=== PATIENT | male | born 1965 | race Caucasian/White ===

== ENCOUNTER → 2018-08-22 | Outpatient (CLI) | payer MEDICARE ==
[2018-08-22 17:46] LABS: Blood Urea Nitrogen 20 mg/dL (9-20)
--- NOTE | 2018-08-23 18:58 | CT ---
EXAMINATION TYPE: CT chest w con DATE OF EXAM: 08/22/2018 COMPARISON: NONE HISTORY: SOB, enlarged lymph nodes CT DLP: 796 mGycm. Automated Exposure Control for Dose Reduction was Utilized. TECHNIQUE: CT scan of the thorax is performed following with IV Contrast, patient injected with 100 mL of Isovue 300. FINDINGS: LUNGS: The lungs are grossly clear, there is no concerning parenchymal mass. Scattered areas of subse gmental atelectasis are seen throughout the lungs. Solitary right lung bleb is noted. However there i s a 5 mm pulmonary nodule within the left upper lobe on series 4 image 24. There is no pleural effusi on or pneumothorax seen. The tracheobronchial tree is patent. MEDIASTINUM: There is a mildly enlarged right hilar lymph node measuring 1.2 cm in short axis. There are no other greater than 1 cm hilar or mediastinal lymph nodes. No pericardial effusion is seen. H eart is mildly enlarged. Moderate three-vessel coronary artery calcifications are seen. The aortic ro ot is mildly enlarged measuring 4.3 cm on series 5 image 52. OTHER: Small hiatal hernia is present. Incidental note is made of a subcentimeter splenule. Mild mult ilevel degenerative changes of the spine are noted. IMPRESSION: 1. Very mildly enlarged right hilar lymph node, possibly reactive. Overall this is of low suspicion. 2. Mildly aneurysmal aortic root measuring 4.3 cm. 3. Solitary 5 mm left upper lobe pulmonary nodule. Follow-up CT is recommended in 12 months to ensure stability.
== END | disposition home or self-care (01) ==
LOC: RADCTMAIN 16:58
PROVIDERS: ATTEND Family Medicine
DX: Q25.43 Congenital aneurysm of aorta (principal); R91.1 Solitary pulmonary nodule
CPT/HCPCS: 82565; 84520; 71260; 36415; Q9967

== ENCOUNTER 2018-10-05 12:44 | Inpatient (IN) | payer MEDICARE ==
[2018-10-05] MEDS ORDERED: ASPIRIN 81 MG PO STA (12:58)
[2018-10-05] MEDS ORDERED: SODIUM CHLORIDE 0.9% 1,000 ML IV STA (12:58)
[2018-10-05 13:50] LABS: ALT 23 U/L (21-72); AST 21 U/L (17-59); Albumin 3.8 g/dL (3.5-5.0); Alkaline Phosphatase 90 U/L (38-126); Anion Gap 12 mmol/L; Blood Urea Nitrogen 12 mg/dL (9-20); Calcium 9.4 mg/dL (8.4-10.2); Carbon Dioxide 20 mmol/L (22-30); Chloride 102 mmol/L (98-107); Glucose 271 mg/dL (74-99); Lipase 76 U/L (23-300); Magnesium 1.8 mg/dL (1.6-2.3); Potassium 4.4 mmol/L (3.5-5.1); Sodium 134 mmol/L (137-145); Total Bilirubin 1.1 mg/dL (0.2-1.3); Total Protein 7.4 g/dL (6.3-8.2)
[2018-10-05 13:53] LABS: Creatine Kinase 39 U/L (55-170)
[2018-10-05 13:57] LABS: Basophils # (A) 0.1 k/uL (0-0.2); Basophils % (A) 0 %; Eosinophils # (A) 0.1 k/uL (0-0.7); Eosinophils % (A) 1 %; HCT 49.3 % (39.0-53.0); HGB 16.2 gm/dL (13.0-17.5); Lymphocytes # (A) 1.6 k/uL (1.0-4.8); Lymphocytes % (A) 9 %; MCH 28.1 pg (25.0-35.0); MCHC 32.7 g/dL (31.0-37.0); Mean Platelet Volume 7.4; Monocytes % (A) 5 %; Neutrophils # (A) 15.8 k/uL (1.3-7.7); Neutrophils % (A) 83 %; Platelet Count 271 k/uL (150-450); RBC 5.74 m/uL (4.30-5.90); RDW 13.5 % (11.5-15.5); WBC 18.9 k/uL (3.8-10.6)
[2018-10-05 14:01] LABS: INR 1.1 (<1.2); Partial Thromboplastin Time 24.5 sec (22.0-30.0); Prothrombin Time 10.3 sec (9.0-12.0)
--- NOTE | 2018-10-05 14:02 | XR ---
EXAMINATION TYPE: XR chest 2V DATE OF EXAM: 10/05/2018 HISTORY: Chest Pain. REFERENCE: NONE. FINDINGS: The heart is mildly enlarged. The lungs are clear. Pleural spaces are clear. IMPRESSION: MILD CARDIOMEGALY.
[2018-10-05 14:06] LABS: Creatine Kinase MB 0.5 ng/mL (0.0-2.4); Troponin I <0.012 ng/mL (0.000-0.034)
[2018-10-05 14:08] LABS: D-Dimer 0.71 mg/L FEU (<0.60)
--- NOTE | 2018-10-05 14:42 | US ---
EXAMINATION TYPE: US venous doppler duplex LE LT DATE OF EXAM: 10/05/2018 2:26 PM COMPARISON: CLINICAL HISTORY: Pain. Left leg pain. Prominent veins seen on lateral leg superior to knee. No blo od thinners. Hx DVT on right leg. No redness or swelling. SIDE PERFORMED: Left TECHNIQUE: The lower extremity deep venous system is examined utilizing real time linear array sonog jordin with graded compression, doppler sonography and color-flow sonography. VESSELS IMAGED: External Iliac Vein (EIV) Common Femoral Vein Deep Femoral Vein Greater Saphenous Vein * Femoral Vein Popliteal Vein Small Saphenous Vein * Proximal Calf Veins (* superficial vessels) Left Leg: Negative for DVT. Prominent lymph nodes seen in groin, largest- 3.9 x 2.2 x 1.7 cm. Area of visual bulging scanned. Superficial veins seen, patent and compressible. IMPRESSION: 1. Left lower extremity negative for deep venous thrombosis. 2. Left inguinal adenopathy measuring approximately 2 x 2 x 4 cm. 3. Large varicose veins within the superficial leg superior to the knee.
--- NOTE | 2018-10-05 15:02 | ED ---
Chest Pain HPI - General Chief Complaint: Chest Pain Stated Complaint: Chest Pressure, Hot/Cold Flashes Time Seen by Provider: 10/05/18 12:58 Source: patient, RN notes reviewed Mode of arrival: ambulatory Limitations: no limitations - History of Present Illness Initial Comments: 53-year-old male presents to the emergency Department with multiple complaints. Patient primarily his chest pain. Patient states has been progressively getting worse. He states he noticed some shortness of breath associated with. Patient states he has history of hyperlipidemia, hypertension, diabetes and is a current smoker. Patient states the pain is in the central to left-sided. Patient also states that he's been having some abdominal issues including pain bloating gas. Patient has noted current dysuria or hematuria. He states his blood sugars have been out of control states that they have been up as high as 400s. Patient states that he just does not feel well feels that is not taking care of himself. - Related Data Home Medications Medication Instructions Recorded Confirmed Atorvastatin [Lipitor] 20 mg PO HS 10/05/18 10/05/18 Insulin Degludec [Tresiba 16 unit SQ DAILY 10/05/18 10/05/18 Flextouch U-200] Lisinopril 20 mg PO DAILY 10/05/18 10/05/18 Umeclidinium Brm/Vilanterol Tr 1 puff INHALATION DAILY 10/05/18 10/05/18 [Anoro Ellipta 62.5-25 Mcg INH] Wheat Dextrin [Benefiber] 1 packet PO DAILY 10/05/18 10/05/18 Allergies Allergy/AdvReac Type Severity Reaction Status Date / Time No Known Allergies Allergy Verified 10/05/18 14:46 Review of Systems ROS Statement: Those systems with pertinent positive or pertinent negative responses have been documented in the HPI. ROS Other: All systems not noted in ROS Statement are negative. EKG Findings - EKG Comments: EKG Findings:: EKG performed at 13:19 sinus rhythm with PVCs, rate 91 CA interval 186 QRS 96 QT/QTC 338/450 Past Medical History Past Medical History: Diabetes Mellitus, Hypertension Additional Past Medical History / Comment(s): heart murmur History of Any Multi-Drug Resistant Organisms: None Reported Past Surgical History: No Surgical Hx Reported Past Psychological History: No Psychological Hx Reported Smoking Status: Current some day smoker Past Alcohol Use History: None Reported Past Drug Use History: Marijuana General Exam Limitations: no limitations General appearance: alert, in no apparent distress Head exam: Present: atraumatic, normocephalic, normal inspection Eye exam: Present: normal appearance, PERRL, EOMI. Absent: scleral icterus, conjunctival injection, periorbital swelling ENT exam: Present: normal exam, normal oropharynx, mucous membranes moist Neck exam: Present: normal inspection, full ROM. Absent: tenderness, meningismus, lymphadenopathy Respiratory exam: Present: normal lung sounds bilaterally. Absent: respiratory distress, wheezes, rales, rhonchi, stridor Cardiovascular Exam: Present: normal rhythm, tachycardia, normal heart sounds. Absent: systolic murmur, diastolic murmur, rubs, gallop, clicks GI/Abdominal exam: Present: soft, tenderness (Mild diffuse), normal bowel sounds. Absent: distended, guarding, rebound, rigid Back exam: Absent: CVA tenderness (R), CVA tenderness (L) Skin exam: Present: warm, dry, intact, normal color. Absent: rash Course Vital Signs 10/05/18 10/05/18 10/05/18 12:51 15:30 16:00 Temperature 98.6 F Pulse Rate 104 H 96 99 Respiratory 20 16 16 Rate Blood Pressure 98/65 104/88 112/79 O2 Sat by Pulse 98 97 98 Oximetry Disposition Clinical Impression: Chest pain, Hyperglycemia, Uncontrolled diabetes mellitus Disposition: ADMITTED IP TO THIS HOSP Condition: Fair Referrals: Gema Stone DO [Primary Care Provider] - 1-2 days
--- NOTE | 2018-10-05 16:18 | CT ---
CT CHEST FOR PULMONARY EMBOLISM. EXAMINATION TYPE: CT chest angio for PE DATE OF EXAM: 10/05/2018 INDICATION: Shortness of breath and chest pressure CT DLP: 592.9 mGycm, Automated exposure control for dose reduction was used. CONTRAST: Patient injected with 100 mL of Isovue 370. COMPARISON: None TECHNIQUE: CT of the chest is performed on a spiral scan at 2 mm thick sections. Study is performed with intravenous contrast timed for evaluation for pulmonary embolism. This will limit additional po rtions of the evaluation. 3-D MIP imaging is performed. FINDINGS: No persistent filling defects are evident to suggest an acute pulmonary embolism. No mediastinal or hilar adenopathy enlarged by CT criteria is evident. The ascending aorta diameter at the level of the main pulmonary artery is 3.7 cm. The main pulmonary artery diameter at the bifur cation is 3.6 cm. No right heart strain is evident. Lung windows are clear. Limited CT section through the upper abdomen are unremarkable. IMPRESSIONS: 1. No acute pulmonary embolism.
[2018-10-05] MEDS ORDERED: NITROGLYCERIN SL TABS 0.4 MG TAB SUBLINGUAL PRN (16:24)
[2018-10-05] MEDS ORDERED: HEPARIN SODIUM,PORCINE 5,000 UNIT/ML 1 ML VIAL IV ONE (16:24)
[2018-10-05 16:37] LABS: Appearance,Urine Clear (Clear); Bilirubin,Urine Negative (Negative); Blood,Urine Negative (Negative); Color,Urine Yellow; Glucose,Urine (UA) 4+ (Negative); Leukocyte Esterase,Urine Negative (Negative); Nitrite,Urine Negative (Negative); Protein,Urine Trace (Negative); Urobilinogen,Urine <2.0 mg/dL (<2.0)
[2018-10-05 16:39] LABS: Ketones,Urine 2+ (Negative); Specific Gravity,Urine >1.050 (1.001-1.035)
[2018-10-05] MEDS: HEPARIN SOD,PORK IN 0.45% NACL 25,000 UNIT in 0.45% NACL 1 500ML.BAG IV SCH (17:48)
[2018-10-05] MEDS: INSULIN ASPART 100 UNIT/ML 1 ML 10 ML VIAL SQ SCH ×2 (18:51→21:00)
[2018-10-05 19:18] LABS: Creatine Kinase 36 U/L (55-170)
[2018-10-05 19:29] LABS: Creatine Kinase MB 0.5 ng/mL (0.0-2.4); Troponin I <0.012 ng/mL (0.000-0.034)
[2018-10-05] MEDS ORDERED: SIMETHICONE 80 MG CHEWABLE PO ONE (20:24)
[2018-10-05 20:45] LABS: Glucose,Whole Blood 284 mg/dL (75-99)
[2018-10-05] MEDS: ATORVASTATIN 20 MG TAB PO SCH (21:00)
[2018-10-06 01:35] LABS: Creatine Kinase 36 U/L (55-170)
[2018-10-06 01:46] LABS: Creatine Kinase MB 0.4 ng/mL (0.0-2.4); Troponin I <0.012 ng/mL (0.000-0.034)
[2018-10-06] MEDS: HEPARIN SODIUM,PORCINE 5,000 UNIT/ML 1 ML VIAL IV PRN ×3 (01:55→17:43)
[2018-10-06 06:40] LABS: Glucose,Whole Blood 189 mg/dL (75-99)
[2018-10-06] MEDS: INSULIN ASPART 100 UNIT/ML 1 ML 10 ML VIAL SQ SCH ×4 (09:02→21:39)
[2018-10-06 09:56] LABS: Basophils # (A) 0.1 k/uL (0-0.2); Basophils % (A) 1 %; Eosinophils # (A) 0.3 k/uL (0-0.7); Eosinophils % (A) 2 %; HCT 45.8 % (39.0-53.0); HGB 15.2 gm/dL (13.0-17.5); Lymphocytes # (A) 2.2 k/uL (1.0-4.8); Lymphocytes % (A) 13 %; MCH 28.7 pg (25.0-35.0); MCHC 33.2 g/dL (31.0-37.0); MCV 86.6 fL (80.0-100.0); Mean Platelet Volume 7.3; Monocytes % (A) 6 %; Neutrophils # (A) 13.5 k/uL (1.3-7.7); Neutrophils % (A) 78 %; Platelet Count 255 k/uL (150-450); RBC 5.29 m/uL (4.30-5.90); RDW 13.6 % (11.5-15.5); WBC 17.4 k/uL (3.8-10.6)
[2018-10-06 10:03] LABS: ALT 21 U/L (21-72); AST 15 U/L (17-59); Albumin 3.2 g/dL (3.5-5.0); Alkaline Phosphatase 88 U/L (38-126); Anion Gap 8 mmol/L; Blood Urea Nitrogen 10 mg/dL (9-20); Calcium 8.7 mg/dL (8.4-10.2); Carbon Dioxide 25 mmol/L (22-30); Chloride 104 mmol/L (98-107); Glucose 201 mg/dL (74-99); Potassium 4.4 mmol/L (3.5-5.1); Sodium 137 mmol/L (137-145); Total Bilirubin 0.9 mg/dL (0.2-1.3); Total Protein 6.4 g/dL (6.3-8.2)
[2018-10-06] MEDS: ASPIRIN 325 MG TAB PO SCH (10:52)
[2018-10-06 11:00] LABS: Cholesterol 101 mg/dL (<200); HDL Cholesterol 25 mg/dL (40-60); LDL Cholesterol,Calculated 58 mg/dL (0-99); Triglycerides 89 mg/dL (<150)
--- NOTE | 2018-10-06 11:02 | ECHOF ---
Referral Reason:cp, murmur MEASUREMENTS -------- HEIGHT: 175.3 cm WEIGHT: 115.7 kg BP: 110/69 IVSd: 1.8 cm (0.6 - 1.1) LVIDd: 5.4 cm (3.9 - 5.3) LVPWd: 1.7 cm (0.6 - 1.1) IVSs: 2.8 cm LVIDs: 2.9 cm LVPWs: 2.4 cm LAESV Index (A-L): 81.74 ml/m Ao Diam: 3.9 cm (2.0 - 3.7) AV Cusp: 2.6 cm (1.5 - 2.6) LA Diam: 4.3 cm (2.7 - 3.8) MV EXCURSION: 40.803 mm (> 18.000) MV EF SLOPE: 57 mm/s (70 - 150) EPSS: 0.5 cm MV E Vishal: 1.08 m/s MV DecT: 250 ms MV A Vishal: 0.59 m/s MV E/A Ratio: 1.85 RAP: 5.00 mmHg RVSP: 15.39 mmHg FINDINGS -------- Sinus rhythm. This was a technically good study. The left ventricular size is normal. There is severe concentric left ventricular hypertrophy. Ove rall left ventricular systolic function is normal with, an EF between 55 - 60 %. The right ventricle is normal in size and function. LA is severely dilated >40 ml/m2 The right atrium is normal in size. Aortic valve is trileaflet and is mildly thickened. There is mild aortic valve sclerosis. Severe mitral regurgitation is present , predominately an anteriorly directed jet. Severe prolapse/ partial flail of the posterior mitral valve leaflet. Mild tricuspid regurgitation present. The right ventricular systolic pressure, as measured by Doppl er, is 15.39mmHg. Pulmonic valve appears structurally normal. The aortic root is dilated measuring 3.9 cm. Normal inferior vena cava with normal inspiratory collapse consistent with estimated right atrial pre ssure of 5 mmHg. The pericardium is normal. CONCLUSIONS -------- 1. Sinus rhythm. 2. This was a technically good study. 3. The left ventricular size is normal. 4. There is severe concentric left ventricular hypertrophy. 5. Overall left ventricular systolic function is normal with, an EF between 55 - 60 %. 6. The right ventricle is normal in size and function. 7. LA is severely dilated >40 ml/m2 8. The right atrium is normal in size. 9. Aortic valve is trileaflet and is mildly thickened. 10. There is mild aortic valve sclerosis. 11. Severe mitral regurgitation is present. 12. , predominately an anteriorly directed jet. 13. Severe prolapse/partial flail of the posterior mitral valve leaflet. 14. Mild tricuspid regurgitation present. 15. The right ventricular systolic pressure, as measured by Doppler, is 15.39mmHg. 16. Pulmonic valve appears structurally normal. 17. The aortic root is dilated measuring 3.9 cm. 18. Normal inferior vena cava with normal inspiratory collapse consistent with estimated right atrial pressure of 5 mmHg. 19. The pericardium is normal. CELL BIOLOGY SCIENTIST: Dorinda Gold RDCS
--- NOTE | 2018-10-06 11:02 | P.HPIM ---
History of Present Illness H&P Date: 10/06/18 Chief Complaint: Chest pain This is a 53-year-old male patient of Dr. Stone who presented to the emergency room with complaints of chest pain. Patient stated chest pain started approximately 1 week ago and has been intermittent. Patient does state that pain has become significantly worse over the past 2 days promting him to come to the emergency room. Patient has a known past medical history of diabetes mellitus, essential hypertension and heart murmur. Patient also reports he smokes 1-2 packs of cigarettes per day. Chest x-ray completed showing mild cardiomegaly. CTA completed showing no acute pulmonary embolism. Patient also complaining of left leg pain. Venous Doppler completed and was negative for left lower extremity DVT but did show left inguinal adenopathy measuring approximately 224 cm. Large varicose veins within the superficial legs superior to the knee. Troponins negative. EKG showing sinus rhythm with occasional premature ventricular complexes. Cardiology services have been consulted. Review of Systems Please refer to HPI otherwise unremarkable Past Medical History Past Medical History: Diabetes Mellitus, Deep Vein Thrombosis (DVT), Hypertension Additional Past Medical History / Comment(s): heart murmur History of Any Multi-Drug Resistant Organisms: None Reported Past Surgical History: No Surgical Hx Reported Past Anesthesia/Blood Transfusion Reactions: No Reported Reaction Past Psychological History: No Psychological Hx Reported Smoking Status: Current some day smoker Past Alcohol Use History: None Reported Additional Past Alcohol Use History / Comment(s): smokes 2 packs per day Past Drug Use History: Marijuana - Past Family History Mother History Unknown: Yes Father History Unknown: Yes Brother(s) History Unknown: Yes Sister(s) Family Medical History: Diabetes Mellitus Daughter(s) Family Medical History: Seizure Disorder Son(s) Family Medical History: No Reported History Medications and Allergies Home Medications Medication Instructions Recorded Confirmed Type Atorvastatin [Lipitor] 20 mg PO HS 10/05/18 10/05/18 History Insulin Degludec [Tresiba 16 unit SQ DAILY 10/05/18 10/05/18 History Flextouch U-200] Lisinopril 20 mg PO DAILY 10/05/18 10/05/18 History Umeclidinium Brm/Vilanterol Tr 1 puff INHALATION DAILY 10/05/18 10/05/18 History [Anoro Ellipta 62.5-25 Mcg INH] Wheat Dextrin [Benefiber] 1 packet PO DAILY 10/05/18 10/05/18 History Allergies Allergy/AdvReac Type Severity Reaction Status Date / Time No Known Allergies Allergy Verified 10/05/18 14:46 Physical Exam Vitals: Vital Signs Temp Pulse Pulse Resp BP BP Pulse Ox 10/06/18 08:00 79 18 10/06/18 07:10 98.1 F 79 18 96/56 95 10/06/18 03:59 18 10/06/18 03:48 98.4 F 83 18 110/69 99 10/06/18 00:00 98.7 F 92 18 134/76 95 10/05/18 19:47 20 10/05/18 19:37 98.6 F 88 20 165/75 95 10/05/18 17:43 86 18 123/64 96 10/05/18 16:30 96 16 125/70 94 L 10/05/18 16:00 99 16 112/79 98 10/05/18 15:30 96 16 104/88 97 10/05/18 12:51 98.6 F 104 H 20 98/65 98 Intake and Output 10/05/18 10/06/18 10/06/18 22:59 06:59 14:59 Intake Total 160.253 Balance 160.253 Intake: Intake, IV Titration 160.253 Amount Heparin Sod,Pork in 0.45% 160.253 NaCl 25,000 unit In 0.45 % NaCl 1 500ml.bag @ 8.51 UNITS/KG/HR 19.99 mls/hr IV .Q24H [facility] Rx#: [id number] Other: Voiding Method Toilet Toilet Toilet # Voids 2 Weight 115.8 kg Head normocephalic Neck supple Lungs clear to auscultation bilaterally no wheezing or crackles Heart regular rate and rhythm S1-S2, no rub or gallop Abdomen is soft nontender nondistended positive bowel sounds no hepatosplenomegaly Extremities no edema Neuro alert and orientated to 3 Results CBC & Chem 7: 10/06/18 09:18 10/06/18 09:18 Labs: Abnormal Lab Results - Last 24 Hours (Table) 10/05/18 10/05/18 10/05/18 Range/Units 13:25 13:25 13:25 WBC 18.9 H (3.8-10.6) k/uL Neutrophils # 15.8 H (1.3-7.7) k/uL D-Dimer (<0.60) mg/L FEU Sodium 134 L (137-145) mmol/L Carbon Dioxide 20 L (22-30) mmol/L Creatinine 0.48 L (0.66-1.25) mg/dL Glucose 271 H (74-99) mg/dL POC Glucose (mg/dL) (75-99) mg/dL AST (17-59) U/L Total Creatine Kinase 39 L (55-170) U/L Albumin (3.5-5.0) g/dL Ur Specific [place] (1.001-1.035) Urine Protein (Negative) Urine Glucose (UA) (Negative) Urine Ketones (Negative) 10/05/18 10/05/18 10/05/18 Range/Units 13:25 16:20 18:30 WBC (3.8-10.6) k/uL Neutrophils # (1.3-7.7) k/uL D-Dimer 0.71 H (<0.60) mg/L FEU Sodium (137-145) mmol/L Carbon Dioxide (22-30) mmol/L Creatinine (0.66-1.25) mg/dL Glucose (74-99) mg/dL POC Glucose (mg/dL) (75-99) mg/dL AST (17-59) U/L Total Creatine Kinase 36 L (55-170) U/L Albumin (3.5-5.0) g/dL Ur Specific [place] >1.050 H (1.001-1.035) Urine Protein Trace H (Negative) Urine Glucose (UA) 4+ H (Negative) Urine Ketones 2+ H (Negative) 10/05/18 10/06/18 10/06/18 Range/Units 20:39 00:25 06:38 WBC (3.8-10.6) k/uL Neutrophils # (1.3-7.7) k/uL D-Dimer (<0.60) mg/L FEU Sodium (137-145) mmol/L Carbon Dioxide (22-30) mmol/L Creatinine (0.66-1.25) mg/dL Glucose (74-99) mg/dL POC Glucose (mg/dL) 284 H 189 H (75-99) mg/dL AST (17-59) U/L Total Creatine Kinase 36 L (55-170) U/L Albumin (3.5-5.0) g/dL Ur Specific [place] (1.001-1.035) Urine Protein (Negative) Urine Glucose (UA) (Negative) Urine Ketones (Negative) 10/06/18 10/06/18 Range/Units 09:18 09:18 WBC 17.4 H (3.8-10.6) k/uL Neutrophils # 13.5 H (1.3-7.7) k/uL D-Dimer (<0.60) mg/L FEU Sodium (137-145) mmol/L Carbon Dioxide (22-30) mmol/L Creatinine 0.47 L (0.66-1.25) mg/dL Glucose 201 H (74-99) mg/dL POC Glucose (mg/dL) (75-99) mg/dL AST 15 L (17-59) U/L Total Creatine Kinase (55-170) U/L Albumin 3.2 L (3.5-5.0) g/dL Ur Specific [place] (1.001-1.035) Urine Protein (Negative) Urine Glucose (UA) (Negative) Urine Ketones (Negative) Thrombosis Risk Factor Assmnt - Choose All That Apply Any of the Below Risk Factors Present?: Yes Each Factor Represents 1 point: Age 41-60 years, Obesity (BMI >25), Varicose veins Other Risk Factors: Yes Each Risk Factor Represents 3 Points: History of DVT/PE Other congenital or acquired thrombophilia - If yes, enter type in comment: No Thrombosis Risk Factor Assessment Total Risk Factor Score: 6 Thrombosis Risk Factor Assessment Level: High Risk Assessment and Plan Assessment: 1. Chest pain. Troponins negative. CTA negative for pulmonary embolism. EKG completed showing sinus rhythm with occasional premature ventricular complexes. Patient started on heparin drip and cardiology services consulted. 2. Diabetes mellitus type 2 with hyperglycemia. Sliding scale insulin ordered. Hemoglobin A1c has been ordered 3. Left leg pain. Doppler of left leg negative for DVT. Did show left inguinal adenopathy measuring approximate 22 temps worsen remains. Large varicose veins in the superficial leg superior to the knee. 4. Leukocytosis. White blood cell 17.6. Patient denies any upper respiratory symptoms. Patient denies any nausea vomiting or diarrhea. denies any urinary symptoms. Chest x-ray completed showing mild cardiomegaly. Urine culture ordered 5. History of deep vein thrombosis. Doppler negative for DVT. Patient not currently on any anticoagulation 6. History of nicotine dependence. Patient educated greater than 3 minutes on smoking cessation. Nicotine patch ordered. 7. Essential hypertension. Medications resumed Time with Patient: Greater than 30 (Greater than 60% of the total time spent in counseling and coordination of care. I performed an examination of the patient and discussed their management with the Nurse Practitioner. I have reviewed the Nurse Practitioner's notes and agree with the documented findings and plan of care)
[2018-10-06] MEDS ORDERED: ALPRAZolam 0.25 MG TAB PO PRN (11:59)
[2018-10-06] MEDS ORDERED: ALPRAZolam 0.5 MG TAB PO PRN (11:59)
[2018-10-06] MEDS ORDERED: SODIUM CHLORIDE 0.9% 1,000 ML in EMPTY BAG 1 BAG IV ONE (11:59)
[2018-10-06 12:06] LABS: Glucose,Whole Blood 273 mg/dL (75-99)
[2018-10-06] MEDS: SIMETHICONE 80 MG CHEWABLE PO PRN ×2 (12:26→20:29)
[2018-10-06] MEDS: METOPROLOL TARTRATE 25 MG TAB PO SCH ×2 (12:26→20:30)
--- NOTE | 2018-10-06 12:41 | P.CRDCN ---
History of Present Illness History of present illness: This is a pleasant 53-year-old male past medical history significant for hypertension, dyslipidemia, diabetes mellitus, rheumatic fever as a child with known murmur per the patient. 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 He states he just recently moved to the area from [place], [place]. We have been asked to see him in consultation for chest pain. He states for the previous week or so he's been feeling a pressure in the midsternal region. He described it as a burning gas sensation. He has been drinking vinegar all week and getting some relief. Although the pain continues to come back. He feels it is worse with exertion and described as a gas sensation. He denies shortness of breath, dizziness, nausea, vomiting or diaphoresis. At the time of my exam is seen and examined resting comfortably in no acute distress. EKG reveals sinus mechanism with no acute ST or T-wave abnormalities. Chest x-ray reveals evidence of cardiomegaly with no acute cardiopulmonary process. CTA chest negative for pulmonary embolism with ascending aorta 3.7 cm. Laboratory data reviewed, WBC 17.4 was 18.9 on admission, hemoglobin 15.2, platelets 255, d-dimer 0.71, sodium 137, potassium 4.4, creatinine 0.47, cardiac enzymes negative 3, LDL 58 and HDL 25. Current cardiac medications include atorvastatin 20 mg daily, lisinopril 20 mg daily. At the time of my exam: CONSTITUTIONAL: Denies fever. Denies chills. EYES: Denies blurred vision. Denies vision changes. Denies eye pain. EARS, NOSE, MOUTH & THROAT: Denies headache. Denies sore throat. Denies ear pain. CARDIOVASCULAR: Denies chest pain. Denies shortness of breath. Denies orthopnea. Denies PND. Denies palpitations. RESPIRATORY: Denies cough. GASTROINTESTINAL: Denies abdominal pain. Denies diarrhea. Denies constipation. Denies nausea. Denies vomiting. MUSCULOSKELETAL: Denies myalgias. INTEGUMENTARY: Denies pruitis. Denies rash. NEUROLOGIC: Denies numbness. Denies tingling. Denies weakness. PSYCHIATRIC: Denies anxiety. Denies depression. ENDOCRINE: Denies fatigue. Denies weight change. Denies polydipsia. Denies polyurina. GENITOURINARY: Denies burning, hematuria or urgency with micturation. HEMATOLOGIC: Denies history of anemia. Denies bleeding. Blood pressure 110/60 587 afebrile maintaining oxygen saturation on room air GENERAL: This is a 53-year-old male in no apparent distress at the time of my examination. HEENT: Head is atraumatic, normocephalic. Pupils are equal, round. Sclerae anicteric. Conjunctivae are clear. Mucous membranes of the mouth are moist. Neck is supple. There is no jugular venous distention. No carotid bruit is heard. LUNGS: Clear to auscultation no wheezes, rales or rhonchi. No chest wall tenderness is noted on palpation or with deep breathing. HEART: Regular rate and rhythm with significant systolic ejection murmur heard at all listening points worse at the apex. rubs or gallops. S1 and S2 heard. ABDOMEN: Soft, nontender. Bowel sounds are heard. No organomegaly noted. EXTREMITIES: No evidence of peripheral edema and no calf tenderness noted. VASCULAR: Radial and dorsalis pedis pulses palpated, no evidence of clubbing. NEUROLOGIC: Patient is awake, alert and oriented x3. ASSESSMENT Unstable angina Mitral regurgitation with history of rheumatic fever Hypertension Diabetes mellitus Chronic nicotine dependence Obesity PLAN 2D echocardiogram has been obtained and reviewed, indicate severe mitral regurgitation with prolapse/flail posterior valve on echo. Recommend proceeding with BELKIS to further assess the valve. Also recommend he undergo cardiac catheterization to further assess the coronary arteries. Add him on small dose of beta tico, lopressor 25 mg BID. Continue lisinopril , atorvastatin and aspirin. NPO after midnight tonight for procedures tomorrow with Dr. Bhatt. I have discussed the risks, benefits and alternative therapies for the above- mentioned procedure and for both sedation/analgesia as well as necessary blood product administration, if indicated, as they pertain to this patient. The patient has indicated understanding and acceptance of the risks and procedures discussed. Questions have been answered appropriately and he is agreeable to move forward with above stated procedures. Further recommendations to follow based on clinical course. Thank you kindly for this consultation. Nurse Practitioner note has been reviewed, I agree with a documented findings and plan of care. Patient was seen and examined. Past Medical History Past Medical History: Diabetes Mellitus, Deep Vein Thrombosis (DVT), Hypertension Additional Past Medical History / Comment(s): heart murmur History of Any Multi-Drug Resistant Organisms: None Reported Past Surgical History: No Surgical Hx Reported Past Anesthesia/Blood Transfusion Reactions: No Reported Reaction Past Psychological History: No Psychological Hx Reported Smoking Status: Current some day smoker Past Alcohol Use History: None Reported Additional Past Alcohol Use History / Comment(s): smokes 2 packs per day Past Drug Use History: Marijuana - Past Family History Mother History Unknown: Yes Father History Unknown: Yes Brother(s) History Unknown: Yes Sister(s) Family Medical History: Diabetes Mellitus Daughter(s) Family Medical History: Seizure Disorder Son(s) Family Medical History: No Reported History Medications and Allergies Home Medications Medication Instructions Recorded Confirmed Type Atorvastatin [Lipitor] 20 mg PO HS 10/05/18 10/05/18 History Insulin Degludec [Tresiba 16 unit SQ DAILY 10/05/18 10/05/18 History Flextouch U-200] Lisinopril 20 mg PO DAILY 10/05/18 10/05/18 History Umeclidinium Brm/Vilanterol Tr 1 puff INHALATION DAILY 10/05/18 10/05/18 History [Anoro Ellipta 62.5-25 Mcg INH] Wheat Dextrin [Benefiber] 1 packet PO DAILY 10/05/18 10/05/18 History Allergies Allergy/AdvReac Type Severity Reaction Status Date / Time No Known Allergies Allergy Verified 10/05/18 14:46 Physical Exam Vitals: Vital Signs Temp Pulse Pulse Resp BP BP Pulse Ox 10/06/18 07:10 98.1 F 79 18 96/56 95 10/06/18 03:59 18 10/06/18 03:48 98.4 F 83 18 110/69 99 10/06/18 00:00 98.7 F 92 18 134/76 95 10/05/18 19:47 20 10/05/18 19:37 98.6 F 88 20 165/75 95 10/05/18 17:43 86 18 123/64 96 10/05/18 16:30 96 16 125/70 94 L 10/05/18 16:00 99 16 112/79 98 10/05/18 15:30 96 16 104/88 97 10/05/18 12:51 98.6 F 104 H 20 98/65 98 Intake and Output 10/05/18 10/06/18 10/06/18 22:59 06:59 14:59 Intake Total 160.253 Balance 160.253 Intake: Intake, IV Titration 160.253 Amount Heparin Sod,Pork in 0.45% 160.253 NaCl 25,000 unit In 0.45 % NaCl 1 500ml.bag @ 8.51 UNITS/KG/HR 19.99 mls/hr IV .Q24H [facility] Rx#: [id number] Other: Voiding Method Toilet Toilet # Voids 2 Weight 115.8 kg Results 10/06/18 09:18 10/06/18 09:18 Cardiac Enzymes 10/05/18 10/05/18 10/05/18 Range/Units 13:25 13:25 18:30 AST 21 (17-59) U/L CK-MB (CK-2) 0.5 0.5 (0.0-2.4) ng/mL Troponin I <0.012 <0.012 (0.000-0.034) ng/mL 10/06/18 Range/Units 00:25 AST (17-59) U/L CK-MB (CK-2) 0.4 (0.0-2.4) ng/mL Troponin I <0.012 (0.000-0.034) ng/mL Coagulation 10/05/18 10/06/18 Range/Units 13:25 00:25 PT 10.3 (9.0-12.0) sec APTT 24.5 26.6 (22.0-30.0) sec CBC 10/05/18 Range/Units 13:25 WBC 18.9 H (3.8-10.6) k/uL RBC 5.74 (4.30-5.90) m/uL Hgb 16.2 (13.0-17.5) gm/dL Hct 49.3 (39.0-53.0) % Plt Count 271 (150-450) k/uL Comprehensive Metabolic Panel 10/05/18 Range/Units 13:25 Sodium 134 L (137-145) mmol/L Potassium 4.4 (3.5-5.1) mmol/L Chloride 102 (98-107) mmol/L Carbon Dioxide 20 L (22-30) mmol/L BUN 12 (9-20) mg/dL Creatinine 0.48 L (0.66-1.25) mg/dL Glucose 271 H (74-99) mg/dL Calcium 9.4 (8.4-10.2) mg/dL AST 21 (17-59) U/L ALT 23 (21-72) U/L Alkaline Phosphatase 90 (38-126) U/L Total Protein 7.4 (6.3-8.2) g/dL Albumin 3.8 (3.5-5.0) g/dL Current Medications Generic Name Dose Route Start Last Admin Trade Name Freq PRN Reason Stop Dose Admin Aspirin 325 mg 10/06/18 09:00 Aspirin PO DAILY [facility] Atorvastatin Calcium 20 mg 10/05/18 21:00 10/05/18 21:00 Lipitor PO 20 mg HS [facility] Administration Heparin Sodium (Porcine) 0 unit 10/05/18 19:23 10/06/18 01:55 Heparin IV 4,000 unit PER PROTOCOL PRN Administration Low PTT Protocol Heparin Sodium/Sodium Chloride 500 mls @ 19.99 mls/hr 10/05/18 16:30 01:49 25,000 unit/ Sodium Chloride IV 11.51 units/kg/hr .Q24H [facility] 27.04 mls/hr Titration Protocol 8.51 UNITS/KG/HR Insulin Aspart 0 unit 10/05/18 17:30 10/05/18 21:00 Novolog SQ 7 unit ACHS [facility] Administration Protocol Nitroglycerin 0.4 mg 10/05/18 16:24 Nitrostat SUBLINGUAL Q5M PRN Chest Pain Intake and Output 10/05/18 10/06/18 10/06/18 22:59 06:59 14:59 Intake Total 160.253 Balance 160.253 Intake: Intake, IV Titration 160.253 Amount Heparin Sod,Pork in 0.45% 160.253 NaCl 25,000 unit In 0.45 % NaCl 1 500ml.bag @ 8.51 UNITS/KG/HR 19.99 mls/hr IV .Q24H [facility] Rx#: [id number] Other: Voiding Method Toilet Toilet # Voids 2 Weight 115.8 kg 10/05/18 13:25 10/05/18 13:25
[2018-10-06] MEDS ORDERED: SIMETHICONE 80 MG CHEWABLE PO SCH (13:00)
[2018-10-06] MEDS ORDERED: IOPAMIDOL-300 CONTRAST 30 ML VIAL (ORAL USE) PO PRN (14:05)
[2018-10-06] MEDS ORDERED: VANCOMYCIN IV PER PHARMACY 1 EACH MISC MISCELLANE PRN (14:38)
[2018-10-06] MEDS ORDERED: VANCOMYCIN 2,000 MG in SODIUM CHLORIDE 0.9% 500 ML 500 ML IVPB ONE (15:00)
[2018-10-06] MEDS: PIPERACILLIN-TAZOBACTAM 3.375 GM in SODIUM CHLORIDE 0.9% 100 ML IVPB SCH ×2 (16:17→23:34)
[2018-10-06] MEDS: HEPARIN SOD,PORK IN 0.45% NACL 25,000 UNIT in 0.45% NACL 1 500ML.BAG IV SCH ×2 (17:42→23:52)
[2018-10-06 18:06] LABS: Glucose,Whole Blood 189 mg/dL (75-99)
[2018-10-06 19:09] LABS: Hemoglobin A1C 10.8 % (4.0-6.0)
[2018-10-06] MEDS: ATORVASTATIN 20 MG TAB PO SCH (20:29)
[2018-10-06 21:23] LABS: Glucose,Whole Blood 300 mg/dL (75-99)
[2018-10-06] MEDS: VANCOMYCIN 2,000 MG in SODIUM CHLORIDE 0.9% 500 ML 500 ML IVPB SCH (23:34)
[2018-10-07] MEDS: HEPARIN SODIUM,PORCINE 5,000 UNIT/ML 1 ML VIAL IV PRN (00:53)
[2018-10-07] MEDS: METOPROLOL TARTRATE 25 MG TAB PO SCH ×2 (05:29→20:56)
[2018-10-07] MEDS: LISINOPRIL 20 MG TAB PO SCH (05:30)
[2018-10-07] MEDS: PANTOPRAZOLE 40 MG TABLET PO SCH (05:30)
[2018-10-07] MEDS: ASPIRIN 325 MG TAB PO SCH (05:30)
[2018-10-07] MEDS: ATORVASTATIN 20 MG TAB PO SCH (05:30)
[2018-10-07 06:42] LABS: Glucose,Whole Blood 219 mg/dL (75-99)
[2018-10-07] MEDS ORDERED: fentaNYL (PF) 50 MCG/ML 2 ML AMP ONE ×2 (07:09→09:01)
[2018-10-07] MEDS ORDERED: MIDAZOLAM 2 MG/2 ML VIAL ONE ×2 (07:10)
[2018-10-07] MEDS ORDERED: IV FLUID CONTINUATION 1,000 ML IV ONE (07:27)
[2018-10-07] MEDS ORDERED: LIDOCAINE 1% INJ 10MG/ML (20 ML MDV) ONE (07:38)
[2018-10-07] MEDS ORDERED: VERAPAMIL 2.5 MG/ML 2 ML AMP ONE (07:38)
[2018-10-07] MEDS ORDERED: BENZOCAINE SPRAY 1 CAN MUCOUS MEM ONE ×2 (08:03→08:20)
[2018-10-07] MEDS ORDERED: MIDAZOLAM 2 MG/2 ML VIAL IVP ONE (08:20)
[2018-10-07] MEDS ORDERED: fentaNYL (PF) 50 MCG/ML 2 ML AMP IVP ONE (08:26)
[2018-10-07] MEDS ORDERED: IV FLUID CONTINUATION 350 ML IV ONE (08:46)
[2018-10-07] MEDS ORDERED: SODIUM CHLORIDE 0.9% 1,000 ML IV ONE (08:46)
[2018-10-07] MEDS ORDERED: HEPARIN SODIUM 1,000 UN/ML (10ML VL) ONE (08:51)
[2018-10-07] MEDS ORDERED: LIDOCAINE 1% INJ 10MG/ML (20 ML MDV) SQ ONE (09:01)
[2018-10-07] MEDS: VERAPAMIL SYRINGE (5 MG/10 ML) INTRAARTER ONE ×2 (09:02→09:14)
[2018-10-07] MEDS ORDERED: fentaNYL (PF) 50 MCG/ML 2 ML AMP IV ONE (09:05)
[2018-10-07] MEDS ORDERED: HEPARIN SODIUM 1,000 UN/ML (10ML VL) IV ONE (09:05)
[2018-10-07] MEDS ORDERED: IOPAMIDOL-370 125ML BTL INJ ONE (09:14)
[2018-10-07] MEDS ORDERED: RX INFO: IV CONTRAST WAS GIVEN 1 EACH MISC MISCELLANE PRN (09:24)
[2018-10-07] MEDS ORDERED: SODIUM CHLORIDE 0.9% 1,000 ML IV SCH (09:30)
--- NOTE | 2018-10-07 09:52 | ECHOT ---
TRANSESOPHAGEAL ECHOCARDIOGRAM DATE OF SERVICE: 10/07/2018 PERFORMING PHYSICIAN: Mina Bhatt MD, pull over. PROCEDURE PERFORMED: Transesophageal echocardiogram. INDICATION: This is a pleasant 53-year-old gentleman who presented to the hospital with chest pain and shortness of breath and was found to have pansystolic murmur on physical examination. A transthoracic echocardiogram was performed and showed severe MR. A transesophageal echocardiogram for further evaluation of the mitral valve apparatus. COMPLICATION: None. LEVEL OF SEDATION: Moderate with sedation length of 10 minutes. PROCEDURE DESCRIPTION: After obtaining an informed consent, explaining the procedure, benefits, risks, complications and alternatives, the patient was brought to the transesophageal echocardiogram suite. A pulse oximetry and heart rate monitors were attached to the patient prior to the procedure. The patient's throat was sprayed using lidocaine locally. Following that, the patient was turned into left lateral position. A bite guard was placed and the patient was then sedated with the above doses of Versed and fentanyl in divided doses. Following that, the transesophageal echocardiogram probe was advanced through the bite guard into the mid esophagus where 2-D echocardiogram images as well as color Doppler images of various cardiac structures were obtained. We evaluated the interatrial septum using 2-D echocardiogram, color Doppler, and contrast study. The procedure was completed. There were no complications. FINDINGS: The left ventricular dimension and systolic function appeared to be within normal limits with EF about 50% to 55%. The right ventricle is of normal size and function. The left atrium appeared to be mildly dilated. The aortic valve is trileaflet valve without stenosis or regurgitation. The mitral valve is very thickened with evidence of flailing of the posterior mitral leaflet and severe mitral regurgitation with eccentric anterior jet. The tricuspid valve and pulmonic valve are within normal limits. The aortic root appeared to be within normal limits for dimension as well. The left atrial appendage appeared to be normal. The interatrial septum appeared to be intact. CONCLUSION: 1. of the P2 component of the posterior mitral leaflet with evidence of severe mitral regurgitation with anteriorly directed jet. The mitral regurgitation jet is swirling in the left atrium. 2. Normal left ventricular systolic function with an ejection fraction between 50% to 55%. 3. Trileaflet aortic valve without stenosis or regurgitation. 4. Normal tricuspid valve and pulmonic valve. 5. Intact interatrial septum without any evidence of shunt. 6. Normal left atrial appendage without any evidence of thrombus. POSTPROCEDURE MANAGEMENT: Evaluating the patient for mitral valve repair/replacement. MMODL / IJN: [id number] /
--- NOTE | 2018-10-07 09:52 | CC ---
CARDIAC CATHETERIZATION REPORT DATE OF SERVICE: 10/07/2018 PERFORMING PHYSICIAN: Mina Bhatt MD, Metal Casket Assembler. PROCEDURE PERFORMED: 1. Selective right and left coronary angiogram. 2. Left heart catheterization. 3. Left ventriculography. 4. Preop indication this is a pleasant 51-year-old gentleman who was diagnosed recently with severe MR and the heart catheterization to rule out any severe underlying coronary artery disease before mitral valve repair or replacement. APPROACH: Right radial artery. COMPLICATION: None. LEVEL OF SEDATION: Moderate sedation length of 18 minutes. PROCEDURE DESCRIPTION: After obtaining an informed consent, the patient was brought to the cardiac cardiovascular lab director. The right radial artery was cannulated using micropuncture technique and a micropuncture wire passed easily. Then I placed a 6-Urdu sheath in the right radial artery. After that, I did selective right and left coronary angiogram using JR4 and JL3.5 catheters. Left heart catheterization was performed using 5-Urdu pigtail catheter. Left ventriculography was performed using also the pigtail catheter. The procedure was completed without any complications. SELECTIVE CORONARY ANGIOGRAM: 1. The right coronary artery is a large caliber vessel. It is a dominant vessel. It has mild disease only in the midportion. It distally bifurcates into PDA and PLV branches, both appear to have mild disease only. 2. The left main is angiographically normal. It bifurcates into left circumflex and left anterior descending artery. 3. The circumflex is a large caliber vessel. It is a nondominant vessel. The proximal circumflex is angiographically normal. The mid circumflex is normal and gives rise into a large OM branch which appeared to be angiographically normal. The circumflex continued after that as a moderate caliber vessel in the AV groove. 4. The LAD, the proximal LAD appeared to have mild disease only. It gives rise into a first diagonal branch which has ostial lesion appeared to be in the range of 50%. The mid LAD appeared to have mild disease only and the LAD distally appeared to be angiographically normal. .. HEMODYNAMICS: The left ventricular end-diastolic pressure was about 16 mmHg without significant gradient across the aortic valve . Left ventriculography was performed in the MESSER projection and using a power injection. The left ventricular systolic function is about 50%-55%. About 2 to 3+ MR seen. CONCLUSION: 1. 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 2. Low normal left ventricular systolic function with ejection fraction of 50%. 3. A 2 to 3+ mitral regurgitation. POSTPROCEDURE MANAGEMENT: The patient will be evaluated for mitral valve repair/replacement. DENISE / THELMA: [id number] /
[2018-10-07] MEDS: VANCOMYCIN 2,000 MG in SODIUM CHLORIDE 0.9% 500 ML 500 ML IVPB SCH ×2 (10:38→16:48)
[2018-10-07] MEDS: PIPERACILLIN-TAZOBACTAM 3.375 GM in SODIUM CHLORIDE 0.9% 100 ML IVPB SCH ×3 (10:38→23:18)
[2018-10-07 11:18] VITALS: BMI 37.7
[2018-10-07] MEDS: INSULIN ASPART 100 UNIT/ML 1 ML 10 ML VIAL SQ SCH ×4 (11:25→20:56)
[2018-10-07] MEDS: NICOTINE 14MG/24HR PATCH TRANSDERM SCH (11:26)
[2018-10-07 12:22] LABS: Glucose,Whole Blood 261 mg/dL (75-99)
[2018-10-07 13:11] LABS: ALT 25 U/L (21-72); AST 15 U/L (17-59); Alkaline Phosphatase 73 U/L (38-126); Anion Gap 7 mmol/L; Blood Urea Nitrogen 9 mg/dL (9-20); Calcium 8.6 mg/dL (8.4-10.2); Carbon Dioxide 22 mmol/L (22-30); Chloride 106 mmol/L (98-107); Glucose 265 mg/dL (74-99); Potassium 4.5 mmol/L (3.5-5.1); Sodium 135 mmol/L (137-145); Total Bilirubin 0.6 mg/dL (0.2-1.3); Total Protein 6.1 g/dL (6.3-8.2)
--- NOTE | 2018-10-07 13:52 | P.PN ---
Subjective Progress Note Date: 10/07/18 This is a 53-year-old male patient of Dr. Stone who presented to the emergency room with complaints of chest pain. Patient stated chest pain started approximately 1 week ago and has been intermittent. Patient does state that pain has become significantly worse over the past 2 days promting him to come to the emergency room. Patient has a known past medical history of diabetes mellitus, essential hypertension and heart murmur. Patient also reports he smokes 1-2 packs of cigarettes per day. Chest x-ray completed showing mild cardiomegaly. CTA completed showing no acute pulmonary embolism. Patient also complaining of left leg pain. Venous Doppler completed and was negative for left lower extremity DVT but did show left inguinal adenopathy measuring approximately 224 cm. Large varicose veins within the superficial legs superior to the knee. Troponins negative. EKG showing sinus rhythm with occasional premature ventricular complexes. Cardiology services have been consulted. Patient also noted to have perianal boils with drainage and swelling to left groin and testicle. Will start patient on Zosyn and vancomycin. Dr. rTan per infectious disease consulted. anerobic and aerboic cultures ordered. On 10/07/2018 the echo completed showing severe prolapse and partial flail of the posterior mitral valve leaflet. Per cardiology services patient underwent cardiac cath and BELKIS. At this time patient is resting comfortably in bed with no complaints. Patient denies chest pain or shortness of breath. Patient denies nausea vomiting or diarrhea. Patient denies any urinary burning or frequency. Perianal boils are still draining serosanngious fluid. Objective - Vital Signs Vital signs: Vital Signs Temp 98.0 F 10/07/18 09:35 Pulse 68 10/07/18 12:20 Resp 18 10/07/18 12:00 BP 121/59 10/07/18 12:20 Pulse Ox 93 L 10/07/18 12:20 Intake & Output 10/06/18 10/07/18 10/07/18 18:59 06:59 18:59 Intake Total 1011.747 591.930 350 Balance 1011.747 591.930 350 Weight 115.8 kg Intake: IV 200 50 Heparin Sod,Pork in 0.45% 200 NaCl 25,000 unit In 0.45 % NaCl 1 500ml.bag @ 8.51 UNITS/KG/HR 19.99 mls/hr IV .Q24H [facility] Rx#: [id number] Intake, IV Titration 339.747 391.930 Amount Heparin Sod,Pork in 0.45% 339.747 291.930 NaCl 25,000 unit In 0.45 % NaCl 1 500ml.bag @ 8.51 UNITS/KG/HR 19.99 mls/hr IV .Q24H [facility] Rx#: [id number] Piperacillin-Tazobactam 3 100 .375 gm In Sodium Chloride 0.9% 100 ml @ 25 mls/hr IVPB Q8HR [facility] Rx# :[id number] Oral [id number] 300 Other: Voiding Method Toilet Toilet Urinal # Voids 3 2 - Exam Head normocephalic Neck supple Lungs clear to auscultation bilaterally no wheezing or crackles Heart regular rate and rhythm S1-S2, no rub or gallop Abdomen is soft nontender nondistended positive bowel sounds no hepatosplenomegaly Extremities no edema. Mild Scrotal edema and left groin swelling noted. Large draining boil noted to perianal area Neuro alert and orientated to 3 - Labs CBC & Chem 7: 10/06/18 09:18 10/07/18 12:05 Labs: Abnormal Lab Results - Last 24 Hours (Table) 10/06/18 10/06/18 10/06/18 Range/Units 09:18 17:50 21:21 APTT (22.0-30.0) sec Sodium (137-145) mmol/L Creatinine (0.66-1.25) mg/dL Glucose (74-99) mg/dL POC Glucose (mg/dL) 189 H 300 H (75-99) mg/dL Hemoglobin A1c 10.8 H (4.0-6.0) % AST (17-59) U/L Total Protein (6.3-8.2) g/dL Albumin (3.5-5.0) g/dL 10/06/18 10/07/18 10/07/18 Range/Units 23:55 06:39 12:04 APTT 39.5 H (22.0-30.0) sec Sodium (137-145) mmol/L Creatinine (0.66-1.25) mg/dL Glucose (74-99) mg/dL POC Glucose (mg/dL) 219 H 261 H (75-99) mg/dL Hemoglobin A1c (4.0-6.0) % AST (17-59) U/L Total Protein (6.3-8.2) g/dL Albumin (3.5-5.0) g/dL 10/07/18 Range/Units 12:05 APTT (22.0-30.0) sec Sodium 135 L (137-145) mmol/L Creatinine 0.45 L (0.66-1.25) mg/dL Glucose 265 H (74-99) mg/dL POC Glucose (mg/dL) (75-99) mg/dL Hemoglobin A1c (4.0-6.0) % AST 15 L (17-59) U/L Total Protein 6.1 L (6.3-8.2) g/dL Albumin 3.0 L (3.5-5.0) g/dL Microbiology - Last 24 Hours (Table) 10/06/18 15:20 Gram Stain - Preliminary Other - Other Wound Culture - Preliminary Gram Neg Bacilli Strep agalactiae - (group b) 10/06/18 15:20 Anaerobic Culture - Preliminary Perineal Fluid 10/06/18 12:25 Urine Culture - Preliminary Urine,Voided Assessment and Plan Assessment: 1. Chest pain. Troponins negative. CTA negative for pulmonary embolism. EKG completed showing sinus rhythm with occasional premature ventricular complexes. Patient started on heparin drip and cardiology services consulted. 2-D echo completed showing EF of 55-60%. Also showing severe prolapsed partial flail posterior mitral valve leaflet. Per cardiology services patient underwent BELKIS and cardiac catheterization today. Cardiac cath showing intermediate nonobstructive disease involving the first branch of the left anterior descending artery. A 2-3+ mitral regurg. Per nursing staff patient will require mitral valve replacement outpatient workup per cardiology. BELKIS completed showing evidence of severe mitral regurg. 2. Diabetes mellitus type 2 with hyperglycemia. Sliding scale insulin ordered. Hemoglobin A1c10.8 3. Left leg pain. Doppler of left leg negative for DVT. Did show left inguinal adenopathy measuring approximate 22 temps worsen remains. Large varicose veins in the superficial leg superior to the knee. 4. Leukocytosis. White blood cell 17.6. Patient denies any upper respiratory symptoms. Patient denies any nausea vomiting or diarrhea. denies any urinary symptoms. Chest x-ray completed showing mild cardiomegaly. Urine culture ordered 5. History of deep vein thrombosis. Doppler negative for DVT. Patient not currently on any anticoagulation 6. History of nicotine dependence. Patient educated greater than 3 minutes on smoking cessation. Nicotine patch ordered. 7. Essential hypertension. Medications resumed 8. [address] Todd consulted first infectious disease. Anaerobic and aerobic wound cultures ordered. Patient started on Zosyn and vancomycin for IV antibiotics. Wound culture growing gram-negative bacilli strep and strep agalactiae. GI prophylaxis Protonix. DVT prophylaxis heparin I performed an examination of the patient and discussed their management with the Nurse Practitioner. I have reviewed the Nurse Practitioner's notes and agree with the documented findings and plan of care
[2018-10-07 14:18] LABS: Basophils # (A) 0.1 k/uL (0-0.2); Basophils % (A) 1 %; Eosinophils # (A) 0.3 k/uL (0-0.7); Eosinophils % (A) 2 %; HCT 43.8 % (39.0-53.0); HGB 14.2 gm/dL (13.0-17.5); Lymphocytes # (A) 2.3 k/uL (1.0-4.8); Lymphocytes % (A) 17 %; MCH 28.6 pg (25.0-35.0); MCHC 32.3 g/dL (31.0-37.0); MCV 88.5 fL (80.0-100.0); Mean Platelet Volume 7.5; Monocytes # (A) 0.8 k/uL (0-1.0); Monocytes % (A) 6 %; Neutrophils # (A) 9.8 k/uL (1.3-7.7); Neutrophils % (A) 71 %; Platelet Count 247 k/uL (150-450); RBC 4.95 m/uL (4.30-5.90); RDW 13.7 % (11.5-15.5); WBC 13.7 k/uL (3.8-10.6)
[2018-10-07 16:46] LABS: Glucose,Whole Blood 244 mg/dL (75-99)
[2018-10-07 20:26] LABS: Glucose,Whole Blood 240 mg/dL (75-99)
[2018-10-07 23:52] VITALS: RESP 18
[2018-10-08 06:40] LABS: Glucose,Whole Blood 186 mg/dL (75-99)
--- NOTE | 2018-10-08 06:41 | CONS ---
CONSULTATION DATE OF SERVICE: 10/07/2018 REASON FOR CONSULTATION: Boil to the left gluteal area. HISTORY OF PRESENT ILLNESS: The patient is a 53-year-old male presenting to the ER at [facility] with chief complaints of chest pain. The patient pain has been mostly in the center of the chest, intermittent, has been going on for about a week with some associated shortness of breath. Pain is mostly sharp with intensity of about 5 to 6 and severe. Patient also having a boil that he developed in his left gluteal area, started about 4 to 5 days ago with spontaneous opening and drainage of some purulent material. With these symptoms, the patient presented to the [facility] ER where the patient had been evaluated by the ER physician. Chest x-ray shows cardiomegaly. The patient did have a CT angiogram completed which shows no acute pulmonary embolism and lung with no infiltrate. The patient also had a BELKIS followed by cardiac cath completed. The patient did have cultures obtained from the left gluteal right perirectal area open wound and was placed on empirically started on vancomycin and Zosyn. Infectious Disease was consulted for further recommendation regarding antibiotic therapy. The patient did have a history of previous skin infection, however, is not very clear if he ever had MRSA infection. Since the patient has been admitted to the hospital, no fever has been noticed. However, the patient did give history of fever with chills before he presented to the hospital. The patient did have elevated white count of 18.9 though down to 13.7 as of today and his creatinine has been normal. REVIEW OF SYSTEMS: CONSTITUTIONAL: Positive for weakness and some chills. EYES: No complaint. ENT: No complaint. RESPIRATORY: As per HPI. CARDIOVASCULAR: As per HPI. GENITOURINARY: No complaint. GASTROINTESTINAL : As per HPI. MUSCULOSKELETAL: No complaint. INTEGUMENTARY: As per HPI. PSYCHOLOGICAL: No complaint. ENDOCRINE: No complaint. NEUROLOGICAL: No complaint. PAST MEDICAL HISTORY: Significant for diabetes mellitus, DVT, hypertension, previous history of folliculitis. PAST SURGICAL HISTORY: No major surgeries. SOCIAL HISTORY: Patient smokes about 2 packs per day. Does admit to marijuana use, but no drinking. FAMILY HISTORY: No pertinent findings noticed. ALLERGIES: No known drug allergies. MEDICATIONS: Medications include the patient is currently on Xanax, Aspirin, Lipitor, heparin, NovoLog, lisinopril, Lopressor, nicotine patch, Protonix, Zosyn and vancomycin. PHYSICAL EXAMINATION: On examination, blood pressure 105/66 with a pulse of 75, temperature 98.4. He is 98% on room air General description is a middle-aged male lying in bed in no distress. No tachypnea or accessory muscle of respiration use. HENT shows no pallor or scleral icterus. Oral mucous membrane is dry. No pharyngeal erythema or thrush. NECK: Trachea central. No thyromegaly. LUNGS: Unlabored breathing, clear to auscultation anteriorly. No wheeze or crackle. HEART: S1, S2. Regular rate and rhythm. ABDOMEN: Soft, no tenderness. No guarding or rigidity. EXTREMITIES: No edema of feet. Examination of the left gluteal area did show area and open wound which is draining some purulent material. Slightly tender to touch. NEUROLOGICALLY: Patient is awake, alert, oriented x3. Mood and affect normal. LABS: Hemoglobin is 14.2, white count 13.7, on admission white count was 18.9 with a BUN of 9, creatinine 0.45. The urine showing a Streptococcus agalactiae. The wound cultures obtained from the area showing a gram-negative pathogen and Streptococcus agalactiae and no MRSA. DIAGNOSTIC IMPRESSION AND PLAN: Patient with left gluteal area boil/abscess with spontaneous drainage. Culture showing a gram-negative Streptococcus agalactiae, no methicillin-resistant Staphylococcus aureus has been grown with question of possible superficial deep infection. PLAN: 1. We will obtain a CT of the pelvis area will do with oral contrast only to make sure there is no evidence of any fistulous communication with the bowel. Avoid IV contrast as the patient received contrast for a CT as well as cardiac cath to decrease the risk of nephrotoxicity. 2. We will keep the patient on Zosyn, which should cover both gram-negative as well as Streptococcus agalactiae and discontinue the vancomycin as no MRSA has been grown. 3. We will follow his clinical condition and culture to further adjust medication if needed. Thank you for this consultation. Will follow this patient along with you. MMODL / IJN: [id number] /
[2018-10-08] MEDS ORDERED: VANCOMYCIN TROUGH DUE 1 EACH MISC MISCELLANE ONE (07:00)
[2018-10-08] MEDS: PANTOPRAZOLE 40 MG TABLET PO SCH (07:42)
[2018-10-08] MEDS: NICOTINE 14MG/24HR PATCH TRANSDERM SCH (07:42)
[2018-10-08] MEDS: LISINOPRIL 20 MG TAB PO SCH (07:42)
[2018-10-08] MEDS: ASPIRIN 325 MG TAB PO SCH (07:42)
[2018-10-08] MEDS: IOPAMIDOL-300 CONTRAST 30 ML VIAL (ORAL USE) PO PRN ×2 (07:42→08:26)
[2018-10-08] MEDS: METOPROLOL TARTRATE 25 MG TAB PO SCH (07:42)
[2018-10-08] MEDS: PIPERACILLIN-TAZOBACTAM 3.375 GM in SODIUM CHLORIDE 0.9% 100 ML IVPB SCH (07:42)
[2018-10-08] MEDS: INSULIN ASPART 100 UNIT/ML 1 ML 10 ML VIAL SQ SCH ×2 (07:43→14:00)
[2018-10-08] MEDS ORDERED: ASPIRIN 81 MG PO SCH (09:00)
[2018-10-08 09:22] LABS: Basophils # (A) 0.2 k/uL (0-0.2); Basophils % (A) 1 %; Eosinophils # (A) 0.4 k/uL (0-0.7); Eosinophils % (A) 3 %; HGB 15.3 gm/dL (13.0-17.5); Lymphocytes # (A) 2.2 k/uL (1.0-4.8); Lymphocytes % (A) 16 %; MCH 29.3 pg (25.0-35.0); MCHC 33.3 g/dL (31.0-37.0); Mean Platelet Volume 7.2; Monocytes # (A) 0.6 k/uL (0-1.0); Monocytes % (A) 5 %; Neutrophils # (A) 10.1 k/uL (1.3-7.7); Neutrophils % (A) 73 %; Platelet Count 283 k/uL (150-450); RBC 5.23 m/uL (4.30-5.90); RDW 13.7 % (11.5-15.5); WBC 13.8 k/uL (3.8-10.6)
[2018-10-08 09:30] LABS: ALT 24 U/L (21-72); AST 15 U/L (17-59); Albumin 3.2 g/dL (3.5-5.0); Alkaline Phosphatase 70 U/L (38-126); Anion Gap 9 mmol/L; Blood Urea Nitrogen 9 mg/dL (9-20); Calcium 8.8 mg/dL (8.4-10.2); Carbon Dioxide 23 mmol/L (22-30); Chloride 102 mmol/L (98-107); Glucose 335 mg/dL (74-99); Potassium 4.6 mmol/L (3.5-5.1); Sodium 134 mmol/L (137-145); Total Bilirubin 0.7 mg/dL (0.2-1.3); Total Protein 6.7 g/dL (6.3-8.2)
--- NOTE | 2018-10-08 10:28 | P.PN ---
Subjective This is a pleasant 53-year-old male past medical history significant for hypertension, dyslipidemia, diabetes mellitus, rheumatic fever as a child with known murmur per the patient. 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 He states he just recently moved to the area from [place], [place]. He underwent cardiac catheterization that revealed intermediate nonobstructive disease involving the first diagonal branch of the LAD as well as 2-3+ mitral regurgitation. BELKIS performed as well reveals posterior mitral leaflet with evidence of severe MR with anterior directed jet, which regurgitation jet swirling into the left atrium, ejection fraction 50-55% , trileaflet aortic valve without stenosis or regurgitation, normal tricuspid valve and pulmonic valve. No evidence of shunt across the septum no evidence of thrombus. Blood pressure 123/72 heart rate 68 afebrile maintaining oxygen saturation on room air. Right wrist examined. He is also being followed by infectious disease secondary to gluteal abscess and is receiving IV antibiotics. He denies chest pain, shortness of breath, dizziness or palpitations. Currently maintained on aspirin 81 mg daily, atorvastatin 20 mg daily, lisinopril 20 mg daily and lopressor 25 mg BID. GENERAL: This is a 53-year-old male in no apparent distress at the time of my examination. HEENT: Head is atraumatic, normocephalic. Pupils are equal, round. Sclerae anicteric. Conjunctivae are clear. Mucous membranes of the mouth are moist. Neck is supple. There is no jugular venous distention. No carotid bruit is heard. LUNGS: Clear to auscultation no wheezes, rales or rhonchi. No chest wall tenderness is noted on palpation or with deep breathing. HEART: Regular rate and rhythm with significant systolic ejection murmur heard at all listening points worse at the apex. rubs or gallops. S1 and S2 heard. EXTREMITIES: No evidence of peripheral edema and no calf tenderness noted. Right wrist puncture site clean, dry and intact, no hematoma, ecchymosis or bleeding. Pulse strong. ASSESSMENT Unstable angina Mitral regurgitation with history of rheumatic fever Hypertension Diabetes mellitus Chronic nicotine dependence Obesity PLAN Stable from a cardiac perspective. Him and his have been updated regarding his mitral valve and the plan to follow up with CT surgery for further recommendations. Follow up with Dr. Cueto in [address] Skaf in 1 week. Ongoing medical management of abscess. Nurse Practitioner note has been reviewed, I agree with a documented findings and plan of care. Patient was seen and examined. Objective - Vital Signs Vital signs: Vital Signs Temp 98.7 F 10/08/18 08:00 Pulse 68 10/08/18 08:00 Resp 18 10/08/18 08:00 BP 123/72 10/08/18 08:00 Pulse Ox 95 10/08/18 08:00 Intake & Output 10/07/18 10/08/18 10/08/18 18:59 06:59 18:59 Intake Total 1006 Balance 1006 Weight 115.8 kg Intake: IV 50 Oral 956 Other: Voiding Method Toilet Toilet Toilet # Voids 1 - Labs CBC & Chem 7: 10/08/18 08:54 10/08/18 08:54 Labs: Abnormal Lab Results - Last 24 Hours (Table) 10/07/18 10/07/18 10/07/18 Range/Units 12:04 12:05 12:05 WBC 13.7 H (3.8-10.6) k/uL Neutrophils # 9.8 H (1.3-7.7) k/uL Sodium 135 L (137-145) mmol/L Creatinine 0.45 L (0.66-1.25) mg/dL Glucose 265 H (74-99) mg/dL POC Glucose (mg/dL) 261 H (75-99) mg/dL AST 15 L (17-59) U/L Total Protein 6.1 L (6.3-8.2) g/dL Albumin 3.0 L (3.5-5.0) g/dL 10/07/18 10/07/18 10/08/18 Range/Units 16:43 20:20 06:39 WBC (3.8-10.6) k/uL Neutrophils # (1.3-7.7) k/uL Sodium (137-145) mmol/L Creatinine (0.66-1.25) mg/dL Glucose (74-99) mg/dL POC Glucose (mg/dL) 244 H 240 H 186 H (75-99) mg/dL AST (17-59) U/L Total Protein (6.3-8.2) g/dL Albumin (3.5-5.0) g/dL 10/08/18 10/08/18 Range/Units 08:54 08:54 WBC 13.8 H (3.8-10.6) k/uL Neutrophils # 10.1 H (1.3-7.7) k/uL Sodium 134 L (137-145) mmol/L Creatinine 0.43 L (0.66-1.25) mg/dL Glucose 335 H (74-99) mg/dL POC Glucose (mg/dL) (75-99) mg/dL AST 15 L (17-59) U/L Total Protein (6.3-8.2) g/dL Albumin 3.2 L (3.5-5.0) g/dL Microbiology - Last 24 Hours (Table) 10/06/18 12:25 Urine Culture - Final Urine,Voided Strep agalactiae - (group b) 10/06/18 15:20 Gram Stain - Preliminary Other - Other Wound Culture - Preliminary Gram Neg Bacilli Strep agalactiae - (group b)
[2018-10-08 12:02] LABS: Glucose,Whole Blood 231 mg/dL (75-99)
[2018-10-08 12:14] VITALS: BP 133/74; PULSE 67; TEMP 98.5
--- NOTE | 2018-10-08 13:30 | CT ---
EXAMINATION TYPE: CT pelvis wo con DATE OF EXAM: 10/08/2018 COMPARISON: None HISTORY: pt states "he has a boil at the base of his penis", left gluteal abscess CT DLP: 1578.6 mGycm Automated exposure control for dose reduction was used. Helical imaging through the pelvis FINDINGS: There is a fluid collection present within the soft tissues of the proximal left lower extremity medi ally with a focus of air present measuring approximately 2 x 3.7 x 1.7 cm, strand-like densities are present within the soft tissues, additionally along the perineum, there is in the midline an addition al fluid collection extending to the level of the skin measuring approximately 2.5 x 4 x 2.5 cm with a small focus of air. Skin thickening at the level of the scrotum is noted. Varicosities are noted wi thin the proximal left and right leg. Lack of contrast may compromise sensitivity. No significant rober nopathy. Diverticular change is extensive in the sigmoid colon. Prostate calcifications are present. Small umb ilical hernia contains fat. Iliac artery aneurysms are present measuring approximately 4.1 cm on the left and 4.3 cm on the right. IMPRESSION: SMALL ABSCESSES ARE PRESENT DESCRIBED IN THE PERINEUM AND SOFT TISSUES OF THE PROXIMAL LEFT LOWER EXTREMITY. ILIAC ARTERY ANEURYSMS. NONCONTRAST EXAM. LOWER EXTREMITY VARICOSITIES. DIVERTICULOSIS.
--- NOTE | 2018-10-08 13:59 | PN ---
PROGRESS NOTE DATE OF SERVICE: 10/08/2018. REASON FOR FOLLOW UP: Small perineal abscess. INTERVAL HISTORY: The patient is afebrile. The patient overall is feeling much better. The patient's left perineal/gluteal area swelling, redness and pain have resolved, very minimal drainage. Denies having any chest pain, shortness of breath, cough. No abdominal pain or any diarrhea. PHYSICAL EXAMINATION: Blood pressure is 133/74 with a pulse of 67, temperature 98.5. He is 96% on room air. General description is a middle-aged male, lying in bed in no distress. RESPIRATORY SYSTEM: Unlabored breathing, clear to auscultation anteriorly. HEART: S1, S2. Regular rate and rhythm. ABDOMEN: Soft, no tenderness. Left gluteal area there is no swelling, induration, very minimal drainage was noticed to small wound. LABS: Hemoglobin is 15.8, white count of 13.9 with a BUN of 9, creatinine 0.43. Wound culture finalized with an E coli and Streptococcus agalactiae. CT did show 2 small abscesses at 2.1 and 1 cm. DIAGNOSTIC IMPRESSION AND PLAN: Patient with left perineal/gluteal area small abscess. Culture with Escherichia coli and Streptococcus agalactiae. Patient is insisting on going home. He will be discharged home on the oral Augmentin 875 b.i.d. for 2 weeks with close outpatient followup. Continue supportive care. MMODL / IJN: [id number] /
--- NOTE | 2018-10-08 15:15 | P.DS ---
Providers Date of admission: 10/06/18 23:18 Expected date of discharge: 10/08/18 Attending physician: Micaela Delaney Consults: 10/05/18 16:24 Consult Physician Urgent Consulting Provider: Mina Bhatt Consult Reason/Comments: chest pain Do you want consulting provider notified?: Yes 10/06/18 14:39 Consult Physician Routine Consulting Provider: Pura Todd Consult Reason/Comments: perianal boil Do you want consulting provider notified?: Yes Primary care physician: Gema [facility] Hospital Course: Discharge diagnosis 1. Chest pain. Troponins negative. CTA negative for pulmonary embolism. EKG completed showing sinus rhythm with occasional premature ventricular complexes. Patient started on heparin drip and cardiology services consulted. 2-D echo completed showing EF of 55-60%. Also showing severe prolapsed partial flail posterior mitral valve leaflet. Per cardiology services patient underwent BELKIS and cardiac catheterization today. Cardiac cath showing intermediate nonobstructive disease involving the first branch of the left anterior descending artery. A 2-3+ mitral regurg. Per nursing staff patient will require mitral valve replacement outpatient workup per cardiology. BELKIS completed showing evidence of severe mitral regurg. Per cardiology patient is stable for discharge from cardiac perspective. Patient to follow-up with cardiothoracic surgery in [address] Faith in one week 2. Diabetes mellitus type 2 with hyperglycemia. Sliding scale insulin ordered. Hemoglobin A1c10.8. Resume her medications closely with the 3. Left leg pain. Doppler of left leg negative for DVT. Did show left inguinal adenopathy measuring approximate 22 temps worsen remains. Large varicose veins in the superficial leg superior to the knee. 4. Leukocytosis. White blood cell 17.6. Patient denies any upper respiratory symptoms. Patient denies any nausea vomiting or diarrhea. denies any urinary symptoms. Chest x-ray completed showing mild cardiomegaly. Urine culture ordered 5. History of deep vein thrombosis. Doppler negative for DVT. Patient not currently on any anticoagulation 6. History of nicotine dependence. Patient educated greater than 3 minutes on smoking cessation. Nicotine patch ordered. 7. Essential hypertension. Medications resumed 8. [address] Todd consulted first infectious disease. Anaerobic and aerobic wound cultures ordered. Patient started on Zosyn and vancomycin for IV antibiotics. Wound culture growing gram-negative bacilli strep and strep agalactiae. Pelvis CT completed showing small abscesses are present as described in the perineum and soft tissue of the proximal left lower extremity. Iliac artery aneurysms. Noncontrast exam. Lower extremity varices. Diverticulosis. Case discussed with Dr. Todd patient will be discharged home on Augmentin for 2 weeks. Patient to follow-up closely with infectious disease Hospital Course This is a 53-year-old male patient of Dr. Stone who presented to the emergency room with complaints of chest pain. Patient stated chest pain started approximately 1 week ago and has been intermittent. Patient does state that pain has become significantly worse over the past 2 days promting him to come to the emergency room. Patient has a known past medical history of diabetes mellitus, essential hypertension and heart murmur. Patient also reports he smokes 1-2 packs of cigarettes per day. Chest x-ray completed showing mild cardiomegaly. CTA completed showing no acute pulmonary embolism. Patient also complaining of left leg pain. Venous Doppler completed and was negative for left lower extremity DVT but did show left inguinal adenopathy measuring approximately 224 cm. Large varicose veins within the superficial legs superior to the knee. Troponins negative. EKG showing sinus rhythm with occasional premature ventricular complexes. Cardiology services have been consulted. Patient also noted to have perianal boils with drainage and swelling to left groin and testicle. Will start patient on Zosyn and vancomycin. Dr. Tran per infectious disease consulted. anerobic and aerboic cultures ordered. On 10/07/2018 the echo completed showing severe prolapse and partial flail of the posterior mitral valve leaflet. Per cardiology services patient underwent cardiac cath and EBLKIS. At this time patient is resting comfortably in bed with no complaints. Patient denies chest pain or shortness of breath. Patient denies nausea vomiting or diarrhea. Patient denies any urinary burning or frequency. Perianal boils are still draining serosanngious fluid. On 10/08/2018 patient is very eager to go home. Discussed case with infectious disease. Patient is cleared for discharge from infectious disease standpoint but to follow-up closely outpatient. Patient will be DC'd on Augmentin for 1 week. Patient also cleared by cardiology services. Patient to follow-up with cardiothoracic surgery for mitral valve replacement. At this time patient denies chest pain or shortness breath. Patient denies nausea vomiting or diarrhea. Patient denies any urinary burning or frequency. I performed an examination of the patient and discussed their management with the Nurse Practitioner. I have reviewed the Nurse Practitioner's notes and agree with the documented findings and plan of care Patient Condition at Discharge: Stable Plan - Discharge Summary New Discharge Prescriptions: New Metoprolol Tartrate [Lopressor] 25 mg PO BID #180 tab Nicotine 14Mg/24Hr Patch [Habitrol] 1 patch TRANSDERM DAILY #30 patch Amoxic-Pot Clav 875-125Mg [Augmentin 875-125] 1 tab PO Q12HR 7 Days #14 tablet Continue Umeclidinium Brm/Vilanterol Tr [Anoro Ellipta 62.5-25 Mcg INH] 1 puff INHALATION DAILY Lisinopril 20 mg PO DAILY Insulin Degludec [Tresiba Flextouch U-200] 16 unit SQ DAILY Atorvastatin [Lipitor] 20 mg PO HS Wheat Dextrin [Benefiber] 1 packet PO DAILY Discharge Medication List Atorvastatin [Lipitor] 20 mg PO HS 10/05/18 [History] Insulin Degludec [Tresiba Flextouch U-200] 16 unit SQ DAILY 10/05/18 [History] Lisinopril 20 mg PO DAILY 10/05/18 [History] Umeclidinium Brm/Vilanterol Tr [Anoro Ellipta 62.5-25 Mcg INH] 1 puff INHALATION DAILY 10/05/18 [History] Wheat Dextrin [Benefiber] 1 packet PO DAILY 10/05/18 [History] Amoxic-Pot Clav 875-125Mg [Augmentin 875-125] 1 tab PO Q12HR 7 Days #14 tablet 10/08/18 [Rx] Metoprolol Tartrate [Lopressor] 25 mg PO BID #180 tab 10/08/18 [Rx] Nicotine 14Mg/24Hr Patch [Habitrol] 1 patch TRANSDERM DAILY #30 patch 10/08/18 [ Rx] Follow up Appointment(s)/Referral(s): Mina Bhatt MD [STAFF PHYSICIAN] - 1 Week Prema Cueto MD [STAFF PHYSICIAN] - 1 Week Gema Stone DO [Primary Care Provider] - 1-2 days Pura Todd MD [STAFF PHYSICIAN] - 1 Week Activity/Diet/Wound Care/Special Instructions: Activity as tolerated Diet heart healthy Discharge Disposition: HOME SELF-CARE
[2018-10-09] MEDS ORDERED: ASPIRIN 81 MG PO SCH (09:00)
== END 2018-10-08 15:45 | disposition home or self-care (01) | DRG 287 ==
LOC: EC 12:44 → 1SOBS 16:31 → OBSVTOIN 10-06 23:18
PROVIDERS: ADMIT Internal Medicine; ATTEND Internal Medicine
PROC: 4A023N7 Measurement of Cardiac Sampling and Pressure, Left Heart, Percutaneous Approach (ICD-10-PCS; principal; 2018-10-06)
PROC: B2151ZZ Fluoroscopy of Left Heart using Low Osmolar Contrast (ICD-10-PCS; principal; 2018-10-06)
PROC: B2111ZZ Fluoroscopy of Multiple Coronary Arteries using Low Osmolar Contrast (ICD-10-PCS; principal; 2018-10-06)
DX: I25.110 Atherosclerotic heart disease of native coronary artery with unstable angina pectoris (principal); L02.31 Cutaneous abscess of buttock; E11.65 Type 2 diabetes mellitus with hyperglycemia; E66.9 Obesity, unspecified; Z68.37 Body mass index [BMI] 37.0-37.9, adult; E78.5 Hyperlipidemia, unspecified; F17.210 Nicotine dependence, cigarettes, uncomplicated; I10 Essential (primary) hypertension; I34.0 Nonrheumatic mitral (valve) insufficiency; I49.3 Ventricular premature depolarization; I72.3 Aneurysm of iliac artery; K57.90 Diverticulosis of intestine, part unspecified, without perforation or abscess without bleeding; Z79.4 Long term (current) use of insulin; Z79.82 Long term (current) use of aspirin; Z79.899 Other long term (current) drug therapy; Z82.0 Family history of epilepsy and other diseases of the nervous system; Z83.3 Family history of diabetes mellitus; Z86.718 Personal history of other venous thrombosis and embolism; B96.20 Unspecified Escherichia coli [E. coli] as the cause of diseases classified elsewhere; B95.4 Other streptococcus as the cause of diseases classified elsewhere; I83.92 Asymptomatic varicose veins of left lower extremity; R59.0 Localized enlarged lymph nodes
CPT/HCPCS: 36415; 71046; 71275; 72192; 80053; 80061; 81003; 82009; 82550; 82553; 83036; 83690; 83735; 83880; 84484; 85025; 85379; 85610; 85730; 87070; 87075; 87077; 87086; 87186; 87205; 93005; 93306; 93312; 93320; 93325; 93458; 96361; 96365; 96376; 99285

== ENCOUNTER → 2018-11-25 | Outpatient (CLI) | payer MEDICARE ==
[2018-11-25 10:20] LABS: INR 0.9 (<1.2)
[2018-11-25 10:23] LABS: HCT 49.2 % (39.0-53.0); HGB 15.7 gm/dL (13.0-17.5); MCHC 31.9 g/dL (31.0-37.0); MCV 87.7 fL (80.0-100.0); Mean Platelet Volume 7.4; Platelet Count 296 k/uL (150-450); RBC 5.61 m/uL (4.30-5.90); RDW 13.9 % (11.5-15.5); WBC 12.4 k/uL (3.8-10.6)
[2018-11-25 10:33] LABS: ALT 28 U/L (21-72); AST 17 U/L (17-59); Albumin 3.7 g/dL (3.5-5.0); Alkaline Phosphatase 63 U/L (38-126); Anion Gap 9 mmol/L; Blood Urea Nitrogen 12 mg/dL (9-20); Calcium 9.6 mg/dL (8.4-10.2); Carbon Dioxide 24 mmol/L (22-30); Chloride 105 mmol/L (98-107); Cholesterol 130 mg/dL (<200); Glucose 219 mg/dL (74-99); HDL Cholesterol 35 mg/dL (40-60); LDL Cholesterol,Calculated 78 mg/dL (0-99); Magnesium 1.9 mg/dL (1.6-2.3); Potassium 4.7 mmol/L (3.5-5.1); Sodium 138 mmol/L (137-145); Total Bilirubin 0.8 mg/dL (0.2-1.3); Total Protein 6.8 g/dL (6.3-8.2); Triglycerides 87 mg/dL (<150)
[2018-11-25 13:25] LABS: Appearance,Urine Clear (Clear); Bilirubin,Urine Negative (Negative); Blood,Urine Negative (Negative); Color,Urine Yellow; Glucose,Urine (UA) 2+ (Negative); Ketones,Urine Negative (Negative); Leukocyte Esterase,Urine Negative (Negative); Nitrite,Urine Negative (Negative); Protein,Urine Negative (Negative); Specific Gravity,Urine 1.017 (1.001-1.035); Urobilinogen,Urine <2.0 mg/dL (<2.0)
--- NOTE | 2018-11-25 15:39 | US ---
EXAMINATION TYPE: US carotid duplex BILAT DATE OF EXAM: 11/25/2018 COMPARISON: NONE CLINICAL HISTORY: PRE OP. Pre-Op CABG EXAM MEASUREMENTS: RIGHT: Peak Systolic Velocity (PSV) cm/sec ----- Right CCA: 80.6 ----- Right ICA: 66.7 ----- Right ECA: 198.4 ICA/CCA ratio: 0.8 RIGHT: End Diastole cm/sec ----- Right CCA: 21.7 ----- Right ICA: 17.2 ----- Right ECA: 28.8 LEFT: Peak Systolic Velocity (PSV) cm/sec ----- Left CCA: 77.3 ----- Left ICA: 74.7 ----- Left ECA: 161.0 ICA/CCA ratio: 1.0 LEFT: End Diastole cm/sec ----- Left CCA: 19.7 ----- Left ICA: 26.7 ----- Left ECA: 30.1 VERTEBRALS (direction of flow): Right Vertebral: Antegrade Left Vertebral: Antegrade Rhythm: Normal Grayscale, color Doppler, spectral Doppler imaging performed of the carotid arteries. No significant stenosis seen IMPRESSION: No hemodynamic significant stenosis of the proximal internal carotid arteries bilaterall y by Doppler criteria, an indirect measurement of carotid stenosis Criteria for Assigning % of Stenosis / Diameter reduction (Estimation based on the indirect measurements of the internal carotid artery velocities (ICA PSV). 1. Normal (no stenosis)=ICA PSV < 125 cm/s: ratio < 2.0: ICA EDV<40 cm/s. 2. Less than 50% stenosis=ICA PSV < 125 cm/s: ratio < 2.0: ICA EDV<40 cm/s. 3. 50 to 69% stenosis=ICA PSV of 125 to 230 cm/s: ration 2.0 ? 4.0: ICA EDV 40-100 cm/s. 4. Greater than 70% stenosis to near occlusion= ICA PSV > 230 cm/s: ratio > 4.0: ICA EDV > 100 cm/s. 5. Near occlusion= ICA PSV velocities may be low or undetectable: variable ratio and ICA EDV. 6. Total occlusion=unable to detect flow.
[2018-11-25 16:50] LABS: Hepatitis A Antibody IgM Non-Reactive (Non-Reactive); Hepatitis B Core IgM Non-Reactive (Non-Reactive)
[2018-11-25 18:21] LABS: Hemoglobin A1C 9.8 % (4.0-6.0)
== END | disposition home or self-care (01) ==
LOC: LABPAT 09:03
PROVIDERS: ATTEND Surgery
DX: Z01.810 Encounter for preprocedural cardiovascular examination (principal); Z01.812 Encounter for preprocedural laboratory examination; E08.9 Diabetes mellitus due to underlying condition without complications; E11.9 Type 2 diabetes mellitus without complications; I34.0 Nonrheumatic mitral (valve) insufficiency; I82.409 Acute embolism and thrombosis of unspecified deep veins of unspecified lower extremity; Z79.899 Other long term (current) drug therapy
CPT/HCPCS: 36415; 80053; 80061; 80074; 81003; 83036; 83735; 83880; 84443; 84484; 85027; 85610; 85730; 86850; 86900; 86901; 86920; 87070; 87086; 93005; 93880; 93970

== ENCOUNTER → 2018-12-18 | Outpatient (CLI) | payer MEDICARE ==
[2018-12-18 12:01] LABS: Partial Thromboplastin Time 25.6 sec (22.0-30.0); Prothrombin Time 10.3 sec (9.0-12.0)
== END ==
LOC: LABPAT 08:07
PROVIDERS: ATTEND Surgery
DX: I25.10 Atherosclerotic heart disease of native coronary artery without angina pectoris (principal); R06.02 Shortness of breath
CPT/HCPCS: 36415; 85610; 85730; 86850; 86900; 86901; 86920

== ENCOUNTER 2018-12-23 05:39 | Inpatient (IN) | payer MEDICARE ==
[~2018-12-23 05:39] MED LIST: ALBUMIN HUMAN 25% 50 ML IV ONE; ALBUMIN HUMAN 5% 500 ML IVPB ONE; ASPIRIN 325 MG TAB PO ONE; ATORVASTATIN 10 MG TAB PO ONE; CALCIUM CHLORIDE 100 MG/ML 10 ML SYRINGE IV ONE; CHLORHEXIDINE GLUCONATE 15 ML CUP MUCOUS MEM ONE; CLEVIDIPINE BUTYRATE 25 MG in EMPTY BAG 1 BAG IV ONE; DEXTROSE 5% IN WATER 1,000 ML with POTASSIUM CHLORIDE 110 MEQ, MAGNESIUM SULFATE 16 MEQ... IV ONE; DEXTROSE 5% IN WATER 1,000 ML with POTASSIUM CHLORIDE 25 MEQ, SODIUM CHLORIDE 2.5MEQ/ML... IRRIGATION ONE; HEPARIN SODIUM 1,000 UN/ML (10ML VL) IV ONE; HEPARIN SODIUM,PORCINE 5,000 UNIT in SODIUM CHLORIDE 0.9% 500 ML 500 ML IV ONE; INSULIN REGULAR 100 UNIT in SODIUM CHLORIDE 0.9% 100 ML IV ONE; LACTATED RINGERS 1,000 ML IV ONE; MAGNESIUM SULFATE MG 500 MG/ML IV ONE; MANNITOL 25% 12.5 GM/50 ML VIAL IV ONE; METOPROLOL TARTRATE 12.5 MG TAB PO ONE; NITROGLYCERIN-D5W PMX 25 MG/250 ML BTL IV ONE; NITROGLYCERIN-D5W PMX 50 MG in DEXTROSE/WATER 1 250ML.BAG IV ONE; NOREPINEPHRINE 4 MG in SODIUM CHLORIDE 0.9% 250 ML IV ONE; PHENYLEPHRINE 40 MG in SODIUM CHLORIDE 0.9% 250 ML IV ONE; PHENYLEPHRINE-0.9% NACL SYG 1 MG/10 ML SYRINGE IV ONE; PROPOFOL 1,000 MG/100 ML VIAL IV ONE; PROTAMINE SULFATE 10 MG/ML 25 ML VIAL IV ONE; PROTAMINE SULFATE 250 MG in EMPTY BAG 1 BAG IV ONE; SODIUM BICARB 8.4% 50 ML SYR (1 MEQ/ML) IV ONE; SODIUM CHLORIDE 0.9% 1,000 ML IV ONE; TRANEXAMIC ACID 2,000 MG in SODIUM CHLORIDE 0.9% 180 ML IV ONE; ceFAZolin 1,000 MG in SODIUM CHLORIDE 0.9% IRRIGATIO 1,000 ML IRRIGATION ONE; ceFAZolin 2,000 MG in SODIUM CHLORIDE 0.9% 30 ML IVPB ONE
[2018-12-23 06:06] LABS: Glucose,Whole Blood 187 mg/dL (75-99)
[2018-12-23] MEDS ORDERED: WATER FOR INJECTION, STERILE 10 ML VIAL IV ONE (07:12)
[2018-12-23] MEDS ORDERED: PROPOFOL 10 MG/ML 20 ML VIAL IV ONE (07:12)
[2018-12-23] MEDS ORDERED: SODIUM CHLORIDE 0.9% IRRIG 1,000 ML BTL IRRIGATION ONE ×2 (07:12)
[2018-12-23] MEDS ORDERED: ELECTROLYTE-R (PH 7.4) 1,000 ML IV.SOLN IV ONE ×2 (07:12)
[2018-12-23] MEDS ORDERED: MIDAZOLAM 2 MG/2 ML VIAL ONE (07:12)
[2018-12-23] MEDS ORDERED: fentaNYL (PF) 50 MCG/ML 50 ML VIAL ONE (07:12)
[2018-12-23] MEDS ORDERED: MAGNESIUM SULFATE 4 MEQ/ML 10ML VIAL ONE (07:12)
[2018-12-23] MEDS ORDERED: TRANEXAMIC ACID 1,000 MG/10 ML VIAL ONE (07:12)
[2018-12-23] MEDS ORDERED: SODIUM CHLORIDE 0.9% 250 ML BAG ONE (07:12)
[2018-12-23] MEDS ORDERED: SUFentanil 50 MCG/ML 2ML AMP ONE (07:12)
[2018-12-23] MEDS ORDERED: fentaNYL (PF) 50 MCG/ML 2 ML AMP ONE (07:12)
[2018-12-23] MEDS ORDERED: VECURONIUM 10 MG VIAL IV ONE (07:12)
[2018-12-23] MEDS ORDERED: LIDOCAINE 2% SYG (PF) 100 MG/5 ML ONE (07:12)
[2018-12-23] MEDS ORDERED: AMIODARONE 50 MG/ML 3 ML VIAL IV ONE (07:12)
[2018-12-23] MEDS ORDERED: ceFAZolin 1,000 MG VIAL ONE (07:12)
[2018-12-23 09:02] LABS: ABG Base Excess 2.5 mmol/L; ABG HCO3 26 mmol/L (21-25); ABG PCO2 35 mmHg (35-45); ABG PH 7.47 (7.35-7.45); ABG PO2 367 mmHg (83-108); ABG Potassium Whole Blood 3.9 mmol/L (3.4-4.5); ABG Sodium Whole Blood 138 mmol/L (135-146); ABG TCO2 27 mmol/L (19-24)
[2018-12-23 10:31] LABS: ABG Base Excess -0.1 mmol/L; ABG HCO3 26 mmol/L (21-25); ABG Oxygen Saturation 99.9 % (94-97); ABG PCO2 46 mmHg (35-45); ABG PH 7.36 (7.35-7.45); ABG PO2 293 mmHg (83-108); ABG Potassium Whole Blood 4.5 mmol/L (3.4-4.5); ABG Sodium Whole Blood 135 mmol/L (135-146); ABG TCO2 27 mmol/L (19-24)
[2018-12-23 10:45] LABS: ABG Base Excess 0.3 mmol/L; ABG HCO3 27 mmol/L (21-25); ABG Oxygen Saturation 80.1 % (94-97); ABG PCO2 51 mmHg (35-45); ABG PH 7.33 (7.35-7.45); ABG Potassium Whole Blood 4.8 mmol/L (3.4-4.5); ABG Sodium Whole Blood 136 mmol/L (135-146); ABG TCO2 29 mmol/L (19-24)
[2018-12-23 11:15] LABS: ABG Base Excess -0.6 mmol/L; ABG HCO3 26 mmol/L (21-25); ABG Oxygen Saturation 99.9 % (94-97); ABG PCO2 49 mmHg (35-45); ABG PH 7.33 (7.35-7.45); ABG PO2 299 mmHg (83-108); ABG Potassium Whole Blood 4.9 mmol/L (3.4-4.5); ABG Sodium Whole Blood 136 mmol/L (135-146); ABG TCO2 27 mmol/L (19-24)
[2018-12-23] MEDS ORDERED: SODIUM BICARB 8.4% 50 ML VIAL (1 MEQ/ML) IV ONE (11:29)
[2018-12-23] MEDS ORDERED: MILRINONE-D5W PMX 20 MG in DEXTROSE/WATER 1 100ML.BAG IV SCH (11:30)
[2018-12-23] MEDS ORDERED: EPINEPHrine 2 MG in DEXTROSE 5% IN WATER 250 ML IV SCH ×2 (11:30)
[2018-12-23 11:54] LABS: ABG Base Excess -2.4 mmol/L; ABG HCO3 24 mmol/L (21-25); ABG Oxygen Saturation 99.6 % (94-97); ABG PCO2 48 mmHg (35-45); ABG PH 7.31 (7.35-7.45); ABG PO2 222 mmHg (83-108); ABG Potassium Whole Blood 4.8 mmol/L (3.4-4.5); ABG Sodium Whole Blood 137 mmol/L (135-146); ABG TCO2 26 mmol/L (19-24)
[2018-12-23 12:14] LABS: ABG Base Excess -4.1 mmol/L; ABG HCO3 22 mmol/L (21-25); ABG PCO2 43 mmHg (35-45); ABG PH 7.32 (7.35-7.45); ABG PO2 351 mmHg (83-108); ABG Potassium Whole Blood 4.8 mmol/L (3.4-4.5); ABG Sodium Whole Blood 137 mmol/L (135-146); ABG TCO2 23 mmol/L (19-24)
[2018-12-23] MEDS ORDERED: Phosphorus Replacement Protoco 1 EACH MISC MISCELLANE PRN (13:42)
[2018-12-23] MEDS ORDERED: METOCLOPRAMIDE 5 MG/ML 2 ML VIAL IVP PRN (13:42)
[2018-12-23] MEDS ORDERED: ONDANSETRON 4 MG/2 ML VIAL IVP PRN (13:42)
[2018-12-23] MEDS ORDERED: CALCIUM CHLORIDE 1,000 MG in SODIUM CHLORIDE 0.9% 100 ML IV PRN (13:42)
[2018-12-23] MEDS ORDERED: ALBUMIN HUMAN 5% 250 ML in EMPTY BAG 1 BAG IVPB PRN (13:42)
[2018-12-23] MEDS ORDERED: Magnesium Replacement Protocol 1 EACH MISC MISCELLANE PRN (13:42)
[2018-12-23] MEDS ORDERED: PROPOFOL 1,000 MG in EMPTY BAG 1 BAG IV SCH (13:42)
[2018-12-23] MEDS ORDERED: Potassium Replacement Protocol 1 EACH MISC MISCELLANE PRN (13:42)
[2018-12-23] MEDS ORDERED: MORPHINE SULFATE 4 MG/ML SYRINGE IVP PRN (13:42)
[2018-12-23] MEDS ORDERED: AMIODARONE 450 MG in DEXTROSE 5% IN WATER 250 ML IV PRN ×2 (13:42)
[2018-12-23] MEDS ORDERED: IPRATROPIUM-ALBUTEROL 3 ML NEB INHALATION PRN (13:42)
[2018-12-23] MEDS ORDERED: DEXTROSE 5% IN WATER 100 ML with AMIODARONE 150 MG IV PRN (13:42)
[2018-12-23 13:51] LABS: ABG PO2 46 mmHg (83-108)
[2018-12-23] MEDS: LACTATED RINGERS 1,000 ML IV SCH (14:15)
[2018-12-23] MEDS: INSULIN REGULAR 100 UNIT in SODIUM CHLORIDE 0.9% 100 ML IV SCH (14:15)
[2018-12-23 14:35] LABS: Glucose,Whole Blood 125 mg/dL (75-99)
--- NOTE | 2018-12-23 14:58 | XR ---
EXAMINATION TYPE: XR chest 1V portable DATE OF EXAM: 12/23/2018 COMPARISON: Prior chest x-ray 10/05/2018 HISTORY: Postop cardiac surgery TECHNIQUE: Single frontal view of the chest is obtained. FINDINGS: Patient is post median sternotomy. Endotracheal tube, orogastric tube, right jugular centr al venous sheath and coaxial [place] catheter, median sternal drain and atrial appendage clipping a re in place. Patient is rotated. Minimal pneumopericardium is suspected, linear lucency noted at the level of the left heart. No evident pneumothorax or pleural effusion. The heart is enlarged. Lung vol umes are somewhat low. Interstitium mildly increased, central vascularity is prominent. IMPRESSION: There may be a component of volume overload, pulmonary venous hypertension and interstit ial edema. Overall satisfactory postoperative chest x-ray.
[2018-12-23 15:08] LABS: Glucose,Whole Blood 150 mg/dL (75-99)
[2018-12-23 15:11] LABS: ABG Base Excess -2.6 mmol/L; ABG HCO3 24 mmol/L (21-25); ABG PCO2 52 mmHg (35-45); ABG PH 7.28 (7.35-7.45); ABG PO2 354 mmHg (83-108); ABG TCO2 26 mmol/L (19-24)
[2018-12-23] MEDS: CLEVIDIPINE BUTYRATE 25 MG in EMPTY BAG 1 BAG IV SCH (15:15)
[2018-12-23 15:21] LABS: Basophils # (A) 0.1 k/uL (0-0.2); Basophils % (A) 0 %; Eosinophils # (A) 0.1 k/uL (0-0.7); Eosinophils % (A) 1 %; HCT 44.6 % (39.0-53.0); Lymphocytes # (A) 1.4 k/uL (1.0-4.8); Lymphocytes % (A) 5 %; MCH 27.7 pg (25.0-35.0); MCHC 31.4 g/dL (31.0-37.0); MCV 88.3 fL (80.0-100.0); Mean Platelet Volume 7.4; Monocytes # (A) 1.1 k/uL (0-1.0); Monocytes % (A) 4 %; Neutrophils # (A) 22.8 k/uL (1.3-7.7); Neutrophils % (A) 89 %; Platelet Count 192 k/uL (150-450); RBC 5.06 m/uL (4.30-5.90); RDW 14.1 % (11.5-15.5); WBC 25.6 k/uL (3.8-10.6)
[2018-12-23 15:31] LABS: Partial Thromboplastin Time 39.9 sec (22.0-30.0); Prothrombin Time 10.7 sec (9.0-12.0)
[2018-12-23 15:42] LABS: ALT 29 U/L (21-72); AST 52 U/L (17-59); Albumin 2.7 g/dL (3.5-5.0); Alkaline Phosphatase 39 U/L (38-126); Anion Gap 0 mmol/L; Blood Urea Nitrogen 15 mg/dL (9-20); Calcium 7.7 mg/dL (8.4-10.2); Carbon Dioxide 25 mmol/L (22-30); Chloride 115 mmol/L (98-107); Glucose 146 mg/dL (74-99); Magnesium 2.6 mg/dL (1.6-2.3); Potassium 4.4 mmol/L (3.5-5.1); Sodium 140 mmol/L (137-145); Total Bilirubin 1.1 mg/dL (0.2-1.3); Total Protein 5.2 g/dL (6.3-8.2)
[2018-12-23] MEDS: ceFAZolin IN SWFI 2 GM/20 ML SYRINGE IVP SCH (15:52)
[2018-12-23] MEDS ORDERED: IPRATROPIUM-ALBUTEROL 3 ML NEB INHALATION SCH (16:00)
[2018-12-23 16:08] LABS: Glucose,Whole Blood 169 mg/dL (75-99)
--- NOTE | 2018-12-23 16:10 | OP ---
OPERATIVE REPORT DATE OF THE SURGERY: 12/23/2018. SURGEON: Dr. Cueto. CLASSROOM ASSISTANT: Kelby KRAMER PREOPERATIVE DIAGNOSES: Severe mitral valve regurgitation , myxomatous mitral valve , mild left ventricular dysfunction, obesity, tobacco abuse, diabetes mellitus, known bilateral iliac artery aneurysms. History of rib and sternal fracture. 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 PROCEDURE PERFORMED: 1. Complex mitral valve repair including triangular resection of P2 with reconstruction, creation of four artificial chordae using Ramsey-Jorge 4-0 to the A-2 segment of the valve, posterior annuloplasty using a 36 mm AnnuloFlex ring. 2. Exclusion of the left atrial appendage using a 45 mm AtriClip. 3. Intraoperative transesophageal echocardiogram and epiaortic scanning. INDICATION FOR SURGERY: The patient is a 54-year-old gentleman referred for severe mitral valve regurgitation and dyspnea on exertion along with mild left ventricular dysfunction. The patient cardiac catheterization showed mild to moderate disease in the diagonal artery. He was asked to stop smoking for 6 weeks before proceeding with surgery which he should have complied with. Plan today is for mitral valve repair and if not possible discussion took place with the patient before surgery and he would have opted for a biological valve. No history of atrial fibrillation. The SDS risk was discussed with him. He understood it and agreed to proceed. DESCRIPTION OF THE PROCEDURE: Patient had right internal jugular Houston-Alphonse and right radial arterial line placed in the preoperative holding area. The patient had a PA pressure 45/20, cardiac index of 2.9. Subsequently he was brought to the operating room and general endotracheal anesthesia was induced uneventfully. Two grams of cefazolin were given intravenously. A Hull catheter was inserted. The chest, abdomen and both lower extremities were prepped and draped using ChloraPrep. Ioban was used to cover the skin. Transesophageal echocardiogram confirmed the preoperative finding of a flail P2 segment with suggestion of prolapse of the A-2 segment. The other valves were okay. There was global mild left ventricular hypokinesia. A midline sternotomy was performed and no bone wax was used. The bone was relatively mildly osteoporotic and was profusely bleeding. A Amira mitral retractor was used. Mediastinal fat was transected, between 2 ties and epiaortic scanning revealed normal ascending aorta. Pericardium was opened in an inverted T-fashion and a pericardial cradle was created. Findings included a short soft aorta and mildly enlarged heart. After systemic heparinization, after placement of respective pledgeted pursestring aortic cannulation with a 21-[place] soft flow cannula, direct SVC cannulation with a right angle 28-[place] cannula and IVC cannulation with a straight 32-[place] cannula inserted via the right atrial appendage was performed. Antegrade as well as retrograde cardioplegia catheter were placed. Cardiopulmonary bypass was initiated and both cava were encircled but not tightened with an umbilical tape. The aorta was clamped and during aortic clamping, myocardial protection was achieved with initial dose of 1 L of antegrade cold blood cardioplegia followed by 400 mL of retrograde cold blood cardioplegia. All subsequent doses were given retrograde at 15 minutes interval. We started the surgery by excluding the left atrial appendage with a 45 mm AtriClip deployed at its base. The interatrial groove was developed and a standard transverse left atriotomy was performed. The patient's heart was deep. Using the Juan mitral retractors, I was able to achieve reasonable access to the valve initially. We started by placing a posterior annuloplasty suture using an nonpledgeted Tycron 2-0 from trigone to trigone. A total of 12 sutures were placed. That helped open the valve for better evaluation. Assessment of the valve at this point revealed an obviously thickened P2 segment with evidence of a ruptured thickened cords. The A-2 segment showed also some prolapse. The valve was overall myxomatous diffusely pointing to a Ding's disease. I started with a triangular resection of the prolapsed segment of P2 and the posterior leaflet was reconstructed using Ramsey-Jorge 4-0 starting at the free edge and reaching the annular level and in 2 layers over and over. Testing of the valve at this point revealed obvious A2 prolapse. For that reason, I constructed a first pair of cordell-chordae using Ramsey-Jorge 4-0 that was passed from the anterior papillary muscle and was passed at the free edge of A2 over an over for each limb of the Ramsey-Jorge. Another pair was reconstructed on the same papillary muscle and went to the remaining of A2. The leaflet was kept at the annular level as we tightened the Ramsey-Jorge and decided on its length. With that, a clip was applied to each cortex and testing of the valve at this point revealed excellent seal. With that, the Ramsey- Jorge were tied more than 12 knots and the clips were removed. Testing of the valve, 1 more time revealed good seal. A #36 under AnnuloFlex ring was used and the posterior aspect only was used and this was a bigger size. The sutures were passed into the anulus symmetrically. The needle cut and the suture tied using the core knot device. Testing of the valve revealed excellent seal. CO2 was flowing of the left atrium as it was opened. Rewarming was started as we closed the left atriotomy starting with a pledgeted 3-0 Prolene on each corner and meeting in the midline and in 1 layer. De- airing maneuver were done before completely closing the atrium. De-airing maneuvers were followed and patient was given lidocaine and magnesium and head was down as we unclamped the aorta. The patient initially regained a third-degree AV block with a escape idioventricular rhythm. Two monopolar atrial pacing wires were affixed to the right atrial appendage and 1 bipolar ventricular pacing wire was driven via the inferior aspect of the right ventricle. The patient went in atrial fibrillation at this point and required 300 mg of amiodarone and that helped convert him to sinus and did not require electrical cardioversion. The patient showed no further irritability. After a period of reperfusion, we were able to wean off the bypass without the need of any inotropic or vasopressor support. BELKIS showed a perfect mitral repair with no evidence of systolic anterior motion and adequate de-airing that actually took a while to be achieved. With that, test dose and then full dose protamine was given. Decannulation followed. The retrograde and the right atrial cannulation sites were reinforced with a running Prolene. The pericardium was partially approximated over the heart. The left pleura was intentionally opened in a very limited fashion to decompress a potential pneumothorax. Two 19-[place] Louis drains were placed, 1 in the posterior pericardium and 1 substernally. After ensuring adequate hemostasis and hemodynamic and after correct sponge, instrument, and needle count, the sternum was closed using 5 [id number] pineal cable after interposing fibular between the sternal edges. Thorough irrigation of cefazolin followed. The rest of the closure proceeded in layers. To mention that at the initial median sternotomy, we had to resect a sebaceous cyst that was in the subcutaneous tissue in totality and that was sent to pathology. The patient was transferred to the ICU in stable condition with good AV conduction, normal sinus rhythm at 78, PA pressure of 31/21, cardiac index of 3, mean arterial pressure of 82 on low-dose nitroglycerine. MMPASTORA / LAYN: [id number] / MTDD
[2018-12-23 16:33] LABS: Basophils % (A) 0 %; Eosinophils % (A) 0 %; HCT 41.8 % (39.0-53.0); HGB 13.4 gm/dL (13.0-17.5); Lymphocytes # (A) 1.1 k/uL (1.0-4.8); Lymphocytes % (A) 4 %; MCHC 31.9 g/dL (31.0-37.0); MCV 87.8 fL (80.0-100.0); Mean Platelet Volume 7.4; Monocytes # (A) 1.3 k/uL (0-1.0); Monocytes % (A) 5 %; Neutrophils # (A) 22.3 k/uL (1.3-7.7); Neutrophils % (A) 90 %; Platelet Count 190 k/uL (150-450); RBC 4.77 m/uL (4.30-5.90); RDW 14.2 % (11.5-15.5); WBC 24.9 k/uL (3.8-10.6)
[2018-12-23] MEDS: ACETAMINOPHEN IV (For NPO) 1,000 MG in EMPTY BAG 1 BAG IVPB SCH (17:02)
[2018-12-23] MEDS: KETOROLAC 30 MG/ML 1 ML VIAL IVP SCH (17:03)
[2018-12-23 17:07] LABS: Glucose,Whole Blood 175 mg/dL (75-99)
--- NOTE | 2018-12-23 17:22 | P.CNPUL ---
<Margaret Santos M - Last Filed: 12/23/18 17:01> History of Present Illness Consult date: 12/23/18 Requesting physician: Prema Cueto Reason for consult: other Chief complaint: Severe mitral valve stenosis, status post mitral valve repair History of present illness: This is a 53-year-old white male patient of Dr. Delaney, with past medical history of diabetes mellitus type 2, history of deep vein thrombosis, nicotine dependence, currently in remission, hypertension, obesity, rheumatic fever. Patient was hospitalized in September, he presented to the emergency department with shortness of breath and chest pain. Patient was evaluated by cardiology, and his 2-D echocardiogram revealed severe mitral regurgitation, severe prolapse /partial flail of the posterior mitral valve leaflet. There was severe concentric left ventricular hypertrophy, overall left ventricular systolic function was within normal limits with an EF between 55-60%. Transesophageal echocardiogram on 10/07/2018 showed one of the P2 component of the posterior mitral leaflet with evidence of severe mitral regurgitation with anteriorly directed jet, and EF of 50-55%. Cardiac catheterization showed intermediate nonobstructive disease involving the first diagonal branch of the left anterior descending artery. Patient was recommended for surgical intervention, and today on 12/23/2018 patient underwent complex mitral valve repair including Anatoliy resection of P2 with reconstruction and creation of for artificial chordae, posterior annuloplasty, exclusion of the left atrial appendage, and Intra-operative BELKIS. Patient seen in the intensive care unit, sedated, and intubated on mechanical ventilator. Current vent settings are assist-control mode with a rate of 20,TV 550, FiO2 of 50% and PEEP of 10. Current IV fluids include lactated Ringer's a rate of 50, and insulin drip at 2 units per hour. Cleviprex is on hold, and diprivan at 20 mics per kilo per minute. Midsternal incision is clean dry and intact, covered with a surgical dressing, 2 mediastinal chest tubes are Y-connected to Pleur-evac with small to moderate amount of sanguinous output. Hull catheter is in place, patient is nonoliguric. Cardiac output is 5.7, and index of 2.5. Postoperative chest x- ray was reviewed by Dr. Hardy, and shows ET tube, OG tube, right IJ Cordis, and PA catheter in appropriate positions, no pneumothorax, or pleural effusion, Interstitium was mildly increased. Overall satisfactory postoperative chest x- ray. Review of Systems All systems: negative Constitutional: Denies chills, Denies fever Eyes: denies blurred vision, denies pain Ears, nose, mouth and throat: Denies headache, Denies sore throat Cardiovascular: Denies chest pain, Denies shortness of breath Respiratory: Reports dyspnea, Denies cough Gastrointestinal: Denies abdominal pain, Denies diarrhea, Denies nausea, Denies vomiting Musculoskeletal: Denies myalgias Integumentary: Denies pruritus, Denies rash Neurological: Denies numbness, Denies weakness Psychiatric: Denies anxiety, Denies depression Endocrine: Denies fatigue, Denies weight change Past Medical History Past Medical History: Diabetes Mellitus, Hyperlipidemia, Hypertension, Seizure Disorder Additional Past Medical History / Comment(s): heart murmur, SOB w/exertion, one time seizure related to metformin, superficial phlebitis years ago, varicose veins, currently has cough & congestion, finishing antibiotic tomorrow, also on nystatin for oral thrush History of Any Multi-Drug Resistant Organisms: None Reported Past Surgical History: Heart Catheterization Past Anesthesia/Blood Transfusion Reactions: No Reported Reaction Smoking Status: Current every day smoker - Past Family History Mother History Unknown: Yes Father History Unknown: Yes Brother(s) History Unknown: Yes Sister(s) Family Medical History: Diabetes Mellitus Daughter(s) Family Medical History: Seizure Disorder Son(s) Family Medical History: No Reported History Medications and Allergies Home Medications Medication Instructions Recorded Confirmed Type Atorvastatin [Lipitor] 20 mg PO HS 10/05/18 12/23/18 History Insulin Degludec [Tresiba 32 unit SQ HS 10/05/18 12/23/18 History Flextouch U-200] Lisinopril 20 mg PO DAILY 10/05/18 12/23/18 History Metoprolol Tartrate [Lopressor] 25 mg PO BID #180 tab 10/08/18 12/23/18 Rx Albuterol Inhaler [Ventolin Hfa 1 - 2 puff INHALATION RT-BID 11/25/18 12/23/18 History Inhaler] Fluticasone Nasal [place] [Flonase 2 spr EA NOSTRIL DAILY 12/18/18 12/23/18 History Nasal [place]] Fluticasone/Umeclidin/Vilanter 1 inhalation INHALATION RT-DAILY 12/18/18 History [Trelegy Ellipta 100-62.5-25] Levofloxacin [Levaquin] 750 mg PO DAILY 12/18/18 12/23/18 History Nystatin 100,000 Unit/ml Susp 4 ml PO QID 12/18/18 12/23/18 History [Mycostatin Oral Susp] Semaglutide [Ozempic] 0.25 mg SQ TU 12/18/18 12/23/18 History Allergies Allergy/AdvReac Type Severity Reaction Status Date / Time metformin Allergy seizure Verified 12/23/18 15:20 Physical Exam Vitals: Vital Signs Temp Pulse Pulse Resp BP BP Pulse Ox 12/23/18 16:07 72 12/23/18 16:00 77 16 12/23/18 15:46 80 12/23/18 15:00 36.5 F L 73 16 100 12/23/18 14:50 71 15 100 12/23/18 14:40 70 11 L 100 12/23/18 14:30 67 12 100 12/23/18 14:20 97.2 F L 68 12 100 12/23/18 13:42 100 12/23/18 06:00 97.6 F 77 17 116/56 122/64 98 Intake and Output 12/23/18 12/23/18 12/23/18 06:59 14:59 22:59 Intake Total 100 32 3.115 Output Total 3600 Balance 100 -3568 3.115 Intake: IV 100 32 Intake, IV Titration 3.115 Amount Insulin Regular 100 unit 3.115 In Sodium Chloride 0.9% 100 ml @ Per Protocol IV .Q0M [facility] Rx#:[id number] Output: Urine 600 Estimated Blood Loss 3000 Other: Voiding Method Indwelling Catheter Weight 115.468 kg ABP, PAP, CO, CI - Last 8 Hours Arterial Blood Pressure 139/83 Arterial Blood Pressure 131/88 Arterial Blood Pressure 131/85 Arterial Blood Pressure 120/82 Pulmonary Artery Pressure 52/37 Pulmonary Artery Pressure 52/35 Pulmonary Artery Pressure 53/33 Pulmonary Artery Pressure 54/34 Cardiac Output 6.2 Cardiac Output 5.2 Cardiac Index 2.1 Cardiac Index 2.3 GENERAL EXAM: 53-year-old white male, sedated, intubated comfortable in no apparent distress. HEAD: Normocephalic/atraumatic. EYES: Normal reaction of pupils, equal size. Conjunctiva pink, sclera white. NOSE: Clear with pink turbinates. THROAT: No erythema or exudates. NECK: No masses, no JVD, no thyroid enlargement, no adenopathy. CHEST: No chest wall deformity. Symmetrical expansion. Mid sternal incision is clean dry and intact, covered with surgical dressing, 2 mediastinal chest tubes Y-connected with small to moderate amount of sanguinous output in the Pleur-evac, ventricular epicardial wires external pacemaker with backup rate LUNGS: Equal air entry with no crackles, wheeze, rhonchi or dullness. CVS: Regular rate and rhythm, normal S1 and S2, no gallops, no murmurs, no rubs ABDOMEN: Soft, nontender. No hepatosplenomegaly, normal bowel sounds, no guarding or rigidity. EXTREMITIES: No clubbing, no edema, no cyanosis, 2+ pulses and upper and lower extremities. MUSCULOSKELETAL: Muscle strength and tone normal. SPINE: No scoliosis or deformity SKIN: No rashes CENTRAL NERVOUS SYSTEM: Sedated No focal deficits, tone is normal in all 4 extremities. Results - Laboratory Findings CBC and BMP: 12/23/18 14:10 12/23/18 13:42 ABG ABG pH 7.32 (7.35-7.45) L 12/23/18 12:14 ABG pCO2 43 mmHg (35-45) 12/23/18 12:14 ABG pO2 351 mmHg (83-108) H 12/23/18 12:14 ABG O2 Saturation 100.0 % (94-97) H 12/23/18 12:14 PT/INR, D-dimer PT 10.7 sec (9.0-12.0) 12/23/18 13:42 INR 1.0 (<1.2) 12/23/18 13:42 Abnormal lab findings: Abnormal Labs 12/18/18 12/23/18 12/23/18 11:00 06:04 09:02 WBC Neutrophils # Monocytes # APTT ABG pH 7.47 H ABG pCO2 ABG pO2 367 H ABG HCO3 26 H ABG Total CO2 27 H ABG O2 Saturation 100.0 H ABG Potassium ABG Ionized Calcium ABG Glucose 159 H ABG Lactic Acid Hemoglobin Chloride Creatinine Glucose POC Glucose (mg/dL) 187 H Calcium Magnesium Total Protein Albumin Arterial Blood Potassium Arterial Blood Glucose 159 H Crossmatch See Detail 12/23/18 12/23/18 12/23/18 10:30 10:45 11:15 WBC Neutrophils # Monocytes # APTT ABG pH 7.33 L 7.33 L ABG pCO2 46 H 51 H 49 H ABG pO2 293 H 46 L* 299 H ABG HCO3 26 H 27 H 26 H ABG Total CO2 27 H 29 H 27 H ABG O2 Saturation 99.9 H 80.1 L 99.9 H ABG Potassium 4.8 H 4.9 H ABG Ionized Calcium 4.2 L 4.3 L 4.3 L ABG Glucose 222 H 232 H 246 H ABG Lactic Acid Hemoglobin 11.7 L 12.3 L 12.4 L Chloride Creatinine Glucose POC Glucose (mg/dL) Calcium Magnesium Total Protein Albumin Arterial Blood Potassium 4.8 H 4.9 H Arterial Blood Glucose 222 H 232 H 246 H Crossmatch 12/23/18 12/23/18 12/23/18 11:54 12:14 13:42 WBC 25.6 H Neutrophils # 22.8 H Monocytes # 1.1 H APTT ABG pH 7.31 L 7.32 L ABG pCO2 48 H ABG pO2 222 H 351 H ABG HCO3 ABG Total CO2 26 H ABG O2 Saturation 99.6 H 100.0 H ABG Potassium 4.8 H 4.8 H ABG Ionized Calcium 4.2 L 4.1 L ABG Glucose 228 H 221 H ABG Lactic Acid 2.1 H 2.6 H* Hemoglobin 11.1 L 11.2 L Chloride Creatinine Glucose POC Glucose (mg/dL) Calcium Magnesium Total Protein Albumin Arterial Blood Potassium 4.8 H 4.8 H Arterial Blood Glucose 228 H 221 H Crossmatch 12/23/18 12/23/18 12/23/18 13:42 13:42 14:10 WBC 24.9 H Neutrophils # 22.3 H Monocytes # 1.3 H APTT 39.9 H ABG pH ABG pCO2 ABG pO2 ABG HCO3 ABG Total CO2 ABG O2 Saturation ABG Potassium ABG Ionized Calcium ABG Glucose ABG Lactic Acid Hemoglobin Chloride 115 H Creatinine 0.53 L Glucose 146 H POC Glucose (mg/dL) Calcium 7.7 L Magnesium 2.6 H Total Protein 5.2 L Albumin 2.7 L Arterial Blood Potassium Arterial Blood Glucose Crossmatch 12/23/18 12/23/18 12/23/18 14:33 15:07 16:06 WBC Neutrophils # Monocytes # APTT ABG pH ABG pCO2 ABG pO2 ABG HCO3 ABG Total CO2 ABG O2 Saturation ABG Potassium ABG Ionized Calcium ABG Glucose ABG Lactic Acid Hemoglobin Chloride Creatinine Glucose POC Glucose (mg/dL) 125 H 150 H 169 H Calcium Magnesium Total Protein Albumin Arterial Blood Potassium Arterial Blood Glucose Crossmatch - Diagnostic Findings Chest x-ray: report reviewed, image reviewed Assessment and Plan Plan: Assessment: #1. Severe mitral valve regurgitation, dyspnea on exertion and chest pain, status post mitral valve repair with P2 reconstruction, creation of for artificial chordae, posterior annuloplasty, exclusion of the left atrial appendage, post-op day 0 #2. Routine postoperative ventilator management #3. Leukocytosis, possibly reactive #4. Hypertension, hyperlipidemia #5. Obesity #6. Nicotine dependence, currently in remission #7. Diabetes mellitus type 2 #8. History of rheumatic fever Plan: Postop blood gases have been reviewed Dr. Hardy, necessary vent adjustments have been made, postop chest x-ray has been reviewed, ET tube, OG tube, PA catheter and chest tubes in appropriate positions, no pneumothorax, mild interstitial edema, overall satisfactory postop chest x-ray. We'll proceed with weaning, spontaneous breathing trials and extubation as the patient wakes up and starts following command. Hemodynamically patient is stable. Pain control. Daily chest x-rays and labs. Nebulized bronchodilators. IV antibiotics CT surgery. Incentive spirometer to the bedside, and GERD deep breathing and coughing last the patient extubate. Will closely follow I performed a history & physical examination of the patient and discussed their management with my nurse practitioner, Margaret Santos. I reviewed the nurse practitioner's note and agree with the documented findings and plan of care. Lung sounds are clear breath sounds. The findings and the impression was discussed with the patient. I attest to the documentation by the nurse practitioner. Time with Patient: Greater than 30 <Anton Hardy - Last Filed: 12/23/18 19:41> Physical Exam Vitals: Vital Signs Temp Pulse Pulse Resp BP BP Pulse Ox 12/23/18 19:00 96.4 F L 71 21 96 12/23/18 18:45 75 26 H 95 12/23/18 18:30 74 94 L 12/23/18 18:15 75 27 H 94 L 12/23/18 18:00 96.4 F L 77 20 95 12/23/18 17:45 73 98 12/23/18 17:30 72 98 12/23/18 17:15 96.4 F L 72 97 12/23/18 17:00 74 97 12/23/18 16:45 73 20 95 12/23/18 16:30 76 19 97 12/23/18 16:15 74 20 95 12/23/18 16:07 72 12/23/18 16:00 96.3 F L 75 77 13 92 L 12/23/18 15:46 80 12/23/18 15:45 75 21 91 L 12/23/18 15:30 78 23 93 L 12/23/18 15:15 75 17 100 12/23/18 15:00 36.5 F L 73 16 100 12/23/18 14:50 71 15 100 12/23/18 14:40 70 11 L 100 12/23/18 14:30 67 12 100 12/23/18 14:20 97.2 F L 68 12 100 12/23/18 13:42 100 12/23/18 06:00 97.6 F 77 17 116/56 122/64 98 Intake and Output 12/23/18 12/23/18 12/23/18 06:59 14:59 22:59 Intake Total 100 32 518.468 Output Total 3600 755 Balance 100 -3568 -236.532 Intake: IV 100 32 505 ACETAMINOPHEN IV (For NPO 100 ) 1,000 mg In Empty Bag 1 bag @ 400 mls/hr IVPB Q6HR [facility] Rx#:[id number] CO/CI 80 Lactated Ringers 1,000 ml 250 @ 50 mls/hr IV .Q20H [facility] Rx#:[id number] Pressure Bag 45 ceFAZolin 2,000 mg In 30 Sodium Chloride 0.9% 30 ml @ Per Protocol IVPB ONCE ONE Rx#:[id number] Intake, IV Titration 13.468 Amount Insulin Regular 100 unit 13.468 In Sodium Chloride 0.9% 100 ml @ Per Protocol IV .Q0M [facility] Rx#:[id number] Output: Drainage [address] 200 Urine 600 555 Estimated Blood Loss 3000 Other: Voiding Method Indwelling Catheter Weight 115.468 kg ABP, PAP, CO, CI - Last 8 Hours Arterial Blood Pressure 114/69 Arterial Blood Pressure 109/69 Arterial Blood Pressure 110/68 Arterial Blood Pressure 116/71 Arterial Blood Pressure 121/73 Arterial Blood Pressure 106/66 Arterial Blood Pressure 109/68 Arterial Blood Pressure 103/67 Arterial Blood Pressure 102/65 Arterial Blood Pressure 102/67 Arterial Blood Pressure 91/56 Arterial Blood Pressure 100/55 Arterial Blood Pressure 98/56 Arterial Blood Pressure 111/62 Arterial Blood Pressure 138/89 Arterial Blood Pressure 139/83 Arterial Blood Pressure 131/88 Arterial Blood Pressure 131/85 Arterial Blood Pressure 120/82 Pulmonary Artery Pressure 47/26 Pulmonary Artery Pressure 54/31 Pulmonary Artery Pressure 47/30 Pulmonary Artery Pressure 50/30 Pulmonary Artery Pressure 51/31 Pulmonary Artery Pressure 49/30 Pulmonary Artery Pressure 46/29 Pulmonary Artery Pressure 47/29 Pulmonary Artery Pressure 46/31 Pulmonary Artery Pressure 46/33 Pulmonary Artery Pressure 44/32 Pulmonary Artery Pressure 38/29 Pulmonary Artery Pressure 38/28 Pulmonary Artery Pressure 37/26 Pulmonary Artery Pressure 42/27 Pulmonary Artery Pressure 51/35 Pulmonary Artery Pressure 52/37 Pulmonary Artery Pressure 52/35 Pulmonary Artery Pressure 53/33 Pulmonary Artery Pressure 54/34 Cardiac Output 6.6 Cardiac Output 6.6 Cardiac Output 5.7 Cardiac Output 6.2 Cardiac Output 5.2 Cardiac Index 2.9 Cardiac Index 2.9 Cardiac Index 2.5 Cardiac Index 2.1 Cardiac Index 2.3 Results - Laboratory Findings CBC and BMP: 12/23/18 19:00 12/23/18 13:42 ABG ABG pH 7.37 (7.35-7.45) 12/23/18 17:47 ABG pCO2 42 mmHg (35-45) 12/23/18 17:47 ABG pO2 143 mmHg (83-108) H 12/23/18 17:47 ABG O2 Saturation 99.6 % (94-97) H 12/23/18 17:47 PT/INR, D-dimer PT 10.7 sec (9.0-12.0) 12/23/18 13:42 INR 1.0 (<1.2) 12/23/18 13:42 Abnormal lab findings: Abnormal Labs 12/18/18 12/23/18 12/23/18 11:00 06:04 09:02 WBC Neutrophils # Lymphocytes # Monocytes # APTT ABG pH 7.47 H ABG pCO2 ABG pO2 367 H ABG HCO3 26 H ABG Total CO2 27 H ABG O2 Saturation 100.0 H ABG Potassium ABG Ionized Calcium ABG Glucose 159 H ABG Lactic Acid Hemoglobin Chloride Creatinine Glucose POC Glucose (mg/dL) 187 H Calcium Magnesium Total Protein Albumin Arterial Blood Potassium Arterial Blood Glucose 159 H Crossmatch See Detail 12/23/18 12/23/18 12/23/18 10:30 10:45 11:15 WBC Neutrophils # Lymphocytes # Monocytes # APTT ABG pH 7.33 L 7.33 L ABG pCO2 46 H 51 H 49 H ABG pO2 293 H 46 L* 299 H ABG HCO3 26 H 27 H 26 H ABG Total CO2 27 H 29 H 27 H ABG O2 Saturation 99.9 H 80.1 L 99.9 H ABG Potassium 4.8 H 4.9 H ABG Ionized Calcium 4.2 L 4.3 L 4.3 L ABG Glucose 222 H 232 H 246 H ABG Lactic Acid Hemoglobin 11.7 L 12.3 L 12.4 L Chloride Creatinine Glucose POC Glucose (mg/dL) Calcium Magnesium Total Protein Albumin Arterial Blood Potassium 4.8 H 4.9 H Arterial Blood Glucose 222 H 232 H 246 H Crossmatch 12/23/18 12/23/18 12/23/18 11:54 12:14 13:42 WBC 25.6 H Neutrophils # 22.8 H Lymphocytes # Monocytes # 1.1 H APTT ABG pH 7.31 L 7.32 L ABG pCO2 48 H ABG pO2 222 H 351 H ABG HCO3 ABG Total CO2 26 H ABG O2 Saturation 99.6 H 100.0 H ABG Potassium 4.8 H 4.8 H ABG Ionized Calcium 4.2 L 4.1 L ABG Glucose 228 H 221 H ABG Lactic Acid 2.1 H 2.6 H* Hemoglobin 11.1 L 11.2 L Chloride Creatinine Glucose POC Glucose (mg/dL) Calcium Magnesium Total Protein Albumin Arterial Blood Potassium 4.8 H 4.8 H Arterial Blood Glucose 228 H 221 H Crossmatch 12/23/18 12/23/18 12/23/18 13:42 13:42 14:10 WBC 24.9 H Neutrophils # 22.3 H Lymphocytes # Monocytes # 1.3 H APTT 39.9 H ABG pH ABG pCO2 ABG pO2 ABG HCO3 ABG Total CO2 ABG O2 Saturation ABG Potassium ABG Ionized Calcium ABG Glucose ABG Lactic Acid Hemoglobin Chloride 115 H Creatinine 0.53 L Glucose 146 H POC Glucose (mg/dL) Calcium 7.7 L Magnesium 2.6 H Total Protein 5.2 L Albumin 2.7 L Arterial Blood Potassium Arterial Blood Glucose Crossmatch 12/23/18 12/23/18 12/23/18 14:33 15:07 15:08 WBC Neutrophils # Lymphocytes # Monocytes # APTT ABG pH 7.28 L ABG pCO2 52 H ABG pO2 354 H ABG HCO3 ABG Total CO2 26 H ABG O2 Saturation 100.0 H ABG Potassium ABG Ionized Calcium ABG Glucose ABG Lactic Acid Hemoglobin Chloride Creatinine Glucose POC Glucose (mg/dL) 125 H 150 H Calcium Magnesium Total Protein Albumin Arterial Blood Potassium Arterial Blood Glucose Crossmatch 12/23/18 12/23/18 12/23/18 16:06 17:06 17:47 WBC Neutrophils # Lymphocytes # Monocytes # APTT ABG pH ABG pCO2 ABG pO2 143 H ABG HCO3 ABG Total CO2 26 H ABG O2 Saturation 99.6 H ABG Potassium ABG Ionized Calcium ABG Glucose ABG Lactic Acid Hemoglobin Chloride Creatinine Glucose POC Glucose (mg/dL) 169 H 175 H Calcium Magnesium Total Protein Albumin Arterial Blood Potassium Arterial Blood Glucose Crossmatch 12/23/18 12/23/18 12/23/18 17:47 18:53 19:00 WBC 25.9 H Neutrophils # 24.2 H Lymphocytes # 0.8 L Monocytes # APTT ABG pH ABG pCO2 ABG pO2 ABG HCO3 ABG Total CO2 ABG O2 Saturation ABG Potassium ABG Ionized Calcium ABG Glucose ABG Lactic Acid Hemoglobin Chloride Creatinine Glucose POC Glucose (mg/dL) 205 H 190 H Calcium Magnesium Total Protein Albumin Arterial Blood Potassium Arterial Blood Glucose Crossmatch Assessment and Plan Plan: This patient is status post mitral valve repair. The patient is postop day #0. The patient was weaned off the mechanical ventilator without any major difficulties. I saw this patient in conjunction with the nurse practitioner. We will able to have the patient spontaneous breathing trial after checking his weaning parameters. Extubated blood any major difficulties. He remains hemodynamically stable. CVP is slightly elevated. PA diastolic is 24. Cardiac index is at 2.6. The patient is producing adequate amount of urine output. Pain is under good control. Insulin drip is running for blood sugar control. We'll continue to follow.
[2018-12-23 17:48] LABS: Glucose,Whole Blood 205 mg/dL (75-99)
[2018-12-23 17:49] LABS: ABG Base Excess -0.9 mmol/L; ABG HCO3 24 mmol/L (21-25); ABG Oxygen Saturation 99.6 % (94-97); ABG PCO2 42 mmHg (35-45); ABG PH 7.37 (7.35-7.45); ABG PO2 143 mmHg (83-108); ABG TCO2 26 mmol/L (19-24)
--- NOTE | 2018-12-23 18:43 | CONS ---
CONSULTATION ATTENDING: Dr. Cueto Mr. Barbosa is a 53-year-old male who underwent mitral valve surgery today. The patient has underwent cardiac catheterization in September of 2018 and was found to have intermediate lesion in the first diagonal branch in the LAD with significant mitral regurgitation. Transesophageal echocardiogram performed at that time by Dr. Bhatt which revealed prolapse of the P2 component with severe mitral regurgitation with ejection fraction of 55%. The patient is intubated at this time. He has underwent surgery by Dr. Cueto. He is in sinus mechanism. Hemodynamically stable with no evidence of tachycardia. Reviewing his old records, the patient has a history of hypertension, hyperlipidemia, diabetes mellitus, as well as rheumatic fever. He has no prior history of myocardial infarction. MEDICATION: At the time of admission included metoprolol tartrate 25 mg twice a day, lisinopril 20 mg daily, insulin, Lipitor 20 mg daily. REVIEW OF SYSTEMS: Not obtained. PHYSICAL EXAMINATION: 53-year-old male intubated, starting to wake up. Blood pressure 139/80 with a heart rate in the 70s, PA pressure 52. HEAD: Normocephalic. Eyes sclerae anicteric. Neck: No bruit. [place] in place on the right IJ. LUNGS: Clear to auscultation anteriorly. Heart regular rate and rhythm. S1, S2. No S3. No rub appreciated. ABDOMEN: Soft. Positive bowel sounds. No organomegaly. EXTREMITIES: No edema. LAB DATA: Hemoglobin of 14. BUN and creatinine 15 and 0.53. IMPRESSION: 1. Status post mitral valve surgery for severe mitral regurgitation. 2. Hypertension. 3. Hyperlipidemia. 4. Diabetes mellitus. RECOMMENDATION: From the cardiac standpoint, we will continue routine postoperative care. I am hopeful he will be able to be weaned and extubated soon, then we will start resuming his beta tico as well as his statin. Depending on his progress, further recommendations will be made. Thank you for this consult. We will follow with you. MMODL / IJN: [id number] /
[2018-12-23 18:55] LABS: Glucose,Whole Blood 190 mg/dL (75-99)
[2018-12-23 19:21] LABS: Basophils % (A) 0 %; Eosinophils % (A) 0 %; HGB 13.9 gm/dL (13.0-17.5); Lymphocytes # (A) 0.8 k/uL (1.0-4.8); Lymphocytes % (A) 3 %; MCH 28.6 pg (25.0-35.0); MCHC 32.5 g/dL (31.0-37.0); MCV 88.1 fL (80.0-100.0); Mean Platelet Volume 7.5; Monocytes # (A) 0.9 k/uL (0-1.0); Monocytes % (A) 3 %; Neutrophils # (A) 24.2 k/uL (1.3-7.7); Neutrophils % (A) 93 %; Platelet Count 197 k/uL (150-450); RBC 4.88 m/uL (4.30-5.90); RDW 14.3 % (11.5-15.5); WBC 25.9 k/uL (3.8-10.6)
[2018-12-23 20:27] LABS: Glucose,Whole Blood 182 mg/dL (75-99)
[2018-12-23] MEDS ORDERED: MUPIROCIN 2% OINT 22 GM TUBE NASAL SCH (21:00)
[2018-12-23 21:39] LABS: Glucose,Whole Blood 164 mg/dL (75-99)
[2018-12-23] MEDS: CLOTRIMAZOLE TROCHE 10 MG TROCHE MUCOUS MEM SCH (21:46)
[2018-12-23 22:06] LABS: Glucose,Whole Blood 153 mg/dL (75-99)
[2018-12-23 23:12] LABS: Glucose,Whole Blood 157 mg/dL (75-99)
[2018-12-24 00:23] LABS: Glucose,Whole Blood 142 mg/dL (75-99)
[2018-12-24] MEDS: ACETAMINOPHEN IV (For NPO) 1,000 MG in EMPTY BAG 1 BAG IVPB SCH ×4 (00:27→19:05)
[2018-12-24] MEDS: ceFAZolin IN SWFI 2 GM/20 ML SYRINGE IVP SCH ×2 (00:28→08:46)
[2018-12-24] MEDS: KETOROLAC 30 MG/ML 1 ML VIAL IVP SCH ×4 (00:28→17:36)
[2018-12-24] MEDS: HEPARIN SODIUM,PORCINE 5,000 UNIT/ML 1 ML VIAL SQ SCH ×3 (00:29→17:35)
[2018-12-24] MEDS: CLOTRIMAZOLE TROCHE 10 MG TROCHE MUCOUS MEM SCH ×6 (01:00→23:59)
[2018-12-24 01:11] LABS: Glucose,Whole Blood 140 mg/dL (75-99)
[2018-12-24 02:10] LABS: Glucose,Whole Blood 124 mg/dL (75-99)
[2018-12-24 03:04] LABS: Glucose,Whole Blood 112 mg/dL (75-99)
[2018-12-24 03:15] LABS: Basophils # (A) 0.1 k/uL (0-0.2); Basophils % (A) 0 %; Eosinophils # (A) 0.1 k/uL (0-0.7); Eosinophils % (A) 0 %; HGB 13.1 gm/dL (13.0-17.5); Lymphocytes # (A) 1.1 k/uL (1.0-4.8); Lymphocytes % (A) 6 %; MCH 28.1 pg (25.0-35.0); MCV 87.9 fL (80.0-100.0); Monocytes # (A) 0.8 k/uL (0-1.0); Monocytes % (A) 4 %; Neutrophils # (A) 18.2 k/uL (1.3-7.7); Neutrophils % (A) 89 %; Platelet Count 192 k/uL (150-450); RBC 4.66 m/uL (4.30-5.90); RDW 14.1 % (11.5-15.5); WBC 20.3 k/uL (3.8-10.6)
[2018-12-24 03:18] LABS: Ionized Calcium 4.9 mg/dL (4.5-5.3)
[2018-12-24 03:22] LABS: Partial Thromboplastin Time 26.2 sec (22.0-30.0); Prothrombin Time 10.4 sec (9.0-12.0)
[2018-12-24 03:29] LABS: ALT 27 U/L (21-72); AST 57 U/L (17-59); Albumin 2.7 g/dL (3.5-5.0); Alkaline Phosphatase 45 U/L (38-126); Anion Gap 2 mmol/L; Blood Urea Nitrogen 14 mg/dL (9-20); Calcium 8.2 mg/dL (8.4-10.2); Carbon Dioxide 26 mmol/L (22-30); Chloride 111 mmol/L (98-107); Glucose 120 mg/dL (74-99); Magnesium 2.3 mg/dL (1.6-2.3); Potassium 4.3 mmol/L (3.5-5.1); Sodium 139 mmol/L (137-145); Total Bilirubin 0.9 mg/dL (0.2-1.3); Total Protein 5.2 g/dL (6.3-8.2)
[2018-12-24 04:13] LABS: Glucose,Whole Blood 126 mg/dL (75-99)
[2018-12-24 05:05] LABS: Glucose,Whole Blood 119 mg/dL (75-99)
[2018-12-24 06:03] LABS: Glucose,Whole Blood 142 mg/dL (75-99)
[2018-12-24 07:03] LABS: Glucose,Whole Blood 138 mg/dL (75-99)
[2018-12-24] MEDS: LACTATED RINGERS 1,000 ML IV SCH (07:04)
--- NOTE | 2018-12-24 08:05 | PN ---
PROGRESS NOTE Mr. Barbosa is a 53-year-old male who has underwent mitral valve repair yesterday by Dr. Cueto with clipping of the left atrial appendage. He is extubated, sitting up in the chair, feeling well. Denying any symptoms of chest discomfort. No dizziness. No palpitation. He continued to be in sinus mechanism. He has some arrhythmia earlier that resolved. He denies any nausea. He continues to be at this time on aspirin once a day, Lipitor 40 mg daily, metoprolol tartrate 12.5 mg twice a day. PHYSICAL EXAMINATION: Blood pressure 115/50 with the heart rate in the 70s. PA pressure is 34 systolic. LUNGS: With crackles at the bases. HEART: Regular rate and rhythm. S1, S2. No S3. No rub appreciated. ABDOMEN: Soft, nontender. EXTREMITIES: No edema. LAB DATA: Lab data revealed BUN and creatinine 14 and 0.39, potassium 4.3, hemoglobin 13.1. IMPRESSION: 1. Status post mitral valve repair for severe mitral regurgitation and mitral valve prolapse, stable. 2. History of coronary artery disease, nonobstructive. 3. History of hypertension. 4. History of diabetes mellitus. RECOMMENDATION: From the cardiac standpoint, we will continue present therapy. Continue incentive spirometry. I will follow his rhythm. Depending on his progress, further recommendation will be made. MMODL / IJN: [id number] /
[2018-12-24] MEDS ORDERED: FUROSEMIDE 10 MG/ML 4 ML VIAL IV ONE (08:29)
[2018-12-24 08:33] LABS: Glucose,Whole Blood 175 mg/dL (75-99)
[2018-12-24] MEDS: ATORVASTATIN 40 MG TAB PO SCH (08:50)
[2018-12-24] MEDS: ASPIRIN 325 MG TAB PO SCH (08:50)
[2018-12-24] MEDS ORDERED: METOPROLOL TARTRATE 12.5 MG TAB PO SCH ×2 (09:00→21:00)
[2018-12-24] MEDS ORDERED: PANTOPRAZOLE 40 MG/10 ML VIAL IVP SCH (09:00)
[2018-12-24] MEDS ORDERED: METOPROLOL TARTRATE 12.5 MG TAB PO STA (09:13)
--- NOTE | 2018-12-24 09:30 | XR ---
EXAMINATION TYPE: XR chest 1V portable DATE OF EXAM: 12/24/2018 COMPARISON: Prior chest x-ray 12/23/2018 HISTORY: Postop cardiac surgery, extubation TECHNIQUE: Single frontal view of the chest is obtained. FINDINGS: There is been interval removal of the orogastric tube, endotracheal tube. Central venous c atheter, atrial appendage clipping, post median sternotomy change, median sternal drain remain in april ce. Heart remains enlarged. No evident pneumothorax. Difficult to exclude retrocardiac density. Pulmo nary artery prominence could be due to underlying pulmonary artery hypertension. Suspect some improve ment in perihilar vascular indistinctness. IMPRESSION: Interval extubation. There may be some improvement in aeration, in volume status. Possib le left lower lobe atelectasis, associated effusion.
--- NOTE | 2018-12-24 09:32 | P.PN ---
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 Mild left ventricular dysfunction. Nonobstructive coronary artery disease with 50% stenosis in the first diagonal branch of the left anterior descending artery. History of rheumatic fever. Hypertension. Hyperlipidemia. Obesity. Current tobacco abuse. Mild COPD with preoperative hemoglobin A1c 72% of predicted. Diabetes mellitus with preoperative hemoglobin A1c 9.8%. Known bilateral iliac artery aneurysms. History of sternal and rib fracture. Previous alcoholism. Occasional marijuana use. Preoperative leukocytosis, investigated by Dr. Todd, negative blood and urine cultures, no treatment necessary. POD #1 complex mitral valve repair including triangular resection of P2 with reconstruction, creation of four artificial chordae using Burrton-Jorge 4-0 to the A 2 segment of the valve, posterior annuloplasty using a 36 mm AnnuloFlex ring. Exclusion of the left atrial appendage using a 45 mm AtriClip. Intraoperative transesophageal echocardiogram and epi-aortic scanning. Postoperative leukocytosis, expected outcome as patient had leukocytosis preoperatively which has been followed by Dr. Todd. The patient is currently sitting up in bed in the intensive care unit in no acute distress. Was successfully extubated last night at 18:00. Does complain of some surgical incisional type pain which is controlled on current medication regimen, denies shortness of breath. Was up to the chair already. Hemodynamically stable on no inotropes or pressors. Using incentive spirometry independently. No new complaints. Objective - Vital Signs Vital signs: Vital Signs Temp 97.2 F L 12/24/18 00:00 Pulse 77 12/24/18 07:44 Resp 17 12/24/18 07:00 BP 108/64 12/24/18 07:00 Pulse Ox 96 12/24/18 07:00 Intake & Output 12/23/18 12/24/18 12/24/18 18:59 06:59 18:59 Intake Total 477.105 7166.326 306.727 Output Total 4355 1010 100 Balance -3804.532 359.326 206.727 Weight 120.3 kg Intake: IV 537 1088 59 ACETAMINOPHEN IV (For NPO 100 200 ) 1,000 mg In Empty Bag 1 bag @ 400 mls/hr IVPB Q6HR [facility] Rx#:[id number] CO/CI 80 210 Lactated Ringers 1,000 ml 250 550 50 @ 50 mls/hr IV .Q20H [facility] Rx#:[id number] Pressure Bag 45 98 9 ceFAZolin 2,000 mg In 30 30 Sodium Chloride 0.9% 30 ml @ Per Protocol IVPB ONCE ONE Rx#:[id number] Intake, IV Titration 13.468 41.326 7.727 Amount Insulin Regular 100 unit 13.468 41.326 7.727 In Sodium Chloride 0.9% 100 ml @ Per Protocol IV .Q0M [facility] Rx#:[id number] Oral 240 240 Output: Drainage [address] 200 160 40 Urine 1155 850 60 Estimated Blood Loss 3000 Other: Voiding Method Indwelling Catheter Indwelling Catheter ABP, PAP, CO, CI - Last Documented Arterial Blood Pressure 115/55 Pulmonary Artery Pressure 34/15 Cardiac Output 7.5 Cardiac Index 3.3 - Constitutional General appearance: Present: cooperative, no acute distress, obese - Respiratory Details: Lungs sounds diminished bilaterally with coarse breath sounds in the bases. Respirations even, nonlabored. Currently on 3 L nasal cannula with oxygen saturation 96%. Able to achieve 750-1000 mL on his incentive spirometry. Effective cough. Mediastinal chest tube to continuous wall suction, 150 mL serosanguineous drainage overnight, 420 mL since surgery, no air leak present. - Cardiovascular Details: S1, S2 present. Regular rate and rhythm, sinus rhythm with first-degree AV block on telemetry. Sternum stable. A/V epicardial pacemaker wires present, grounded. Palpable peripheral pulses bilaterally. No edema present. No calf pain or tenderness noted. Right internal jugular Lansing/Cordis, right radial arterial line present. Last CO/CI 6.5/2.8 on no inotropes or pressors. Heart hugger in place with patient demonstrating appropriate use. Antiembolism stockings, SCDs present. - Gastrointestinal Gastrointestinal Comment(s): Abdomen soft, nontender, nondistended, obese. Hypoactive bowel sounds present 4 quadrants. Tolerating clear liquids. Positive belching, negative flatus. - Genitourinary Genitourinary Comment(s): Hull present draining clear, yellow urine. Output 40-100 mL/h overnight, 515 mL in the last 8 hours. - Integumentary Integumentary Comment(s): Skin is warm and dry with evidence of good perfusion. Anterior chest incision well approximated and covered with dry intact dressing. - Neurologic Neurologic: Present: CNII-XII intact - Musculoskeletal Musculoskeletal: Present: gait normal, strength equal bilaterally - Psychiatric Psychiatric: Present: A&O x's 3, appropriate affect, intact judgment & insight - Allied health notes Allied health notes reviewed: nursing - Labs CBC & Chem 7: 12/24/18 03:00 12/24/18 03:00 Labs: Abnormal Lab Results - Last 24 Hours (Table) 12/18/18 12/23/18 12/23/18 Range/Units 11:00 09:02 10:30 WBC (3.8-10.6) k/uL Neutrophils # (1.3-7.7) k/uL Lymphocytes # (1.0-4.8) k/uL Monocytes # (0-1.0) k/uL APTT (22.0-30.0) sec ABG pH 7.47 H (7.35-7.45) ABG pCO2 46 H (35-45) mmHg ABG pO2 367 H 293 H (83-108) mmHg ABG HCO3 26 H 26 H (21-25) mmol/L ABG Total CO2 27 H 27 H (19-24) mmol/L ABG O2 Saturation 100.0 H 99.9 H (94-97) % ABG Potassium (3.4-4.5) mmol/L ABG Ionized Calcium 4.2 L (4.5-5.3) mg/dL ABG Glucose 159 H 222 H (75-99) mg/dL ABG Lactic Acid (0.5-1.6) mmol/L Hemoglobin 11.7 L (13.0-17.5) gm/dL Chloride (98-107) mmol/L Creatinine (0.66-1.25) mg/dL Glucose (74-99) mg/dL POC Glucose (mg/dL) (75-99) mg/dL Calcium (8.4-10.2) mg/dL Magnesium (1.6-2.3) mg/dL Total Protein (6.3-8.2) g/dL Albumin (3.5-5.0) g/dL Arterial Blood Potassium (3.4-4.5) mmol/L Arterial Blood Glucose 159 H 222 H (75-99) mg/dL Crossmatch See Detail 12/23/18 12/23/18 12/23/18 Range/Units 10:45 11:15 11:54 WBC (3.8-10.6) k/uL Neutrophils # (1.3-7.7) k/uL Lymphocytes # (1.0-4.8) k/uL Monocytes # (0-1.0) k/uL APTT (22.0-30.0) sec ABG pH 7.33 L 7.33 L 7.31 L (7.35-7.45) ABG pCO2 51 H 49 H 48 H (35-45) mmHg ABG pO2 46 L* 299 H 222 H (83-108) mmHg ABG HCO3 27 H 26 H (21-25) mmol/L ABG Total CO2 29 H 27 H 26 H (19-24) mmol/L ABG O2 Saturation 80.1 L 99.9 H 99.6 H (94-97) % ABG Potassium 4.8 H 4.9 H 4.8 H (3.4-4.5) mmol/L ABG Ionized Calcium 4.3 L 4.3 L 4.2 L (4.5-5.3) mg/dL ABG Glucose 232 H 246 H 228 H (75-99) mg/dL ABG Lactic Acid 2.1 H (0.5-1.6) mmol/L Hemoglobin 12.3 L 12.4 L 11.1 L (13.0-17.5) gm/dL Chloride (98-107) mmol/L Creatinine (0.66-1.25) mg/dL Glucose (74-99) mg/dL POC Glucose (mg/dL) (75-99) mg/dL Calcium (8.4-10.2) mg/dL Magnesium (1.6-2.3) mg/dL Total Protein (6.3-8.2) g/dL Albumin (3.5-5.0) g/dL Arterial Blood Potassium 4.8 H 4.9 H 4.8 H (3.4-4.5) mmol/L Arterial Blood Glucose 232 H 246 H 228 H (75-99) mg/dL Crossmatch 12/23/18 12/23/18 12/23/18 Range/Units 12:14 13:42 13:42 WBC 25.6 H (3.8-10.6) k/uL Neutrophils # 22.8 H (1.3-7.7) k/uL Lymphocytes # (1.0-4.8) k/uL Monocytes # 1.1 H (0-1.0) k/uL APTT (22.0-30.0) sec ABG pH 7.32 L (7.35-7.45) ABG pCO2 (35-45) mmHg ABG pO2 351 H (83-108) mmHg ABG HCO3 (21-25) mmol/L ABG Total CO2 (19-24) mmol/L ABG O2 Saturation 100.0 H (94-97) % ABG Potassium 4.8 H (3.4-4.5) mmol/L ABG Ionized Calcium 4.1 L (4.5-5.3) mg/dL ABG Glucose 221 H (75-99) mg/dL ABG Lactic Acid 2.6 H* (0.5-1.6) mmol/L Hemoglobin 11.2 L (13.0-17.5) gm/dL Chloride 115 H (98-107) mmol/L Creatinine 0.53 L (0.66-1.25) mg/dL Glucose 146 H (74-99) mg/dL POC Glucose (mg/dL) (75-99) mg/dL Calcium 7.7 L (8.4-10.2) mg/dL Magnesium 2.6 H (1.6-2.3) mg/dL Total Protein 5.2 L (6.3-8.2) g/dL Albumin 2.7 L (3.5-5.0) g/dL Arterial Blood Potassium 4.8 H (3.4-4.5) mmol/L Arterial Blood Glucose 221 H (75-99) mg/dL Crossmatch 12/23/18 12/23/18 12/23/18 Range/Units 13:42 14:10 14:33 WBC 24.9 H (3.8-10.6) k/uL Neutrophils # 22.3 H (1.3-7.7) k/uL Lymphocytes # (1.0-4.8) k/uL Monocytes # 1.3 H (0-1.0) k/uL APTT 39.9 H (22.0-30.0) sec ABG pH (7.35-7.45) ABG pCO2 (35-45) mmHg ABG pO2 (83-108) mmHg ABG HCO3 (21-25) mmol/L ABG Total CO2 (19-24) mmol/L ABG O2 Saturation (94-97) % ABG Potassium (3.4-4.5) mmol/L ABG Ionized Calcium (4.5-5.3) mg/dL ABG Glucose (75-99) mg/dL ABG Lactic Acid (0.5-1.6) mmol/L Hemoglobin (13.0-17.5) gm/dL Chloride (98-107) mmol/L Creatinine (0.66-1.25) mg/dL Glucose (74-99) mg/dL POC Glucose (mg/dL) 125 H (75-99) mg/dL Calcium (8.4-10.2) mg/dL Magnesium (1.6-2.3) mg/dL Total Protein (6.3-8.2) g/dL Albumin (3.5-5.0) g/dL Arterial Blood Potassium (3.4-4.5) mmol/L Arterial Blood Glucose (75-99) mg/dL Crossmatch 12/23/18 12/23/18 12/23/18 Range/Units 15:07 15:08 16:06 WBC (3.8-10.6) k/uL Neutrophils # (1.3-7.7) k/uL Lymphocytes # (1.0-4.8) k/uL Monocytes # (0-1.0) k/uL APTT (22.0-30.0) sec ABG pH 7.28 L (7.35-7.45) ABG pCO2 52 H (35-45) mmHg ABG pO2 354 H (83-108) mmHg ABG HCO3 (21-25) mmol/L ABG Total CO2 26 H (19-24) mmol/L ABG O2 Saturation 100.0 H (94-97) % ABG Potassium (3.4-4.5) mmol/L ABG Ionized Calcium (4.5-5.3) mg/dL ABG Glucose (75-99) mg/dL ABG Lactic Acid (0.5-1.6) mmol/L Hemoglobin (13.0-17.5) gm/dL Chloride (98-107) mmol/L Creatinine (0.66-1.25) mg/dL Glucose (74-99) mg/dL POC Glucose (mg/dL) 150 H 169 H (75-99) mg/dL Calcium (8.4-10.2) mg/dL Magnesium (1.6-2.3) mg/dL Total Protein (6.3-8.2) g/dL Albumin (3.5-5.0) g/dL Arterial Blood Potassium (3.4-4.5) mmol/L Arterial Blood Glucose (75-99) mg/dL Crossmatch 12/23/18 12/23/18 12/23/18 Range/Units 17:06 17:47 17:47 WBC (3.8-10.6) k/uL Neutrophils # (1.3-7.7) k/uL Lymphocytes # (1.0-4.8) k/uL Monocytes # (0-1.0) k/uL APTT (22.0-30.0) sec ABG pH (7.35-7.45) ABG pCO2 (35-45) mmHg ABG pO2 143 H (83-108) mmHg ABG HCO3 (21-25) mmol/L ABG Total CO2 26 H (19-24) mmol/L ABG O2 Saturation 99.6 H (94-97) % ABG Potassium (3.4-4.5) mmol/L ABG Ionized Calcium (4.5-5.3) mg/dL ABG Glucose (75-99) mg/dL ABG Lactic Acid (0.5-1.6) mmol/L Hemoglobin (13.0-17.5) gm/dL Chloride (98-107) mmol/L Creatinine (0.66-1.25) mg/dL Glucose (74-99) mg/dL POC Glucose (mg/dL) 175 H 205 H (75-99) mg/dL Calcium (8.4-10.2) mg/dL Magnesium (1.6-2.3) mg/dL Total Protein (6.3-8.2) g/dL Albumin (3.5-5.0) g/dL Arterial Blood Potassium (3.4-4.5) mmol/L Arterial Blood Glucose (75-99) mg/dL Crossmatch 12/23/18 12/23/18 12/23/18 Range/Units 18:53 19:00 20:08 WBC 25.9 H (3.8-10.6) k/uL Neutrophils # 24.2 H (1.3-7.7) k/uL Lymphocytes # 0.8 L (1.0-4.8) k/uL Monocytes # (0-1.0) k/uL APTT (22.0-30.0) sec ABG pH (7.35-7.45) ABG pCO2 (35-45) mmHg ABG pO2 (83-108) mmHg ABG HCO3 (21-25) mmol/L ABG Total CO2 (19-24) mmol/L ABG O2 Saturation (94-97) % ABG Potassium (3.4-4.5) mmol/L ABG Ionized Calcium (4.5-5.3) mg/dL ABG Glucose (75-99) mg/dL ABG Lactic Acid (0.5-1.6) mmol/L Hemoglobin (13.0-17.5) gm/dL Chloride (98-107) mmol/L Creatinine (0.66-1.25) mg/dL Glucose (74-99) mg/dL POC Glucose (mg/dL) 190 H 182 H (75-99) mg/dL Calcium (8.4-10.2) mg/dL Magnesium (1.6-2.3) mg/dL Total Protein (6.3-8.2) g/dL Albumin (3.5-5.0) g/dL Arterial Blood Potassium (3.4-4.5) mmol/L Arterial Blood Glucose (75-99) mg/dL Crossmatch 12/23/18 12/23/18 12/23/18 Range/Units 21:19 22:05 23:04 WBC (3.8-10.6) k/uL Neutrophils # (1.3-7.7) k/uL Lymphocytes # (1.0-4.8) k/uL Monocytes # (0-1.0) k/uL APTT (22.0-30.0) sec ABG pH (7.35-7.45) ABG pCO2 (35-45) mmHg ABG pO2 (83-108) mmHg ABG HCO3 (21-25) mmol/L ABG Total CO2 (19-24) mmol/L ABG O2 Saturation (94-97) % ABG Potassium (3.4-4.5) mmol/L ABG Ionized Calcium (4.5-5.3) mg/dL ABG Glucose (75-99) mg/dL ABG Lactic Acid (0.5-1.6) mmol/L Hemoglobin (13.0-17.5) gm/dL Chloride (98-107) mmol/L Creatinine (0.66-1.25) mg/dL Glucose (74-99) mg/dL POC Glucose (mg/dL) 164 H 153 H 157 H (75-99) mg/dL Calcium (8.4-10.2) mg/dL Magnesium (1.6-2.3) mg/dL Total Protein (6.3-8.2) g/dL Albumin (3.5-5.0) g/dL Arterial Blood Potassium (3.4-4.5) mmol/L Arterial Blood Glucose (75-99) mg/dL Crossmatch 12/24/18 12/24/18 12/24/18 Range/Units 00:07 01:09 02:08 WBC (3.8-10.6) k/uL Neutrophils # (1.3-7.7) k/uL Lymphocytes # (1.0-4.8) k/uL Monocytes # (0-1.0) k/uL APTT (22.0-30.0) sec ABG pH (7.35-7.45) ABG pCO2 (35-45) mmHg ABG pO2 (83-108) mmHg ABG HCO3 (21-25) mmol/L ABG Total CO2 (19-24) mmol/L ABG O2 Saturation (94-97) % ABG Potassium (3.4-4.5) mmol/L ABG Ionized Calcium (4.5-5.3) mg/dL ABG Glucose (75-99) mg/dL ABG Lactic Acid (0.5-1.6) mmol/L Hemoglobin (13.0-17.5) gm/dL Chloride (98-107) mmol/L Creatinine (0.66-1.25) mg/dL Glucose (74-99) mg/dL POC Glucose (mg/dL) 142 H 140 H 124 H (75-99) mg/dL Calcium (8.4-10.2) mg/dL Magnesium (1.6-2.3) mg/dL Total Protein (6.3-8.2) g/dL Albumin (3.5-5.0) g/dL Arterial Blood Potassium (3.4-4.5) mmol/L Arterial Blood Glucose (75-99) mg/dL Crossmatch 12/24/18 12/24/18 12/24/18 Range/Units 03:00 03:00 03:02 WBC 20.3 H (3.8-10.6) k/uL Neutrophils # 18.2 H (1.3-7.7) k/uL Lymphocytes # (1.0-4.8) k/uL Monocytes # (0-1.0) k/uL APTT (22.0-30.0) sec ABG pH (7.35-7.45) ABG pCO2 (35-45) mmHg ABG pO2 (83-108) mmHg ABG HCO3 (21-25) mmol/L ABG Total CO2 (19-24) mmol/L ABG O2 Saturation (94-97) % ABG Potassium (3.4-4.5) mmol/L ABG Ionized Calcium (4.5-5.3) mg/dL ABG Glucose (75-99) mg/dL ABG Lactic Acid (0.5-1.6) mmol/L Hemoglobin (13.0-17.5) gm/dL Chloride 111 H (98-107) mmol/L Creatinine 0.39 L (0.66-1.25) mg/dL Glucose 120 H (74-99) mg/dL POC Glucose (mg/dL) 112 H (75-99) mg/dL Calcium 8.2 L (8.4-10.2) mg/dL Magnesium (1.6-2.3) mg/dL Total Protein 5.2 L (6.3-8.2) g/dL Albumin 2.7 L (3.5-5.0) g/dL Arterial Blood Potassium (3.4-4.5) mmol/L Arterial Blood Glucose (75-99) mg/dL Crossmatch 12/24/18 12/24/18 12/24/18 Range/Units 04:10 05:02 05:56 WBC (3.8-10.6) k/uL Neutrophils # (1.3-7.7) k/uL Lymphocytes # (1.0-4.8) k/uL Monocytes # (0-1.0) k/uL APTT (22.0-30.0) sec ABG pH (7.35-7.45) ABG pCO2 (35-45) mmHg ABG pO2 (83-108) mmHg ABG HCO3 (21-25) mmol/L ABG Total CO2 (19-24) mmol/L ABG O2 Saturation (94-97) % ABG Potassium (3.4-4.5) mmol/L ABG Ionized Calcium (4.5-5.3) mg/dL ABG Glucose (75-99) mg/dL ABG Lactic Acid (0.5-1.6) mmol/L Hemoglobin (13.0-17.5) gm/dL Chloride (98-107) mmol/L Creatinine (0.66-1.25) mg/dL Glucose (74-99) mg/dL POC Glucose (mg/dL) 126 H 119 H 142 H (75-99) mg/dL Calcium (8.4-10.2) mg/dL Magnesium (1.6-2.3) mg/dL Total Protein (6.3-8.2) g/dL Albumin (3.5-5.0) g/dL Arterial Blood Potassium (3.4-4.5) mmol/L Arterial Blood Glucose (75-99) mg/dL Crossmatch 12/24/18 12/24/18 Range/Units 06:58 08:31 WBC (3.8-10.6) k/uL Neutrophils # (1.3-7.7) k/uL Lymphocytes # (1.0-4.8) k/uL Monocytes # (0-1.0) k/uL APTT (22.0-30.0) sec ABG pH (7.35-7.45) ABG pCO2 (35-45) mmHg ABG pO2 (83-108) mmHg ABG HCO3 (21-25) mmol/L ABG Total CO2 (19-24) mmol/L ABG O2 Saturation (94-97) % ABG Potassium (3.4-4.5) mmol/L ABG Ionized Calcium (4.5-5.3) mg/dL ABG Glucose (75-99) mg/dL ABG Lactic Acid (0.5-1.6) mmol/L Hemoglobin (13.0-17.5) gm/dL Chloride (98-107) mmol/L Creatinine (0.66-1.25) mg/dL Glucose (74-99) mg/dL POC Glucose (mg/dL) 138 H 175 H (75-99) mg/dL Calcium (8.4-10.2) mg/dL Magnesium (1.6-2.3) mg/dL Total Protein (6.3-8.2) g/dL Albumin (3.5-5.0) g/dL Arterial Blood Potassium (3.4-4.5) mmol/L Arterial Blood Glucose (75-99) mg/dL Crossmatch - Imaging and Cardiology Chest x-ray: image reviewed Assessment and Plan (1) Mitral valve regurgitation Current Visit: Yes Status: Chronic Code(s): I34.0 - NONRHEUMATIC MITRAL ( VALVE) INSUFFICIENCY SNOMED Code(s): 21293853 (2) Coronary artery disease Current Visit: Yes Status: Chronic Code(s): I25.10 - ATHSCL HEART DISEASE OF [place] CORONARY ARTERY W/O ANG PCTRS SNOMED Code(s): 12116746 (3) Hypertension Current Visit: Yes Status: Chronic Code(s): I10 - ESSENTIAL (PRIMARY) HYPERTENSION SNOMED Code(s): 64545053 (4) Hyperlipidemia Current Visit: Yes Status: Chronic Code(s): E78.5 - HYPERLIPIDEMIA, UNSPECIFIED SNOMED Code(s): 32824925 (5) Leukocytosis Current Visit: Yes Status: Chronic Code(s): D72.829 - ELEVATED WHITE BLOOD CELL COUNT, UNSPECIFIED SNOMED Code(s): 982907795 (6) Tobacco dependence Current Visit: Yes Status: Chronic Code(s): F17.200 - NICOTINE DEPENDENCE, UNSPECIFIED, UNCOMPLICATED SNOMED Code(s): 69156701 (7) COPD (chronic obstructive pulmonary disease) Current Visit: Yes Status: Chronic Code(s): J44.9 - CHRONIC OBSTRUCTIVE PULMONARY DISEASE, UNSPECIFIED SNOMED Code(s): 38044649 (8) Obesity Current Visit: Yes Status: Chronic Code(s): E66.9 - OBESITY, UNSPECIFIED SNOMED Code(s): 760750622 (9) History of rib fracture Current Visit: No Status: Resolved Code(s): Z87.81 - PERSONAL HISTORY OF ( HEALED) TRAUMATIC FRACTURE SNOMED Code(s): 637949368 (10) Uncontrolled diabetes mellitus Current Visit: Yes Status: Chronic Code(s): E11.65 - TYPE 2 DIABETES MELLITUS WITH HYPERGLYCEMIA SNOMED Code(s): 21190719 (11) History of rheumatic fever Current Visit: No Status: Resolved Code(s): Z86.79 - PERSONAL HISTORY OF OTHER DISEASES OF THE CIRCULATORY SYSTEM SNOMED Code(s): 983856740 Plan: 1. Continue aspirin, statin, beta tico therapy. Will increase beta tico therapy as tolerated, increased today to 25 mg twice daily. Will add in afterload reduction as his blood pressure allows. 2. Wean O2 as tolerated. Encourage incentive spirometry use 10 times every hour while awake. 3. Encourage smoking cessation. 4. Bronchodilators per pulmonology. 5. Increase activity, ambulate as tolerated. PT/OT/cardiac rehab following. 6. Will monitor daily labs and x-rays. Electrolyte replacement per protocol. 7. Pain controlled current medication regimen. Toradol added. 8. Insulin management per primary care service. 9. Will give Lasix 40 mg IV push 1 today. 10. Discontinue Lansing-Alphonse catheter. Connect Cordis to continuous CVP monitoring. 11. Will maintain mediastinal chest tubes and Hull catheter for another 24 hours. 12. GI prophylaxis with Protonix, DVT prophylaxis with subcu heparin, SCDs. 13. More recommendations to follow based on patient's progress. Time with Patient: Greater than 30
[2018-12-24 10:30] LABS: Glucose,Whole Blood 140 mg/dL (75-99)
--- NOTE | 2018-12-24 11:02 | P.CONS ---
History of Present Illness - Reason for Consult Consult date: 12/24/18 Medical management Requesting physician: Dorinda Jensen - History of Present Illness This is a 53-year-old male patient who presented to the hospital for an complex mitral valve repair including triangular resection of P2 with reconstruction, creation of four artificial chordae using Comer-Jorge 4-0 to the A2 segment of the valve, posterior annuloplasty using a 36 mm AnnuloFlex ring. Exclusion of the left atrial appendage using a 45 mm AtriClip. Intraoperative transesophageal echocardiogram and epi-aortic scanning With Dr. Cueto on 03/2019. Patient has a known past medical history of diabetes mellitus, hyperlipidemia, hypertension, seizure disorder, heart murmur and nicotine dependence. In September 2018 patient presents to the hospital with complaints of shortness breath and chest pain is at that time cardiology found to 2-D echo severe mitral regurg, severe prolapsed partial flail posterior mitral valve leaflet. 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 Patient is currently postop day 1. At this time patient has been extubated. Patient is doing well. Patient denies any significant chest pain or shortness of breath. Patient denies nausea vomiting or diarrhea. Patient denies any urinary burning or frequency. Review of Systems please refer to HPI otherwise unremarkable Past Medical History Past Medical History: Diabetes Mellitus, Hyperlipidemia, Hypertension, Seizure Disorder Additional Past Medical History / Comment(s): heart murmur, SOB w/exertion, one time seizure related to metformin, superficial phlebitis years ago, varicose veins, currently has cough & congestion, finishing antibiotic tomorrow, also on nystatin for oral thrush History of Any Multi-Drug Resistant Organisms: None Reported Past Surgical History: Heart Catheterization Past Anesthesia/Blood Transfusion Reactions: No Reported Reaction Smoking Status: Current every day smoker - Past Family History Mother History Unknown: Yes Father History Unknown: Yes Brother(s) History Unknown: Yes Sister(s) Family Medical History: Diabetes Mellitus Daughter(s) Family Medical History: Seizure Disorder Son(s) Family Medical History: No Reported History Medications and Allergies Home Medications Medication Instructions Recorded Confirmed Type Atorvastatin [Lipitor] 20 mg PO HS 10/05/18 12/23/18 History Insulin Degludec [Tresiba 32 unit SQ HS 10/05/18 12/23/18 History Flextouch U-200] Lisinopril 20 mg PO DAILY 10/05/18 12/23/18 History Metoprolol Tartrate [Lopressor] 25 mg PO BID #180 tab 10/08/18 12/23/18 Rx Albuterol Inhaler [Ventolin Hfa 1 - 2 puff INHALATION RT-BID 11/25/18 12/23/18 History Inhaler] Fluticasone Nasal [place] [Flonase 2 spr EA NOSTRIL DAILY 12/18/18 12/23/18 History Nasal [place]] Fluticasone/Umeclidin/Vilanter 1 inhalation INHALATION RT-DAILY 12/18/18 History [Trelegy Ellipta 100-62.5-25] Levofloxacin [Levaquin] 750 mg PO DAILY 12/18/18 12/23/18 History Nystatin 100,000 Unit/ml Susp 4 ml PO QID 12/18/18 12/23/18 History [Mycostatin Oral Susp] Semaglutide [Ozempic] 0.25 mg SQ TU 12/18/18 12/23/18 History Allergies Allergy/AdvReac Type Severity Reaction Status Date / Time metformin Allergy seizure Verified 12/23/18 15:20 Physical Exam Vitals: Vital Signs Temp Pulse Pulse Resp BP Pulse Ox 12/24/18 07:44 77 12/24/18 07:33 75 12/24/18 07:00 70 17 108/64 96 12/24/18 06:30 72 10 L 108/64 97 12/24/18 06:00 75 24 96 12/24/18 05:30 58 L 11 L 96 12/24/18 05:00 78 21 97 12/24/18 04:30 71 24 108/64 96 12/24/18 04:00 71 20 108/64 96 12/24/18 03:30 71 21 108/64 96 12/24/18 03:00 70 21 98 12/24/18 02:30 68 19 97 12/24/18 02:00 67 15 97 12/24/18 01:30 65 21 97 12/24/18 01:00 66 20 97 12/24/18 00:30 56 L 23 95 12/24/18 00:00 97.2 F L 70 19 96 12/23/18 23:30 69 10 L 98 12/23/18 23:00 97.2 F L 69 19 96 12/23/18 22:30 70 18 96 12/23/18 22:00 68 14 96 12/23/18 21:41 96 12/23/18 21:30 70 18 95 12/23/18 21:00 69 18 96 12/23/18 20:30 69 96 12/23/18 20:00 96.6 F L 70 96 12/23/18 19:30 72 20 95 12/23/18 19:00 96.4 F L 71 21 96 12/23/18 18:45 75 26 H 95 12/23/18 18:30 74 94 L 12/23/18 18:15 75 27 H 94 L 12/23/18 18:00 96.4 F L 77 20 95 12/23/18 17:45 73 98 12/23/18 17:30 72 98 12/23/18 17:15 96.4 F L 72 97 12/23/18 17:00 74 97 12/23/18 16:45 73 20 95 12/23/18 16:30 76 19 97 12/23/18 16:15 74 20 95 12/23/18 16:07 72 12/23/18 16:00 96.3 F L 75 77 13 92 L 12/23/18 15:46 80 12/23/18 15:45 75 21 91 L 12/23/18 15:30 78 23 93 L 12/23/18 15:15 75 17 100 12/23/18 15:00 36.5 F L 73 16 100 12/23/18 14:50 71 15 100 12/23/18 14:40 70 11 L 100 12/23/18 14:30 67 12 100 12/23/18 14:20 97.2 F L 68 12 100 12/23/18 13:42 100 Intake and Output 12/23/18 12/24/18 12/24/18 22:59 06:59 14:59 Intake Total 943.209 9302.483 306.727 Output Total 1100 665 100 Balance -337.689 460.483 206.727 Intake: IV 732 861 59 ACETAMINOPHEN IV (For NPO 100 200 ) 1,000 mg In Empty Bag 1 bag @ 400 mls/hr IVPB Q6HR [facility] Rx#:[id number] CO/CI 130 160 Lactated Ringers 1,000 ml 400 400 50 @ 50 mls/hr IV .Q20H [facility] Rx#:[id number] Pressure Bag 72 71 9 ceFAZolin 2,000 mg In 30 30 Sodium Chloride 0.9% 30 ml @ Per Protocol IVPB ONCE ONE Rx#:[id number] Intake, IV Titration 30.311 24.483 7.727 Amount Insulin Regular 100 unit 30.311 24.483 7.727 In Sodium Chloride 0.9% 100 ml @ Per Protocol IV .Q0M [facility] Rx#:[id number] Oral 240 240 Output: Drainage [address] 210 150 40 Urine 890 515 60 Other: Voiding Method Indwelling Catheter Indwelling Catheter Weight 120.3 kg 120.3 kg ABP, PAP, CO, CI - Last 8 Hours Arterial Blood Pressure 115/55 Arterial Blood Pressure 108/63 Arterial Blood Pressure 109/56 Arterial Blood Pressure 98/54 Arterial Blood Pressure 119/58 Arterial Blood Pressure 108/52 Arterial Blood Pressure 106/53 Arterial Blood Pressure 109/48 Arterial Blood Pressure 121/60 Pulmonary Artery Pressure 34/15 Pulmonary Artery Pressure 41/20 Pulmonary Artery Pressure 30/17 Pulmonary Artery Pressure 40/17 Pulmonary Artery Pressure 36/19 Pulmonary Artery Pressure 38/21 Pulmonary Artery Pressure 36/19 Pulmonary Artery Pressure 33/15 Pulmonary Artery Pressure 33/20 Cardiac Output 7.5 Cardiac Output 7.5 Cardiac Output 7.5 Cardiac Output 7.5 Cardiac Output 7.5 Cardiac Output 7.5 Cardiac Output 6.6 Cardiac Index 3.3 Head normocephalic Neck supple Lungs finished bilaterally Heart regular rate and rhythm S1-S2, no rub or gallop Abdomen is soft nontender nondistended positive bowel sounds no hepatosplenomegaly Extremities no edema Neuro alert and orientated to 3 Results CBC & Chem 7: 12/24/18 03:00 12/24/18 03:00 Labs: Abnormal Lab Results - Last 24 Hours (Table) 12/18/18 12/23/18 12/23/18 Range/Units 11:00 09:02 10:30 WBC (3.8-10.6) k/uL Neutrophils # (1.3-7.7) k/uL Lymphocytes # (1.0-4.8) k/uL Monocytes # (0-1.0) k/uL APTT (22.0-30.0) sec ABG pH 7.47 H (7.35-7.45) ABG pCO2 46 H (35-45) mmHg ABG pO2 367 H 293 H (83-108) mmHg ABG HCO3 26 H 26 H (21-25) mmol/L ABG Total CO2 27 H 27 H (19-24) mmol/L ABG O2 Saturation 100.0 H 99.9 H (94-97) % ABG Potassium (3.4-4.5) mmol/L ABG Ionized Calcium 4.2 L (4.5-5.3) mg/dL ABG Glucose 159 H 222 H (75-99) mg/dL ABG Lactic Acid (0.5-1.6) mmol/L Hemoglobin 11.7 L (13.0-17.5) gm/dL Chloride (98-107) mmol/L Creatinine (0.66-1.25) mg/dL Glucose (74-99) mg/dL POC Glucose (mg/dL) (75-99) mg/dL Calcium (8.4-10.2) mg/dL Magnesium (1.6-2.3) mg/dL Total Protein (6.3-8.2) g/dL Albumin (3.5-5.0) g/dL Arterial Blood Potassium (3.4-4.5) mmol/L Arterial Blood Glucose 159 H 222 H (75-99) mg/dL Crossmatch See Detail 12/23/18 12/23/18 12/23/18 Range/Units 10:45 11:15 11:54 WBC (3.8-10.6) k/uL Neutrophils # (1.3-7.7) k/uL Lymphocytes # (1.0-4.8) k/uL Monocytes # (0-1.0) k/uL APTT (22.0-30.0) sec ABG pH 7.33 L 7.33 L 7.31 L (7.35-7.45) ABG pCO2 51 H 49 H 48 H (35-45) mmHg ABG pO2 46 L* 299 H 222 H (83-108) mmHg ABG HCO3 27 H 26 H (21-25) mmol/L ABG Total CO2 29 H 27 H 26 H (19-24) mmol/L ABG O2 Saturation 80.1 L 99.9 H 99.6 H (94-97) % ABG Potassium 4.8 H 4.9 H 4.8 H (3.4-4.5) mmol/L ABG Ionized Calcium 4.3 L 4.3 L 4.2 L (4.5-5.3) mg/dL ABG Glucose 232 H 246 H 228 H (75-99) mg/dL ABG Lactic Acid 2.1 H (0.5-1.6) mmol/L Hemoglobin 12.3 L 12.4 L 11.1 L (13.0-17.5) gm/dL Chloride (98-107) mmol/L Creatinine (0.66-1.25) mg/dL Glucose (74-99) mg/dL POC Glucose (mg/dL) (75-99) mg/dL Calcium (8.4-10.2) mg/dL Magnesium (1.6-2.3) mg/dL Total Protein (6.3-8.2) g/dL Albumin (3.5-5.0) g/dL Arterial Blood Potassium 4.8 H 4.9 H 4.8 H (3.4-4.5) mmol/L Arterial Blood Glucose 232 H 246 H 228 H (75-99) mg/dL Crossmatch 12/23/18 12/23/18 12/23/18 Range/Units 12:14 13:42 13:42 WBC 25.6 H (3.8-10.6) k/uL Neutrophils # 22.8 H (1.3-7.7) k/uL Lymphocytes # (1.0-4.8) k/uL Monocytes # 1.1 H (0-1.0) k/uL APTT (22.0-30.0) sec ABG pH 7.32 L (7.35-7.45) ABG pCO2 (35-45) mmHg ABG pO2 351 H (83-108) mmHg ABG HCO3 (21-25) mmol/L ABG Total CO2 (19-24) mmol/L ABG O2 Saturation 100.0 H (94-97) % ABG Potassium 4.8 H (3.4-4.5) mmol/L ABG Ionized Calcium 4.1 L (4.5-5.3) mg/dL ABG Glucose 221 H (75-99) mg/dL ABG Lactic Acid 2.6 H* (0.5-1.6) mmol/L Hemoglobin 11.2 L (13.0-17.5) gm/dL Chloride 115 H (98-107) mmol/L Creatinine 0.53 L (0.66-1.25) mg/dL Glucose 146 H (74-99) mg/dL POC Glucose (mg/dL) (75-99) mg/dL Calcium 7.7 L (8.4-10.2) mg/dL Magnesium 2.6 H (1.6-2.3) mg/dL Total Protein 5.2 L (6.3-8.2) g/dL Albumin 2.7 L (3.5-5.0) g/dL Arterial Blood Potassium 4.8 H (3.4-4.5) mmol/L Arterial Blood Glucose 221 H (75-99) mg/dL Crossmatch 12/23/18 12/23/18 12/23/18 Range/Units 13:42 14:10 14:33 WBC 24.9 H (3.8-10.6) k/uL Neutrophils # 22.3 H (1.3-7.7) k/uL Lymphocytes # (1.0-4.8) k/uL Monocytes # 1.3 H (0-1.0) k/uL APTT 39.9 H (22.0-30.0) sec ABG pH (7.35-7.45) ABG pCO2 (35-45) mmHg ABG pO2 (83-108) mmHg ABG HCO3 (21-25) mmol/L ABG Total CO2 (19-24) mmol/L ABG O2 Saturation (94-97) % ABG Potassium (3.4-4.5) mmol/L ABG Ionized Calcium (4.5-5.3) mg/dL ABG Glucose (75-99) mg/dL ABG Lactic Acid (0.5-1.6) mmol/L Hemoglobin (13.0-17.5) gm/dL Chloride (98-107) mmol/L Creatinine (0.66-1.25) mg/dL Glucose (74-99) mg/dL POC Glucose (mg/dL) 125 H (75-99) mg/dL Calcium (8.4-10.2) mg/dL Magnesium (1.6-2.3) mg/dL Total Protein (6.3-8.2) g/dL Albumin (3.5-5.0) g/dL Arterial Blood Potassium (3.4-4.5) mmol/L Arterial Blood Glucose (75-99) mg/dL Crossmatch 12/23/18 12/23/18 12/23/18 Range/Units 15:07 15:08 16:06 WBC (3.8-10.6) k/uL Neutrophils # (1.3-7.7) k/uL Lymphocytes # (1.0-4.8) k/uL Monocytes # (0-1.0) k/uL APTT (22.0-30.0) sec ABG pH 7.28 L (7.35-7.45) ABG pCO2 52 H (35-45) mmHg ABG pO2 354 H (83-108) mmHg ABG HCO3 (21-25) mmol/L ABG Total CO2 26 H (19-24) mmol/L ABG O2 Saturation 100.0 H (94-97) % ABG Potassium (3.4-4.5) mmol/L ABG Ionized Calcium (4.5-5.3) mg/dL ABG Glucose (75-99) mg/dL ABG Lactic Acid (0.5-1.6) mmol/L Hemoglobin (13.0-17.5) gm/dL Chloride (98-107) mmol/L Creatinine (0.66-1.25) mg/dL Glucose (74-99) mg/dL POC Glucose (mg/dL) 150 H 169 H (75-99) mg/dL Calcium (8.4-10.2) mg/dL Magnesium (1.6-2.3) mg/dL Total Protein (6.3-8.2) g/dL Albumin (3.5-5.0) g/dL Arterial Blood Potassium (3.4-4.5) mmol/L Arterial Blood Glucose (75-99) mg/dL Crossmatch 12/23/18 12/23/18 12/23/18 Range/Units 17:06 17:47 17:47 WBC (3.8-10.6) k/uL Neutrophils # (1.3-7.7) k/uL Lymphocytes # (1.0-4.8) k/uL Monocytes # (0-1.0) k/uL APTT (22.0-30.0) sec ABG pH (7.35-7.45) ABG pCO2 (35-45) mmHg ABG pO2 143 H (83-108) mmHg ABG HCO3 (21-25) mmol/L ABG Total CO2 26 H (19-24) mmol/L ABG O2 Saturation 99.6 H (94-97) % ABG Potassium (3.4-4.5) mmol/L ABG Ionized Calcium (4.5-5.3) mg/dL ABG Glucose (75-99) mg/dL ABG Lactic Acid (0.5-1.6) mmol/L Hemoglobin (13.0-17.5) gm/dL Chloride (98-107) mmol/L Creatinine (0.66-1.25) mg/dL Glucose (74-99) mg/dL POC Glucose (mg/dL) 175 H 205 H (75-99) mg/dL Calcium (8.4-10.2) mg/dL Magnesium (1.6-2.3) mg/dL Total Protein (6.3-8.2) g/dL Albumin (3.5-5.0) g/dL Arterial Blood Potassium (3.4-4.5) mmol/L Arterial Blood Glucose (75-99) mg/dL Crossmatch 12/23/18 12/23/18 12/23/18 Range/Units 18:53 19:00 20:08 WBC 25.9 H (3.8-10.6) k/uL Neutrophils # 24.2 H (1.3-7.7) k/uL Lymphocytes # 0.8 L (1.0-4.8) k/uL Monocytes # (0-1.0) k/uL APTT (22.0-30.0) sec ABG pH (7.35-7.45) ABG pCO2 (35-45) mmHg ABG pO2 (83-108) mmHg ABG HCO3 (21-25) mmol/L ABG Total CO2 (19-24) mmol/L ABG O2 Saturation (94-97) % ABG Potassium (3.4-4.5) mmol/L ABG Ionized Calcium (4.5-5.3) mg/dL ABG Glucose (75-99) mg/dL ABG Lactic Acid (0.5-1.6) mmol/L Hemoglobin (13.0-17.5) gm/dL Chloride (98-107) mmol/L Creatinine (0.66-1.25) mg/dL Glucose (74-99) mg/dL POC Glucose (mg/dL) 190 H 182 H (75-99) mg/dL Calcium (8.4-10.2) mg/dL Magnesium (1.6-2.3) mg/dL Total Protein (6.3-8.2) g/dL Albumin (3.5-5.0) g/dL Arterial Blood Potassium (3.4-4.5) mmol/L Arterial Blood Glucose (75-99) mg/dL Crossmatch 12/23/18 12/23/18 12/23/18 Range/Units 21:19 22:05 23:04 WBC (3.8-10.6) k/uL Neutrophils # (1.3-7.7) k/uL Lymphocytes # (1.0-4.8) k/uL Monocytes # (0-1.0) k/uL APTT (22.0-30.0) sec ABG pH (7.35-7.45) ABG pCO2 (35-45) mmHg ABG pO2 (83-108) mmHg ABG HCO3 (21-25) mmol/L ABG Total CO2 (19-24) mmol/L ABG O2 Saturation (94-97) % ABG Potassium (3.4-4.5) mmol/L ABG Ionized Calcium (4.5-5.3) mg/dL ABG Glucose (75-99) mg/dL ABG Lactic Acid (0.5-1.6) mmol/L Hemoglobin (13.0-17.5) gm/dL Chloride (98-107) mmol/L Creatinine (0.66-1.25) mg/dL Glucose (74-99) mg/dL POC Glucose (mg/dL) 164 H 153 H 157 H (75-99) mg/dL Calcium (8.4-10.2) mg/dL Magnesium (1.6-2.3) mg/dL Total Protein (6.3-8.2) g/dL Albumin (3.5-5.0) g/dL Arterial Blood Potassium (3.4-4.5) mmol/L Arterial Blood Glucose (75-99) mg/dL Crossmatch 12/24/18 12/24/18 12/24/18 Range/Units 00:07 01:09 02:08 WBC (3.8-10.6) k/uL Neutrophils # (1.3-7.7) k/uL Lymphocytes # (1.0-4.8) k/uL Monocytes # (0-1.0) k/uL APTT (22.0-30.0) sec ABG pH (7.35-7.45) ABG pCO2 (35-45) mmHg ABG pO2 (83-108) mmHg ABG HCO3 (21-25) mmol/L ABG Total CO2 (19-24) mmol/L ABG O2 Saturation (94-97) % ABG Potassium (3.4-4.5) mmol/L ABG Ionized Calcium (4.5-5.3) mg/dL ABG Glucose (75-99) mg/dL ABG Lactic Acid (0.5-1.6) mmol/L Hemoglobin (13.0-17.5) gm/dL Chloride (98-107) mmol/L Creatinine (0.66-1.25) mg/dL Glucose (74-99) mg/dL POC Glucose (mg/dL) 142 H 140 H 124 H (75-99) mg/dL Calcium (8.4-10.2) mg/dL Magnesium (1.6-2.3) mg/dL Total Protein (6.3-8.2) g/dL Albumin (3.5-5.0) g/dL Arterial Blood Potassium (3.4-4.5) mmol/L Arterial Blood Glucose (75-99) mg/dL Crossmatch 12/24/18 12/24/18 12/24/18 Range/Units 03:00 03:00 03:02 WBC 20.3 H (3.8-10.6) k/uL Neutrophils # 18.2 H (1.3-7.7) k/uL Lymphocytes # (1.0-4.8) k/uL Monocytes # (0-1.0) k/uL APTT (22.0-30.0) sec ABG pH (7.35-7.45) ABG pCO2 (35-45) mmHg ABG pO2 (83-108) mmHg ABG HCO3 (21-25) mmol/L ABG Total CO2 (19-24) mmol/L ABG O2 Saturation (94-97) % ABG Potassium (3.4-4.5) mmol/L ABG Ionized Calcium (4.5-5.3) mg/dL ABG Glucose (75-99) mg/dL ABG Lactic Acid (0.5-1.6) mmol/L Hemoglobin (13.0-17.5) gm/dL Chloride 111 H (98-107) mmol/L Creatinine 0.39 L (0.66-1.25) mg/dL Glucose 120 H (74-99) mg/dL POC Glucose (mg/dL) 112 H (75-99) mg/dL Calcium 8.2 L (8.4-10.2) mg/dL Magnesium (1.6-2.3) mg/dL Total Protein 5.2 L (6.3-8.2) g/dL Albumin 2.7 L (3.5-5.0) g/dL Arterial Blood Potassium (3.4-4.5) mmol/L Arterial Blood Glucose (75-99) mg/dL Crossmatch 12/24/18 12/24/18 12/24/18 Range/Units 04:10 05:02 05:56 WBC (3.8-10.6) k/uL Neutrophils # (1.3-7.7) k/uL Lymphocytes # (1.0-4.8) k/uL Monocytes # (0-1.0) k/uL APTT (22.0-30.0) sec ABG pH (7.35-7.45) ABG pCO2 (35-45) mmHg ABG pO2 (83-108) mmHg ABG HCO3 (21-25) mmol/L ABG Total CO2 (19-24) mmol/L ABG O2 Saturation (94-97) % ABG Potassium (3.4-4.5) mmol/L ABG Ionized Calcium (4.5-5.3) mg/dL ABG Glucose (75-99) mg/dL ABG Lactic Acid (0.5-1.6) mmol/L Hemoglobin (13.0-17.5) gm/dL Chloride (98-107) mmol/L Creatinine (0.66-1.25) mg/dL Glucose (74-99) mg/dL POC Glucose (mg/dL) 126 H 119 H 142 H (75-99) mg/dL Calcium (8.4-10.2) mg/dL Magnesium (1.6-2.3) mg/dL Total Protein (6.3-8.2) g/dL Albumin (3.5-5.0) g/dL Arterial Blood Potassium (3.4-4.5) mmol/L Arterial Blood Glucose (75-99) mg/dL Crossmatch 12/24/18 12/24/18 12/24/18 Range/Units 06:58 08:31 10:28 WBC (3.8-10.6) k/uL Neutrophils # (1.3-7.7) k/uL Lymphocytes # (1.0-4.8) k/uL Monocytes # (0-1.0) k/uL APTT (22.0-30.0) sec ABG pH (7.35-7.45) ABG pCO2 (35-45) mmHg ABG pO2 (83-108) mmHg ABG HCO3 (21-25) mmol/L ABG Total CO2 (19-24) mmol/L ABG O2 Saturation (94-97) % ABG Potassium (3.4-4.5) mmol/L ABG Ionized Calcium (4.5-5.3) mg/dL ABG Glucose (75-99) mg/dL ABG Lactic Acid (0.5-1.6) mmol/L Hemoglobin (13.0-17.5) gm/dL Chloride (98-107) mmol/L Creatinine (0.66-1.25) mg/dL Glucose (74-99) mg/dL POC Glucose (mg/dL) 138 H 175 H 140 H (75-99) mg/dL Calcium (8.4-10.2) mg/dL Magnesium (1.6-2.3) mg/dL Total Protein (6.3-8.2) g/dL Albumin (3.5-5.0) g/dL Arterial Blood Potassium (3.4-4.5) mmol/L Arterial Blood Glucose (75-99) mg/dL Crossmatch Assessment and Plan Assessment: 1. Status post complex mitral valve repair including triangular resection of P2 with reconstruction, creation of four artificial chordae using Comer-Jorge 4-0 to the A2 segment of the valve, posterior annuloplasty using a 36 mm AnnuloFlex ring. Exclusion of the left atrial appendage using a 45 mm AtriClip. Intraoperative transesophageal echocardiogram and epi-aortic scanning With Dr. Cueto on 12/23/2018. Patient is currently postop day 1. Patient has been extubated. 2. History of essential Hypertension 3. Nicotine dependence. Patient reports that he has quit 4. History of diabetes mellitus type 2. Patient currently on insulin drip. Hemoglobin A1c 9.8 on 11/25/2018 5. Leukocytosis. Per cardiothoracic team likely reactive. We'll continue to monitor closely 6. History of rheumatic fever 7. Obesity Thank you for this consultation we'll continue to follow patient closely throughout stay Time with Patient: Greater than 30 (Greater than 60% of the total time spent in counseling and coordination of care. I performed an examination of the patient and discussed their management with the Nurse Practitioner. I have reviewed the Nurse Practitioner's notes and agree with the documented findings and plan of care)
[2018-12-24] MEDS: IPRATROPIUM-ALBUTEROL 3 ML NEB INHALATION SCH ×3 (11:09→20:38)
[2018-12-24 12:24] LABS: Glucose,Whole Blood 135 mg/dL (75-99)
[2018-12-24] MEDS ORDERED: BISACODYL 10 MG SUPP RECTAL PRN (12:54)
[2018-12-24] MEDS ORDERED: MAGNESIUM HYDROXIDE 2,400 MG/10 ML CUP PO PRN (12:54)
[2018-12-24] MEDS ORDERED: HYDROcodone/APAP 5-325MG 1 EACH TAB PO PRN (12:54)
[2018-12-24 15:07] LABS: Glucose,Whole Blood 162 mg/dL (75-99)
[2018-12-24] MEDS: CLEVIDIPINE BUTYRATE 25 MG in EMPTY BAG 1 BAG IV SCH (15:41)
[2018-12-24 15:50] LABS: Glucose,Whole Blood 137 mg/dL (75-99)
[2018-12-24 17:07] LABS: Glucose,Whole Blood 126 mg/dL (75-99)
[2018-12-24] MEDS: INSULIN REGULAR 100 UNIT in SODIUM CHLORIDE 0.9% 100 ML IV SCH (17:41)
--- NOTE | 2018-12-24 17:50 | P.PN ---
Subjective Progress Note Date: 12/24/18 Principal diagnosis: Severe mitral valve stenosis, status post mitral valve repair This is a 53-year-old white male patient of Dr. Delaney, with past medical history of diabetes mellitus type 2, history of deep vein thrombosis, nicotine dependence, currently in remission, hypertension, obesity, rheumatic fever. Patient was hospitalized in September, he presented to the emergency department with shortness of breath and chest pain. Patient was evaluated by cardiology, and his 2-D echocardiogram revealed severe mitral regurgitation, severe prolapse /partial flail of the posterior mitral valve leaflet. There was severe concentric left ventricular hypertrophy, overall left ventricular systolic function was within normal limits with an EF between 55-60%. Transesophageal echocardiogram on 10/07/2018 showed one of the P2 component of the posterior mitral leaflet with evidence of severe mitral regurgitation with anteriorly directed jet, and EF of 50-55%. Cardiac catheterization showed intermediate nonobstructive disease involving the first diagonal branch of the left anterior descending artery. Patient was recommended for surgical intervention, and today on 12/23/2018 patient underwent complex mitral valve repair including Anatoliy resection of P2 with reconstruction and creation of for artificial chordae, posterior annuloplasty, exclusion of the left atrial appendage, and Intra-operative BELKIS. Patient seen in the intensive care unit, sedated, and intubated on mechanical ventilator. Current vent settings are assist-control mode with a rate of 20,TV 550, FiO2 of 50% and PEEP of 10. Current IV fluids include lactated Ringer's a rate of 50, and insulin drip at 2 units per hour. Cleviprex is on hold, and diprivan at 20 mics per kilo per minute. Midsternal incision is clean dry and intact, covered with a surgical dressing, 2 mediastinal chest tubes are Y-connected to Pleur-evac with small to moderate amount of sanguinous output. Hull catheter is in place, patient is nonoliguric. Cardiac output is 5.7, and index of 2.5. Postoperative chest x- ray was reviewed by Dr. Hardy, and shows ET tube, OG tube, right IJ Cordis, and PA catheter in appropriate positions, no pneumothorax, or pleural effusion, Interstitium was mildly increased. Overall satisfactory postoperative chest x- ray. The patient is seen today 12/24/2018 in follow-up in the intensive care unit. He is currently resting fairly comfortably in bed. He is awake and alert in no acute distress. He was successfully extubated within the 6 hours yesterday. Today's chest x-ray shows improvement in aeration. There is some left lower lobe atelectasis. His been encouraged regarding increased use the incentive spirometer and cough and deep breathing exercises. He is currently maintaining good O2 saturations in the 90s on 4 L/m per nasal cannula. He's been afebrile. Hemodynamically stable. PA pressure 35/20. CVP 10. Cardiac output 6.4. Cardiac index 2.8. Lactated Ringer's at 50 MLS per hour. Currently on insulin drip at 3.5 units per hour. White count 20.3. Hemoglobin 13.1. Creatinine 0.39. Remaining in sinus rhythm. Objective - Vital Signs Vital signs: Vital Signs Temp 97.8 F 12/24/18 12:00 Pulse 64 12/24/18 17:16 Resp 20 12/24/18 12:00 BP 108/64 12/24/18 07:00 Pulse Ox 96 12/24/18 07:00 Intake & Output 12/23/18 12/24/18 12/24/18 18:59 06:59 18:59 Intake Total 938.680 8866.326 601.429 Output Total 4355 1010 1350 Balance -3804.532 359.326 -748.571 Weight 120.3 kg 120.3 kg Intake: IV 537 1088 316 ACETAMINOPHEN IV (For NPO 100 200 100 ) 1,000 mg In Empty Bag 1 bag @ 400 mls/hr IVPB Q6HR [facility] Rx#:[id number] CO/CI 80 210 30 Lactated Ringers 1,000 ml 250 550 150 @ 20 mls/hr IV .Q24H [facility] Rx#:[id number] Pressure Bag 45 98 36 ceFAZolin 2,000 mg In 30 30 Sodium Chloride 0.9% 30 ml @ Per Protocol IVPB ONCE ONE Rx#:[id number] Intake, IV Titration 13.468 41.326 45.429 Amount Insulin Regular 100 unit 13.468 41.326 45.429 In Sodium Chloride 0.9% 100 ml @ Per Protocol IV .Q0M [facility] Rx#:[id number] Oral 240 240 Output: Drainage [address] 200 160 40 Urine 8278 694 4959 Estimated Blood Loss 3000 Other: Voiding Method Indwelling Catheter Indwelling Catheter Indwelling Catheter ABP, PAP, CO, CI - Last Documented Arterial Blood Pressure 99/52 Pulmonary Artery Pressure 27/13 Cardiac Output 6.4 Cardiac Index 2.8 - Exam GENERAL EXAM: A pleasant male patient awake comfortable in no apparent distress. On 4 L nasal cannula. HEAD: Normocephalic/atraumatic. EYES: Normal reaction of pupils, equal size. Conjunctiva pink, sclera white. NOSE: Clear with pink turbinates. THROAT: No erythema or exudates. NECK: IJ in place. No masses, no JVD, no thyroid enlargement, no adenopathy. CHEST: No chest wall deformity. Symmetrical expansion. Mid sternal incision is clean dry and intact, covered with surgical dressing, 2 mediastinal chest tubes Y-connected with small to moderate amount of sanguinous output in the Pleur-evac, ventricular epicardial wires external pacemaker with backup rate LUNGS: Equal air entry with faint crackles in left posterior base. CVS: Regular rate and rhythm, normal S1 and S2, no gallops, no murmurs, no rubs ABDOMEN: Soft, nontender. No hepatosplenomegaly, normal bowel sounds, no guarding or rigidity. EXTREMITIES: No clubbing, no edema, no cyanosis, 2+ pulses and upper and lower extremities. MUSCULOSKELETAL: Muscle strength and tone normal. SPINE: No scoliosis or deformity SKIN: No rashes CENTRAL NERVOUS SYSTEM: No focal deficits, tone is normal in all 4 extremities. - Labs CBC & Chem 7: 12/24/18 03:00 12/24/18 03:00 Labs: Abnormal Lab Results - Last 24 Hours (Table) 12/18/18 12/23/18 12/23/18 Range/Units 11:00 15:08 17:47 WBC (3.8-10.6) k/uL Neutrophils # (1.3-7.7) k/uL Lymphocytes # (1.0-4.8) k/uL ABG pH 7.28 L (7.35-7.45) ABG pCO2 52 H (35-45) mmHg ABG pO2 354 H 143 H (83-108) mmHg ABG Total CO2 26 H 26 H (19-24) mmol/L ABG O2 Saturation 100.0 H 99.6 H (94-97) % Chloride (98-107) mmol/L Creatinine (0.66-1.25) mg/dL Glucose (74-99) mg/dL POC Glucose (mg/dL) (75-99) mg/dL Calcium (8.4-10.2) mg/dL Total Protein (6.3-8.2) g/dL Albumin (3.5-5.0) g/dL Crossmatch See Detail 12/23/18 12/23/18 12/23/18 Range/Units 17:47 18:53 19:00 WBC 25.9 H (3.8-10.6) k/uL Neutrophils # 24.2 H (1.3-7.7) k/uL Lymphocytes # 0.8 L (1.0-4.8) k/uL ABG pH (7.35-7.45) ABG pCO2 (35-45) mmHg ABG pO2 (83-108) mmHg ABG Total CO2 (19-24) mmol/L ABG O2 Saturation (94-97) % Chloride (98-107) mmol/L Creatinine (0.66-1.25) mg/dL Glucose (74-99) mg/dL POC Glucose (mg/dL) 205 H 190 H (75-99) mg/dL Calcium (8.4-10.2) mg/dL Total Protein (6.3-8.2) g/dL Albumin (3.5-5.0) g/dL Crossmatch 12/23/18 12/23/18 12/23/18 Range/Units 20:08 21:19 22:05 WBC (3.8-10.6) k/uL Neutrophils # (1.3-7.7) k/uL Lymphocytes # (1.0-4.8) k/uL ABG pH (7.35-7.45) ABG pCO2 (35-45) mmHg ABG pO2 (83-108) mmHg ABG Total CO2 (19-24) mmol/L ABG O2 Saturation (94-97) % Chloride (98-107) mmol/L Creatinine (0.66-1.25) mg/dL Glucose (74-99) mg/dL POC Glucose (mg/dL) 182 H 164 H 153 H (75-99) mg/dL Calcium (8.4-10.2) mg/dL Total Protein (6.3-8.2) g/dL Albumin (3.5-5.0) g/dL Crossmatch 12/23/18 12/24/18 12/24/18 Range/Units 23:04 00:07 01:09 WBC (3.8-10.6) k/uL Neutrophils # (1.3-7.7) k/uL Lymphocytes # (1.0-4.8) k/uL ABG pH (7.35-7.45) ABG pCO2 (35-45) mmHg ABG pO2 (83-108) mmHg ABG Total CO2 (19-24) mmol/L ABG O2 Saturation (94-97) % Chloride (98-107) mmol/L Creatinine (0.66-1.25) mg/dL Glucose (74-99) mg/dL POC Glucose (mg/dL) 157 H 142 H 140 H (75-99) mg/dL Calcium (8.4-10.2) mg/dL Total Protein (6.3-8.2) g/dL Albumin (3.5-5.0) g/dL Crossmatch 12/24/18 12/24/18 12/24/18 Range/Units 02:08 03:00 03:00 WBC 20.3 H (3.8-10.6) k/uL Neutrophils # 18.2 H (1.3-7.7) k/uL Lymphocytes # (1.0-4.8) k/uL ABG pH (7.35-7.45) ABG pCO2 (35-45) mmHg ABG pO2 (83-108) mmHg ABG Total CO2 (19-24) mmol/L ABG O2 Saturation (94-97) % Chloride 111 H (98-107) mmol/L Creatinine 0.39 L (0.66-1.25) mg/dL Glucose 120 H (74-99) mg/dL POC Glucose (mg/dL) 124 H (75-99) mg/dL Calcium 8.2 L (8.4-10.2) mg/dL Total Protein 5.2 L (6.3-8.2) g/dL Albumin 2.7 L (3.5-5.0) g/dL Crossmatch 12/24/18 12/24/18 12/24/18 Range/Units 03:02 04:10 05:02 WBC (3.8-10.6) k/uL Neutrophils # (1.3-7.7) k/uL Lymphocytes # (1.0-4.8) k/uL ABG pH (7.35-7.45) ABG pCO2 (35-45) mmHg ABG pO2 (83-108) mmHg ABG Total CO2 (19-24) mmol/L ABG O2 Saturation (94-97) % Chloride (98-107) mmol/L Creatinine (0.66-1.25) mg/dL Glucose (74-99) mg/dL POC Glucose (mg/dL) 112 H 126 H 119 H (75-99) mg/dL Calcium (8.4-10.2) mg/dL Total Protein (6.3-8.2) g/dL Albumin (3.5-5.0) g/dL Crossmatch 12/24/18 12/24/18 12/24/18 Range/Units 05:56 06:58 08:31 WBC (3.8-10.6) k/uL Neutrophils # (1.3-7.7) k/uL Lymphocytes # (1.0-4.8) k/uL ABG pH (7.35-7.45) ABG pCO2 (35-45) mmHg ABG pO2 (83-108) mmHg ABG Total CO2 (19-24) mmol/L ABG O2 Saturation (94-97) % Chloride (98-107) mmol/L Creatinine (0.66-1.25) mg/dL Glucose (74-99) mg/dL POC Glucose (mg/dL) 142 H 138 H 175 H (75-99) mg/dL Calcium (8.4-10.2) mg/dL Total Protein (6.3-8.2) g/dL Albumin (3.5-5.0) g/dL Crossmatch 12/24/18 12/24/18 12/24/18 Range/Units 10:28 12:10 15:05 WBC (3.8-10.6) k/uL Neutrophils # (1.3-7.7) k/uL Lymphocytes # (1.0-4.8) k/uL ABG pH (7.35-7.45) ABG pCO2 (35-45) mmHg ABG pO2 (83-108) mmHg ABG Total CO2 (19-24) mmol/L ABG O2 Saturation (94-97) % Chloride (98-107) mmol/L Creatinine (0.66-1.25) mg/dL Glucose (74-99) mg/dL POC Glucose (mg/dL) 140 H 135 H 162 H (75-99) mg/dL Calcium (8.4-10.2) mg/dL Total Protein (6.3-8.2) g/dL Albumin (3.5-5.0) g/dL Crossmatch 12/24/18 12/24/18 Range/Units 15:48 17:05 WBC (3.8-10.6) k/uL Neutrophils # (1.3-7.7) k/uL Lymphocytes # (1.0-4.8) k/uL ABG pH (7.35-7.45) ABG pCO2 (35-45) mmHg ABG pO2 (83-108) mmHg ABG Total CO2 (19-24) mmol/L ABG O2 Saturation (94-97) % Chloride (98-107) mmol/L Creatinine (0.66-1.25) mg/dL Glucose (74-99) mg/dL POC Glucose (mg/dL) 137 H 126 H (75-99) mg/dL Calcium (8.4-10.2) mg/dL Total Protein (6.3-8.2) g/dL Albumin (3.5-5.0) g/dL Crossmatch Assessment and Plan Assessment: Assessment: #1. Severe mitral valve regurgitation, dyspnea on exertion and chest pain, status post mitral valve repair with P2 reconstruction, creation of for artificial chordae, posterior annuloplasty, exclusion of the left atrial appendage, post-op day 1 #2. Routine postoperative ventilator management, extubated at 1800 on 2017. #3. Leukocytosis, possibly reactive #4. Hypertension, hyperlipidemia #5. Obesity #6. Nicotine dependence, currently in remission #7. Diabetes mellitus type 2 #8. History of rheumatic fever Plan: The patient was seen and evaluated by Dr. Hardy. Chest x-ray and labs were reviewed. He did receive Lasix 40 mg IVP 1 today. The patient is currently stable from the pulmonary standpoint. He is working well with the incentive spirometer. Chest tubes remain in place. We will increase his activity as tolerated. We'll continue to follow make further recommendations based on his clinical status. I, the cosigning physician, performed a history & physical examination of the patient. Lungs sounds with faint crackles in the left lung base.. Maintaining good O2 saturations in the 90s on 4 L/m per nasal cannula. I discussed the assessment and plan of care with my nurse practitioner, Paula Shaw. I attest to the above note as dictated by her. Time with Patient: Greater than 30
[2018-12-24 19:02] LABS: Glucose,Whole Blood 192 mg/dL (75-99)
[2018-12-24 20:06] LABS: Glucose,Whole Blood 153 mg/dL (75-99)
[2018-12-24] MEDS ORDERED: METOPROLOL TARTRATE 25 MG TAB PO SCH (21:00)
[2018-12-24] MEDS: SENNOSIDES-DOCUSATE SODIUM 1 EACH TAB PO SCH (21:01)
[2018-12-24] MEDS: INSULIN DETEMIR (LEVEMIR) 100 UNIT/ML SYR SQ SCH (21:03)
[2018-12-24 21:12] LABS: Glucose,Whole Blood 127 mg/dL (75-99)
[2018-12-24 21:58] LABS: Glucose,Whole Blood 120 mg/dL (75-99)
[2018-12-24 23:14] LABS: Glucose,Whole Blood 107 mg/dL (75-99)
[2018-12-25] MEDS: HEPARIN SODIUM,PORCINE 5,000 UNIT/ML 1 ML VIAL SQ SCH ×3 (00:01→15:37)
[2018-12-25 00:23] LABS: Glucose,Whole Blood 111 mg/dL (75-99)
[2018-12-25] MEDS: SIMETHICONE 80 MG CHEWABLE PO PRN ×2 (00:24→08:34)
[2018-12-25] MEDS: HYDROcodone/APAP 5-325MG 1 EACH TAB PO PRN ×4 (03:17→22:05)
[2018-12-25 04:13] LABS: Glucose,Whole Blood 129 mg/dL (75-99)
[2018-12-25 04:58] LABS: Glucose,Whole Blood 133 mg/dL (75-99)
[2018-12-25 05:11] LABS: Basophils % (A) 0 %; Eosinophils # (A) 0.1 k/uL (0-0.7); Eosinophils % (A) 0 %; HGB 12.2 gm/dL (13.0-17.5); Lymphocytes # (A) 1.8 k/uL (1.0-4.8); Lymphocytes % (A) 9 %; MCH 28.8 pg (25.0-35.0); MCHC 33.1 g/dL (31.0-37.0); MCV 86.9 fL (80.0-100.0); Mean Platelet Volume 7.4; Monocytes # (A) 0.9 k/uL (0-1.0); Monocytes % (A) 5 %; Neutrophils # (A) 16.4 k/uL (1.3-7.7); Neutrophils % (A) 85 %; Platelet Count 148 k/uL (150-450); RBC 4.26 m/uL (4.30-5.90); RDW 14.1 % (11.5-15.5); WBC 19.4 k/uL (3.8-10.6)
[2018-12-25] MEDS: CLOTRIMAZOLE TROCHE 10 MG TROCHE MUCOUS MEM SCH ×4 (05:45→21:35)
[2018-12-25] MEDS: KETOROLAC 30 MG/ML 1 ML VIAL IVP SCH ×4 (05:46→17:54)
[2018-12-25] MEDS ORDERED: ACETAMINOPHEN TAB 325 MG TAB PO PRN ×2 (06:43)
[2018-12-25 06:45] LABS: Glucose,Whole Blood 135 mg/dL (75-99)
[2018-12-25 07:05] LABS: Ionized Calcium 5.4 mg/dL (4.5-5.3)
[2018-12-25] MEDS: IPRATROPIUM-ALBUTEROL 3 ML NEB INHALATION SCH ×4 (07:19→19:01)
[2018-12-25 07:26] LABS: ALT 28 U/L (21-72); AST 40 U/L (17-59); Albumin 2.5 g/dL (3.5-5.0); Alkaline Phosphatase 49 U/L (38-126); Anion Gap 4 mmol/L; Blood Urea Nitrogen 16 mg/dL (9-20); Calcium 8.1 mg/dL (8.4-10.2); Carbon Dioxide 26 mmol/L (22-30); Chloride 107 mmol/L (98-107); Glucose 113 mg/dL (74-99); Potassium 3.8 mmol/L (3.5-5.1); Sodium 137 mmol/L (137-145)
--- NOTE | 2018-12-25 07:50 | PN ---
PROGRESS NOTE Mr. Barbosa is a 53-year-old male who underwent mitral valve repair. He is doing well this morning. His breathing stable he is eating. He has mild dyspnea and mild soreness in the chest. He denies any anginal pain. He denies any nausea and vomiting. On the monitor, he is in complete heart block with stable junctional rhythm with a narrow complex. Hemodynamically stable. He denies any dizziness or palpitation. He denies any nausea. He continues to be on aspirin once a day, Lipitor 40 mg daily. He was on metoprolol tartrate. PHYSICAL EXAMINATION: Blood pressure running in the high 90s to 120s with the heart rate in the 60s. LUNGS: With few crackles in the left base. HEART: Regular rate and rhythm. S1, S2. No S3 with a systolic murmur. No diastolic murmur. ABDOMEN: Soft, nontender. EXTREMITIES: No edema. LAB DATA: Lab data revealed a hemoglobin of 12.2. IMPRESSION: 1. Status post mitral valve repair, stable. 2. Complete heart block with stable escape rhythm. 3. Mild coronary disease. 4. History of hypertension, stable. 5. History of diabetes. RECOMMENDATION: From the cardiac standpoint, I will hold his beta tico at this time. We will follow his rhythm. I would expect that we will see resolution of his AV block. If not, he may require a permanent pacemaker implantation. We will increase his level activity. DENISE / THELMA: [id number] /
[2018-12-25] MEDS ORDERED: FUROSEMIDE 10 MG/ML 4 ML VIAL IV ONE (08:27)
[2018-12-25] MEDS: PANTOPRAZOLE 40 MG TABLET PO SCH (08:34)
[2018-12-25] MEDS: ATORVASTATIN 40 MG TAB PO SCH (08:34)
[2018-12-25] MEDS: ASPIRIN 325 MG TAB PO SCH (08:34)
[2018-12-25] MEDS: LACTATED RINGERS 1,000 ML IV SCH (08:35)
--- NOTE | 2018-12-25 09:24 | XR ---
EXAMINATION TYPE: XR chest 1V portable DATE OF EXAM: 12/25/2018 COMPARISON: 12/24/2018 HISTORY: Post cardiac surgery FINDINGS: There are bilateral pleural effusions with cardiomegaly and bibasilar infiltrate. There is a diffuse interstitial pattern. Postsurgical changes are seen and there is now a vascular sheath overlying the right lung apex with r emoval of a Sun[place]-Alphonse catheter. No sizable pneumothorax. Diffuse osteopenia and arthropathy of the AC joints. IMPRESSION: 1. Postsurgical changes with findings of bilateral infiltrate and pleural effusion correlate for mild CHF.
--- NOTE | 2018-12-25 09:49 | P.PN ---
Subjective Progress Note Date: 12/25/18 This is a 53-year-old male patient who presented to the hospital for an complex mitral valve repair including triangular resection of P2 with reconstruction, creation of four artificial chordae using Stratford-Jorge 4-0 to the A2 segment of the valve, posterior annuloplasty using a 36 mm AnnuloFlex ring. Exclusion of the left atrial appendage using a 45 mm AtriClip. Intraoperative transesophageal echocardiogram and epi-aortic scanning With Dr. Cueto on 03/2019. Patient has a known past medical history of diabetes mellitus, hyperlipidemia, hypertension, seizure disorder, heart murmur and nicotine dependence. In September 2018 patient presents to the hospital with complaints of shortness breath and chest pain is at that time cardiology found to 2-D echo severe mitral regurg, severe prolapsed partial flail posterior mitral valve leaflet. 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 Patient is currently postop day 1. At this time patient has been extubated. Patient is doing well. Patient denies any significant chest pain or shortness of breath. Patient denies nausea vomiting or diarrhea. Patient denies any urinary burning or frequency. 12/25/2018 patient is alert and oriented 3 currently sitting up in chair. Patient is currently postop day 2. Patient received 1 dose of IV Lasix yesterday critical care. Plans for possible chest tube removal today. This time patient denies chest pain or shortness of breath. Patient denies nausea vomiting or diarrhea. Patient denies any urinary burning or frequency. Blood sugars have improved. Objective - Vital Signs Vital signs: Vital Signs Temp 97.8 F 12/25/18 04:00 Pulse 66 12/25/18 07:20 Resp 12 12/25/18 07:00 BP 108/64 12/24/18 07:00 Pulse Ox 92 L 12/25/18 07:00 Intake & Output 12/24/18 12/25/18 12/25/18 18:59 06:59 18:59 Intake Total 1340.206 582.140 26 Output Total 1890 515 30 Balance -549.794 67.140 -4 Weight 120.3 kg 119.7 kg Intake: IV 554 309 26 ACETAMINOPHEN IV (For NPO 200 ) 1,000 mg In Empty Bag 1 bag @ 400 mls/hr IVPB Q6HR [facility] Rx#:[id number] CO/CI 30 Lactated Ringers 1,000 ml 270 240 20 @ 20 mls/hr IV .Q24H [facility] Rx#:[id number] Pressure Bag 54 69 6 Intake, IV Titration 46.206 23.140 Amount Insulin Regular 100 unit 46.206 23.140 In Sodium Chloride 0.9% 100 ml @ Per Protocol IV .Q0M [facility] Rx#:[id number] Oral 740 250 Output: Chest Tube Drainage 70 30 Bilateral Mediastinal 70 30 Drainage [address] 40 75 Urine 1780 410 30 Other: Voiding Method Indwelling Catheter Indwelling Catheter ABP, PAP, CO, CI - Last Documented Arterial Blood Pressure 92/47 Pulmonary Artery Pressure 27/13 Cardiac Output 6.4 Cardiac Index 2.8 - Exam Head normocephalic Neck supple Lungs finished bilaterally Heart regular rate and rhythm S1-S2, no rub or gallop Abdomen is soft nontender nondistended positive bowel sounds no hepatosplenomegaly Extremities no edema Neuro alert and orientated to 3 - Labs CBC & Chem 7: 12/25/18 05:00 12/25/18 05:00 Labs: Abnormal Lab Results - Last 24 Hours (Table) 12/24/18 12/24/18 12/24/18 Range/Units 10:28 12:10 15:05 WBC (3.8-10.6) k/uL RBC (4.30-5.90) m/uL Hgb (13.0-17.5) gm/dL Hct (39.0-53.0) % Plt Count (150-450) k/uL Neutrophils # (1.3-7.7) k/uL Creatinine (0.66-1.25) mg/dL Glucose (74-99) mg/dL POC Glucose (mg/dL) 140 H 135 H 162 H (75-99) mg/dL Calcium (8.4-10.2) mg/dL Ionized Calcium Bud (4.5-5.3) mg/dL Total Protein (6.3-8.2) g/dL Albumin (3.5-5.0) g/dL 12/24/18 12/24/18 12/24/18 Range/Units 15:48 17:05 19:00 WBC (3.8-10.6) k/uL RBC (4.30-5.90) m/uL Hgb (13.0-17.5) gm/dL Hct (39.0-53.0) % Plt Count (150-450) k/uL Neutrophils # (1.3-7.7) k/uL Creatinine (0.66-1.25) mg/dL Glucose (74-99) mg/dL POC Glucose (mg/dL) 137 H 126 H 192 H (75-99) mg/dL Calcium (8.4-10.2) mg/dL Ionized Calcium Bud (4.5-5.3) mg/dL Total Protein (6.3-8.2) g/dL Albumin (3.5-5.0) g/dL 12/24/18 12/24/18 12/24/18 Range/Units 20:05 21:12 21:57 WBC (3.8-10.6) k/uL RBC (4.30-5.90) m/uL Hgb (13.0-17.5) gm/dL Hct (39.0-53.0) % Plt Count (150-450) k/uL Neutrophils # (1.3-7.7) k/uL Creatinine (0.66-1.25) mg/dL Glucose (74-99) mg/dL POC Glucose (mg/dL) 153 H 127 H 120 H (75-99) mg/dL Calcium (8.4-10.2) mg/dL Ionized Calcium Bud (4.5-5.3) mg/dL Total Protein (6.3-8.2) g/dL Albumin (3.5-5.0) g/dL 12/24/18 12/25/18 12/25/18 Range/Units 23:12 00:22 04:11 WBC (3.8-10.6) k/uL RBC (4.30-5.90) m/uL Hgb (13.0-17.5) gm/dL Hct (39.0-53.0) % Plt Count (150-450) k/uL Neutrophils # (1.3-7.7) k/uL Creatinine (0.66-1.25) mg/dL Glucose (74-99) mg/dL POC Glucose (mg/dL) 107 H 111 H 129 H (75-99) mg/dL Calcium (8.4-10.2) mg/dL Ionized Calcium Bud (4.5-5.3) mg/dL Total Protein (6.3-8.2) g/dL Albumin (3.5-5.0) g/dL 12/25/18 12/25/18 12/25/18 Range/Units 04:56 05:00 05:00 WBC 19.4 H (3.8-10.6) k/uL RBC 4.26 L (4.30-5.90) m/uL Hgb 12.2 L (13.0-17.5) gm/dL Hct 37.0 L (39.0-53.0) % Plt Count 148 L (150-450) k/uL Neutrophils # 16.4 H (1.3-7.7) k/uL Creatinine 0.43 L (0.66-1.25) mg/dL Glucose 113 H (74-99) mg/dL POC Glucose (mg/dL) 133 H (75-99) mg/dL Calcium 8.1 L (8.4-10.2) mg/dL Ionized Calcium Bud 5.4 H (4.5-5.3) mg/dL Total Protein 5.0 L (6.3-8.2) g/dL Albumin 2.5 L (3.5-5.0) g/dL 12/25/18 Range/Units 06:44 WBC (3.8-10.6) k/uL RBC (4.30-5.90) m/uL Hgb (13.0-17.5) gm/dL Hct (39.0-53.0) % Plt Count (150-450) k/uL Neutrophils # (1.3-7.7) k/uL Creatinine (0.66-1.25) mg/dL Glucose (74-99) mg/dL POC Glucose (mg/dL) 135 H (75-99) mg/dL Calcium (8.4-10.2) mg/dL Ionized Calcium Bud (4.5-5.3) mg/dL Total Protein (6.3-8.2) g/dL Albumin (3.5-5.0) g/dL Assessment and Plan Assessment: 1. Status post complex mitral valve repair including triangular resection of P2 with reconstruction, creation of four artificial chordae using Stratford-Jorge 4-0 to the A2 segment of the valve, posterior annuloplasty using a 36 mm AnnuloFlex ring. Exclusion of the left atrial appendage using a 45 mm AtriClip. Intraoperative transesophageal echocardiogram and epi-aortic scanning With Dr. Cueto on 12/23/2018. Patient is currently postop day 2. Patient has been extubated. 2. History of essential Hypertension 3. Nicotine dependence. Patient reports that he has quit 4. History of diabetes mellitus type 2. Patient currently on insulin drip. Hemoglobin A1c 9.8 on 11/25/2018. Home long-acting insulin has been added 5. Leukocytosis. Per cardiothoracic team likely reactive. We'll continue to monitor closely 6. History of rheumatic fever 7. Obesity Thank you for this consultation we'll continue to follow patient closely throughout stay
--- NOTE | 2018-12-25 09:59 | P.PN ---
Subjective Progress Note Date: 12/25/18 Principal diagnosis: Ding disease with flail of the P2 segment of the mitral valve and prolapse of A2, severe mitral valve regurgitation. Mild left ventricular dysfunction. Nonobstructive coronary artery disease with 50% stenosis in the first diagonal branch of the left anterior descending artery. History of rheumatic fever. Hypertension. Hyperlipidemia. Obesity. Current tobacco abuse. Mild COPD with preoperative hemoglobin A1c 72% of predicted. Diabetes mellitus with preoperative hemoglobin A1c 9.8%. Known bilateral iliac artery aneurysms. History of sternal and rib fracture. Previous alcoholism. Occasional marijuana use. Preoperative leukocytosis, investigated by Dr. Todd, negative blood and urine cultures, no treatment necessary. POD #2 complex mitral valve repair including triangular resection of P2 with reconstruction, creation of four artificial chordae using Delevan-Jorge 4-0 to the A 2 segment of the valve, posterior annuloplasty using a 36 mm AnnuloFlex ring. Exclusion of the left atrial appendage using a 45 mm AtriClip. Intraoperative transesophageal echocardiogram and epi-aortic scanning. Postoperative leukocytosis, expected outcome as patient had leukocytosis preoperatively which has been followed by Dr. Todd. The patient is currently sitting up in bed in the intensive care unit in no acute distress. Patient's heart rhythm was sinus with first-degree AV block yesterday, currently he is in third degree heart block with his heart rate in the low 60s and asymptomatic. Does complain of some surgical incisional type pain which is controlled on current medication regimen, denies shortness of breath. Patient has ambulated multiple laps in the hallway. Hemodynamically stable on no inotropes or pressors. Using incentive spirometry independently. No new complaints. Objective - Vital Signs Vital signs: Vital Signs Temp 97.8 F 12/25/18 04:00 Pulse 66 12/25/18 07:20 Resp 12 12/25/18 07:00 BP 108/64 12/24/18 07:00 Pulse Ox 92 L 12/25/18 07:00 Intake & Output 12/24/18 12/25/18 12/25/18 18:59 06:59 18:59 Intake Total 1340.206 582.140 26 Output Total 1890 515 30 Balance -549.794 67.140 -4 Weight 120.3 kg 119.7 kg Intake: IV 554 309 26 ACETAMINOPHEN IV (For NPO 200 ) 1,000 mg In Empty Bag 1 bag @ 400 mls/hr IVPB Q6HR SAUNDRA Rx#:[id number] CO/CI 30 Lactated Ringers 1,000 ml 270 240 20 @ 20 mls/hr IV .Q24H SAUNDRA Rx#:[id number] Pressure Bag 54 69 6 Intake, IV Titration 46.206 23.140 Amount Insulin Regular 100 unit 46.206 23.140 In Sodium Chloride 0.9% 100 ml @ Per Protocol IV .Q0M SAUNDRA Rx#:[id number] Oral 740 250 Output: Chest Tube Drainage 70 30 Bilateral Mediastinal 70 30 Drainage [address] 40 75 Urine 1780 410 30 Other: Voiding Method Indwelling Catheter Indwelling Catheter ABP, PAP, CO, CI - Last Documented Arterial Blood Pressure 92/47 Pulmonary Artery Pressure 27/13 Cardiac Output 6.4 Cardiac Index 2.8 - Constitutional General appearance: Present: cooperative, no acute distress, obese - Respiratory Details: Lungs sounds diminished bilaterally with coarse breath sounds in the bases. Respirations even, nonlabored. Currently on 2 L nasal cannula with oxygen saturation 94%. Able to achieve 1000 mL on his incentive spirometry. Strong productive cough. Mediastinal chest tube to continuous wall suction, 75 mL serosanguineous drainage overnight, 200 mL in the last 24 hours, no air leak present. - Cardiovascular Details: S1, S2 present. Regular rate and rhythm, complete heart block on telemetry. Sternum stable. A/V epicardial pacemaker wires present, connected to generator , DDD mode with backup rate 50 beats per minutes. Palpable peripheral pulses bilaterally. No edema present. No calf pain or tenderness noted. Right internal jugular Cordis, right radial arterial line present. Heart hugger in place with patient demonstrating appropriate use. Antiembolism stockings, SCDs present. - Gastrointestinal Gastrointestinal Comment(s): Abdomen soft, nontender, nondistended, obese. Active bowel sounds present 4 quadrants. Tolerating clear liquids. Positive flatus, negative bowel movement. - Genitourinary Genitourinary Comment(s): Hull present draining clear, yellow urine. Output 25-45 mL/h overnight, 235 mL in the last 8 hours. - Integumentary Integumentary Comment(s): Skin is warm and dry with evidence of good perfusion. Anterior chest incision well approximated and covered with dry intact dressing. - Neurologic Neurologic: Present: CNII-XII intact - Musculoskeletal Musculoskeletal: Present: gait normal, strength equal bilaterally - Psychiatric Psychiatric: Present: A&O x's 3, appropriate affect, intact judgment & insight - Allied health notes Allied health notes reviewed: nursing - Labs CBC & Chem 7: 12/25/18 05:00 12/25/18 05:00 Labs: Abnormal Lab Results - Last 24 Hours (Table) 12/24/18 12/24/18 12/24/18 Range/Units 10:28 12:10 15:05 WBC (3.8-10.6) k/uL RBC (4.30-5.90) m/uL Hgb (13.0-17.5) gm/dL Hct (39.0-53.0) % Plt Count (150-450) k/uL Neutrophils # (1.3-7.7) k/uL Creatinine (0.66-1.25) mg/dL Glucose (74-99) mg/dL POC Glucose (mg/dL) 140 H 135 H 162 H (75-99) mg/dL Calcium (8.4-10.2) mg/dL Ionized Calcium Bud (4.5-5.3) mg/dL Total Protein (6.3-8.2) g/dL Albumin (3.5-5.0) g/dL 12/24/18 12/24/18 12/24/18 Range/Units 15:48 17:05 19:00 WBC (3.8-10.6) k/uL RBC (4.30-5.90) m/uL Hgb (13.0-17.5) gm/dL Hct (39.0-53.0) % Plt Count (150-450) k/uL Neutrophils # (1.3-7.7) k/uL Creatinine (0.66-1.25) mg/dL Glucose (74-99) mg/dL POC Glucose (mg/dL) 137 H 126 H 192 H (75-99) mg/dL Calcium (8.4-10.2) mg/dL Ionized Calcium Bud (4.5-5.3) mg/dL Total Protein (6.3-8.2) g/dL Albumin (3.5-5.0) g/dL 02/06/19 02/06/19 02/06/19 Range/Units 20:05 21:12 21:57 WBC (3.8-10.6) k/uL RBC (4.30-5.90) m/uL Hgb (13.0-17.5) gm/dL Hct (39.0-53.0) % Plt Count (150-450) k/uL Neutrophils # (1.3-7.7) k/uL Creatinine (0.66-1.25) mg/dL Glucose (74-99) mg/dL POC Glucose (mg/dL) 153 H 127 H 120 H (75-99) mg/dL Calcium (8.4-10.2) mg/dL Ionized Calcium Bud (4.5-5.3) mg/dL Total Protein (6.3-8.2) g/dL Albumin (3.5-5.0) g/dL 12/24/18 12/25/18 12/25/18 Range/Units 23:12 00:22 04:11 WBC (3.8-10.6) k/uL RBC (4.30-5.90) m/uL Hgb (13.0-17.5) gm/dL Hct (39.0-53.0) % Plt Count (150-450) k/uL Neutrophils # (1.3-7.7) k/uL Creatinine (0.66-1.25) mg/dL Glucose (74-99) mg/dL POC Glucose (mg/dL) 107 H 111 H 129 H (75-99) mg/dL Calcium (8.4-10.2) mg/dL Ionized Calcium Bud (4.5-5.3) mg/dL Total Protein (6.3-8.2) g/dL Albumin (3.5-5.0) g/dL 12/25/18 12/25/18 12/25/18 Range/Units 04:56 05:00 05:00 WBC 19.4 H (3.8-10.6) k/uL RBC 4.26 L (4.30-5.90) m/uL Hgb 12.2 L (13.0-17.5) gm/dL Hct 37.0 L (39.0-53.0) % Plt Count 148 L (150-450) k/uL Neutrophils # 16.4 H (1.3-7.7) k/uL Creatinine 0.43 L (0.66-1.25) mg/dL Glucose 113 H (74-99) mg/dL POC Glucose (mg/dL) 133 H (75-99) mg/dL Calcium 8.1 L (8.4-10.2) mg/dL Ionized Calcium Bud 5.4 H (4.5-5.3) mg/dL Total Protein 5.0 L (6.3-8.2) g/dL Albumin 2.5 L (3.5-5.0) g/dL 12/25/18 Range/Units 06:44 WBC (3.8-10.6) k/uL RBC (4.30-5.90) m/uL Hgb (13.0-17.5) gm/dL Hct (39.0-53.0) % Plt Count (150-450) k/uL Neutrophils # (1.3-7.7) k/uL Creatinine (0.66-1.25) mg/dL Glucose (74-99) mg/dL POC Glucose (mg/dL) 135 H (75-99) mg/dL Calcium (8.4-10.2) mg/dL Ionized Calcium Bud (4.5-5.3) mg/dL Total Protein (6.3-8.2) g/dL Albumin (3.5-5.0) g/dL - Imaging and Cardiology Chest x-ray: report reviewed, image reviewed Assessment and Plan (1) Mitral valve regurgitation Current Visit: Yes Status: Chronic Code(s): I34.0 - NONRHEUMATIC MITRAL ( VALVE) INSUFFICIENCY SNOMED Code(s): 33828751 (2) Coronary artery disease Current Visit: Yes Status: Chronic Code(s): I25.10 - ATHSCL HEART DISEASE OF [place] CORONARY ARTERY W/O ANG PCTRS SNOMED Code(s): 49495852 (3) Hypertension Current Visit: Yes Status: Chronic Code(s): I10 - ESSENTIAL (PRIMARY) HYPERTENSION SNOMED Code(s): 63202870 (4) Hyperlipidemia Current Visit: Yes Status: Chronic Code(s): E78.5 - HYPERLIPIDEMIA, UNSPECIFIED SNOMED Code(s): 64224658 (5) Leukocytosis Current Visit: Yes Status: Chronic Code(s): D72.829 - ELEVATED WHITE BLOOD CELL COUNT, UNSPECIFIED SNOMED Code(s): 449026126 (6) Tobacco dependence Current Visit: Yes Status: Chronic Code(s): F17.200 - NICOTINE DEPENDENCE, UNSPECIFIED, UNCOMPLICATED SNOMED Code(s): 71855189 (7) COPD (chronic obstructive pulmonary disease) Current Visit: Yes Status: Chronic Code(s): J44.9 - CHRONIC OBSTRUCTIVE PULMONARY DISEASE, UNSPECIFIED SNOMED Code(s): 28807558 (8) Obesity Current Visit: Yes Status: Chronic Code(s): E66.9 - OBESITY, UNSPECIFIED SNOMED Code(s): 631761600 (9) History of rib fracture Current Visit: No Status: Resolved Code(s): Z87.81 - PERSONAL HISTORY OF ( HEALED) TRAUMATIC FRACTURE SNOMED Code(s): 574419245 (10) Uncontrolled diabetes mellitus Current Visit: Yes Status: Chronic Code(s): E11.65 - TYPE 2 DIABETES MELLITUS WITH HYPERGLYCEMIA SNOMED Code(s): 83223757 (11) History of rheumatic fever Current Visit: No Status: Resolved Code(s): Z86.79 - PERSONAL HISTORY OF OTHER DISEASES OF THE CIRCULATORY SYSTEM SNOMED Code(s): 077570286 Plan: 1. Continue aspirin, statin. Will hold beta tico therapy for now secondary to complete heart block. Likely to recover sinus rhythm, however if not patient may need permanent pacemaker. 2. Will add a low-dose DOROTHY inhibitor. 3. Wean O2 as tolerated. Encourage incentive spirometry use 10 times every hour while awake. 4. Encourage smoking cessation. 5. Bronchodilators per pulmonology. 6. Increase activity, ambulate as tolerated. PT/OT/cardiac rehab following. 7. Will monitor daily labs and x-rays. Electrolyte replacement per protocol. 8. Pain controlled current medication regimen. 9. Insulin management per primary care service. 10. Will give Lasix 40 mg IV push 1 today. 11. Discontinue cordis, arterial line, Hull. 12. Will discontinue mediastinal chest tubes. 13. GI prophylaxis with Protonix, DVT prophylaxis with subcu heparin, SCDs. 14. Will keep patient in the ICU for another 24 hours as he is connected to epicardial pacemaker generator. 15. More recommendations to follow based on patient's progress. Time with Patient: Greater than 30
--- NOTE | 2018-12-25 10:35 | P.PN ---
Subjective Progress Note Date: 12/25/18 Principal diagnosis: Severe mitral valve stenosis, status post mitral valve repair This is a 53-year-old white male patient of Dr. Delaney, with past medical history of diabetes mellitus type 2, history of deep vein thrombosis, nicotine dependence, currently in remission, hypertension, obesity, rheumatic fever. Patient was hospitalized in September, he presented to the emergency department with shortness of breath and chest pain. Patient was evaluated by cardiology, and his 2-D echocardiogram revealed severe mitral regurgitation, severe prolapse /partial flail of the posterior mitral valve leaflet. There was severe concentric left ventricular hypertrophy, overall left ventricular systolic function was within normal limits with an EF between 55-60%. Transesophageal echocardiogram on 10/07/2018 showed one of the P2 component of the posterior mitral leaflet with evidence of severe mitral regurgitation with anteriorly directed jet, and EF of 50-55%. Cardiac catheterization showed intermediate nonobstructive disease involving the first diagonal branch of the left anterior descending artery. Patient was recommended for surgical intervention, and today on 12/23/2018 patient underwent complex mitral valve repair including Anatoliy resection of P2 with reconstruction and creation of for artificial chordae, posterior annuloplasty, exclusion of the left atrial appendage, and Intra-operative BELKIS. Patient seen in the intensive care unit, sedated, and intubated on mechanical ventilator. Current vent settings are assist-control mode with a rate of 20,TV 550, FiO2 of 50% and PEEP of 10. Current IV fluids include lactated Ringer's a rate of 50, and insulin drip at 2 units per hour. Cleviprex is on hold, and diprivan at 20 mics per kilo per minute. Midsternal incision is clean dry and intact, covered with a surgical dressing, 2 mediastinal chest tubes are Y-connected to Pleur-evac with small to moderate amount of sanguinous output. Hull catheter is in place, patient is nonoliguric. Cardiac output is 5.7, and index of 2.5. Postoperative chest x- ray was reviewed by Dr. Hardy, and shows ET tube, OG tube, right IJ Cordis, and PA catheter in appropriate positions, no pneumothorax, or pleural effusion, Interstitium was mildly increased. Overall satisfactory postoperative chest x- ray. The patient is seen today 12/24/2018 in follow-up in the intensive care unit. He is currently resting fairly comfortably in bed. He is awake and alert in no acute distress. He was successfully extubated within the 6 hours yesterday. Today's chest x-ray shows improvement in aeration. There is some left lower lobe atelectasis. His been encouraged regarding increased use the incentive spirometer and cough and deep breathing exercises. He is currently maintaining good O2 saturations in the 90s on 4 L/m per nasal cannula. He's been afebrile. Hemodynamically stable. PA pressure 35/20. CVP 10. Cardiac output 6.4. Cardiac index 2.8. Lactated Ringer's at 50 MLS per hour. Currently on insulin drip at 3.5 units per hour. White count 20.3. Hemoglobin 13.1. Creatinine 0.39. Remaining in sinus rhythm. On 12/25/2018 patient seen in follow-up in the intensive care unit, he is awake and alert, oriented 3, currently on 2 L per nasal cannula his pulse ox is 95%, afebrile, hemodynamically patient is stable, patient is in third degree AV block , with a rate of 60 asymptomatic. Lung sounds are clear to auscultation, no rhonchi, no wheezes or rales. IV fluids include lactated Ringer's at a rate of 20 ML per hour, no other drips. Vital signs are stable, patient has been ambulating with assistance, stable gait, tolerates activity well. His chest x- ray has been reviewed with Dr. Hardy, and shows bilateral infiltrates, and pleural effusion, he was given another dose of IV Lasix. He is maintaining negative fluid balance, negative for 182 mL. Mediastinal chest tubes are anticipated to be discontinued today, has been only 100 mL out of the mediastinal chest tube. Anticipate surgery to discontinue the chest tubes today. Objective - Vital Signs Vital signs: Vital Signs Temp 97.6 F 12/25/18 08:00 Pulse 67 12/25/18 09:00 Resp 28 H 12/25/18 09:00 BP 108/64 12/24/18 07:00 Pulse Ox 95 12/25/18 09:00 Intake & Output 12/24/18 12/25/18 12/25/18 18:59 06:59 18:59 Intake Total 1340.206 582.140 78 Output Total 1890 515 110 Balance -549.794 67.140 -32 Weight 120.3 kg 119.7 kg Intake: IV 554 309 78 ACETAMINOPHEN IV (For NPO 200 ) 1,000 mg In Empty Bag 1 bag @ 400 mls/hr IVPB Q6HR [facility]UNDRA Rx#:[id number] CO/CI 30 Lactated Ringers 1,000 ml 270 240 60 @ 20 mls/hr IV .Q24H SAUNDRA Rx#:[id number] Pressure Bag 54 69 18 Intake, IV Titration 46.206 23.140 Amount Insulin Regular 100 unit 46.206 23.140 In Sodium Chloride 0.9% 100 ml @ Per Protocol IV .Q0M SAUNDRA Rx#:[id number] Oral 740 250 Output: Chest Tube Drainage 70 30 Bilateral Mediastinal 70 30 Drainage [address] 40 75 Urine 1780 410 110 Other: Voiding Method Indwelling Catheter Indwelling Catheter Indwelling Catheter ABP, PAP, CO, CI - Last Documented Arterial Blood Pressure 109/47 Pulmonary Artery Pressure 27/13 Cardiac Output 6.4 Cardiac Index 2.8 - Exam GENERAL EXAM: A pleasant male patient awake comfortable in no apparent distress. On 2 L nasal cannula. HEAD: Normocephalic/atraumatic. EYES: Normal reaction of pupils, equal size. Conjunctiva pink, sclera white. NOSE: Clear with pink turbinates. THROAT: No erythema or exudates. NECK: IJ in place. No masses, no JVD, no thyroid enlargement, no adenopathy. CHEST: No chest wall deformity. Symmetrical expansion. Mid sternal incision is clean dry and intact, covered with surgical dressing, 2 mediastinal chest tubes Y-connected with small to moderate amount of sanguinous output in the Pleur-evac, ventricular epicardial wires external pacemaker with backup rate LUNGS: Equal air entry with faint crackles in left posterior base. CVS: Regular rate and rhythm, normal S1 and S2, no gallops, no murmurs, no rubs ABDOMEN: Soft, nontender. No hepatosplenomegaly, normal bowel sounds, no guarding or rigidity. EXTREMITIES: No clubbing, no edema, no cyanosis, 2+ pulses and upper and lower extremities. MUSCULOSKELETAL: Muscle strength and tone normal. SPINE: No scoliosis or deformity SKIN: No rashes CENTRAL NERVOUS SYSTEM: No focal deficits, tone is normal in all 4 extremities. - Labs CBC & Chem 7: 12/25/18 05:00 12/25/18 05:00 Labs: Abnormal Lab Results - Last 24 Hours (Table) 12/24/18 12/24/18 12/24/18 Range/Units 10:28 12:10 15:05 WBC (3.8-10.6) k/uL RBC (4.30-5.90) m/uL Hgb (13.0-17.5) gm/dL Hct (39.0-53.0) % Plt Count (150-450) k/uL Neutrophils # (1.3-7.7) k/uL Creatinine (0.66-1.25) mg/dL Glucose (74-99) mg/dL POC Glucose (mg/dL) 140 H 135 H 162 H (75-99) mg/dL Calcium (8.4-10.2) mg/dL Ionized Calcium Bud (4.5-5.3) mg/dL Total Protein (6.3-8.2) g/dL Albumin (3.5-5.0) g/dL 12/24/18 12/24/18 12/24/18 Range/Units 15:48 17:05 19:00 WBC (3.8-10.6) k/uL RBC (4.30-5.90) m/uL Hgb (13.0-17.5) gm/dL Hct (39.0-53.0) % Plt Count (150-450) k/uL Neutrophils # (1.3-7.7) k/uL Creatinine (0.66-1.25) mg/dL Glucose (74-99) mg/dL POC Glucose (mg/dL) 137 H 126 H 192 H (75-99) mg/dL Calcium (8.4-10.2) mg/dL Ionized Calcium Bud (4.5-5.3) mg/dL Total Protein (6.3-8.2) g/dL Albumin (3.5-5.0) g/dL 12/24/18 12/24/18 12/24/18 Range/Units 20:05 21:12 21:57 WBC (3.8-10.6) k/uL RBC (4.30-5.90) m/uL Hgb (13.0-17.5) gm/dL Hct (39.0-53.0) % Plt Count (150-450) k/uL Neutrophils # (1.3-7.7) k/uL Creatinine (0.66-1.25) mg/dL Glucose (74-99) mg/dL POC Glucose (mg/dL) 153 H 127 H 120 H (75-99) mg/dL Calcium (8.4-10.2) mg/dL Ionized Calcium Bud (4.5-5.3) mg/dL Total Protein (6.3-8.2) g/dL Albumin (3.5-5.0) g/dL 12/24/18 12/25/18 12/25/18 Range/Units 23:12 00:22 04:11 WBC (3.8-10.6) k/uL RBC (4.30-5.90) m/uL Hgb (13.0-17.5) gm/dL Hct (39.0-53.0) % Plt Count (150-450) k/uL Neutrophils # (1.3-7.7) k/uL Creatinine (0.66-1.25) mg/dL Glucose (74-99) mg/dL POC Glucose (mg/dL) 107 H 111 H 129 H (75-99) mg/dL Calcium (8.4-10.2) mg/dL Ionized Calcium Bud (4.5-5.3) mg/dL Total Protein (6.3-8.2) g/dL Albumin (3.5-5.0) g/dL 12/25/18 12/25/18 12/25/18 Range/Units 04:56 05:00 05:00 WBC 19.4 H (3.8-10.6) k/uL RBC 4.26 L (4.30-5.90) m/uL Hgb 12.2 L (13.0-17.5) gm/dL Hct 37.0 L (39.0-53.0) % Plt Count 148 L (150-450) k/uL Neutrophils # 16.4 H (1.3-7.7) k/uL Creatinine 0.43 L (0.66-1.25) mg/dL Glucose 113 H (74-99) mg/dL POC Glucose (mg/dL) 133 H (75-99) mg/dL Calcium 8.1 L (8.4-10.2) mg/dL Ionized Calcium Bud 5.4 H (4.5-5.3) mg/dL Total Protein 5.0 L (6.3-8.2) g/dL Albumin 2.5 L (3.5-5.0) g/dL 12/25/18 Range/Units 06:44 WBC (3.8-10.6) k/uL RBC (4.30-5.90) m/uL Hgb (13.0-17.5) gm/dL Hct (39.0-53.0) % Plt Count (150-450) k/uL Neutrophils # (1.3-7.7) k/uL Creatinine (0.66-1.25) mg/dL Glucose (74-99) mg/dL POC Glucose (mg/dL) 135 H (75-99) mg/dL Calcium (8.4-10.2) mg/dL Ionized Calcium Bud (4.5-5.3) mg/dL Total Protein (6.3-8.2) g/dL Albumin (3.5-5.0) g/dL Assessment and Plan Plan: Assessment: #1. Severe mitral valve regurgitation, dyspnea on exertion and chest pain, status post mitral valve repair with P2 reconstruction, creation of for artificial chordae, posterior annuloplasty, exclusion of the left atrial appendage, post-op day 2 #2. Routine postoperative ventilator management, successfully extubated on postop day 0 #3. Leukocytosis, possibly reactive, improving #4. Third-degree AV block, patient is asymptomatic #4. Hypertension, hyperlipidemia #5. Obesity #6. Nicotine dependence, currently in remission #7. Diabetes mellitus type 2 #8. History of rheumatic fever Plan: The chest x-ray has been reviewed by Dr. Hardy, showed small bilateral pleural effusions, pulmonary edema, patient will receive another dose of IV Lasix per CT surgery. He is in negative fluid balance, he is oxygenating well, FiO2 is down to 2 L per nasal cannula, he is ambulating, tolerating activity well. Minimal output from the mediastinal chest tubes, anticipate removal of the chest tubes today by CT surgery. She went into third-degree AV block, with a rate of 60s, patient is asymptomatic. Continue encouraging deep breathing and coughing. Incentive spirometry use. His pain is easily controlled. We'll continue to follow I performed a history & physical examination of the patient and discussed their management with my nurse practitioner, Margaret Santos. I reviewed the nurse practitioner's note and agree with the documented findings and plan of care. Lung sounds are clear breath sounds. The findings and the impression was discussed with the patient. I attest to the documentation by the nurse practitioner. Time with Patient: Less than 30
[2018-12-25 11:55] LABS: Glucose,Whole Blood 162 mg/dL (75-99)
[2018-12-25] MEDS: INSULIN ASPART (NovoLOG) 100 UNIT/ML VIAL SQ SCH ×3 (12:04→22:06)
[2018-12-25] MEDS ORDERED: CALCIUM CHLORIDE 1 GM in SODIUM CHLORIDE 0.9% 50 ML IVPB PRN (14:09)
[2018-12-25] MEDS ORDERED: AMIODARONE 360 MG in DEXTROSE 5% IN WATER 200 ML IV PRN ×2 (14:22)
[2018-12-25] MEDS ORDERED: AMIODARONE 300 MG in DEXTROSE 5% IN WATER 250 ML IV PRN ×2 (14:23)
[2018-12-25] MEDS: LISINOPRIL 2.5 MG TAB PO SCH (14:33)
[2018-12-25 17:11] LABS: Glucose,Whole Blood 203 mg/dL (75-99)
[2018-12-25 20:31] LABS: Glucose,Whole Blood 191 mg/dL (75-99)
[2018-12-25] MEDS: SENNOSIDES-DOCUSATE SODIUM 1 EACH TAB PO SCH (21:35)
[2018-12-25] MEDS: INSULIN DETEMIR (LEVEMIR) 100 UNIT/ML SYR SQ SCH (22:06)
[2018-12-26] MEDS: KETOROLAC 30 MG/ML 1 ML VIAL IVP SCH ×5 (00:07→23:04)
[2018-12-26] MEDS: HEPARIN SODIUM,PORCINE 5,000 UNIT/ML 1 ML VIAL SQ SCH ×4 (00:08→23:03)
[2018-12-26] MEDS: CLOTRIMAZOLE TROCHE 10 MG TROCHE MUCOUS MEM SCH ×6 (00:08→23:04)
[2018-12-26 06:06] LABS: Basophils % (A) 0 %; Eosinophils # (A) 0.1 k/uL (0-0.7); Eosinophils % (A) 1 %; HCT 36.9 % (39.0-53.0); HGB 11.6 gm/dL (13.0-17.5); Lymphocytes # (A) 1.8 k/uL (1.0-4.8); Lymphocytes % (A) 12 %; MCH 27.5 pg (25.0-35.0); MCHC 31.3 g/dL (31.0-37.0); MCV 87.6 fL (80.0-100.0); Mean Platelet Volume 8.2; Monocytes # (A) 0.9 k/uL (0-1.0); Monocytes % (A) 6 %; Neutrophils # (A) 12.2 k/uL (1.3-7.7); Neutrophils % (A) 80 %; Platelet Count 151 k/uL (150-450); RBC 4.22 m/uL (4.30-5.90); RDW 14.2 % (11.5-15.5); WBC 15.2 k/uL (3.8-10.6)
[2018-12-26 06:21] LABS: ALT 28 U/L (21-72); AST 27 U/L (17-59); Albumin 2.6 g/dL (3.5-5.0); Alkaline Phosphatase 58 U/L (38-126); Anion Gap 2 mmol/L; Blood Urea Nitrogen 18 mg/dL (9-20); Calcium 8.2 mg/dL (8.4-10.2); Carbon Dioxide 28 mmol/L (22-30); Chloride 105 mmol/L (98-107); Glucose 131 mg/dL (74-99); Magnesium 2.1 mg/dL (1.6-2.3); Sodium 135 mmol/L (137-145); Total Bilirubin 0.8 mg/dL (0.2-1.3); Total Protein 5.2 g/dL (6.3-8.2)
[2018-12-26] MEDS: IPRATROPIUM-ALBUTEROL 3 ML NEB INHALATION SCH ×4 (06:57→21:19)
[2018-12-26 06:58] LABS: Glucose,Whole Blood 164 mg/dL (75-99)
[2018-12-26] MEDS: INSULIN ASPART (NovoLOG) 100 UNIT/ML VIAL SQ SCH ×4 (07:36→20:38)
--- NOTE | 2018-12-26 08:19 | XR ---
EXAMINATION TYPE: XR chest 2V DATE OF EXAM: 12/26/2018 COMPARISON: Prior chest x-ray 12/25/2018 HISTORY: Pleural effusion, mitral valve replacement TECHNIQUE: Frontal and lateral views of the chest are obtained. FINDINGS: Patient is post median sternotomy. There are cardiac leads, epicardial pacing leads. No pn eumothorax. Blunting of the costophrenic angle greater on the left is noted, blunting of the costophr enic angles noted posteriorly. Heart remains enlarged. Overlying artifacts. Patchy basilar density is present. Suspect some improvement in aeration in the perihilar locations. Interval removal right jug ular central venous sheath. Atrial appendage clipping is noted. Prominent lung volumes suggest underl jessica COPD. Patient is post mitral valve replacement. IMPRESSION: Improved aeration, volume status. Basilar atelectasis and small effusions.
[2018-12-26] MEDS: PANTOPRAZOLE 40 MG TABLET PO SCH (08:50)
[2018-12-26] MEDS: ASPIRIN 325 MG TAB PO SCH (08:50)
[2018-12-26] MEDS: SIMETHICONE 80 MG CHEWABLE PO PRN ×2 (08:50→18:18)
[2018-12-26] MEDS: ATORVASTATIN 40 MG TAB PO SCH (08:50)
--- NOTE | 2018-12-26 09:43 | PN ---
PROGRESS NOTE Mr. Barbosa is a 53-year-old male who has underwent mitral valve repair. He is feeling well this morning, sitting up in the chair. Denying any dizziness or palpitation. He has some soreness in the chest and mild dyspnea. He denies any dizziness or palpitation. He appears to be today in complete heart block with underlying atrial fibrillation and stable junctional rhythm. Hemodynamically stable, not requiring any pressors. He is using the incentive spirometry and has been doing well in that regard. He continues to be at this time on aspirin once a day, lisinopril 2.5 mg daily, Lipitor 40 mg daily. PHYSICAL EXAMINATION: Blood pressure running in the high 90s low 100s with the heart rate in the 60s. LUNGS: A few crackles at the bases. HEART: Regular rate and rhythm. S1, S2 with a soft systolic murmur. No diastolic murmur. ABDOMEN: Soft, nontender. EXTREMITIES: No edema. LAB DATA: Lab data revealed a hemoglobin of 11.6, BUN and creatinine of 18 and 0.43. IMPRESSION: 1. Status post mitral valve repair, stable. 2. Atrial fibrillation with complete heart block and stable junctional rhythm. 3. Hyperlipidemia. RECOMMENDATION: Patient probably will require permanent pacemaker implantation and anticoagulation. Will observe his rhythm and see if there is no resolution of his complete heart block then a permanent pacemaker will be needed and then anticoagulation can be initiated. Once that is stable, if he continues to be in atrial fibrillation, he can undergo cardioversion as an outpatient. MMPASTORA / LAYN: [id number] /
[2018-12-26] MEDS ORDERED: DEXTROSE 5% IN WATER 100 ML with AMIODARONE 150 MG IV ONE ×2 (10:00→13:00)
--- NOTE | 2018-12-26 10:17 | P.PN ---
Subjective Progress Note Date: 12/26/18 Principal diagnosis: Ding disease with flail of the P2 segment of the mitral valve and prolapse of A2, severe mitral valve regurgitation. Mild left ventricular dysfunction. Nonobstructive coronary artery disease with 50% stenosis in the first diagonal branch of the left anterior descending artery. History of rheumatic fever. Hypertension. Hyperlipidemia. Obesity. Current tobacco abuse. Mild COPD with preoperative hemoglobin A1c 72% of predicted. Diabetes mellitus with preoperative hemoglobin A1c 9.8%. Known bilateral iliac artery aneurysms. History of sternal and rib fracture. Previous alcoholism. Occasional marijuana use. Preoperative leukocytosis, investigated by Dr. Todd, negative blood and urine cultures, no treatment necessary. POD #3 complex mitral valve repair including triangular resection of P2 with reconstruction, creation of four artificial chordae using [place]-Jorge 4-0 to the A 2 segment of the valve, posterior annuloplasty using a 36 mm AnnuloFlex ring. Exclusion of the left atrial appendage using a 45 mm AtriClip. Intraoperative transesophageal echocardiogram and epi-aortic scanning. Postoperative leukocytosis, expected outcome as patient had leukocytosis preoperatively which has been followed by Dr. Todd. The patient is currently sitting up in a recliner in the intensive care unit in no acute distress. Patient's heart rhythm controlled A. fib with rate in the 60 -70s. Does complain of some surgical incisional type pain which is controlled on current medication regimen, denies shortness of breath. Patient has ambulated multiple laps in the hallway. Hemodynamically stable on no inotropes or pressors. Using incentive spirometry independently. No new complaints. Chest tubes, Cordis, arterial line, Hull catheter discontinued yesterday. Objective - Vital Signs Vital signs: Vital Signs Temp 97.7 F 12/26/18 04:00 Pulse 69 12/26/18 07:04 Resp 12 12/26/18 07:00 BP 111/69 12/26/18 07:00 Pulse Ox 94 L 12/26/18 07:00 Intake & Output 12/25/18 12/26/18 12/26/18 18:59 06:59 18:59 Intake Total 1832 750 250 Output Total 900 275 Balance 932 475 250 Intake: IV 152 Lactated Ringers 1,000 ml 80 @ 20 mls/hr IV .Q24H [facility] Rx#:[id number] Pressure Bag 72 Oral 1680 750 250 Output: Drainage [address] 0 Urine 900 275 Other: Voiding Method Indwelling Catheter Urinal # Voids 0 0 # Bowel Movements 1 ABP, PAP, CO, CI - Last Documented Arterial Blood Pressure 97/44 Pulmonary Artery Pressure 27/13 Cardiac Output 6.4 Cardiac Index 2.8 - Constitutional General appearance: Present: cooperative, no acute distress, obese - Respiratory Details: Lungs sounds diminished bilaterally with coarse breath sounds in the bases. Respirations even, nonlabored. Currently on 2 L nasal cannula with oxygen saturation 95%. Able to achieve 1250 mL on his incentive spirometry. Strong productive cough. - Cardiovascular Details: S1, S2 present. Irregular rate and rhythm, complete heart block A. fib on telemetry. Sternum stable. A/V epicardial pacemaker wires present, connected to generator, VVI mode with backup rate 50 beats per minutes. Palpable peripheral pulses bilaterally. No edema present. No calf pain or tenderness noted. Heart hugger in place with patient demonstrating appropriate use. Antiembolism stockings, SCDs present. - Gastrointestinal Gastrointestinal Comment(s): Abdomen soft, nontender, nondistended, obese. Active bowel sounds present 4 quadrants. Tolerating diet. Positive bowel movement. - Genitourinary Genitourinary Comment(s): Hull discontinued yesterday. Patient continues to void although smaller amounts this morning. - Integumentary Integumentary Comment(s): Skin is warm and dry with evidence of good perfusion. Anterior chest incision well approximated and covered with dry intact dressing. - Neurologic Neurologic: Present: CNII-XII intact - Musculoskeletal Musculoskeletal: Present: gait normal, strength equal bilaterally - Psychiatric Psychiatric: Present: A&O x's 3, appropriate affect, intact judgment & insight - Allied health notes Allied health notes reviewed: nursing - Labs CBC & Chem 7: 12/26/18 04:51 12/26/18 04:51 Labs: Abnormal Lab Results - Last 24 Hours (Table) 12/25/18 12/25/18 12/25/18 Range/Units 11:53 17:09 20:29 WBC (3.8-10.6) k/uL RBC (4.30-5.90) m/uL Hgb (13.0-17.5) gm/dL Hct (39.0-53.0) % Neutrophils # (1.3-7.7) k/uL Sodium (137-145) mmol/L Creatinine (0.66-1.25) mg/dL Glucose (74-99) mg/dL POC Glucose (mg/dL) 162 H 203 H 191 H (75-99) mg/dL Calcium (8.4-10.2) mg/dL Total Protein (6.3-8.2) g/dL Albumin (3.5-5.0) g/dL 12/26/18 12/26/18 12/26/18 Range/Units 04:51 04:51 06:55 WBC 15.2 H (3.8-10.6) k/uL RBC 4.22 L (4.30-5.90) m/uL Hgb 11.6 L (13.0-17.5) gm/dL Hct 36.9 L (39.0-53.0) % Neutrophils # 12.2 H (1.3-7.7) k/uL Sodium 135 L (137-145) mmol/L Creatinine 0.43 L (0.66-1.25) mg/dL Glucose 131 H (74-99) mg/dL POC Glucose (mg/dL) 164 H (75-99) mg/dL Calcium 8.2 L (8.4-10.2) mg/dL Total Protein 5.2 L (6.3-8.2) g/dL Albumin 2.6 L (3.5-5.0) g/dL - Imaging and Cardiology Chest x-ray: report reviewed, image reviewed Assessment and Plan (1) Mitral valve regurgitation Current Visit: Yes Status: Chronic Code(s): I34.0 - NONRHEUMATIC MITRAL ( VALVE) INSUFFICIENCY SNOMED Code(s): 04204495 (2) Coronary artery disease Current Visit: Yes Status: Chronic Code(s): I25.10 - ATHSCL HEART DISEASE OF [place] CORONARY ARTERY W/O ANG PCTRS SNOMED Code(s): 26977224 (3) Hypertension Current Visit: Yes Status: Chronic Code(s): I10 - ESSENTIAL (PRIMARY) HYPERTENSION SNOMED Code(s): 68924341 (4) Hyperlipidemia Current Visit: Yes Status: Chronic Code(s): E78.5 - HYPERLIPIDEMIA, UNSPECIFIED SNOMED Code(s): 20190637 (5) Leukocytosis Current Visit: Yes Status: Chronic Code(s): D72.829 - ELEVATED WHITE BLOOD CELL COUNT, UNSPECIFIED SNOMED Code(s): 051527327 (6) Tobacco dependence Current Visit: Yes Status: Chronic Code(s): F17.200 - NICOTINE DEPENDENCE, UNSPECIFIED, UNCOMPLICATED SNOMED Code(s): 71304959 (7) COPD (chronic obstructive pulmonary disease) Current Visit: Yes Status: Chronic Code(s): J44.9 - CHRONIC OBSTRUCTIVE PULMONARY DISEASE, UNSPECIFIED SNOMED Code(s): 96100801 (8) Obesity Current Visit: Yes Status: Chronic Code(s): E66.9 - OBESITY, UNSPECIFIED SNOMED Code(s): 510080327 (9) History of rib fracture Current Visit: No Status: Resolved Code(s): Z87.81 - PERSONAL HISTORY OF ( HEALED) TRAUMATIC FRACTURE SNOMED Code(s): 613171656 (10) Uncontrolled diabetes mellitus Current Visit: Yes Status: Chronic Code(s): E11.65 - TYPE 2 DIABETES MELLITUS WITH HYPERGLYCEMIA SNOMED Code(s): 35679224 (11) History of rheumatic fever Current Visit: No Status: Resolved Code(s): Z86.79 - PERSONAL HISTORY OF OTHER DISEASES OF THE CIRCULATORY SYSTEM SNOMED Code(s): 950562787 Plan: 1. Continue aspirin, DOROTHY inhibitor, statin. Will hold beta tico therapy for now. Will bolus with IV amiodarone and start amiodarone drip. 2. Wean O2 as tolerated. Encourage incentive spirometry use 10 times every hour while awake. 3. Encourage smoking cessation. 4. Bronchodilators per pulmonology. 5. Increase activity, ambulate as tolerated. PT/OT/cardiac rehab following. 6. Will monitor daily labs and x-rays. Electrolyte replacement per protocol. 7. Pain controlled current medication regimen. 8. Insulin management per primary care service. 9. GI prophylaxis with Protonix, DVT prophylaxis with subcu heparin, SCDs. 10. Will keep patient in the ICU for another 24 hours as he is connected to epicardial pacemaker generator. 11. More recommendations to follow based on patient's progress. Time with Patient: Greater than 30
[2018-12-26] MEDS ORDERED: AMIODARONE IV ONE ×2 (10:30)
[2018-12-26] MEDS ORDERED: DEXTROSE 5% IV ONE ×2 (10:30)
[2018-12-26] MEDS ORDERED: WATER IV ONE ×2 (10:30)
[2018-12-26 11:14] LABS: Glucose,Whole Blood 172 mg/dL (75-99)
[2018-12-26] MEDS: LISINOPRIL 2.5 MG TAB PO SCH (11:21)
--- NOTE | 2018-12-26 11:27 | P.PN ---
Subjective Progress Note Date: 12/26/18 Principal diagnosis: Severe mitral valve stenosis, status post mitral valve repair This is a 53-year-old white male patient of Dr. Delaney, with past medical history of diabetes mellitus type 2, history of deep vein thrombosis, nicotine dependence, currently in remission, hypertension, obesity, rheumatic fever. Patient was hospitalized in September, he presented to the emergency department with shortness of breath and chest pain. Patient was evaluated by cardiology, and his 2-D echocardiogram revealed severe mitral regurgitation, severe prolapse /partial flail of the posterior mitral valve leaflet. There was severe concentric left ventricular hypertrophy, overall left ventricular systolic function was within normal limits with an EF between 55-60%. Transesophageal echocardiogram on 10/07/2018 showed one of the P2 component of the posterior mitral leaflet with evidence of severe mitral regurgitation with anteriorly directed jet, and EF of 50-55%. Cardiac catheterization showed intermediate nonobstructive disease involving the first diagonal branch of the left anterior descending artery. Patient was recommended for surgical intervention, and today on 12/23/2018 patient underwent complex mitral valve repair including Anatoliy resection of P2 with reconstruction and creation of for artificial chordae, posterior annuloplasty, exclusion of the left atrial appendage, and Intra-operative BELKIS. Patient seen in the intensive care unit, sedated, and intubated on mechanical ventilator. Current vent settings are assist-control mode with a rate of 20,TV 550, FiO2 of 50% and PEEP of 10. Current IV fluids include lactated Ringer's a rate of 50, and insulin drip at 2 units per hour. Cleviprex is on hold, and diprivan at 20 mics per kilo per minute. Midsternal incision is clean dry and intact, covered with a surgical dressing, 2 mediastinal chest tubes are Y-connected to Pleur-evac with small to moderate amount of sanguinous output. Hull catheter is in place, patient is nonoliguric. Cardiac output is 5.7, and index of 2.5. Postoperative chest x- ray was reviewed by Dr. Hardy, and shows ET tube, OG tube, right IJ Cordis, and PA catheter in appropriate positions, no pneumothorax, or pleural effusion, Interstitium was mildly increased. Overall satisfactory postoperative chest x- ray. The patient is seen today 12/24/2018 in follow-up in the intensive care unit. He is currently resting fairly comfortably in bed. He is awake and alert in no acute distress. He was successfully extubated within the 6 hours yesterday. Today's chest x-ray shows improvement in aeration. There is some left lower lobe atelectasis. His been encouraged regarding increased use the incentive spirometer and cough and deep breathing exercises. He is currently maintaining good O2 saturations in the 90s on 4 L/m per nasal cannula. He's been afebrile. Hemodynamically stable. PA pressure 35/20. CVP 10. Cardiac output 6.4. Cardiac index 2.8. Lactated Ringer's at 50 MLS per hour. Currently on insulin drip at 3.5 units per hour. White count 20.3. Hemoglobin 13.1. Creatinine 0.39. Remaining in sinus rhythm. On 12/25/2018 patient seen in follow-up in the intensive care unit, he is awake and alert, oriented 3, currently on 2 L per nasal cannula his pulse ox is 95%, afebrile, hemodynamically patient is stable, patient is in third degree AV block , with a rate of 60 asymptomatic. Lung sounds are clear to auscultation, no rhonchi, no wheezes or rales. IV fluids include lactated Ringer's at a rate of 20 ML per hour, no other drips. Vital signs are stable, patient has been ambulating with assistance, stable gait, tolerates activity well. His chest x- ray has been reviewed with Dr. Hardy, and shows bilateral infiltrates, and pleural effusion, he was given another dose of IV Lasix. He is maintaining negative fluid balance, negative for 182 mL. Mediastinal chest tubes are anticipated to be discontinued today, has been only 100 mL out of the mediastinal chest tube. Anticipate surgery to discontinue the chest tubes today. The patient is seen today 12/26/2017 in follow-up in the intensive care unit. He is currently sitting up in a chair at the bedside. He is awake and alert in no acute distress. He is maintaining good O2 saturations in the mid 90s on 2 L/ m per nasal cannula. He is working well with the incentive spirometer. Chest x -ray continues to show improved aeration. Continued on bronchodilators. He's been afebrile. Hemodynamically stable. He has had some issues with atrial arrhythmias. Amiodarone IV has been initiated. WBC 15.2. Hemoglobin 11.6. Creatinine 0.43. Objective - Vital Signs Vital signs: Vital Signs Temp 98.4 F 12/26/18 08:00 Pulse 67 12/26/18 10:00 Resp 12 12/26/18 10:00 BP 109/67 12/26/18 10:00 Pulse Ox 94 L 12/26/18 10:00 Intake & Output 12/25/18 12/26/18 12/26/18 18:59 06:59 18:59 Intake Total 1832 750 250 Output Total 900 275 300 Balance 932 475 -50 Intake: IV 152 Lactated Ringers 1,000 ml 80 @ 20 mls/hr IV .Q24H [facility] Rx#:[id number] Pressure Bag 72 Oral 1680 750 250 Output: Drainage [address] 0 Urine 900 275 300 Other: Voiding Method Indwelling Catheter Urinal Urinal # Voids 0 0 # Bowel Movements 1 ABP, PAP, CO, CI - Last Documented Arterial Blood Pressure 97/44 Pulmonary Artery Pressure 27/13 Cardiac Output 6.4 Cardiac Index 2.8 - Exam GENERAL EXAM: A pleasant male patient awake comfortable in no apparent distress. On 2 L nasal cannula. HEAD: Normocephalic/atraumatic. EYES: Normal reaction of pupils, equal size. Conjunctiva pink, sclera white. NOSE: Clear with pink turbinates. THROAT: No erythema or exudates. NECK: No masses, no JVD, no thyroid enlargement, no adenopathy. CHEST: No chest wall deformity. Symmetrical expansion. Mid sternal incision is clean dry and intact, covered with surgical dressing, ventricular epicardial wires external pacemaker with backup rate LUNGS: Equal air entry with faint crackles in left posterior base. CVS: Regular rate and rhythm, normal S1 and S2, no gallops, no murmurs, no rubs ABDOMEN: Soft, nontender. No hepatosplenomegaly, normal bowel sounds, no guarding or rigidity. EXTREMITIES: No clubbing, no edema, no cyanosis, 2+ pulses and upper and lower extremities. MUSCULOSKELETAL: Muscle strength and tone normal. SPINE: No scoliosis or deformity SKIN: No rashes CENTRAL NERVOUS SYSTEM: No focal deficits, tone is normal in all 4 extremities. - Labs CBC & Chem 7: 12/26/18 04:51 12/26/18 04:51 Labs: Abnormal Lab Results - Last 24 Hours (Table) 12/25/18 12/25/18 12/25/18 Range/Units 11:53 17:09 20:29 WBC (3.8-10.6) k/uL RBC (4.30-5.90) m/uL Hgb (13.0-17.5) gm/dL Hct (39.0-53.0) % Neutrophils # (1.3-7.7) k/uL Sodium (137-145) mmol/L Creatinine (0.66-1.25) mg/dL Glucose (74-99) mg/dL POC Glucose (mg/dL) 162 H 203 H 191 H (75-99) mg/dL Calcium (8.4-10.2) mg/dL Total Protein (6.3-8.2) g/dL Albumin (3.5-5.0) g/dL 12/26/18 12/26/18 12/26/18 Range/Units 04:51 04:51 06:55 WBC 15.2 H (3.8-10.6) k/uL RBC 4.22 L (4.30-5.90) m/uL Hgb 11.6 L (13.0-17.5) gm/dL Hct 36.9 L (39.0-53.0) % Neutrophils # 12.2 H (1.3-7.7) k/uL Sodium 135 L (137-145) mmol/L Creatinine 0.43 L (0.66-1.25) mg/dL Glucose 131 H (74-99) mg/dL POC Glucose (mg/dL) 164 H (75-99) mg/dL Calcium 8.2 L (8.4-10.2) mg/dL Total Protein 5.2 L (6.3-8.2) g/dL Albumin 2.6 L (3.5-5.0) g/dL 12/26/18 Range/Units 11:04 WBC (3.8-10.6) k/uL RBC (4.30-5.90) m/uL Hgb (13.0-17.5) gm/dL Hct (39.0-53.0) % Neutrophils # (1.3-7.7) k/uL Sodium (137-145) mmol/L Creatinine (0.66-1.25) mg/dL Glucose (74-99) mg/dL POC Glucose (mg/dL) 172 H (75-99) mg/dL Calcium (8.4-10.2) mg/dL Total Protein (6.3-8.2) g/dL Albumin (3.5-5.0) g/dL Assessment and Plan Assessment: Assessment: #1. Severe mitral valve regurgitation, dyspnea on exertion and chest pain, status post mitral valve repair with P2 reconstruction, creation of for artificial chordae, posterior annuloplasty, exclusion of the left atrial appendage, post-op day 3 #2. Routine postoperative ventilator management, extubated at 1800 on 2017. #3. Leukocytosis, possibly reactive #4. Hypertension, hyperlipidemia #5. Obesity #6. Nicotine dependence, currently in remission #7. Diabetes mellitus type 2 #8. History of rheumatic fever #9. Atrial arrhythmias, currently on amiodarone. Plan: The patient was seen and evaluated by Dr. Hardy. Chest x-ray and labs were reviewed. The patient is currently stable from the pulmonary standpoint. He is working well with the incentive spirometer. He has had issues with atrial arrhythmias and amiodarone had been initiated. We will increase his activity as tolerated. We'll continue to follow make further recommendations based on his clinical status. I, the cosigning physician, performed a history & physical examination of the patient. Lungs sounds with faint crackles in the left lung base.. Maintaining good O2 saturations in the 90s on 2 L/m per nasal cannula. I discussed the assessment and plan of care with my nurse practitioner, Paula Shaw. I attest to the above note as dictated by her.
--- NOTE | 2018-12-26 12:12 | P.PN ---
Subjective Progress Note Date: 12/26/18 This is a 53-year-old male patient who presented to the hospital for an complex mitral valve repair including triangular resection of P2 with reconstruction, creation of four artificial chordae using [place]-Jorge 4-0 to the A2 segment of the valve, posterior annuloplasty using a 36 mm AnnuloFlex ring. Exclusion of the left atrial appendage using a 45 mm AtriClip. Intraoperative transesophageal echocardiogram and epi-aortic scanning With Dr. Cueto on 03/2019. Patient has a known past medical history of diabetes mellitus, hyperlipidemia, hypertension, seizure disorder, heart murmur and nicotine dependence. In September 2018 patient presents to the hospital with complaints of shortness breath and chest pain is at that time cardiology found to 2-D echo severe mitral regurg, severe prolapsed partial flail posterior mitral valve leaflet. 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 Patient is currently postop day 1. At this time patient has been extubated. Patient is doing well. Patient denies any significant chest pain or shortness of breath. Patient denies nausea vomiting or diarrhea. Patient denies any urinary burning or frequency. 12/25/2018 patient is alert and oriented 3 currently sitting up in chair. Patient is currently postop day 2. Patient received 1 dose of IV Lasix yesterday critical care. Plans for possible chest tube removal today. This time patient denies chest pain or shortness of breath. Patient denies nausea vomiting or diarrhea. Patient denies any urinary burning or frequency. Blood sugars have improved. On 12/26/2018 patient is alert and oriented 3 currently sitting up in chair. Patient currently postop day 3. Chest tubes, Cortis, arterial line and Hull catheter DC'd yesterday per cardiothoracic team. At this time patient is still complaining of some vaginal pain. Patient denies shortness breath. Patient denies nausea vomiting or diarrhea. Patient denies any urinary burning or frequency. Incentive spirometer encourged Objective - Vital Signs Vital signs: Vital Signs Temp 98.4 F 12/26/18 08:00 Pulse 72 12/26/18 11:55 Resp 12 12/26/18 11:00 BP 104/64 12/26/18 11:00 Pulse Ox 93 L 12/26/18 11:00 Intake & Output 12/25/18 12/26/18 12/26/18 18:59 06:59 18:59 Intake Total 1832 750 543 Output Total 900 275 300 Balance 932 475 243 Intake: IV 152 293 Amiodarone 360 mg In 193 Dextrose 5% in Water 193 ml @ 1 MG/MIN 33.36 mls/ hr IV .Q6H1M [facility] Rx#: [id number] Dextrose 5% in Water 100 100 ml @ 618 mls/hr IV .Q10M [facility] with Amiodarone 150 mg Rx#:[id number] Lactated Ringers 1,000 ml 80 @ 20 mls/hr IV .Q24H [facility] Rx#:[id number] Pressure Bag 72 Oral 1680 750 250 Output: Drainage [address] 0 Urine 900 275 300 Other: Voiding Method Indwelling Catheter Urinal Urinal # Voids 0 0 # Bowel Movements 1 ABP, PAP, CO, CI - Last Documented Arterial Blood Pressure 97/44 Pulmonary Artery Pressure 27/13 Cardiac Output 6.4 Cardiac Index 2.8 - Exam Head normocephalic Neck supple Lungs Diminished bilaterally Heart regular rate and rhythm S1-S2, no rub or gallop Abdomen is soft nontender nondistended positive bowel sounds no hepatosplenomegaly Extremities no edema Neuro alert and orientated to 3 - Labs CBC & Chem 7: 12/26/18 04:51 12/26/18 04:51 Labs: Abnormal Lab Results - Last 24 Hours (Table) 12/25/18 12/25/18 12/26/18 Range/Units 17:09 20:29 04:51 WBC (3.8-10.6) k/uL RBC (4.30-5.90) m/uL Hgb (13.0-17.5) gm/dL Hct (39.0-53.0) % Neutrophils # (1.3-7.7) k/uL Sodium 135 L (137-145) mmol/L Creatinine 0.43 L (0.66-1.25) mg/dL Glucose 131 H (74-99) mg/dL POC Glucose (mg/dL) 203 H 191 H (75-99) mg/dL Calcium 8.2 L (8.4-10.2) mg/dL Total Protein 5.2 L (6.3-8.2) g/dL Albumin 2.6 L (3.5-5.0) g/dL 12/26/18 12/26/18 12/26/18 Range/Units 04:51 06:55 11:04 WBC 15.2 H (3.8-10.6) k/uL RBC 4.22 L (4.30-5.90) m/uL Hgb 11.6 L (13.0-17.5) gm/dL Hct 36.9 L (39.0-53.0) % Neutrophils # 12.2 H (1.3-7.7) k/uL Sodium (137-145) mmol/L Creatinine (0.66-1.25) mg/dL Glucose (74-99) mg/dL POC Glucose (mg/dL) 164 H 172 H (75-99) mg/dL Calcium (8.4-10.2) mg/dL Total Protein (6.3-8.2) g/dL Albumin (3.5-5.0) g/dL Assessment and Plan Assessment: 1. Status post complex mitral valve repair including triangular resection of P2 with reconstruction, creation of four artificial chordae using [place]-Jorge 4-0 to the A2 segment of the valve, posterior annuloplasty using a 36 mm AnnuloFlex ring. Exclusion of the left atrial appendage using a 45 mm AtriClip. Intraoperative transesophageal echocardiogram and epi-aortic scanning With Dr. Cueto on 12/23/2018. Patient is currently postop day 3. Patient has been extubated. Mann, chest tubes, A-line and Hull discontinued. Patient remains on epicardial pacemaker generator. Beta Natalia currently DC'd per cardiothoracic surgery 2. History of essential Hypertension 3. Nicotine dependence. Patient reports that he has quit 4. History of diabetes mellitus type 2. Patient currently on insulin drip. Hemoglobin A1c 9.8 on 11/25/2018. Home long-acting insulin has been added 5. Leukocytosis. Per cardiothoracic team likely reactive. We'll continue to monitor closely 6. History of rheumatic fever 7. Obesity Thank you for this consultation we'll continue to follow patient closely throughout stay I performed an examination of the patient and discussed their management with the Nurse Practitioner. I have reviewed the Nurse Practitioner's notes and agree with the documented findings and plan of care
[2018-12-26 16:14] LABS: Glucose,Whole Blood 183 mg/dL (75-99)
[2018-12-26 17:01] LABS: Glucose,Whole Blood 176 mg/dL (75-99)
[2018-12-26] MEDS: AMIODARONE 300 MG in DEXTROSE 5% IN WATER 250 ML IV SCH ×2 (17:11)
[2018-12-26] MEDS: INSULIN DETEMIR (LEVEMIR) 100 UNIT/ML SYR SQ SCH (20:39)
[2018-12-26] MEDS: SENNOSIDES-DOCUSATE SODIUM 1 EACH TAB PO SCH (20:39)
[2018-12-26 20:48] LABS: Glucose,Whole Blood 179 mg/dL (75-99)
[2018-12-27] MEDS: AMIODARONE 300 MG in DEXTROSE 5% IN WATER 250 ML IV SCH ×2 (03:26)
[2018-12-27] MEDS: IPRATROPIUM-ALBUTEROL 3 ML NEB INHALATION SCH ×4 (05:23→19:46)
[2018-12-27 06:34] LABS: Basophils % (A) 0 %; Eosinophils # (A) 0.3 k/uL (0-0.7); Eosinophils % (A) 2 %; HGB 11.9 gm/dL (13.0-17.5); Lymphocytes # (A) 1.9 k/uL (1.0-4.8); Lymphocytes % (A) 14 %; MCH 27.9 pg (25.0-35.0); MCHC 32.2 g/dL (31.0-37.0); MCV 86.8 fL (80.0-100.0); Mean Platelet Volume 7.8; Monocytes # (A) 0.8 k/uL (0-1.0); Monocytes % (A) 6 %; Neutrophils # (A) 10.3 k/uL (1.3-7.7); Neutrophils % (A) 76 %; Platelet Count 202 k/uL (150-450); RBC 4.26 m/uL (4.30-5.90); WBC 13.5 k/uL (3.8-10.6)
[2018-12-27 06:49] LABS: Sodium 135 mmol/L (137-145)
[2018-12-27 06:51] LABS: ALT 23 U/L (21-72); AST 21 U/L (17-59); Albumin 2.8 g/dL (3.5-5.0); Alkaline Phosphatase 64 U/L (38-126); Anion Gap 7 mmol/L; Blood Urea Nitrogen 17 mg/dL (9-20); Calcium 8.5 mg/dL (8.4-10.2); Carbon Dioxide 24 mmol/L (22-30); Chloride 104 mmol/L (98-107); Glucose 108 mg/dL (74-99); Phosphorus 3.6 mg/dL (2.5-4.5); Potassium 3.8 mmol/L (3.5-5.1); Total Bilirubin 0.9 mg/dL (0.2-1.3); Total Protein 5.7 g/dL (6.3-8.2)
[2018-12-27 06:52] LABS: Glucose,Whole Blood 125 mg/dL (75-99)
[2018-12-27] MEDS: KETOROLAC 30 MG/ML 1 ML VIAL IVP SCH ×4 (06:56→23:44)
[2018-12-27] MEDS: INSULIN ASPART (NovoLOG) 100 UNIT/ML VIAL SQ SCH ×4 (06:57→21:16)
[2018-12-27] MEDS: CLOTRIMAZOLE TROCHE 10 MG TROCHE MUCOUS MEM SCH ×5 (06:57→23:43)
[2018-12-27] MEDS: PANTOPRAZOLE 40 MG TABLET PO SCH (06:58)
[2018-12-27] MEDS ORDERED: FUROSEMIDE 10 MG/ML 4 ML VIAL IV ONE (07:26)
--- NOTE | 2018-12-27 07:29 | XR ---
EXAMINATION TYPE: XR chest 2V DATE OF EXAM: 12/27/2018 COMPARISON: Two-view chest radiograph one day prior HISTORY: Status post cardiac surgery TECHNIQUE: Frontal and lateral views of the chest are obtained. FINDINGS: The cardiomediastinal silhouette enlarged but unchanged. Postsurgical changes of the mediastinum are stable. Small bilateral pleural effusions are evident. No pneumothorax. Osseous structures are unchan ged. IMPRESSION: 1. Overall stable exam. 2. Small bilateral pleural effusions with atelectasis.
[2018-12-27] MEDS ORDERED: POTASSIUM CHLORIDE ER 20 MEQ TAB.ER PO SCH (08:00)
[2018-12-27] MEDS: ATORVASTATIN 40 MG TAB PO SCH (08:27)
[2018-12-27] MEDS: HEPARIN SODIUM,PORCINE 5,000 UNIT/ML 1 ML VIAL SQ SCH ×3 (08:27→23:44)
[2018-12-27] MEDS: ASPIRIN 325 MG TAB PO SCH (08:27)
[2018-12-27] MEDS ORDERED: DEXTROSE 5% IN WATER 100 ML with AMIODARONE 150 MG IV ONE (09:37)
--- NOTE | 2018-12-27 09:46 | P.PN ---
Subjective Progress Note Date: 12/27/18 Principal diagnosis: Ding disease with flail of the P2 segment of the mitral valve and prolapse of A2, severe mitral valve regurgitation. Mild left ventricular dysfunction. Nonobstructive coronary artery disease with 50% stenosis in the first diagonal branch of the left anterior descending artery. History of rheumatic fever. Hypertension. Hyperlipidemia. Obesity. Current tobacco abuse. Mild COPD with preoperative hemoglobin A1c 72% of predicted. Diabetes mellitus with preoperative hemoglobin A1c 9.8%. Known bilateral iliac artery aneurysms. History of sternal and rib fracture. Previous alcoholism. Occasional marijuana use. Preoperative leukocytosis, investigated by Dr. Todd, negative blood and urine cultures, no treatment necessary. POD #4 complex mitral valve repair including triangular resection of P2 with reconstruction, creation of four artificial chordae using [place]-Jorge 4-0 to the A 2 segment of the valve, posterior annuloplasty using a 36 mm AnnuloFlex ring. Exclusion of the left atrial appendage using a 45 mm AtriClip. Intraoperative transesophageal echocardiogram and epi-aortic scanning. Postoperative leukocytosis, expected outcome as patient had leukocytosis preoperatively which has been followed by Dr. Todd. The patient is currently sitting up in a recliner in the intensive care unit in no acute distress. Patient's heart rhythm complete heart block, controlled A. fib/flutter with rate in the 60s. Does complain of some surgical incisional type pain which is controlled on current medication regimen, denies shortness of breath. Patient has ambulated multiple laps in the hallway. Hemodynamically stable on no inotropes or pressors. Using incentive spirometry independently. No new complaints. Objective - Vital Signs Vital signs: Vital Signs Temp 98.3 F 12/27/18 08:00 Pulse 62 12/27/18 09:00 Resp 12 12/27/18 09:00 BP 120/66 12/27/18 09:00 Pulse Ox 95 12/27/18 09:00 Intake & Output 12/26/18 12/27/18 12/27/18 18:59 06:59 18:59 Intake Total 1453 816 Output Total 500 350 650 Balance 008 298 -650 Weight 117.4 kg Intake: IV 643 Amiodarone 300 mg In 250 Dextrose 5% in Water 250 ml @ 0.5 MG/MIN 25.6 mls/ hr IV .Q10H [facility] Rx#: [id number] Amiodarone 360 mg In 193 Dextrose 5% in Water 193 ml @ 1 MG/MIN 33.36 mls/ hr IV .Q6H1M ONE Rx#: [id number] Dextrose 5% in Water 100 100 ml @ 618 mls/hr IV .Q10M ONE with Amiodarone 150 mg Rx#:[id number] Dextrose 5% in Water 100 100 ml @ 618 mls/hr IV .Q10M [facility] with Amiodarone 150 mg Rx#:[id number] Intake, IV Titration 256 Amount Amiodarone 300 mg In 256 Dextrose 5% in Water 250 ml @ 0.5 MG/MIN 25.6 mls/ hr IV .Q10H [facility] Rx#: [id number] Oral 810 560 Output: Urine 500 350 650 Other: Voiding Method Urinal Urinal # Voids 0 ABP, PAP, CO, CI - Last Documented Arterial Blood Pressure 97/44 Pulmonary Artery Pressure 27/13 Cardiac Output 6.4 Cardiac Index 2.8 - Constitutional General appearance: Present: cooperative, no acute distress, obese - Respiratory Details: Lungs sounds diminished bilaterally with coarse breath sounds in the bases. Respirations even, nonlabored. Currently on 2 L nasal cannula with oxygen saturation 96%. Able to achieve 1750 mL on his incentive spirometry. Strong productive cough. - Cardiovascular Details: S1, S2 present. Irregular rate and rhythm, complete heart block, A. fib/ flutter on telemetry. Sternum stable. A/V epicardial pacemaker wires present, connected to generator, VVI mode with backup rate 50 beats per minutes. Palpable peripheral pulses bilaterally. No edema present. No calf pain or tenderness noted. Heart hugger in place with patient demonstrating appropriate use. Antiembolism stockings, SCDs present. - Gastrointestinal Gastrointestinal Comment(s): Abdomen soft, nontender, nondistended, obese. Active bowel sounds present 4 quadrants. Tolerating diet. Positive bowel movement. - Genitourinary Genitourinary Comment(s): Patient continues to void clear, yellow urine. - Integumentary Integumentary Comment(s): Skin is warm and dry with evidence of good perfusion. Anterior chest incision well approximated and covered with dry intact dressing. - Neurologic Neurologic: Present: CNII-XII intact - Musculoskeletal Musculoskeletal: Present: gait normal, strength equal bilaterally - Psychiatric Psychiatric: Present: A&O x's 3, appropriate affect, intact judgment & insight - Allied health notes Allied health notes reviewed: nursing - Labs CBC & Chem 7: 12/27/18 05:54 12/27/18 05:54 Labs: Abnormal Lab Results - Last 24 Hours (Table) 12/26/18 12/26/18 12/26/18 Range/Units 11:04 16:12 16:59 WBC (3.8-10.6) k/uL RBC (4.30-5.90) m/uL Hgb (13.0-17.5) gm/dL Hct (39.0-53.0) % Neutrophils # (1.3-7.7) k/uL Sodium (137-145) mmol/L Creatinine (0.66-1.25) mg/dL Glucose (74-99) mg/dL POC Glucose (mg/dL) 172 H 183 H 176 H (75-99) mg/dL Total Protein (6.3-8.2) g/dL Albumin (3.5-5.0) g/dL 12/26/18 12/27/18 12/27/18 Range/Units 20:37 05:54 05:54 WBC 13.5 H (3.8-10.6) k/uL RBC 4.26 L (4.30-5.90) m/uL Hgb 11.9 L (13.0-17.5) gm/dL Hct 37.0 L (39.0-53.0) % Neutrophils # 10.3 H (1.3-7.7) k/uL Sodium 135 L (137-145) mmol/L Creatinine 0.42 L (0.66-1.25) mg/dL Glucose 108 H (74-99) mg/dL POC Glucose (mg/dL) 179 H (75-99) mg/dL Total Protein 5.7 L (6.3-8.2) g/dL Albumin 2.8 L (3.5-5.0) g/dL 12/27/18 Range/Units 06:51 WBC (3.8-10.6) k/uL RBC (4.30-5.90) m/uL Hgb (13.0-17.5) gm/dL Hct (39.0-53.0) % Neutrophils # (1.3-7.7) k/uL Sodium (137-145) mmol/L Creatinine (0.66-1.25) mg/dL Glucose (74-99) mg/dL POC Glucose (mg/dL) 125 H (75-99) mg/dL Total Protein (6.3-8.2) g/dL Albumin (3.5-5.0) g/dL - Imaging and Cardiology Chest x-ray: report reviewed, image reviewed Assessment and Plan (1) Mitral valve regurgitation Current Visit: Yes Status: Chronic Code(s): I34.0 - NONRHEUMATIC MITRAL ( VALVE) INSUFFICIENCY SNOMED Code(s): 84483400 (2) Coronary artery disease Current Visit: Yes Status: Chronic Code(s): I25.10 - ATHSCL HEART DISEASE OF [place] CORONARY ARTERY W/O ANG PCTRS SNOMED Code(s): 73910380 (3) Hypertension Current Visit: Yes Status: Chronic Code(s): I10 - ESSENTIAL (PRIMARY) HYPERTENSION SNOMED Code(s): 63487963 (4) Hyperlipidemia Current Visit: Yes Status: Chronic Code(s): E78.5 - HYPERLIPIDEMIA, UNSPECIFIED SNOMED Code(s): 15404600 (5) Leukocytosis Current Visit: Yes Status: Chronic Code(s): D72.829 - ELEVATED WHITE BLOOD CELL COUNT, UNSPECIFIED SNOMED Code(s): 005500956 (6) Tobacco dependence Current Visit: Yes Status: Chronic Code(s): F17.200 - NICOTINE DEPENDENCE, UNSPECIFIED, UNCOMPLICATED SNOMED Code(s): 05937978 (7) COPD (chronic obstructive pulmonary disease) Current Visit: Yes Status: Chronic Code(s): J44.9 - CHRONIC OBSTRUCTIVE PULMONARY DISEASE, UNSPECIFIED SNOMED Code(s): 30992453 (8) Obesity Current Visit: Yes Status: Chronic Code(s): E66.9 - OBESITY, UNSPECIFIED SNOMED Code(s): 022969411 (9) History of rib fracture Current Visit: No Status: Resolved Code(s): Z87.81 - PERSONAL HISTORY OF ( HEALED) TRAUMATIC FRACTURE SNOMED Code(s): 558445306 (10) Uncontrolled diabetes mellitus Current Visit: Yes Status: Chronic Code(s): E11.65 - TYPE 2 DIABETES MELLITUS WITH HYPERGLYCEMIA SNOMED Code(s): 21849280 (11) History of rheumatic fever Current Visit: No Status: Resolved Code(s): Z86.79 - PERSONAL HISTORY OF OTHER DISEASES OF THE CIRCULATORY SYSTEM SNOMED Code(s): 732482856 Plan: 1. Continue aspirin, DOROTHY inhibitor, statin. Will hold beta tico therapy for now. Lisinopril increased to 5 mg daily. 2. Continue amiodarone for atrial fibrillation, will transition to oral. Is still in nature fibrillation tomorrow morning will start IV heparin. If still in complete heart block likely will place permanent pacemaker on Saturday, then start oral anticoagulation. 3. Wean O2 as tolerated. Encourage incentive spirometry use 10 times every hour while awake. 4. Encourage smoking cessation. 5. Bronchodilators per pulmonology. 6. Increase activity, ambulate as tolerated. PT/OT/cardiac rehab following. 7. Will monitor daily labs and x-rays. Electrolyte replacement per protocol. 8. Pain controlled current medication regimen. 9. Insulin management per primary care service. 10. GI prophylaxis with Protonix, DVT prophylaxis with subcu heparin, SCDs. 11. Will keep patient in the ICU for another 24 hours as he is connected to epicardial pacemaker generator. 12. More recommendations to follow based on patient's progress. Time with Patient: Greater than 30
[2018-12-27] MEDS: AMIODARONE 200 MG TAB PO SCH ×2 (10:48→21:23)
--- NOTE | 2018-12-27 11:19 | PN ---
PROGRESS NOTE Mr. Barbosa is a 53-year-old male, status post mitral valve repair. He is doing well this morning. He continues to be in atrial fibrillation with complete heart block and junctional rhythm, hemodynamically stable. He denies any dizziness or palpitation. He denies any nausea. He continues to be at this time on aspirin once a day, Lipitor 40 mg daily, lisinopril 5 mg daily. He was started on amiodarone. PHYSICAL EXAMINATION: Blood pressure 121/70 with a heart rate in the 60s. LUNGS: Decreased air exchange with a few crackles. No wheezes. HEART: Regular rate and rhythm. S1, S2. No S3, with a rub. ABDOMEN: Soft nontender. EXTREMITIES: No edema. LAB DATA: BUN and creatinine of 17 and 0.42, hemoglobin of 11.9. IMPRESSION: 1. Status post mitral valve repair. 2. Atrial fibrillation with complete heart block and junctional rhythm at a stable rate. 3. Hyperlipidemia. RECOMMENDATIONS: Will continue observation at this time. If there is persistence of the AV block with junctional rhythm, most likely the patient will require a permanent pacemaker. If he continues to be in atrial fibrillation by tomorrow, then anticoagulation needs to be initiated. In the meantime, will continue present therapy. Depending on his progress, further recommendations will be made. MMODL / IJN: [id number] /
[2018-12-27] MEDS ORDERED: LISINOPRIL 5 MG TAB PO SCH (12:00)
[2018-12-27 12:04] LABS: Glucose,Whole Blood 173 mg/dL (75-99)
--- NOTE | 2018-12-27 14:51 | P.PN ---
Subjective Progress Note Date: 12/27/18 On today's evaluation of 12/27/2018, the patient is doing well. Has no specific complaints. He is ambulating. No chest pain. No cough or sputum production. Sternum stable clean and intact. The patient underwent a mitral valve repair for severe mitral valve regurgitation. He is known to have mild LV dysfunction. He is known to have nonobstructive coronary artery disease with 50% stenosis of the first diagonal branch of the LAD. He has previous history of rheumatic fever. Is also known to have hypertension and hyperlipidemia and he is also obese. In terms of postoperative progress, the patient developed some cardiac arrhythmias. It is becoming more clear that the patient has been in A. fib/flutter rhythm. His rate is in the 60s. No tachycardia. No hemodynamic instability. The patient remains on amiodarone. No anticoagulation yet. Labs are all within normal limits. He is afebrile. All of the chest is a been removed and the patient has a stable and intact sternum. Objective - Vital Signs Vital signs: Vital Signs Temp 97.6 F 12/27/18 12:00 Pulse 61 12/27/18 14:00 Resp 20 12/27/18 14:00 BP 117/65 12/27/18 14:00 Pulse Ox 92 L 12/27/18 14:00 Intake & Output 12/26/18 12/27/18 12/27/18 18:59 06:59 18:59 Intake Total 1453 816 Output Total 500 350 950 Balance 953 466 -950 Weight 117.4 kg Intake: IV 643 Amiodarone 300 mg In 250 Dextrose 5% in Water 250 ml @ 0.5 MG/MIN 25.6 mls/ hr IV .Q10H [facility] Rx#: [id number] Amiodarone 360 mg In 193 Dextrose 5% in Water 193 ml @ 1 MG/MIN 33.36 mls/ hr IV .Q6H1M ONE Rx#: [id number] Dextrose 5% in Water 100 100 ml @ 618 mls/hr IV .Q10M ONE with Amiodarone 150 mg Rx#:[id number] Dextrose 5% in Water 100 100 ml @ 618 mls/hr IV .Q10M [facility] with Amiodarone 150 mg Rx#:[id number] Intake, IV Titration 256 Amount Amiodarone 300 mg In 256 Dextrose 5% in Water 250 ml @ 0.5 MG/MIN 25.6 mls/ hr IV .Q10H [facility] Rx#: [id number] Oral 810 560 Output: Urine 500 350 950 Other: Voiding Method Urinal Urinal Urinal # Voids 0 ABP, PAP, CO, CI - Last Documented Arterial Blood Pressure 97/44 Pulmonary Artery Pressure 27/13 Cardiac Output 6.4 Cardiac Index 2.8 - Exam - Constitutional General appearance: Present: cooperative, no acute distress, obese - Respiratory Details: Lungs sounds diminished bilaterally with coarse breath sounds in the bases. Respirations even, nonlabored. Currently on 2 L nasal cannula with oxygen saturation 96%. Able to achieve 1750 mL on his incentive spirometry. Strong productive cough. - Cardiovascular Details: S1, S2 present. Irregular rate and rhythm, complete heart block, A. fib/ flutter on telemetry. Sternum stable. A/V epicardial pacemaker wires present, connected to generator, VVI mode with backup rate 50 beats per minutes. Palpable peripheral pulses bilaterally. No edema present. No calf pain or tenderness noted. Heart hugger in place with patient demonstrating appropriate use. Antiembolism stockings, SCDs present. - Gastrointestinal Gastrointestinal Comment(s): Abdomen soft, nontender, nondistended, obese. Active bowel sounds present 4 quadrants. Tolerating diet. Positive bowel movement. - Genitourinary Genitourinary Comment(s): Patient continues to void clear, yellow urine. - Integumentary Integumentary Comment(s): Skin is warm and dry with evidence of good perfusion. Anterior chest incision well approximated and covered with dry intact dressing. - Neurologic Neurologic: Present: CNII-XII intact - Musculoskeletal Musculoskeletal: Present: gait normal, strength equal bilaterally - Psychiatric Psychiatric: Present: A&O x's 3, appropriate affect, intact judgment & insight - Labs CBC & Chem 7: 12/27/18 05:54 12/27/18 05:54 Labs: Abnormal Lab Results - Last 24 Hours (Table) 12/26/18 12/26/18 12/26/18 Range/Units 16:12 16:59 20:37 WBC (3.8-10.6) k/uL RBC (4.30-5.90) m/uL Hgb (13.0-17.5) gm/dL Hct (39.0-53.0) % Neutrophils # (1.3-7.7) k/uL Sodium (137-145) mmol/L Creatinine (0.66-1.25) mg/dL Glucose (74-99) mg/dL POC Glucose (mg/dL) 183 H 176 H 179 H (75-99) mg/dL Total Protein (6.3-8.2) g/dL Albumin (3.5-5.0) g/dL 12/27/18 12/27/18 12/27/18 Range/Units 05:54 05:54 06:51 WBC 13.5 H (3.8-10.6) k/uL RBC 4.26 L (4.30-5.90) m/uL Hgb 11.9 L (13.0-17.5) gm/dL Hct 37.0 L (39.0-53.0) % Neutrophils # 10.3 H (1.3-7.7) k/uL Sodium 135 L (137-145) mmol/L Creatinine 0.42 L (0.66-1.25) mg/dL Glucose 108 H (74-99) mg/dL POC Glucose (mg/dL) 125 H (75-99) mg/dL Total Protein 5.7 L (6.3-8.2) g/dL Albumin 2.8 L (3.5-5.0) g/dL 12/27/18 Range/Units 12:03 WBC (3.8-10.6) k/uL RBC (4.30-5.90) m/uL Hgb (13.0-17.5) gm/dL Hct (39.0-53.0) % Neutrophils # (1.3-7.7) k/uL Sodium (137-145) mmol/L Creatinine (0.66-1.25) mg/dL Glucose (74-99) mg/dL POC Glucose (mg/dL) 173 H (75-99) mg/dL Total Protein (6.3-8.2) g/dL Albumin (3.5-5.0) g/dL Assessment and Plan Plan: Assessment: #1. Severe mitral valve regurgitation, dyspnea on exertion and chest pain, status post mitral valve repair with P2 reconstruction, creation of for artificial chordae, posterior annuloplasty, exclusion of the left atrial appendage, post-op day 4. The patient's postoperative course has been essentially uneventful. The patient from bradyarrhythmias and ultimately his cardiac rhythm changed into A. fib/flutter. His rate is controlled. He was started on anticoagulation with the next 24 hours if the Ativan remains unchanged. Despite his atrial arrhythmia, the patient is being hemodynamically stable. No syncope. No dizziness. No chest pain. #2. Routine postoperative ventilator management, extubated at 1800 on 2017. #3. Leukocytosis, possibly reactive #4. Hypertension, hyperlipidemia #5. Obesity #6. Nicotine dependence, currently in remission #7. Diabetes mellitus type 2 #8. History of rheumatic fever Plan Monitor the cardiac rhythm. Continue amiodarone. Consider anticoagulation based on the underlying cardiac rhythm which is in A. fib and atrial flutter. Continue rest of the supportive care. The patient is to stay in telemetry or ICU setting in regards to his cardiac rhythm. We'll continue to follow make further recommendations based on his progress. In general, the pulmonary status is stable for now. He has some small bilateral pleural effusion and atelectasis which remains unchanged.
--- NOTE | 2018-12-27 16:42 | P.PN ---
Subjective Progress Note Date: 12/27/18 This is a 53-year-old male patient who presented to the hospital for an complex mitral valve repair including triangular resection of P2 with reconstruction, creation of four artificial chordae using [place]amm[place]-Jorge 4-0 to the A2 segment of the valve, posterior annuloplasty using a 36 mm AnnuloFlex ring. Exclusion of the left atrial appendage using a 45 mm AtriClip. Intraoperative transesophageal echocardiogram and epi-aortic scanning With Dr. Cueto on 03/2019. Patient has a known past medical history of diabetes mellitus, hyperlipidemia, hypertension, seizure disorder, heart murmur and nicotine dependence. In September 2018 patient presents to the hospital with complaints of shortness breath and chest pain is at that time cardiology found to 2-D echo severe mitral regurg, severe prolapsed partial flail posterior mitral valve leaflet. 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 Patient is currently postop day 1. At this time patient has been extubated. Patient is doing well. Patient denies any significant chest pain or shortness of breath. Patient denies nausea vomiting or diarrhea. Patient denies any urinary burning or frequency. 12/25/2018 patient is alert and oriented 3 currently sitting up in chair. Patient is currently postop day 2. Patient received 1 dose of IV Lasix yesterday critical care. Plans for possible chest tube removal today. This time patient denies chest pain or shortness of breath. Patient denies nausea vomiting or diarrhea. Patient denies any urinary burning or frequency. Blood sugars have improved. On 12/26/2018 patient is alert and oriented 3 currently sitting up in chair. Patient currently postop day 3. Chest tubes, Cortis, arterial line and Hull catheter DC'd yesterday per cardiothoracic team. At this time patient is still complaining of some vaginal pain. Patient denies shortness breath. Patient denies nausea vomiting or diarrhea. Patient denies any urinary burning or frequency. Incentive spirometer encourged On 12/27/2018 patient was seen and examined in the intensive care unit he is alert and oriented 3 in no apparent distress sitting up in a chair there is no fever or chills no headache or dizziness no chest pain no shortness of breath no cough no nausea or vomiting no diarrhea no abdominal pain and no urinary symptoms. Patient is still in complete heart block, he is maintained on IV amiodarone, we are awaiting decision by cardiology and cardiovascular surgery in regard to permanent pacemaker placement. Objective - Vital Signs Vital signs: Vital Signs Temp 97.6 F 12/27/18 12:00 Pulse 58 L 12/27/18 16:34 Resp 14 12/27/18 15:00 BP 85/57 12/27/18 15:00 Pulse Ox 96 12/27/18 16:34 Intake & Output 12/26/18 12/27/18 12/27/18 18:59 06:59 18:59 Intake Total 1453 816 Output Total 500 350 950 Balance 953 466 -950 Weight 117.4 kg Intake: IV 643 Amiodarone 300 mg In 250 Dextrose 5% in Water 250 ml @ 0.5 MG/MIN 25.6 mls/ hr IV .Q10H [facility] Rx#: [id number] Amiodarone 360 mg In 193 Dextrose 5% in Water 193 ml @ 1 MG/MIN 33.36 mls/ hr IV .Q6H1M [facility] Rx#: [id number] Dextrose 5% in Water 100 100 ml @ 618 mls/hr IV .Q10M [facility] with Amiodarone 150 mg Rx#:[id number] Dextrose 5% in Water 100 100 ml @ 618 mls/hr IV .Q10M [facility] with Amiodarone 150 mg Rx#:[id number] Intake, IV Titration 256 Amount Amiodarone 300 mg In 256 Dextrose 5% in Water 250 ml @ 0.5 MG/MIN 25.6 mls/ hr IV .Q10H [facility] Rx#: [id number] Oral 810 560 Output: Urine 500 350 950 Other: Voiding Method Urinal Urinal Urinal # Voids 0 ABP, PAP, CO, CI - Last Documented Arterial Blood Pressure 97/44 Pulmonary Artery Pressure 27/13 Cardiac Output 6.4 Cardiac Index 2.8 - Exam Head normocephalic and atraumatic Neck supple no JVD no goiter Lungs Diminished bilaterally Heart regular rate and rhythm S1-S2, no rub or gallop Abdomen is soft nontender nondistended positive bowel sounds no hepatosplenomegaly Extremities no edema no cyanosis or clubbing Neuro alert and orientated to 3 - Labs CBC & Chem 7: 12/27/18 05:54 12/27/18 05:54 Labs: Abnormal Lab Results - Last 24 Hours (Table) 12/26/18 12/26/18 12/27/18 Range/Units 16:59 20:37 05:54 WBC 13.5 H (3.8-10.6) k/uL RBC 4.26 L (4.30-5.90) m/uL Hgb 11.9 L (13.0-17.5) gm/dL Hct 37.0 L (39.0-53.0) % Neutrophils # 10.3 H (1.3-7.7) k/uL Sodium (137-145) mmol/L Creatinine (0.66-1.25) mg/dL Glucose (74-99) mg/dL POC Glucose (mg/dL) 176 H 179 H (75-99) mg/dL Total Protein (6.3-8.2) g/dL Albumin (3.5-5.0) g/dL 12/27/18 12/27/18 12/27/18 Range/Units 05:54 06:51 12:03 WBC (3.8-10.6) k/uL RBC (4.30-5.90) m/uL Hgb (13.0-17.5) gm/dL Hct (39.0-53.0) % Neutrophils # (1.3-7.7) k/uL Sodium 135 L (137-145) mmol/L Creatinine 0.42 L (0.66-1.25) mg/dL Glucose 108 H (74-99) mg/dL POC Glucose (mg/dL) 125 H 173 H (75-99) mg/dL Total Protein 5.7 L (6.3-8.2) g/dL Albumin 2.8 L (3.5-5.0) g/dL Assessment and Plan Plan: 1. Status post complex mitral valve repair including triangular resection of P2 with reconstruction, creation of four artificial chordae using Cammal-Jorge 4-0 to the A2 segment of the valve, posterior annuloplasty using a 36 mm AnnuloFlex ring. Exclusion of the left atrial appendage using a 45 mm AtriClip. Intraoperative transesophageal echocardiogram and epi-aortic scanning With Dr. Cueto on 12/23/2018. Patient is currently postop day 4. Patient has been extubated. Mann, chest tubes, A-line and Hull discontinued. Patient remains on epicardial pacemaker generator. Beta Natalia currently DC'd per cardiothoracic surgery 2. History of essential Hypertension 3. Nicotine dependence. Patient reports that he has quit 4. History of diabetes mellitus type 2. Patient currently on insulin drip. Hemoglobin A1c 9.8 on 11/25/2018. Home long-acting insulin has been added 5. Leukocytosis. Per cardiothoracic team likely reactive. We'll continue to monitor closely 6. History of rheumatic fever 7. Complete heart block patient is maintained on IV amiodarone awaiting cardiology and cardiovascular surgery decision in regards to permanent pacemaker placement Thank you for this consultation we'll continue to follow patient closely throughout stay
[2018-12-27 17:00] LABS: Glucose,Whole Blood 156 mg/dL (75-99)
[2018-12-27 20:52] LABS: Glucose,Whole Blood 232 mg/dL (75-99)
[2018-12-27] MEDS: MELATONIN 3 MG TABLET PO SCH (21:15)
[2018-12-27] MEDS: SENNOSIDES-DOCUSATE SODIUM 1 EACH TAB PO SCH (21:15)
[2018-12-27] MEDS: INSULIN DETEMIR (LEVEMIR) 100 UNIT/ML SYR SQ SCH (21:16)
[2018-12-28 02:51] LABS: Basophils # (A) 0.1 k/uL (0-0.2); Basophils % (A) 0 %; Eosinophils # (A) 0.3 k/uL (0-0.7); Eosinophils % (A) 3 %; HCT 33.9 % (39.0-53.0); HGB 10.8 gm/dL (13.0-17.5); Lymphocytes # (A) 2.1 k/uL (1.0-4.8); Lymphocytes % (A) 16 %; MCH 27.7 pg (25.0-35.0); MCHC 31.7 g/dL (31.0-37.0); MCV 87.2 fL (80.0-100.0); Mean Platelet Volume 7.6; Monocytes # (A) 0.9 k/uL (0-1.0); Monocytes % (A) 7 %; Neutrophils # (A) 9.4 k/uL (1.3-7.7); Neutrophils % (A) 72 %; Platelet Count 218 k/uL (150-450); RBC 3.89 m/uL (4.30-5.90); RDW 14.1 % (11.5-15.5)
[2018-12-28 03:15] LABS: Anion Gap 5 mmol/L; Blood Urea Nitrogen 24 mg/dL (9-20); Carbon Dioxide 26 mmol/L (22-30); Chloride 105 mmol/L (98-107); Glucose 157 mg/dL (74-99); Magnesium 2.1 mg/dL (1.6-2.3); Phosphorus 4.5 mg/dL (2.5-4.5); Sodium 136 mmol/L (137-145)
[2018-12-28] MEDS: CLOTRIMAZOLE TROCHE 10 MG TROCHE MUCOUS MEM SCH ×4 (06:42→21:17)
[2018-12-28 06:43] LABS: Glucose,Whole Blood 147 mg/dL (75-99)
[2018-12-28] MEDS: KETOROLAC 30 MG/ML 1 ML VIAL IVP SCH ×3 (06:44→17:05)
[2018-12-28] MEDS: INSULIN ASPART (NovoLOG) 100 UNIT/ML VIAL SQ SCH ×4 (07:14→21:19)
[2018-12-28] MEDS: PANTOPRAZOLE 40 MG TABLET PO SCH (07:47)
[2018-12-28] MEDS: ATORVASTATIN 40 MG TAB PO SCH (07:47)
[2018-12-28] MEDS: ASPIRIN 325 MG TAB PO SCH (07:47)
[2018-12-28] MEDS: HEPARIN SODIUM,PORCINE 5,000 UNIT/ML 1 ML VIAL SQ SCH ×2 (07:47→15:53)
[2018-12-28] MEDS: AMIODARONE 200 MG TAB PO SCH (07:47)
[2018-12-28] MEDS: IPRATROPIUM-ALBUTEROL 3 ML NEB INHALATION SCH ×4 (07:51→20:06)
--- NOTE | 2018-12-28 09:25 | XR ---
EXAMINATION TYPE: XR chest 1V portable DATE OF EXAM: 12/28/2018 COMPARISON: 12/27/2018 INDICATION: Short of breath TECHNIQUE: Single frontal view of the chest is obtained. FINDINGS: The heart size is moderately prominent.. The pulmonary vasculature is normal. The lungs are clear. IMPRESSION: 1. Moderate cardiomegaly.
--- NOTE | 2018-12-28 10:06 | P.PN ---
Subjective Progress Note Date: 12/28/18 Principal diagnosis: Ding disease with flail of the P2 segment of the mitral valve and prolapse of A2, severe mitral valve regurgitation. Mild left ventricular dysfunction. Nonobstructive coronary artery disease with 50% stenosis in the first diagonal branch of the left anterior descending artery. History of rheumatic fever. Hypertension. Hyperlipidemia. Obesity. Current tobacco abuse. Mild COPD with preoperative hemoglobin A1c 72% of predicted. Diabetes mellitus with preoperative hemoglobin A1c 9.8%. Known bilateral iliac artery aneurysms. History of sternal and rib fracture. Previous alcoholism. Occasional marijuana use. Preoperative leukocytosis, investigated by Dr. Todd, negative blood and urine cultures, no treatment necessary. POD #5 complex mitral valve repair including triangular resection of P2 with reconstruction, creation of four artificial chordae using Franklin-Jorge 4-0 to the A 2 segment of the valve, posterior annuloplasty using a 36 mm AnnuloFlex ring. Exclusion of the left atrial appendage using a 45 mm AtriClip. Intraoperative transesophageal echocardiogram and epi-aortic scanning. Postoperative leukocytosis, expected outcome as patient had leukocytosis preoperatively which has been followed by Dr. Todd. Postoperative complete heart block, unexpected but potential outcome of surgery The patient is currently sitting up in a recliner in the intensive care unit in no acute distress. Patient's heart rhythm complete heart block, no longer atrial fibrillation, rate low 50s. States current surgical incisional pain is controlled on current medication regimen, denies shortness of breath. Patient has ambulated multiple laps in the hallway. Hemodynamically stable on no inotropes or pressors. Using incentive spirometry independently. No new complaints. Objective - Vital Signs Vital signs: Vital Signs Temp 98.3 F 12/28/18 08:00 Pulse 55 L 12/28/18 09:01 Resp 16 12/28/18 09:01 BP 113/47 12/28/18 09:01 Pulse Ox 93 L 12/28/18 09:01 Intake & Output 12/27/18 12/28/18 12/28/18 18:59 06:59 18:59 Intake Total 0 250 Output Total 950 350 150 Balance -950 -100 -150 Weight 119.4 kg Intake: IV 0 Amiodarone 300 mg In 0 Dextrose 5% in Water 250 ml @ 0.5 MG/MIN 25.6 mls/ hr IV .Q10H [facility] Rx#: [id number] Oral 250 Output: Urine 950 350 150 Other: Voiding Method Urinal Urinal Urinal # Voids 0 0 # Bowel Movements 1 ABP, PAP, CO, CI - Last Documented Arterial Blood Pressure 97/44 Pulmonary Artery Pressure 27/13 Cardiac Output 6.4 Cardiac Index 2.8 - Constitutional General appearance: Present: cooperative, no acute distress, obese - Respiratory Details: Lungs sounds diminished bilaterally. Respirations even, nonlabored. Currently on 2 L nasal cannula with oxygen saturation 96%. Able to achieve 0667-8380 mL on his incentive spirometry. Strong productive cough. - Cardiovascular Details: S1, S2 present. Regular rate and rhythm, complete heart block on telemetry. Sternum stable. A/V epicardial pacemaker wires present, connected to generator , VVI mode with backup rate 50 beats per minutes. Palpable peripheral pulses bilaterally. No edema present. No calf pain or tenderness noted. Heart hugger in place with patient demonstrating appropriate use. Antiembolism stockings, SCDs present. - Gastrointestinal Gastrointestinal Comment(s): Abdomen soft, nontender, nondistended, obese. Active bowel sounds present 4 quadrants. Tolerating diet. Positive bowel movement. - Genitourinary Genitourinary Comment(s): Patient continues to void clear, yellow urine. - Integumentary Integumentary Comment(s): Skin is warm and dry with evidence of good perfusion. Anterior chest incision well approximated and covered with dry intact dressing. - Neurologic Neurologic: Present: CNII-XII intact - Musculoskeletal Musculoskeletal: Present: gait normal, strength equal bilaterally - Psychiatric Psychiatric: Present: A&O x's 3, appropriate affect, intact judgment & insight - Allied health notes Allied health notes reviewed: nursing - Labs CBC & Chem 7: 12/28/18 02:28 12/28/18 02:28 Labs: Abnormal Lab Results - Last 24 Hours (Table) 12/27/18 12/27/18 12/27/18 Range/Units 12:03 16:58 20:50 WBC (3.8-10.6) k/uL RBC (4.30-5.90) m/uL Hgb (13.0-17.5) gm/dL Hct (39.0-53.0) % Neutrophils # (1.3-7.7) k/uL Sodium (137-145) mmol/L BUN (9-20) mg/dL Creatinine (0.66-1.25) mg/dL Glucose (74-99) mg/dL POC Glucose (mg/dL) 173 H 156 H 232 H (75-99) mg/dL 12/28/18 12/28/18 12/28/18 Range/Units 02:28 02:28 06:41 WBC 13.0 H (3.8-10.6) k/uL RBC 3.89 L (4.30-5.90) m/uL Hgb 10.8 L (13.0-17.5) gm/dL Hct 33.9 L (39.0-53.0) % Neutrophils # 9.4 H (1.3-7.7) k/uL Sodium 136 L (137-145) mmol/L BUN 24 H (9-20) mg/dL Creatinine 0.59 L (0.66-1.25) mg/dL Glucose 157 H (74-99) mg/dL POC Glucose (mg/dL) 147 H (75-99) mg/dL - Imaging and Cardiology Chest x-ray: report reviewed, image reviewed Assessment and Plan (1) Mitral valve regurgitation Current Visit: Yes Status: Chronic Code(s): I34.0 - NONRHEUMATIC MITRAL ( VALVE) INSUFFICIENCY SNOMED Code(s): 72695292 (2) Coronary artery disease Current Visit: Yes Status: Chronic Code(s): I25.10 - ATHSCL HEART DISEASE OF [place] CORONARY ARTERY W/O ANG PCTRS SNOMED Code(s): 45480360 (3) Hypertension Current Visit: Yes Status: Chronic Code(s): I10 - ESSENTIAL (PRIMARY) HYPERTENSION SNOMED Code(s): 67530590 (4) Hyperlipidemia Current Visit: Yes Status: Chronic Code(s): E78.5 - HYPERLIPIDEMIA, UNSPECIFIED SNOMED Code(s): 55196441 (5) Leukocytosis Current Visit: Yes Status: Chronic Code(s): D72.829 - ELEVATED WHITE BLOOD CELL COUNT, UNSPECIFIED SNOMED Code(s): 173637161 (6) Tobacco dependence Current Visit: Yes Status: Chronic Code(s): F17.200 - NICOTINE DEPENDENCE, UNSPECIFIED, UNCOMPLICATED SNOMED Code(s): 18461664 (7) COPD (chronic obstructive pulmonary disease) Current Visit: Yes Status: Chronic Code(s): J44.9 - CHRONIC OBSTRUCTIVE PULMONARY DISEASE, UNSPECIFIED SNOMED Code(s): 26292084 (8) Obesity Current Visit: Yes Status: Chronic Code(s): E66.9 - OBESITY, UNSPECIFIED SNOMED Code(s): 717832046 (9) History of rib fracture Current Visit: No Status: Resolved Code(s): Z87.81 - PERSONAL HISTORY OF ( HEALED) TRAUMATIC FRACTURE SNOMED Code(s): 862286444 (10) Uncontrolled diabetes mellitus Current Visit: Yes Status: Chronic Code(s): E11.65 - TYPE 2 DIABETES MELLITUS WITH HYPERGLYCEMIA SNOMED Code(s): 15136007 (11) History of rheumatic fever Current Visit: No Status: Resolved Code(s): Z86.79 - PERSONAL HISTORY OF OTHER DISEASES OF THE CIRCULATORY SYSTEM SNOMED Code(s): 814925556 Plan: 1. Continue aspirin, DOROTHY inhibitor, statin. Will hold beta tico therapy for now. Lisinopril decreased to 2.5 mg daily secondary to marginal blood pressures. 2. Amiodarone discontinued as patient is out of A. fib and heart rate is in the low 50s. No need for IV heparin at this point. If still in complete heart block likely will place permanent pacemaker on Saturday. 3. Wean O2 as tolerated. Encourage incentive spirometry use 10 times every hour while awake. 4. Encourage smoking cessation. 5. Bronchodilators per pulmonology. No Lasix today. 6. Increase activity, continue to ambulate in hallway. PT/OT/cardiac rehab following. 7. Will monitor daily labs and x-rays. Electrolyte replacement per protocol. 8. Pain controlled with current medication regimen. 9. Insulin management per primary care service. 10. GI prophylaxis with Protonix, DVT prophylaxis with subcu heparin, SCDs. 11. Will keep patient in the ICU for another 24 hours as he is connected to epicardial pacemaker generator. 12. More recommendations to follow based on patient's progress. Time with Patient: Greater than 30
--- NOTE | 2018-12-28 11:06 | PN ---
PROGRESS NOTE Mr. Barbosa is a 53-year-old male who underwent mitral valve repair. He had evidence of complete heart block with periodic episode of atrial fibrillation versus sinus with complete heart block. He is feeling well today. He is complaining of gas. No chest pain. He continued be in sinus mechanism with complete heart block. He has no chest pain, no palpitation. No nausea. He had a bowel movement. He continues to be at this time on aspirin once a day, Lipitor 40 mg daily, lisinopril 2.5 mg daily. He was on IV amiodarone. PHYSICAL EXAMINATION: Blood pressure 113/50 with a heart rate in the 50s. LUNGS: Clear. Heart regular rate and rhythm S1, S2. No S3. No rub. ABDOMEN: Soft and nontender. Positive bowel sounds. EXTREMITIES: No edema. LAB DATA: Revealed BUN and creatinine 24 and 0.59, potassium 4.0, hemoglobin of 10.8. IMPRESSION: 1. Status post mitral valve repair. 2. Complete heart block with episode of paroxysmal fibrillation alternating with complete heart block and underlying sinus mechanism. 3. Hyperlipidemia. RECOMMENDATIONS: We will continue observing the rhythm for another 24 hours since junctional rate is stable, but at the way coming it is very likely that he will require permanent pacemaker that can be scheduled early next week. In the meantime, we will continue incentive spirometry. If he has further episodes of atrial fibrillation, then he will require chronic anticoagulation. DENISE / THELMA: [id number] /
[2018-12-28 11:28] LABS: Glucose,Whole Blood 145 mg/dL (75-99)
[2018-12-28] MEDS: LISINOPRIL 2.5 MG TAB PO SCH (12:13)
--- NOTE | 2018-12-28 14:51 | P.PN ---
Subjective Progress Note Date: 12/28/18 On today's evaluation of 12/28/2018 the patient is doing well. The patient has no specific complaints. The patient is emanating. The patient is postop day # 5 and the patient underwent mitral valve repair and excision of a left atrial appendage. Note that the patient continues to have cardiac arrhythmias. The patient is having A. fib/flutter in addition to an underlying third-degree AV block. The rhythm is alternating. Nevertheless, despite ongoing arrhythmias, the patient is not having any significant hemodynamic instability. No hypotension. No syncope. No altered mentation. No dizziness. Sternum stable clean and intact. Chest tubes have been all removed. No other significant events for now. The patient has a temporary pacer in place. The patient is being considered for a permanent pacemaker insertion at a later stage. Amiodarone has been discontinued. Objective - Vital Signs Vital signs: Vital Signs Temp 98.9 F 12/28/18 12:00 Pulse 53 L 12/28/18 14:00 Resp 20 12/28/18 14:00 BP 98/57 12/28/18 14:00 Pulse Ox 93 L 12/28/18 14:00 Intake & Output 12/27/18 12/28/18 12/28/18 18:59 06:59 18:59 Intake Total 0 250 Output Total 950 350 350 Balance -950 -100 -350 Weight 119.4 kg Intake: IV 0 Amiodarone 300 mg In 0 Dextrose 5% in Water 250 ml @ 0.5 MG/MIN 25.6 mls/ hr IV .Q10H [facility] Rx#: [id number] Oral 250 Output: Urine 950 350 350 Other: Voiding Method Urinal Urinal Urinal # Voids 0 0 # Bowel Movements 1 ABP, PAP, CO, CI - Last Documented Arterial Blood Pressure 97/44 Pulmonary Artery Pressure 27/13 Cardiac Output 6.4 Cardiac Index 2.8 - Exam - Constitutional General appearance: Present: cooperative, no acute distress, obese - Respiratory Details: Lungs sounds diminished bilaterally. Respirations even, nonlabored. Currently on 2 L nasal cannula with oxygen saturation 96%. Able to achieve 1629-0769 mL on his incentive spirometry. Strong productive cough. - Cardiovascular Details: S1, S2 present. Regular rate and rhythm, complete heart block on telemetry. Sternum stable. A/V epicardial pacemaker wires present, connected to generator , VVI mode with backup rate 50 beats per minutes. Palpable peripheral pulses bilaterally. No edema present. No calf pain or tenderness noted. Heart hugger in place with patient demonstrating appropriate use. Antiembolism stockings, SCDs present. - Gastrointestinal Gastrointestinal Comment(s): Abdomen soft, nontender, nondistended, obese. Active bowel sounds present 4 quadrants. Tolerating diet. Positive bowel movement. - Genitourinary Genitourinary Comment(s): Patient continues to void clear, yellow urine. - Integumentary Integumentary Comment(s): Skin is warm and dry with evidence of good perfusion. Anterior chest incision well approximated and covered with dry intact dressing. - Neurologic Neurologic: Present: CNII-XII intact - Musculoskeletal Musculoskeletal: Present: gait normal, strength equal bilaterally - Psychiatric Psychiatric: Present: A&O x's 3, appropriate affect, intact judgment & insight - Labs CBC & Chem 7: 12/28/18 02:28 12/28/18 02:28 Labs: Abnormal Lab Results - Last 24 Hours (Table) 12/27/18 12/27/18 12/28/18 Range/Units 16:58 20:50 02:28 WBC 13.0 H (3.8-10.6) k/uL RBC 3.89 L (4.30-5.90) m/uL Hgb 10.8 L (13.0-17.5) gm/dL Hct 33.9 L (39.0-53.0) % Neutrophils # 9.4 H (1.3-7.7) k/uL Sodium (137-145) mmol/L BUN (9-20) mg/dL Creatinine (0.66-1.25) mg/dL Glucose (74-99) mg/dL POC Glucose (mg/dL) 156 H 232 H (75-99) mg/dL 12/28/18 12/28/18 12/28/18 Range/Units 02:28 06:41 11:27 WBC (3.8-10.6) k/uL RBC (4.30-5.90) m/uL Hgb (13.0-17.5) gm/dL Hct (39.0-53.0) % Neutrophils # (1.3-7.7) k/uL Sodium 136 L (137-145) mmol/L BUN 24 H (9-20) mg/dL Creatinine 0.59 L (0.66-1.25) mg/dL Glucose 157 H (74-99) mg/dL POC Glucose (mg/dL) 147 H 145 H (75-99) mg/dL Assessment and Plan Plan: Assessment: #1. Severe mitral valve regurgitation, dyspnea on exertion and chest pain, status post mitral valve repair with P2 reconstruction, creation of for artificial chordae, posterior annuloplasty, exclusion of the left atrial appendage, post-op day 5. The patient's postoperative course has been essentially uneventful. The patient from bradyarrhythmias and ultimately his cardiac rhythm changed into A. fib/flutter. The patient is also having episodes of third-degree AV block. Despite all this arrhythmias, the patient remains hemodynamically stable. #2. Status post thoracotomy for cardiac surgery, all of the chest tubes have been removed #3. Leukocytosis, possibly reactive, hemoglobin is stable #4. Hypertension, #5. Obesity #6. Nicotine dependence, currently in remission #7. Diabetes mellitus type 2 #8. History of rheumatic fever #9 hyperlipidemia Plan Monitor the cardiac rhythm. Overall pulmonary status is stable. The beta blockers are on hold. Amiodarone has been discontinued. Possible pacemaker insertion later stage for a third-degree AV block. The patient is being monitored very closely in ICU. We'll continue to follow.
--- NOTE | 2018-12-28 15:58 | P.PN ---
Subjective Progress Note Date: 12/28/18 This is a 53-year-old male patient who presented to the hospital for an complex mitral valve repair including triangular resection of P2 with reconstruction, creation of four artificial chordae using Troup-Jorge 4-0 to the A2 segment of the valve, posterior annuloplasty using a 36 mm AnnuloFlex ring. Exclusion of the left atrial appendage using a 45 mm AtriClip. Intraoperative transesophageal echocardiogram and epi-aortic scanning With Dr. Cueto on 03/2019. Patient has a known past medical history of diabetes mellitus, hyperlipidemia, hypertension, seizure disorder, heart murmur and nicotine dependence. In September 2018 patient presents to the hospital with complaints of shortness breath and chest pain is at that time cardiology found to 2-D echo severe mitral regurg, severe prolapsed partial flail posterior mitral valve leaflet. 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 Patient is currently postop day 1. At this time patient has been extubated. Patient is doing well. Patient denies any significant chest pain or shortness of breath. Patient denies nausea vomiting or diarrhea. Patient denies any urinary burning or frequency. 12/25/2018 patient is alert and oriented 3 currently sitting up in chair. Patient is currently postop day 2. Patient received 1 dose of IV Lasix yesterday critical care. Plans for possible chest tube removal today. This time patient denies chest pain or shortness of breath. Patient denies nausea vomiting or diarrhea. Patient denies any urinary burning or frequency. Blood sugars have improved. On 12/26/2018 patient is alert and oriented 3 currently sitting up in chair. Patient currently postop day 3. Chest tubes, Cortis, arterial line and Hull catheter DC'd yesterday per cardiothoracic team. At this time patient is still complaining of some vaginal pain. Patient denies shortness breath. Patient denies nausea vomiting or diarrhea. Patient denies any urinary burning or frequency. Incentive spirometer encourged On 12/27/2018 patient was seen and examined in the intensive care unit he is alert and oriented 3 in no apparent distress sitting up in a chair there is no fever or chills no headache or dizziness no chest pain no shortness of breath no cough no nausea or vomiting no diarrhea no abdominal pain and no urinary symptoms. Patient is still in complete heart block, he is maintained on IV amiodarone, we are awaiting decision by cardiology and cardiovascular surgery in regard to permanent pacemaker placement. On 12/28/2018 patient was seen and examined in the ICU he is alert and oriented 3 in no apparent distress he remains in complete heart block otherwise no complaints there is no fever or chills no headache or dizziness no chest pain no shortness of breath no cough no nausea or vomiting no abdominal pain and no urinary symptoms Objective - Vital Signs Vital signs: Vital Signs Temp 98.9 F 12/28/18 12:00 Pulse 53 L 12/28/18 15:00 Resp 13 12/28/18 15:00 BP 101/56 12/28/18 15:00 Pulse Ox 91 L 12/28/18 15:00 Intake & Output 12/27/18 12/28/18 12/28/18 18:59 06:59 18:59 Intake Total 0 250 Output Total 950 350 550 Balance -950 -100 -550 Weight 119.4 kg Intake: IV 0 Amiodarone 300 mg In 0 Dextrose 5% in Water 250 ml @ 0.5 MG/MIN 25.6 mls/ hr IV .[facility]10H [facility] Rx#: [id number] Oral 250 Output: Urine 950 350 550 Other: Voiding Method Urinal Urinal Urinal # Voids 0 0 # Bowel Movements 1 ABP, PAP, CO, CI - Last Documented Arterial Blood Pressure 97/44 Pulmonary Artery Pressure 27/13 Cardiac Output 6.4 Cardiac Index 2.8 - Exam Head normocephalic and atraumatic Neck supple no JVD no goiter Lungs Diminished bilaterally Heart regular rate and rhythm S1-S2, no rub or gallop Abdomen is soft nontender nondistended positive bowel sounds no hepatosplenomegaly Extremities no edema no cyanosis or clubbing Neuro alert and orientated to 3 - Labs CBC & Chem 7: 12/28/18 02:28 12/28/18 02:28 Labs: Abnormal Lab Results - Last 24 Hours (Table) 12/27/18 12/27/18 12/28/18 Range/Units 16:58 20:50 02:28 WBC 13.0 H (3.8-10.6) k/uL RBC 3.89 L (4.30-5.90) m/uL Hgb 10.8 L (13.0-17.5) gm/dL Hct 33.9 L (39.0-53.0) % Neutrophils # 9.4 H (1.3-7.7) k/uL Sodium (137-145) mmol/L BUN (9-20) mg/dL Creatinine (0.66-1.25) mg/dL Glucose (74-99) mg/dL POC Glucose (mg/dL) 156 H 232 H (75-99) mg/dL 12/28/18 12/28/18 12/28/18 Range/Units 02:28 06:41 11:27 WBC (3.8-10.6) k/uL RBC (4.30-5.90) m/uL Hgb (13.0-17.5) gm/dL Hct (39.0-53.0) % Neutrophils # (1.3-7.7) k/uL Sodium 136 L (137-145) mmol/L BUN 24 H (9-20) mg/dL Creatinine 0.59 L (0.66-1.25) mg/dL Glucose 157 H (74-99) mg/dL POC Glucose (mg/dL) 147 H 145 H (75-99) mg/dL Assessment and Plan Plan: 1. Status post complex mitral valve repair including triangular resection of P2 with reconstruction, creation of four artificial chordae using Troup-Jorge 4-0 to the A2 segment of the valve, posterior annuloplasty using a 36 mm AnnuloFlex ring. Exclusion of the left atrial appendage using a 45 mm AtriClip. Intraoperative transesophageal echocardiogram and epi-aortic scanning With Dr. Cueto on 12/23/2018. Patient is currently postop day 4. Patient has been extubated. Mann, chest tubes, A-line and Hull discontinued. Patient remains on epicardial pacemaker generator. Beta Natalia currently DC'd per cardiothoracic surgery 2. History of essential Hypertension 3. Nicotine dependence. Patient reports that he has quit 4. History of diabetes mellitus type 2. Patient currently on insulin drip. Hemoglobin A1c 9.8 on 11/25/2018. Home long-acting insulin has been added 5. Leukocytosis. Per cardiothoracic team likely reactive. We'll continue to monitor closely 6. History of rheumatic fever 7. Complete heart block patient is maintained on IV amiodarone awaiting cardiology and cardiovascular surgery decision in regards to permanent pacemaker placement Thank you for this consultation we'll continue to follow patient closely throughout stay
[2018-12-28 16:46] LABS: Glucose,Whole Blood 149 mg/dL (75-99)
[2018-12-28 20:50] LABS: Glucose,Whole Blood 186 mg/dL (75-99)
[2018-12-28] MEDS: MELATONIN 3 MG TABLET PO SCH (21:18)
[2018-12-28] MEDS: SENNOSIDES-DOCUSATE SODIUM 1 EACH TAB PO SCH (21:18)
[2018-12-28] MEDS: INSULIN DETEMIR (LEVEMIR) 100 UNIT/ML SYR SQ SCH (21:19)
[2018-12-28] MEDS: HYDROcodone/APAP 5-325MG 1 EACH TAB PO PRN (21:24)
[2018-12-29] MEDS: HEPARIN SODIUM,PORCINE 5,000 UNIT/ML 1 ML VIAL SQ SCH ×4 (00:56→23:13)
[2018-12-29] MEDS: CLOTRIMAZOLE TROCHE 10 MG TROCHE MUCOUS MEM SCH ×6 (00:57→23:12)
[2018-12-29] MEDS: HYDROcodone/APAP 5-325MG 1 EACH TAB PO PRN ×2 (03:00→06:48)
[2018-12-29 04:48] LABS: HCT 33.6 % (39.0-53.0); HGB 10.7 gm/dL (13.0-17.5); MCHC 31.7 g/dL (31.0-37.0); MCV 88.3 fL (80.0-100.0); Mean Platelet Volume 7.4; Platelet Count 268 k/uL (150-450); RBC 3.81 m/uL (4.30-5.90); RDW 14.1 % (11.5-15.5); WBC 10.8 k/uL (3.8-10.6)
[2018-12-29 05:03] LABS: Anion Gap 4 mmol/L; Blood Urea Nitrogen 22 mg/dL (9-20); Calcium 8.5 mg/dL (8.4-10.2); Carbon Dioxide 28 mmol/L (22-30); Chloride 106 mmol/L (98-107); Glucose 108 mg/dL (74-99); Magnesium 2.1 mg/dL (1.6-2.3); Phosphorus 4.7 mg/dL (2.5-4.5); Potassium 4.2 mmol/L (3.5-5.1); Sodium 138 mmol/L (137-145)
[2018-12-29 07:19] LABS: Glucose,Whole Blood 118 mg/dL (75-99)
[2018-12-29] MEDS ORDERED: FUROSEMIDE 10 MG/ML 4 ML VIAL IV STA (07:21)
[2018-12-29] MEDS: IPRATROPIUM-ALBUTEROL 3 ML NEB INHALATION SCH ×4 (07:30→19:30)
--- NOTE | 2018-12-29 08:04 | XR ---
EXAMINATION TYPE: XR chest 1V portable DATE OF EXAM: 12/29/2018 COMPARISON: Prior chest x-ray 12/28/2018 HISTORY: Shortness of breath TECHNIQUE: Single frontal view of the chest is obtained. FINDINGS: Heart is enlarged. Interstitium is increased. No pneumothorax. Bibasilar density persists. Central vascularity shows a similar appearance. There are artifacts, cardiac leads. IMPRESSION: Correlate for congestive heart failure. There may be basilar effusions, atelectasis, pne umonia not excluded.
--- NOTE | 2018-12-29 08:16 | PN ---
PROGRESS NOTE Mr. Barbosa is a 53-year-old male who is status post mitral valve repair. He is doing well. He has some soreness in the chest and he is still complaining of cancer. He continues to be complete AV block with a stable junctional rhythm. He had no further episode of atrial fibrillation. He denies any dizziness or palpitation. He continues to be at this time on aspirin once a day, Lipitor 40 mg daily, lisinopril 2.5 mg daily. PHYSICAL EXAMINATION: Blood pressure 105/50 with a heart rate of 47. LUNGS: A few crackles at the bases. HEART: Regular rate and rhythm, S1, S2. No S3 with a systolic murmur plus rub. ABDOMEN: Soft, obese, nontender. EXTREMITIES: No significant edema. LAB DATA: Revealed BUN and creatinine 22 and 0.52, potassium 4.2, hemoglobin of 10.7. IMPRESSION: 1. Status post mitral valve repair. 2. Persistent complete heart block. 3. Obesity. 4. Hypertension. RECOMMENDATION: His chest x-ray shows some congestion. I will give him 1 dose of IV Lasix and the patient most likely will require permanent pacemaker implantation in view of the persistent complete heart block at this point. I will discuss that further with the surgical team. MMODL / IJN: [id number] /
[2018-12-29] MEDS: ATORVASTATIN 40 MG TAB PO SCH (08:18)
[2018-12-29] MEDS: PANTOPRAZOLE 40 MG TABLET PO SCH (08:18)
[2018-12-29] MEDS: ASPIRIN 325 MG TAB PO SCH (08:18)
[2018-12-29] MEDS: INSULIN ASPART (NovoLOG) 100 UNIT/ML VIAL SQ SCH ×4 (08:35→21:37)
--- NOTE | 2018-12-29 10:01 | P.PN ---
Subjective Progress Note Date: 12/29/18 This is a 53-year-old male patient who presented to the hospital for an complex mitral valve repair including triangular resection of P2 with reconstruction, creation of four artificial chordae using Keene-Jorge 4-0 to the A2 segment of the valve, posterior annuloplasty using a 36 mm AnnuloFlex ring. Exclusion of the left atrial appendage using a 45 mm AtriClip. Intraoperative transesophageal echocardiogram and epi-aortic scanning With Dr. Cueto on 03/2019. Patient has a known past medical history of diabetes mellitus, hyperlipidemia, hypertension, seizure disorder, heart murmur and nicotine dependence. In September 2018 patient presents to the hospital with complaints of shortness breath and chest pain is at that time cardiology found to 2-D echo severe mitral regurg, severe prolapsed partial flail posterior mitral valve leaflet. 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 Patient is currently postop day 1. At this time patient has been extubated. Patient is doing well. Patient denies any significant chest pain or shortness of breath. Patient denies nausea vomiting or diarrhea. Patient denies any urinary burning or frequency. 12/25/2018 patient is alert and oriented 3 currently sitting up in chair. Patient is currently postop day 2. Patient received 1 dose of IV Lasix yesterday critical care. Plans for possible chest tube removal today. This time patient denies chest pain or shortness of breath. Patient denies nausea vomiting or diarrhea. Patient denies any urinary burning or frequency. Blood sugars have improved. On 12/26/2018 patient is alert and oriented 3 currently sitting up in chair. Patient currently postop day 3. Chest tubes, Cortis, arterial line and Hull catheter DC'd yesterday per cardiothoracic team. At this time patient is still complaining of some vaginal pain. Patient denies shortness breath. Patient denies nausea vomiting or diarrhea. Patient denies any urinary burning or frequency. Incentive spirometer encourged On 12/27/2018 patient was seen and examined in the intensive care unit he is alert and oriented 3 in no apparent distress sitting up in a chair there is no fever or chills no headache or dizziness no chest pain no shortness of breath no cough no nausea or vomiting no diarrhea no abdominal pain and no urinary symptoms. Patient is still in complete heart block, he is maintained on IV amiodarone, we are awaiting decision by cardiology and cardiovascular surgery in regard to permanent pacemaker placement. On 12/28/2018 patient was seen and examined in the ICU he is alert and oriented 3 in no apparent distress he remains in complete heart block otherwise no complaints there is no fever or chills no headache or dizziness no chest pain no shortness of breath no cough no nausea or vomiting no abdominal pain and no urinary symptoms On 12/29/2018 patient remains in the intensive care unit. Patient is alert and oriented 3. Awaiting cardiothoracic and cardiac decision on patient's complete heart block. At this time patient denies chest pain or shortness breath. Patient denies nausea vomiting or diarrhea. Denies any urinary burning or frequency Objective - Vital Signs Vital signs: Vital Signs Temp 97.7 F 12/29/18 09:00 Pulse 58 L 12/29/18 09:00 Resp 12 12/29/18 09:00 BP 110/54 12/29/18 09:00 Pulse Ox 90 L 12/29/18 09:00 Intake & Output 12/28/18 12/29/18 12/29/18 18:59 06:59 18:59 Intake Total 780 460 Output Total 664 245 1768 Balance -725 55 -565 Weight 118.5 kg Intake: Oral 780 460 Output: Urine 779 409 2735 Other: Voiding Method Urinal Urinal Urinal # Voids 0 # Bowel Movements 1 1 ABP, PAP, CO, CI - Last Documented Arterial Blood Pressure 97/44 Pulmonary Artery Pressure 27/13 Cardiac Output 6.4 Cardiac Index 2.8 - Exam Head normocephalic Neck supple Lungs Diminished bilaterally Heart regular rate and rhythm S1-S2, no rub or gallop Abdomen is soft nontender nondistended positive bowel sounds no hepatosplenomegaly Extremities no edema Neuro alert and orientated to 3 - Labs CBC & Chem 7: 12/29/18 04:18 12/29/18 04:18 Labs: Abnormal Lab Results - Last 24 Hours (Table) 12/28/18 12/28/18 12/28/18 Range/Units 11:27 16:44 20:48 WBC (3.8-10.6) k/uL RBC (4.30-5.90) m/uL Hgb (13.0-17.5) gm/dL Hct (39.0-53.0) % BUN (9-20) mg/dL Creatinine (0.66-1.25) mg/dL Glucose (74-99) mg/dL POC Glucose (mg/dL) 145 H 149 H 186 H (75-99) mg/dL Phosphorus (2.5-4.5) mg/dL 12/29/18 12/29/18 12/29/18 Range/Units 04:18 04:18 07:17 WBC 10.8 H (3.8-10.6) k/uL RBC 3.81 L (4.30-5.90) m/uL Hgb 10.7 L (13.0-17.5) gm/dL Hct 33.6 L (39.0-53.0) % BUN 22 H (9-20) mg/dL Creatinine 0.52 L (0.66-1.25) mg/dL Glucose 108 H (74-99) mg/dL POC Glucose (mg/dL) 118 H (75-99) mg/dL Phosphorus 4.7 H (2.5-4.5) mg/dL Assessment and Plan Assessment: 1. Status post complex mitral valve repair including triangular resection of P2 with reconstruction, creation of four artificial chordae using [place]-Jorge 4-0 to the A2 segment of the valve, posterior annuloplasty using a 36 mm AnnuloFlex ring. Exclusion of the left atrial appendage using a 45 mm AtriClip. Intraoperative transesophageal echocardiogram and epi-aortic scanning With Dr. Cueto on 12/23/2018. Patient is currently postop day 3. Patient has been extubated. Mann, chest tubes, A-line and Hull discontinued. Patient remains on epicardial pacemaker generator. Beta Natalia currently DC'd per cardiothoracic surgery 2. History of essential Hypertension 3. Nicotine dependence. Patient reports that he has quit 4. History of diabetes mellitus type 2. Patient currently on insulin drip. Hemoglobin A1c 9.8 on 11/25/2018. Home long-acting insulin has been added. Home long-acting insulin has been increased to 35 units 5. Leukocytosis. Per cardiothoracic team likely reactive. We'll continue to monitor closely 6. History of rheumatic fever 7. Complete heart block. Patient remains on IV amiodarone awaiting cardiology cardiovascular surgery decision regards to permanent pacemaker Thank you for this consultation we'll continue to follow patient closely throughout stay I performed an examination of the patient and discussed their management with the Nurse Practitioner. I have reviewed the Nurse Practitioner's notes and agree with the documented findings and plan of care
[2018-12-29 11:48] LABS: Glucose,Whole Blood 122 mg/dL (75-99)
[2018-12-29] MEDS: LISINOPRIL 2.5 MG TAB PO SCH (12:09)
--- NOTE | 2018-12-29 13:23 | P.PN ---
Subjective Progress Note Date: 12/29/18 Principal diagnosis: Status post mitral valve repair This is a 53-year-old white male patient of Dr. Delaney, with past medical history of diabetes mellitus type 2, history of deep vein thrombosis, nicotine dependence, currently in remission, hypertension, obesity, rheumatic fever. Patient was hospitalized in September, he presented to the emergency department with shortness of breath and chest pain. Patient was evaluated by cardiology, and his 2-D echocardiogram revealed severe mitral regurgitation, severe prolapse /partial flail of the posterior mitral valve leaflet. There was severe concentric left ventricular hypertrophy, overall left ventricular systolic function was within normal limits with an EF between 55-60%. Transesophageal echocardiogram on 10/07/2018 showed one of the P2 component of the posterior mitral leaflet with evidence of severe mitral regurgitation with anteriorly directed jet, and EF of 50-55%. Cardiac catheterization showed intermediate nonobstructive disease involving the first diagonal branch of the left anterior descending artery. Patient was recommended for surgical intervention, and today on 12/23/2018 patient underwent complex mitral valve repair including Anatoliy resection of P2 with reconstruction and creation of for artificial chordae, posterior annuloplasty, exclusion of the left atrial appendage, and Intra-operative BELKIS. Patient seen in the intensive care unit, sedated, and intubated on mechanical ventilator. Current vent settings are assist-control mode with a rate of 20,TV 550, FiO2 of 50% and PEEP of 10. Current IV fluids include lactated Ringer's a rate of 50, and insulin drip at 2 units per hour. Cleviprex is on hold, and diprivan at 20 mics per kilo per minute. Midsternal incision is clean dry and intact, covered with a surgical dressing, 2 mediastinal chest tubes are Y-connected to Pleur-evac with small to moderate amount of sanguinous output. Hull catheter is in place, patient is nonoliguric. Cardiac output is 5.7, and index of 2.5. Postoperative chest x- ray was reviewed by Dr. Hardy, and shows ET tube, OG tube, right IJ Cordis, and PA catheter in appropriate positions, no pneumothorax, or pleural effusion, Interstitium was mildly increased. Overall satisfactory postoperative chest x- ray. On today's evaluation of 12/28/2018 the patient is doing well. The patient has no specific complaints. The patient is emanating. The patient is postop day # 5 and the patient underwent mitral valve repair and excision of a left atrial appendage. Note that the patient continues to have cardiac arrhythmias. The patient is having A. fib/flutter in addition to an underlying third-degree AV block. The rhythm is alternating. Nevertheless, despite ongoing arrhythmias, the patient is not having any significant hemodynamic instability. No hypotension. No syncope. No altered mentation. No dizziness. Sternum stable clean and intact. Chest tubes have been all removed. No other significant events for now. The patient has a temporary pacer in place. The patient is being considered for a permanent pacemaker insertion at a later stage. Amiodarone has been discontinued. Reevaluated today on 10/28/2019, patient remains in the ICU, he is postoperative day #6. Underwent mitral valve repair and excision of left atrial appendage, patient continues to have issues related to third-degree AV block, and he is scheduled to have permanent pacemaker implantation tomorrow. Otherwise the patient is doing well, relatively asymptomatic, he has a temporary pacemaker in place. And again he is scheduled for a permanent one tomorrow. Chest x-ray and labs were all reviewed today Objective - Vital Signs Vital signs: Vital Signs Temp 97.7 F 12/29/18 09:00 Pulse 56 L 12/29/18 11:40 Resp 20 12/29/18 11:00 BP 110/58 12/29/18 11:00 Pulse Ox 96 12/29/18 11:00 Intake & Output 12/28/18 12/29/18 12/29/18 18:59 06:59 18:59 Intake Total 780 460 Output Total 714 426 4034 Balance -725 55 -1315 Weight 118.5 kg Intake: Oral 780 460 Output: Urine 984 321 3256 Other: Voiding Method Urinal Urinal Urinal # Voids 0 # Bowel Movements 1 1 ABP, PAP, CO, CI - Last Documented Arterial Blood Pressure 97/44 Pulmonary Artery Pressure 27/13 Cardiac Output 6.4 Cardiac Index 2.8 - Exam Physical Exam: Revealed a 53-year-old white male in no distress Head: Atraumatic, normocephalic. HEENT:[Neck is supple.] [No neck masses.] [No thyromegaly.] [No JVD.] Chest: [Clear throughout, no crackles, no rhonchi, no wheezes.] Sternum is noted to be stable. Cardiac Exam: [Normal S1 and S2, no S3 gallop, no murmur.] Abdomen: [Soft, nontender, no megaly, no rebound, no guarding, normal bowel sounds.] Extremities: [No clubbing, no edema, no cyanosis.] Neurological Exam: [No focal neurologic deficit.] - Labs CBC & Chem 7: 12/29/18 04:18 12/29/18 04:18 Labs: Abnormal Lab Results - Last 24 Hours (Table) 12/28/18 12/28/18 12/29/18 Range/Units 16:44 20:48 04:18 WBC (3.8-10.6) k/uL RBC (4.30-5.90) m/uL Hgb (13.0-17.5) gm/dL Hct (39.0-53.0) % BUN 22 H (9-20) mg/dL Creatinine 0.52 L (0.66-1.25) mg/dL Glucose 108 H (74-99) mg/dL POC Glucose (mg/dL) 149 H 186 H (75-99) mg/dL Phosphorus 4.7 H (2.5-4.5) mg/dL 12/29/18 12/29/18 12/29/18 Range/Units 04:18 07:17 11:46 WBC 10.8 H (3.8-10.6) k/uL RBC 3.81 L (4.30-5.90) m/uL Hgb 10.7 L (13.0-17.5) gm/dL Hct 33.6 L (39.0-53.0) % BUN (9-20) mg/dL Creatinine (0.66-1.25) mg/dL Glucose (74-99) mg/dL POC Glucose (mg/dL) 118 H 122 H (75-99) mg/dL Phosphorus (2.5-4.5) mg/dL Assessment and Plan Assessment: Impression: 1 severe mitral valve regurgitation, status post mitral valve repair, postoperative day #6. 2 postoperative arrhythmias, expected including third-degree AV block, presently has a temporary pacemaker, and he is scheduled to have permanent pacemaker placement tomorrow. 3 multiple comorbidities including diabetes, history of hyperlipidemia, hypertension, Recommendation: Continue to monitor cardiac rhythm, continue empiric pacemaker, continue to hold beta blockers, amiodarone has been discontinued, Pacemaker placement tomorrow. Continue incentive spirometry. Will follow. Time with Patient: Less than 30
--- NOTE | 2018-12-29 13:56 | P.PN ---
Subjective Progress Note Date: 12/29/18 Principal diagnosis: Ding disease with flail of the P2 segment of the mitral valve and prolapse of A2, severe mitral valve regurgitation. Mild left ventricular dysfunction. Nonobstructive coronary artery disease with 50% stenosis in the first diagonal branch of the left anterior descending artery. History of rheumatic fever. Hypertension. Hyperlipidemia. Obesity with a BMI of 38.6 kg/m. Current tobacco abuse. Mild COPD with preoperative hemoglobin A1c 72% of predicted. Diabetes mellitus with preoperative hemoglobin A1c 9.8%. Known bilateral iliac artery aneurysms. History of sternal and rib fracture. Previous alcoholism. Occasional marijuana use. Preoperative leukocytosis, investigated by Dr. Todd , negative blood and urine cultures. POD #6 complex mitral valve repair including triangular resection of P2 with reconstruction, creation of four artificial chordae using [place]-Jorge 4-0 to the A 2 segment of the valve, posterior annuloplasty using a 36 mm AnnuloFlex ring. Exclusion of the left atrial appendage using a 45 mm AtriClip. Intraoperative transesophageal echocardiogram and epi-aortic scanning. Postoperative leukocytosis, an expected outcome as the patient had leukocytosis preoperatively which has been followed by Dr. Todd from infectious disease. Postoperative complete heart block, an unexpected but potential outcome of surgery. Patient is currently sitting up to the bedside chair in the intensive care unit. He is in no acute distress. The patient's bedside monitor continues to show third-degree heart block, heart rate 51. The patient denies any complaints of pain or shortness of breath at this time. He reports he has been ambulating in the intensive care unit hallway with minimal assistance. Hemodynamically stable on no inotropes or pressors. He is using incentive spirometry independently and achieving 5048-4810 mL on the incentive spirometry. Objective - Vital Signs Vital signs: Vital Signs Temp 97.7 F 12/29/18 09:00 Pulse 56 L 12/29/18 11:40 Resp 20 12/29/18 11:00 BP 110/58 12/29/18 11:00 Pulse Ox 96 12/29/18 11:00 Intake & Output 12/28/18 12/29/18 12/29/18 18:59 06:59 18:59 Intake Total 780 460 Output Total 525 273 8018 Balance -725 55 -1315 Weight 118.5 kg Intake: Oral 780 460 Output: Urine 826 579 0816 Other: Voiding Method Urinal Urinal Urinal # Voids 0 # Bowel Movements 1 1 ABP, PAP, CO, CI - Last Documented Arterial Blood Pressure 97/44 Pulmonary Artery Pressure 27/13 Cardiac Output 6.4 Cardiac Index 2.8 - Constitutional General appearance: Present: cooperative, no acute distress, obese - Respiratory Details: Lung sounds are essentially clear throughout, diminished to his bilateral bases. Respirations are symmetrical and nonlabored. Oxygen saturation are 93% on room air. He is achieving 1500 mL to 1850 mL on his incentive spirometry. - Cardiovascular Details: Regular rhythm and rate. S1 and S2 present, negative for S3, gallop or murmur. Sternum is stable. Bedside telemetry showing third-degree heart block heart rate 51 BPM. Atrial and ventricular epicardial pacemaker wires present and connected to a bedside pacemaker generator VVI mode of 50 BPM. Trace pedal edema. Heart hugger is in place and he is 7 draining appropriate use. Knee- high SAVAGE hose and sequential compression devices in place to his bilateral lower extremities. - Gastrointestinal Gastrointestinal Comment(s): Abdomen is soft, nontender and nondistended. Active bowel sounds present in all 4 abdominal quadrants. Tolerating oral intake. Bowel movement this a.m. Obese. - Genitourinary Genitourinary Comment(s): Voiding clear yellow urine. 575 L output in the last 8 hours. - Integumentary Integumentary Comment(s): Skin is warm and dry. No clubbing or cyanosis is present. Midline sternal incision is clean, dry and approximated. No drainage or redness is present. Gauze dressing is clean, dry and intact. - Neurologic Neurologic: Present: CNII-XII intact - Musculoskeletal Musculoskeletal: Present: gait normal, strength equal bilaterally - Psychiatric Psychiatric: Present: A&O x's 3, appropriate affect, intact judgment & insight - Allied health notes Allied health notes reviewed: nursing - Labs CBC & Chem 7: 12/29/18 04:18 12/29/18 04:18 Labs: Abnormal Lab Results - Last 24 Hours (Table) 12/28/18 12/28/18 12/29/18 Range/Units 16:44 20:48 04:18 WBC (3.8-10.6) k/uL RBC (4.30-5.90) m/uL Hgb (13.0-17.5) gm/dL Hct (39.0-53.0) % BUN 22 H (9-20) mg/dL Creatinine 0.52 L (0.66-1.25) mg/dL Glucose 108 H (74-99) mg/dL POC Glucose (mg/dL) 149 H 186 H (75-99) mg/dL Phosphorus 4.7 H (2.5-4.5) mg/dL 12/29/18 12/29/18 Range/Units 04:18 07:17 WBC 10.8 H (3.8-10.6) k/uL RBC 3.81 L (4.30-5.90) m/uL Hgb 10.7 L (13.0-17.5) gm/dL Hct 33.6 L (39.0-53.0) % BUN (9-20) mg/dL Creatinine (0.66-1.25) mg/dL Glucose (74-99) mg/dL POC Glucose (mg/dL) 118 H (75-99) mg/dL Phosphorus (2.5-4.5) mg/dL - Imaging and Cardiology Chest x-ray: report reviewed, image reviewed Assessment and Plan (1) COPD (chronic obstructive pulmonary disease) Current Visit: Yes Status: Chronic Code(s): J44.9 - CHRONIC OBSTRUCTIVE PULMONARY DISEASE, UNSPECIFIED SNOMED Code(s): 26233249 (2) Coronary artery disease Current Visit: Yes Status: Chronic Code(s): I25.10 - ATHSCL HEART DISEASE OF [place] CORONARY ARTERY W/O ANG PCTRS SNOMED Code(s): 18324211 (3) Hyperlipidemia Current Visit: Yes Status: Chronic Code(s): E78.5 - HYPERLIPIDEMIA, UNSPECIFIED SNOMED Code(s): 13266134 (4) Hypertension Current Visit: Yes Status: Chronic Code(s): I10 - ESSENTIAL (PRIMARY) HYPERTENSION SNOMED Code(s): 50908573 (5) Leukocytosis Current Visit: Yes Status: Chronic Code(s): D72.829 - ELEVATED WHITE BLOOD CELL COUNT, UNSPECIFIED SNOMED Code(s): 590707481 (6) Mitral valve regurgitation Current Visit: Yes Status: Chronic Code(s): I34.0 - NONRHEUMATIC MITRAL ( VALVE) INSUFFICIENCY SNOMED Code(s): 97510984 (7) Obesity Current Visit: Yes Status: Chronic Code(s): E66.9 - OBESITY, UNSPECIFIED SNOMED Code(s): 325628792 (8) Tobacco dependence Current Visit: Yes Status: Chronic Code(s): F17.200 - NICOTINE DEPENDENCE, UNSPECIFIED, UNCOMPLICATED SNOMED Code(s): 54174894 (9) Uncontrolled diabetes mellitus Current Visit: Yes Status: Chronic Code(s): E11.65 - TYPE 2 DIABETES MELLITUS WITH HYPERGLYCEMIA SNOMED Code(s): 41851168 (10) Hyperglycemia Current Visit: No Status: Acute Code(s): R73.9 - HYPERGLYCEMIA, UNSPECIFIED SNOMED Code(s): 64184404 (11) History of rheumatic fever Current Visit: No Status: Resolved Code(s): Z86.79 - PERSONAL HISTORY OF OTHER DISEASES OF THE CIRCULATORY SYSTEM SNOMED Code(s): 475575308 (12) History of rib fracture Current Visit: No Status: Resolved Code(s): Z87.81 - PERSONAL HISTORY OF ( HEALED) TRAUMATIC FRACTURE SNOMED Code(s): 304520042 Plan: 1. Continue aspirin, DOROTHY inhibitor and statin. Continue to hold beta tico for now, remains in third-degree heart block. 2. Cardiology will schedule the patient for permanent pacemaker placement tomorrow 12/30/2017. 3. Encourage incentive spirometry use 10 times every hour while awake. 4. Encourage smoking cessation, discussed the importance of smoking cessation. 5. Bronchodilators per pulmonology. 6. Increase activity as tolerated, continue to ambulate in hallway. PT/OT/ cardiac rehab following. 7. Will monitor daily labs and x-rays. Electrolyte replacement per protocol. 8. Pain controlled with current medication regimen. 9. Insulin management per primary care service. 10. GI prophylaxis with Protonix, DVT prophylaxis with subcu heparin, SCDs. 11. Will keep patient in the ICU, patient will be scheduled for permanent pacemaker placement tomorrow 12/30/2017. 12. More recommendations to follow based on patient's clinical course. Time with Patient: Greater than 30
[2018-12-29] MEDS: SIMETHICONE 80 MG CHEWABLE PO PRN ×2 (14:46→23:13)
[2018-12-29 16:50] LABS: Glucose,Whole Blood 161 mg/dL (75-99)
[2018-12-29] MEDS: SENNOSIDES-DOCUSATE SODIUM 1 EACH TAB PO SCH (20:30)
[2018-12-29 20:36] LABS: Glucose,Whole Blood 196 mg/dL (75-99)
[2018-12-29] MEDS: INSULIN DETEMIR (LEVEMIR) 100 UNIT/ML SYR SQ SCH (21:37)
[2018-12-29] MEDS: MELATONIN 3 MG TABLET PO SCH (23:12)
[2018-12-30] MEDS ORDERED: CALCIUM CARBONATE 500 MG CHEWABLE PO PRN (01:38)
[2018-12-30] MEDS: CALCIUM CARBONATE 500 MG CHEWABLE PO PRN ×2 (02:01→10:54)
[2018-12-30 05:07] LABS: Basophils # (A) 0.1 k/uL (0-0.2); Basophils % (A) 1 %; Eosinophils # (A) 0.3 k/uL (0-0.7); Eosinophils % (A) 3 %; HCT 35.7 % (39.0-53.0); HGB 11.5 gm/dL (13.0-17.5); Lymphocytes # (A) 2.1 k/uL (1.0-4.8); Lymphocytes % (A) 18 %; MCH 28.2 pg (25.0-35.0); MCHC 32.2 g/dL (31.0-37.0); MCV 87.7 fL (80.0-100.0); Mean Platelet Volume 7.2; Monocytes # (A) 0.9 k/uL (0-1.0); Monocytes % (A) 7 %; Neutrophils # (A) 8.5 k/uL (1.3-7.7); Neutrophils % (A) 71 %; Platelet Count 307 k/uL (150-450); RBC 4.07 m/uL (4.30-5.90); RDW 14.2 % (11.5-15.5)
[2018-12-30 05:28] LABS: ALT 27 U/L (21-72); AST 16 U/L (17-59); Albumin 2.9 g/dL (3.5-5.0); Alkaline Phosphatase 61 U/L (38-126); Anion Gap 6 mmol/L; Blood Urea Nitrogen 15 mg/dL (9-20); Calcium 8.9 mg/dL (8.4-10.2); Carbon Dioxide 27 mmol/L (22-30); Chloride 104 mmol/L (98-107); Glucose 106 mg/dL (74-99); Magnesium 2.1 mg/dL (1.6-2.3); Phosphorus 4.2 mg/dL (2.5-4.5); Potassium 4.5 mmol/L (3.5-5.1); Sodium 137 mmol/L (137-145); Total Bilirubin 0.8 mg/dL (0.2-1.3); Total Protein 5.9 g/dL (6.3-8.2)
[2018-12-30 06:32] LABS: Glucose,Whole Blood 111 mg/dL (75-99)
[2018-12-30] MEDS: INSULIN ASPART (NovoLOG) 100 UNIT/ML VIAL SQ SCH ×4 (06:34→20:59)
[2018-12-30] MEDS: CLOTRIMAZOLE TROCHE 10 MG TROCHE MUCOUS MEM SCH ×4 (06:34→20:59)
[2018-12-30] MEDS: PANTOPRAZOLE 40 MG TABLET PO SCH (06:35)
[2018-12-30 06:57] LABS: Glucose,Whole Blood 117 mg/dL (75-99)
[2018-12-30] MEDS: IPRATROPIUM-ALBUTEROL 3 ML NEB INHALATION SCH ×4 (07:51→20:19)
[2018-12-30] MEDS: ASPIRIN 325 MG TAB PO SCH (08:01)
[2018-12-30] MEDS: ATORVASTATIN 40 MG TAB PO SCH (08:01)
[2018-12-30] MEDS: HEPARIN SODIUM,PORCINE 5,000 UNIT/ML 1 ML VIAL SQ SCH ×2 (08:01→15:45)
--- NOTE | 2018-12-30 08:57 | PN ---
PROGRESS NOTE Mr. Barbosa is a 53-year-old male who underwent mitral valve repair. He had complete heart block postoperatively and continues to be persistent with underlying sinus mechanism. He had a prior episode of atrial fibrillation. He denies any chest pain at this time. His breathing is stable. He denies any dizziness or palpitation. His main complaint is gas which he had prior to surgery. He denies any nausea or vomiting. He continues to be at this time on aspirin once a day, Lipitor 40 mg daily, lisinopril 2.5 mg daily. PHYSICAL EXAMINATION: Blood pressure 109/60 with the heart rate in the 50s. LUNGS: Clear with few crackles at the bases. HEART: Regular rate and rhythm. S1, S2. No S3 with no rub. ABDOMEN: Soft, obese, nontender. EXTREMITIES: No edema. LAB DATA: Lab data revealed BUN and creatinine 15 and 0.5. Hemoglobin of 11.5. IMPRESSION: 1. Status post mitral valve repair, stable. 2. Persistent complete heart block with stable junctional rhythm. 3. Prior episode of atrial fibrillation. 4. Obesity. 5. Hypertension. RECOMMENDATION: From the cardiac standpoint, we will continue present therapy. Patient is scheduled to undergo permanent pacemaker implantation tomorrow by Dr. Nascimento and depending on his progress, further recommendation will be made. MMODL / IJN: [id number] /
[2018-12-30] MEDS: FUROSEMIDE 10 MG/ML 4 ML VIAL IV SCH ×2 (09:03→20:59)
--- NOTE | 2018-12-30 09:25 | XR ---
EXAMINATION TYPE: XR chest 1V portable DATE OF EXAM: 12/30/2018 COMPARISON: Prior chest x-ray 12/29/2017 HISTORY: Postop mitral valve replacement TECHNIQUE: Single frontal view of the chest is obtained. FINDINGS: Patient is post median sternotomy, atrial appendage clipping. No pneumothorax. Heart remai ns enlarged. Central vascularity and interstitium are prominent. Difficult to exclude pleural effusio n. Cardiac leads are present. Patient is rotated. IMPRESSION: Correlate for possible volume overload, pulmonary venous hypertension and interstitial e crys. Follow-up recommended.
--- NOTE | 2018-12-30 09:58 | P.PN ---
Subjective Progress Note Date: 12/30/18 This is a 53-year-old male patient who presented to the hospital for an complex mitral valve repair including triangular resection of P2 with reconstruction, creation of four artificial chordae using Shabbona-Jorge 4-0 to the A2 segment of the valve, posterior annuloplasty using a 36 mm AnnuloFlex ring. Exclusion of the left atrial appendage using a 45 mm AtriClip. Intraoperative transesophageal echocardiogram and epi-aortic scanning With Dr. Cueto on 03/2019. Patient has a known past medical history of diabetes mellitus, hyperlipidemia, hypertension, seizure disorder, heart murmur and nicotine dependence. In September 2018 patient presents to the hospital with complaints of shortness breath and chest pain is at that time cardiology found to 2-D echo severe mitral regurg, severe prolapsed partial flail posterior mitral valve leaflet. 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 Patient is currently postop day 1. At this time patient has been extubated. Patient is doing well. Patient denies any significant chest pain or shortness of breath. Patient denies nausea vomiting or diarrhea. Patient denies any urinary burning or frequency. 12/25/2018 patient is alert and oriented 3 currently sitting up in chair. Patient is currently postop day 2. Patient received 1 dose of IV Lasix yesterday critical care. Plans for possible chest tube removal today. This time patient denies chest pain or shortness of breath. Patient denies nausea vomiting or diarrhea. Patient denies any urinary burning or frequency. Blood sugars have improved. On 12/26/2018 patient is alert and oriented 3 currently sitting up in chair. Patient currently postop day 3. Chest tubes, Cortis, arterial line and Hull catheter DC'd yesterday per cardiothoracic team. At this time patient is still complaining of some vaginal pain. Patient denies shortness breath. Patient denies nausea vomiting or diarrhea. Patient denies any urinary burning or frequency. Incentive spirometer encourged On 12/27/2018 patient was seen and examined in the intensive care unit he is alert and oriented 3 in no apparent distress sitting up in a chair there is no fever or chills no headache or dizziness no chest pain no shortness of breath no cough no nausea or vomiting no diarrhea no abdominal pain and no urinary symptoms. Patient is still in complete heart block, he is maintained on IV amiodarone, we are awaiting decision by cardiology and cardiovascular surgery in regard to permanent pacemaker placement. On 12/28/2018 patient was seen and examined in the ICU he is alert and oriented 3 in no apparent distress he remains in complete heart block otherwise no complaints there is no fever or chills no headache or dizziness no chest pain no shortness of breath no cough no nausea or vomiting no abdominal pain and no urinary symptoms On 12/29/2018 patient remains in the intensive care unit. Patient is alert and oriented 3. Awaiting cardiothoracic and cardiac decision on patient's complete heart block. At this time patient denies chest pain or shortness breath. Patient denies nausea vomiting or diarrhea. Denies any urinary burning or frequency On 12/30/2018 patient remains in the intensive care unit alert and oriented 3. Patient remains on epicardial pacemaker due to complete heart block. Patient is scheduled to undergo permanent pacemaker implantation tomorrow. At this time patient denies chest pain or shortness of breath. Denies nausea vomiting or diarrhea. Patient denies any urinary burning or frequency. Objective - Vital Signs Vital signs: Vital Signs Temp 98.0 F 12/30/18 04:00 Pulse 51 L 12/30/18 08:01 Resp 16 12/30/18 08:01 BP 109/69 12/30/18 07:00 Pulse Ox 90 L 12/30/18 07:00 Intake & Output 12/29/18 12/30/18 12/30/18 18:59 06:59 18:59 Intake Total 1180 Output Total 2200 1100 0 Balance -1020 -1100 0 Weight 119.2 kg Intake: Oral 1180 Output: Urine 2200 1100 0 Other: Voiding Method Urinal ABP, PAP, CO, CI - Last Documented Arterial Blood Pressure 97/44 Pulmonary Artery Pressure 27/13 Cardiac Output 6.4 Cardiac Index 2.8 - Exam Head normocephalic Neck supple Lungs Diminished bilaterally Heart regular rate and rhythm S1-S2, no rub or gallop Abdomen is soft nontender nondistended positive bowel sounds no hepatosplenomegaly Extremities no edema Neuro alert and orientated to 3 - Labs CBC & Chem 7: 12/30/18 04:08 12/30/18 04:08 Labs: Abnormal Lab Results - Last 24 Hours (Table) 12/29/18 12/29/18 12/29/18 Range/Units 11:46 16:48 20:35 WBC (3.8-10.6) k/uL RBC (4.30-5.90) m/uL Hgb (13.0-17.5) gm/dL Hct (39.0-53.0) % Neutrophils # (1.3-7.7) k/uL Creatinine (0.66-1.25) mg/dL Glucose (74-99) mg/dL POC Glucose (mg/dL) 122 H 161 H 196 H (75-99) mg/dL AST (17-59) U/L Total Protein (6.3-8.2) g/dL Albumin (3.5-5.0) g/dL 12/30/18 12/30/18 12/30/18 Range/Units 04:08 04:08 06:30 WBC 12.0 H (3.8-10.6) k/uL RBC 4.07 L (4.30-5.90) m/uL Hgb 11.5 L (13.0-17.5) gm/dL Hct 35.7 L (39.0-53.0) % Neutrophils # 8.5 H (1.3-7.7) k/uL Creatinine 0.50 L (0.66-1.25) mg/dL Glucose 106 H (74-99) mg/dL POC Glucose (mg/dL) 111 H (75-99) mg/dL AST 16 L (17-59) U/L Total Protein 5.9 L (6.3-8.2) g/dL Albumin 2.9 L (3.5-5.0) g/dL 12/30/18 Range/Units 06:55 WBC (3.8-10.6) k/uL RBC (4.30-5.90) m/uL Hgb (13.0-17.5) gm/dL Hct (39.0-53.0) % Neutrophils # (1.3-7.7) k/uL Creatinine (0.66-1.25) mg/dL Glucose (74-99) mg/dL POC Glucose (mg/dL) 117 H (75-99) mg/dL AST (17-59) U/L Total Protein (6.3-8.2) g/dL Albumin (3.5-5.0) g/dL Assessment and Plan Assessment: 1. Status post complex mitral valve repair including triangular resection of P2 with reconstruction, creation of four artificial chordae using Shabbona-Jorge 4-0 to the A2 segment of the valve, posterior annuloplasty using a 36 mm AnnuloFlex ring. Exclusion of the left atrial appendage using a 45 mm AtriClip. Intraoperative transesophageal echocardiogram and epi-aortic scanning With Dr. Cueto on 12/23/2018. Patient is currently postop day 6. Patient has been extubated. Mann, chest tubes, A-line and Hull discontinued. Patient remains on epicardial pacemaker generator. Beta Natalia currently DC'd per cardiothoracic surgery 2. History of essential Hypertension 3. Nicotine dependence. Patient reports that he has quit 4. History of diabetes mellitus type 2. Patient currently on insulin drip. Hemoglobin A1c 9.8 on 11/25/2018. Home long-acting insulin has been added. Home long-acting insulin has been increased to 35 units 5. Leukocytosis. Per cardiothoracic team likely reactive. We'll continue to monitor closely 6. History of rheumatic fever 7. Complete heart block. Patient scheduled to undergo permanent pacemaker implantation tomorrow to 12/31/2018 Thank you for this consultation we'll continue to follow patient closely throughout stay I performed an examination of the patient and discussed their management with the Nurse Practitioner. I have reviewed the Nurse Practitioner's notes and agree with the documented findings and plan of care
--- NOTE | 2018-12-30 10:25 | P.PN ---
Subjective Progress Note Date: 12/30/18 Principal diagnosis: Ding disease with flail of the P2 segment of the mitral valve and prolapse of A2, severe mitral valve regurgitation. Mild left ventricular dysfunction. Nonobstructive coronary artery disease with 50% stenosis in the first diagonal branch of the left anterior descending artery. History of rheumatic fever. Hypertension. Hyperlipidemia. Obesity. Current tobacco abuse. Mild COPD with preoperative hemoglobin A1c 72% of predicted. Diabetes mellitus with preoperative hemoglobin A1c 9.8%. Known bilateral iliac artery aneurysms. History of sternal and rib fracture. Previous alcoholism. Occasional marijuana use. Preoperative leukocytosis, investigated by Dr. Todd, negative blood and urine cultures, no treatment necessary. POD #7 complex mitral valve repair including triangular resection of P2 with reconstruction, creation of four artificial chordae using [place]-Jorge 4-0 to the A 2 segment of the valve, posterior annuloplasty using a 36 mm AnnuloFlex ring. Exclusion of the left atrial appendage using a 45 mm AtriClip. Intraoperative transesophageal echocardiogram and epi-aortic scanning. Postoperative leukocytosis, expected outcome as patient had leukocytosis preoperatively which has been followed by Dr. Todd. Postoperative complete heart block, unexpected but potential outcome of surgery The patient is currently sitting up in a recliner in the intensive care unit in no acute distress. Patient's heart rhythm complete heart block, no further atrial fibrillation, rate low 50s. States current surgical incisional pain is controlled on current medication regimen, denies shortness of breath. Patient has ambulated multiple laps in the hallway. Hemodynamically stable on no inotropes or pressors. Using incentive spirometry independently. No new complaints. Objective - Vital Signs Vital signs: Vital Signs Temp 98.0 F 12/30/18 04:00 Pulse 51 L 12/30/18 08:01 Resp 16 12/30/18 08:01 BP 109/69 12/30/18 07:00 Pulse Ox 90 L 12/30/18 07:00 Intake & Output 12/29/18 12/30/18 12/30/18 18:59 06:59 18:59 Intake Total 1180 Output Total 2200 1100 725 Balance -1020 -1100 -725 Weight 119.2 kg Intake: Oral 1180 Output: Urine 2200 1100 725 Other: Voiding Method Urinal ABP, PAP, CO, CI - Last Documented Arterial Blood Pressure 97/44 Pulmonary Artery Pressure 27/13 Cardiac Output 6.4 Cardiac Index 2.8 - Constitutional General appearance: Present: cooperative, no acute distress, obese - Respiratory Details: Lungs sounds diminished bilaterally. Respirations even, nonlabored. Currently on room air with oxygen saturation 95%. Able to achieve 1000 mL on his incentive spirometry. Strong productive cough. - Cardiovascular Details: S1, S2 present. Regular rate and rhythm, complete heart block on telemetry. Sternum stable. A/V epicardial pacemaker wires present, connected to generator , VVI mode with backup rate 50 beats per minutes. Palpable peripheral pulses bilaterally. Trace bilateral lower extremity edema present. No calf pain or tenderness noted. Heart hugger in place with patient demonstrating appropriate use. Antiembolism stockings, SCDs present. - Gastrointestinal Gastrointestinal Comment(s): Abdomen soft, nontender, nondistended, obese. Active bowel sounds present 4 quadrants. Tolerating diet. Positive bowel movement /. - Genitourinary Genitourinary Comment(s): Patient continues to void clear, yellow urine. - Integumentary Integumentary Comment(s): Skin is warm and dry with evidence of good perfusion. Anterior chest incision well approximated and covered with dry intact dressing. - Neurologic Neurologic: Present: CNII-XII intact - Musculoskeletal Musculoskeletal: Present: gait normal, strength equal bilaterally - Psychiatric Psychiatric: Present: A&O x's 3, appropriate affect, intact judgment & insight - Allied health notes Allied health notes reviewed: nursing - Labs CBC & Chem 7: 12/30/18 04:08 12/30/18 04:08 Labs: Abnormal Lab Results - Last 24 Hours (Table) 12/29/18 12/29/18 12/29/18 Range/Units 11:46 16:48 20:35 WBC (3.8-10.6) k/uL RBC (4.30-5.90) m/uL Hgb (13.0-17.5) gm/dL Hct (39.0-53.0) % Neutrophils # (1.3-7.7) k/uL Creatinine (0.66-1.25) mg/dL Glucose (74-99) mg/dL POC Glucose (mg/dL) 122 H 161 H 196 H (75-99) mg/dL AST (17-59) U/L Total Protein (6.3-8.2) g/dL Albumin (3.5-5.0) g/dL 12/30/18 12/30/18 12/30/18 Range/Units 04:08 04:08 06:30 WBC 12.0 H (3.8-10.6) k/uL RBC 4.07 L (4.30-5.90) m/uL Hgb 11.5 L (13.0-17.5) gm/dL Hct 35.7 L (39.0-53.0) % Neutrophils # 8.5 H (1.3-7.7) k/uL Creatinine 0.50 L (0.66-1.25) mg/dL Glucose 106 H (74-99) mg/dL POC Glucose (mg/dL) 111 H (75-99) mg/dL AST 16 L (17-59) U/L Total Protein 5.9 L (6.3-8.2) g/dL Albumin 2.9 L (3.5-5.0) g/dL 12/30/18 Range/Units 06:55 WBC (3.8-10.6) k/uL RBC (4.30-5.90) m/uL Hgb (13.0-17.5) gm/dL Hct (39.0-53.0) % Neutrophils # (1.3-7.7) k/uL Creatinine (0.66-1.25) mg/dL Glucose (74-99) mg/dL POC Glucose (mg/dL) 117 H (75-99) mg/dL AST (17-59) U/L Total Protein (6.3-8.2) g/dL Albumin (3.5-5.0) g/dL - Imaging and Cardiology Chest x-ray: report reviewed, image reviewed Assessment and Plan (1) Mitral valve regurgitation Current Visit: Yes Status: Chronic Code(s): I34.0 - NONRHEUMATIC MITRAL ( VALVE) INSUFFICIENCY SNOMED Code(s): 35071408 (2) Coronary artery disease Current Visit: Yes Status: Chronic Code(s): I25.10 - ATHSCL HEART DISEASE OF [place] CORONARY ARTERY W/O ANG PCTRS SNOMED Code(s): 60073666 (3) Hypertension Current Visit: Yes Status: Chronic Code(s): I10 - ESSENTIAL (PRIMARY) HYPERTENSION SNOMED Code(s): 12601920 (4) Hyperlipidemia Current Visit: Yes Status: Chronic Code(s): E78.5 - HYPERLIPIDEMIA, UNSPECIFIED SNOMED Code(s): 77993833 (5) Leukocytosis Current Visit: Yes Status: Chronic Code(s): D72.829 - ELEVATED WHITE BLOOD CELL COUNT, UNSPECIFIED SNOMED Code(s): 423407833 (6) Tobacco dependence Current Visit: Yes Status: Chronic Code(s): F17.200 - NICOTINE DEPENDENCE, UNSPECIFIED, UNCOMPLICATED SNOMED Code(s): 05693744 (7) COPD (chronic obstructive pulmonary disease) Current Visit: Yes Status: Chronic Code(s): J44.9 - CHRONIC OBSTRUCTIVE PULMONARY DISEASE, UNSPECIFIED SNOMED Code(s): 90261645 (8) Obesity Current Visit: Yes Status: Chronic Code(s): E66.9 - OBESITY, UNSPECIFIED SNOMED Code(s): 196786189 (9) History of rib fracture Current Visit: No Status: Resolved Code(s): Z87.81 - PERSONAL HISTORY OF ( HEALED) TRAUMATIC FRACTURE SNOMED Code(s): 139056014 (10) Uncontrolled diabetes mellitus Current Visit: Yes Status: Chronic Code(s): E11.65 - TYPE 2 DIABETES MELLITUS WITH HYPERGLYCEMIA SNOMED Code(s): 32900370 (11) History of rheumatic fever Current Visit: No Status: Resolved Code(s): Z86.79 - PERSONAL HISTORY OF OTHER DISEASES OF THE CIRCULATORY SYSTEM SNOMED Code(s): 480956646 Plan: 1. Continue aspirin, DOROTHY inhibitor, statin. Will hold beta tico therapy for now. 2. Will give 40 mg IV Lasix twice today. 3. Encourage incentive spirometry use 10 times every hour while awake. 4. Encourage smoking cessation. 5. Bronchodilators per pulmonology. 6. Increase activity, continue to ambulate in hallway. PT/OT/cardiac rehab following. 7. Will monitor daily labs and x-rays. Electrolyte replacement per protocol. 8. Pain controlled with current medication regimen. 9. Insulin management per primary care service. 10. GI prophylaxis with Protonix, DVT prophylaxis with subcu heparin, SCDs. 11. Anticipates permanent pacemaker placement tomorrow with Dr. Nascimento. Will initiate beta tico therapy after pacemaker placement. Will keep patient in the ICU for another 24 hours as he is connected to epicardial pacemaker generator. 12. More recommendations to follow based on patient's progress. Time with Patient: Greater than 30
[2018-12-30 11:50] LABS: Glucose,Whole Blood 117 mg/dL (75-99)
[2018-12-30] MEDS ORDERED: ceFAZolin 1,000 MG in SODIUM CHLORIDE 0.9% IRRIGATIO 250 ML IRRIGATION ONE (12:30)
[2018-12-30] MEDS ORDERED: ceFAZolin IN SWFI 2 GM/20 ML SYRINGE IVP ONE (12:30)
[2018-12-30] MEDS: LISINOPRIL 2.5 MG TAB PO SCH (12:37)
--- NOTE | 2018-12-30 12:37 | P.PN ---
Subjective Progress Note Date: 12/30/18 Principal diagnosis: Status post mitral valve repair This is a 53-year-old white male patient of Dr. Delaney, with past medical history of diabetes mellitus type 2, history of deep vein thrombosis, nicotine dependence, currently in remission, hypertension, obesity, rheumatic fever. Patient was hospitalized in September, he presented to the emergency department with shortness of breath and chest pain. Patient was evaluated by cardiology, and his 2-D echocardiogram revealed severe mitral regurgitation, severe prolapse /partial flail of the posterior mitral valve leaflet. There was severe concentric left ventricular hypertrophy, overall left ventricular systolic function was within normal limits with an EF between 55-60%. Transesophageal echocardiogram on 10/07/2018 showed one of the P2 component of the posterior mitral leaflet with evidence of severe mitral regurgitation with anteriorly directed jet, and EF of 50-55%. Cardiac catheterization showed intermediate nonobstructive disease involving the first diagonal branch of the left anterior descending artery. Patient was recommended for surgical intervention, and today on 12/23/2018 patient underwent complex mitral valve repair including Anatoliy resection of P2 with reconstruction and creation of for artificial chordae, posterior annuloplasty, exclusion of the left atrial appendage, and Intra-operative BELKIS. Patient seen in the intensive care unit, sedated, and intubated on mechanical ventilator. Current vent settings are assist-control mode with a rate of 20,TV 550, FiO2 of 50% and PEEP of 10. Current IV fluids include lactated Ringer's a rate of 50, and insulin drip at 2 units per hour. Cleviprex is on hold, and diprivan at 20 mics per kilo per minute. Midsternal incision is clean dry and intact, covered with a surgical dressing, 2 mediastinal chest tubes are Y-connected to Pleur-evac with small to moderate amount of sanguinous output. Hull catheter is in place, patient is nonoliguric. Cardiac output is 5.7, and index of 2.5. Postoperative chest x- ray was reviewed by Dr. Hardy, and shows ET tube, OG tube, right IJ Cordis, and PA catheter in appropriate positions, no pneumothorax, or pleural effusion, Interstitium was mildly increased. Overall satisfactory postoperative chest x- ray. On today's evaluation of 12/28/2018 the patient is doing well. The patient has no specific complaints. The patient is emanating. The patient is postop day # 5 and the patient underwent mitral valve repair and excision of a left atrial appendage. Note that the patient continues to have cardiac arrhythmias. The patient is having A. fib/flutter in addition to an underlying third-degree AV block. The rhythm is alternating. Nevertheless, despite ongoing arrhythmias, the patient is not having any significant hemodynamic instability. No hypotension. No syncope. No altered mentation. No dizziness. Sternum stable clean and intact. Chest tubes have been all removed. No other significant events for now. The patient has a temporary pacer in place. The patient is being considered for a permanent pacemaker insertion at a later stage. Amiodarone has been discontinued. Reevaluated today on 12/29/2018, patient remains in the ICU, he is postoperative day #6. Underwent mitral valve repair and excision of left atrial appendage, patient continues to have issues related to third-degree AV block, and he is scheduled to have permanent pacemaker implantation tomorrow. Otherwise the patient is doing well, relatively asymptomatic, he has a temporary pacemaker in place. And again he is scheduled for a permanent one tomorrow. Chest x-ray and labs were all reviewed today Reevaluated today on 12/30/2018, remains in the ICU, plans for having a permanent pacemaker implantation were canceled for today, and I believe it scheduled to be done tomorrow. Patient is asymptomatic, no cough no wheezing no shortness of breath. He had mitral valve repair, postoperatively he had persistent complete heart block, and he is undergoing permanent pacemaker implantation tomorrow. No active pulmonary issues, no chest pain, no shortness of breath, no cough no wheezing. Chest x-ray showed slight prominence of the pulmonary vasculature consistent with mild interstitial edema, however the patient is clinically asymptomatic. CBC is relatively normal basic metabolic profile is normal. Objective - Vital Signs Vital signs: Vital Signs Temp 98.4 F 12/30/18 08:00 Pulse 51 L 12/30/18 12:06 Resp 16 12/30/18 12:06 BP 100/59 12/30/18 11:00 Pulse Ox 92 L 12/30/18 11:00 Intake & Output 12/29/18 12/30/18 12/30/18 18:59 06:59 18:59 Intake Total 1180 240 Output Total 2200 1100 1775 Balance -1020 -1100 -1535 Weight 119.2 kg Intake: Oral 1180 240 Output: Urine 2200 1100 1775 Other: Voiding Method Urinal Urinal ABP, PAP, CO, CI - Last Documented Arterial Blood Pressure 97/44 Pulmonary Artery Pressure 27/13 Cardiac Output 6.4 Cardiac Index 2.8 - Exam Physical Exam: Revealed a 53-year-old white male in no distress Head: Atraumatic, normocephalic. HEENT:[Neck is supple.] [No neck masses.] [No thyromegaly.] [No JVD.] Chest: [Clear throughout, no crackles, no rhonchi, no wheezes.] Sternum is noted to be stable. Cardiac Exam: [Normal S1 and S2, no S3 gallop, no murmur.] Abdomen: [Soft, nontender, no megaly, no rebound, no guarding, normal bowel sounds.] Extremities: [No clubbing, no edema, no cyanosis.] Neurological Exam: [No focal neurologic deficit.] Psychiatric: Normal mood affect and mental status examination. Lymphatics: No palpable lymphadenopathy. - Labs CBC & Chem 7: 12/30/18 04:08 12/30/18 04:08 Labs: Abnormal Lab Results - Last 24 Hours (Table) 12/29/18 12/29/18 12/30/18 Range/Units 16:48 20:35 04:08 WBC (3.8-10.6) k/uL RBC (4.30-5.90) m/uL Hgb (13.0-17.5) gm/dL Hct (39.0-53.0) % Neutrophils # (1.3-7.7) k/uL Creatinine 0.50 L (0.66-1.25) mg/dL Glucose 106 H (74-99) mg/dL POC Glucose (mg/dL) 161 H 196 H (75-99) mg/dL AST 16 L (17-59) U/L Total Protein 5.9 L (6.3-8.2) g/dL Albumin 2.9 L (3.5-5.0) g/dL 12/30/18 12/30/18 12/30/18 Range/Units 04:08 06:30 06:55 WBC 12.0 H (3.8-10.6) k/uL RBC 4.07 L (4.30-5.90) m/uL Hgb 11.5 L (13.0-17.5) gm/dL Hct 35.7 L (39.0-53.0) % Neutrophils # 8.5 H (1.3-7.7) k/uL Creatinine (0.66-1.25) mg/dL Glucose (74-99) mg/dL POC Glucose (mg/dL) 111 H 117 H (75-99) mg/dL AST (17-59) U/L Total Protein (6.3-8.2) g/dL Albumin (3.5-5.0) g/dL 12/30/18 Range/Units 11:49 WBC (3.8-10.6) k/uL RBC (4.30-5.90) m/uL Hgb (13.0-17.5) gm/dL Hct (39.0-53.0) % Neutrophils # (1.3-7.7) k/uL Creatinine (0.66-1.25) mg/dL Glucose (74-99) mg/dL POC Glucose (mg/dL) 117 H (75-99) mg/dL AST (17-59) U/L Total Protein (6.3-8.2) g/dL Albumin (3.5-5.0) g/dL Assessment and Plan Assessment: Impression: 1 severe mitral valve regurgitation, status post mitral valve repair, postoperative day #7 2 postoperative arrhythmias, expected including third-degree AV block, presently has a temporary pacemaker, and he is scheduled to have permanent pacemaker placement tomorrow. 3 multiple comorbidities including diabetes, history of hyperlipidemia, hypertension, Recommendation: Continue to monitor closely in the ICU, continue incentive spirometry, ambulation, continue temporary pacemaker, patient is scheduled to have permanent asymmetric or placement tomorrow. Will follow. Time with Patient: Less than 30
[2018-12-30] MEDS: SODIUM CHLORIDE 0.9% 1,000 ML IV SCH (14:59)
--- NOTE | 2018-12-30 15:42 | CDI ---
Documentation Clarification Form Date: 12/30/2018 3:30:44 PM From: Krystal Johnson CCS, CCDS Admit Date: 12/23/2018 5:39:00 AM Patient Name: Celestino Barbosa Visit Number: [id number] Discharge Date: ATTENTION: The Clinical Documentation Specialists (CDI) and [facility] Coding Staff appreciate your assistance in clarifying documentation. Please respond to the clarification below the line at the bottom and electronically sign. The CDI & [facility] Coding staff will review the response and follow-up if needed. Please note: Queries are made part of the Legal Health Record. If you have any questions, please contact the author of this message via ITS. Dr. Constance Lane: Patient is status post mitral valve repair for mitral valve stenosis on 12/23. Per the operative note there is no history of atrial fibrillation. The patient went into atrial fibrillation & required 300 mg of Amiodarone that helped him convert to sinus rhythm. The patient continued to be in & out of complete heart block & paroxysmal atrial fibrillation as documented in the subsequent progress ntoes. Patients Admitting Diagnosis: Mitral valve stenosis Post-Operative Diagnosis: Same with atrial fibrillation & complete heart block. Procedure performed: Mitral valve repair History/Risk Factors: Hypertension, Hyperlipidemia, Diabetes Mellitus, Former smoker, Rheumatic fever, Morbid obesity. Clinical Indicators: Heart rate: 68 - 56* - 72 - 58* - 75 - 63 - 58 - 46* - 54* (averages) Treatment: IV Amiodarone, IV Cefazolin, IV Heparin, IV Nitro, IV NaBicarb, IV Insulin, IV Lasix, IV fluids, ICU postop management, possible pacemaker and/or chronic anticoagulant. Has temporary pacemaker in place. In order to accurately reflect this patients severity of illness, please clarify if the post-operative diagnosis of paroxysmal atrial fibrillation is: An expected post-procedural or post-surgical condition An unexpected post-procedural or post-surgical condition related to surgical care Other, please specify: Unable to determine (Last Revision: February 2018) TERAD
[2018-12-30 17:19] LABS: Glucose,Whole Blood 169 mg/dL (75-99)
[2018-12-30] MEDS: BENZOCAINE/MENTHOL LOZENG 1 EACH LOZENGE MUCOUS MEM PRN (19:37)
[2018-12-30 20:37] LABS: Glucose,Whole Blood 175 mg/dL (75-99)
[2018-12-30] MEDS: MELATONIN 3 MG TABLET PO SCH (20:58)
[2018-12-30] MEDS: SENNOSIDES-DOCUSATE SODIUM 1 EACH TAB PO SCH (20:58)
[2018-12-30] MEDS: INSULIN DETEMIR (LEVEMIR) 100 UNIT/ML SYR SQ SCH (21:46)
[2018-12-30 22:15] LABS: Hemoglobin A1C 8.9 % (4.0-6.0)
[2018-12-31] MEDS: SIMETHICONE 80 MG CHEWABLE PO PRN (00:58)
[2018-12-31] MEDS: SODIUM CHLORIDE 0.9% 1,000 ML IV SCH ×3 (01:00→09:01)
[2018-12-31] MEDS: HEPARIN SODIUM,PORCINE 5,000 UNIT/ML 1 ML VIAL SQ SCH ×4 (01:00→23:47)
[2018-12-31] MEDS: CLOTRIMAZOLE TROCHE 10 MG TROCHE MUCOUS MEM SCH ×6 (01:00→23:47)
[2018-12-31 04:56] LABS: Basophils # (A) 0.1 k/uL (0-0.2); Basophils % (A) 1 %; Eosinophils # (A) 0.3 k/uL (0-0.7); Eosinophils % (A) 2 %; HCT 39.7 % (39.0-53.0); HGB 12.6 gm/dL (13.0-17.5); Lymphocytes # (A) 2.5 k/uL (1.0-4.8); Lymphocytes % (A) 19 %; MCH 27.5 pg (25.0-35.0); MCHC 31.7 g/dL (31.0-37.0); MCV 86.8 fL (80.0-100.0); Mean Platelet Volume 6.5; Monocytes # (A) 0.9 k/uL (0-1.0); Monocytes % (A) 7 %; Neutrophils # (A) 9.4 k/uL (1.3-7.7); Neutrophils % (A) 71 %; Platelet Count 416 k/uL (150-450); RBC 4.58 m/uL (4.30-5.90); RDW 13.8 % (11.5-15.5); WBC 13.3 k/uL (3.8-10.6)
[2018-12-31 05:19] LABS: ALT 27 U/L (21-72); AST 16 U/L (17-59); Albumin 3.1 g/dL (3.5-5.0); Alkaline Phosphatase 65 U/L (38-126); Anion Gap 8 mmol/L; Blood Urea Nitrogen 14 mg/dL (9-20); Calcium 8.9 mg/dL (8.4-10.2); Carbon Dioxide 26 mmol/L (22-30); Chloride 102 mmol/L (98-107); Glucose 135 mg/dL (74-99); Magnesium 2.1 mg/dL (1.6-2.3); Phosphorus 4.4 mg/dL (2.5-4.5); Potassium 4.6 mmol/L (3.5-5.1); Sodium 136 mmol/L (137-145); Total Bilirubin 0.7 mg/dL (0.2-1.3); Total Protein 6.3 g/dL (6.3-8.2)
[2018-12-31] MEDS ORDERED: ceFAZolin 1,000 MG in SODIUM CHLORIDE 0.9% IRRIGATIO 250 ML IRRIGATION ONE (06:00)
[2018-12-31] MEDS ORDERED: ceFAZolin IN SWFI 2 GM/20 ML SYRINGE IVP ONE (06:00)
[2018-12-31] MEDS: BENZOCAINE/MENTHOL LOZENG 1 EACH LOZENGE MUCOUS MEM PRN (06:12)
[2018-12-31] MEDS: INSULIN ASPART (NovoLOG) 100 UNIT/ML VIAL SQ SCH ×4 (06:37→21:23)
[2018-12-31 06:58] LABS: Glucose,Whole Blood 122 mg/dL (75-99)
--- NOTE | 2018-12-31 07:40 | XR ---
EXAMINATION TYPE: XR chest 1V portable DATE OF EXAM: 12/31/2018 COMPARISON: Prior chest x-ray 12/30/2017 HISTORY: Shortness of breath TECHNIQUE: Single frontal view of the chest is obtained. FINDINGS: Findings are similar to prior exam. IMPRESSION: Correlate for possible congestive heart failure. Postop changes.
[2018-12-31] MEDS ORDERED: DEXTROSE 5% IN WATER 100 ML with AMIODARONE 150 MG IV ONE (07:54)
[2018-12-31] MEDS: IPRATROPIUM-ALBUTEROL 3 ML NEB INHALATION SCH ×4 (08:02→19:09)
[2018-12-31] MEDS: PANTOPRAZOLE 40 MG TABLET PO SCH (08:52)
[2018-12-31] MEDS: ASPIRIN 325 MG TAB PO SCH (08:52)
[2018-12-31] MEDS: ATORVASTATIN 40 MG TAB PO SCH (08:52)
--- NOTE | 2018-12-31 09:10 | P.PN ---
Subjective Progress Note Date: 12/31/18 Principal diagnosis: Ding disease with flail of the P2 segment of the mitral valve and prolapse of A2, severe mitral valve regurgitation. Mild left ventricular dysfunction. Nonobstructive coronary artery disease with 50% stenosis in the first diagonal branch of the left anterior descending artery. History of rheumatic fever. Hypertension. Hyperlipidemia. Obesity with a BMI of 38.6 kg/m. Current tobacco abuse. Mild COPD with preoperative hemoglobin A1c 72% of predicted. Diabetes mellitus with preoperative hemoglobin A1c 9.8%. Known bilateral iliac artery aneurysms. History of sternal and rib fracture. Previous alcoholism. Occasional marijuana use. Preoperative leukocytosis, investigated by Dr. Todd , negative blood and urine cultures. POD #8 complex mitral valve repair including triangular resection of P2 with reconstruction, creation of four artificial chordae using [place]-Jorge 4-0 to the A 2 segment of the valve, posterior annuloplasty using a 36 mm AnnuloFlex ring. Exclusion of the left atrial appendage using a 45 mm AtriClip. Intraoperative transesophageal echocardiogram and epi-aortic scanning. Postoperative leukocytosis, an expected outcome as the patient had leukocytosis preoperatively which has been followed by Dr. Todd from infectious disease. Postoperative complete heart block, an unexpected but potential outcome of surgery. Postoperative paroxysmal atrial fibrillation, an unexpected but potential outcome of surgery. Patient is sitting up to bedside chair. He is in no acute distress. He denies any complaints of pain or shortness of breath this time. He reports he ambulated in the intensive care unit hallway yesterday several times with minimal assistance. Currently his bedside monitor showing atrial flutter heart rate 55. He remains hemodynamically stable. He is scheduled for a permanent pacemaker placement today at 2 PM. He continues to use his incentive spirometry independently. Objective - Vital Signs Vital signs: Vital Signs Temp 98.6 F 12/31/18 04:00 Pulse 59 L 12/31/18 08:13 Resp 15 12/31/18 07:00 BP 100/61 12/31/18 07:00 Pulse Ox 94 L 12/31/18 08:03 Intake & Output 12/30/18 12/31/18 12/31/18 18:59 06:59 18:59 Intake Total 700 300 50 Output Total 2935 1152 0 Balance -2235 -852 50 Weight 119.2 kg 120.1 kg Intake: IV 300 50 Sodium Chloride 0.9% 1, 300 50 000 ml @ 50 mls/hr IV . Q20H [facility] Rx#:[id number] Oral 700 Output: Urine 2935 1152 0 Other: Voiding Method Urinal Urinal # Voids 0 0 # Bowel Movements 1 ABP, PAP, CO, CI - Last Documented Arterial Blood Pressure 97/44 Pulmonary Artery Pressure 27/13 Cardiac Output 6.4 Cardiac Index 2.8 - Constitutional General appearance: Present: cooperative, no acute distress, obese - Respiratory Details: Lung sounds are essentially clear throughout, diminished to his bilateral bases. Respirations are symmetrical and nonlabored. Oxygen saturation is are 94% on 2 L nasal cannula. He is achieving 2000 mL on his incentive spirometry. - Cardiovascular Details: Regular rhythm and rate. S1 and S2 present, negative for S3, gallop or murmur. Atrial and ventricular epicardial pacemaker wires present and connected to the bedside pacemaker generator, VVI mode of 50 BPM. No edema present. Heart hugger is in place and he is demonstrating appropriate use. Knee-high SAVAGE hose and sequential compression devices in place to his bilateral lower extremities. Bedside telemetry showing atrial flutter heart rate 55. - Gastrointestinal Gastrointestinal Comment(s): Abdomen is soft, nontender and nondistended. Active bowel sounds to all 4 abdominal quadrants. Tolerating oral intake. Bowel movement yesterday 2017. No organomegaly. No guarding or rigidity. - Genitourinary Genitourinary Comment(s): Voiding clear yellow urine. - Integumentary Integumentary Comment(s): Skin is warm and dry. No clubbing or cyanosis is present. Midline sternal incision is clean, dry and approximated. No drainage or redness is present. Gauze dressing is clean, dry and intact. - Neurologic Neurologic: Present: CNII-XII intact - Musculoskeletal Musculoskeletal: Present: gait normal, strength equal bilaterally - Psychiatric Psychiatric: Present: A&O x's 3, appropriate affect, intact judgment & insight - Allied health notes Allied health notes reviewed: nursing - Labs CBC & Chem 7: 12/31/18 04:10 12/31/18 04:10 Labs: Abnormal Lab Results - Last 24 Hours (Table) 12/30/18 12/30/18 12/30/18 Range/Units 04:08 11:49 17:17 WBC (3.8-10.6) k/uL Hgb (13.0-17.5) gm/dL Neutrophils # (1.3-7.7) k/uL Sodium (137-145) mmol/L Creatinine (0.66-1.25) mg/dL Glucose (74-99) mg/dL POC Glucose (mg/dL) 117 H 169 H (75-99) mg/dL Hemoglobin A1c 8.9 H (4.0-6.0) % AST (17-59) U/L Albumin (3.5-5.0) g/dL 12/30/18 12/31/18 12/31/18 Range/Units 20:35 04:10 04:10 WBC 13.3 H (3.8-10.6) k/uL Hgb 12.6 L (13.0-17.5) gm/dL Neutrophils # 9.4 H (1.3-7.7) k/uL Sodium 136 L (137-145) mmol/L Creatinine 0.53 L (0.66-1.25) mg/dL Glucose 135 H (74-99) mg/dL POC Glucose (mg/dL) 175 H (75-99) mg/dL Hemoglobin A1c (4.0-6.0) % AST 16 L (17-59) U/L Albumin 3.1 L (3.5-5.0) g/dL 12/31/18 Range/Units 06:56 WBC (3.8-10.6) k/uL Hgb (13.0-17.5) gm/dL Neutrophils # (1.3-7.7) k/uL Sodium (137-145) mmol/L Creatinine (0.66-1.25) mg/dL Glucose (74-99) mg/dL POC Glucose (mg/dL) 122 H (75-99) mg/dL Hemoglobin A1c (4.0-6.0) % AST (17-59) U/L Albumin (3.5-5.0) g/dL - Imaging and Cardiology Chest x-ray: report reviewed, image reviewed Assessment and Plan (1) S/P mitral valve repair Current Visit: Yes Status: Acute Code(s): Z98.890 - OTHER SPECIFIED POSTPROCEDURAL STATES SNOMED Code(s): 867123271 (2) Postoperative complete heart block Current Visit: Yes Status: Acute Code(s): I97.89 - OTH POSTPROC COMP AND DISORDERS OF THE CIRC SYS, NEC; I44.2 - ATRIOVENTRICULAR BLOCK, COMPLETE SNOMED Code(s): 797611835 (3) Mitral valve regurgitation Current Visit: Yes Status: Chronic Code(s): I34.0 - NONRHEUMATIC MITRAL ( VALVE) INSUFFICIENCY SNOMED Code(s): 15759977 (4) Postoperative atrial fibrillation Current Visit: Yes Status: Acute Code(s): I97.89 - OTH POSTPROC COMP AND DISORDERS OF THE CIRC SYS, NEC; I48.91 - UNSPECIFIED ATRIAL FIBRILLATION SNOMED Code(s): 21412748 (5) Coronary artery disease Current Visit: Yes Status: Chronic Code(s): I25.10 - ATHSCL HEART DISEASE OF [place] CORONARY ARTERY W/O ANG PCTRS SNOMED Code(s): 02582128 (6) Hypertension Current Visit: Yes Status: Chronic Code(s): I10 - ESSENTIAL (PRIMARY) HYPERTENSION SNOMED Code(s): 13343431 (7) Hyperlipidemia Current Visit: Yes Status: Chronic Code(s): E78.5 - HYPERLIPIDEMIA, UNSPECIFIED SNOMED Code(s): 14120628 (8) COPD (chronic obstructive pulmonary disease) Current Visit: Yes Status: Chronic Code(s): J44.9 - CHRONIC OBSTRUCTIVE PULMONARY DISEASE, UNSPECIFIED SNOMED Code(s): 25330233 (9) Leukocytosis Current Visit: Yes Status: Chronic Code(s): D72.829 - ELEVATED WHITE BLOOD CELL COUNT, UNSPECIFIED SNOMED Code(s): 007179979 (10) Tobacco dependence Current Visit: Yes Status: Chronic Code(s): F17.200 - NICOTINE DEPENDENCE, UNSPECIFIED, UNCOMPLICATED SNOMED Code(s): 03361223 (11) Uncontrolled diabetes mellitus Current Visit: Yes Status: Chronic Code(s): E11.65 - TYPE 2 DIABETES MELLITUS WITH HYPERGLYCEMIA SNOMED Code(s): 17392963 (12) Hyperglycemia Current Visit: No Status: Acute Code(s): R73.9 - HYPERGLYCEMIA, UNSPECIFIED SNOMED Code(s): 18588750 (13) Obesity Current Visit: Yes Status: Chronic Code(s): E66.9 - OBESITY, UNSPECIFIED SNOMED Code(s): 104386992 Plan: 1. Continue aspirin, DOROTHY inhibitor and statin. Once his permanent pacemaker has been placed we will start him on metoprolol 25 mg by mouth twice a day. 2. He is scheduled for permanent pacemaker placement today 12/31/2018. 3. Encourage incentive spirometry use 10 times every hour while awake. 4. Encourage smoking cessation, discussed the importance of smoking cessation. 5. Bronchodilators per pulmonology management. 6. Increase activity as tolerated, continue to ambulate in hallway. PT/OT/ cardiac rehab following. 7. Will monitor daily labs and x-rays. Electrolyte replacement per protocol. 8. Pain controlled with current medication regimen. 9. Insulin management per primary care service. 10. GI prophylaxis with Protonix, DVT prophylaxis with subcu heparin, SCDs. 11. Will keep patient in the ICU, patient will be scheduled for permanent pacemaker placement tomorrow 12/31/2017. 12. Amiodarone 150 mg IV piggyback 1 now, bedside monitor showing atrial flutter. We will start Eliquis 5 mg by mouth twice a day starting tomorrow . 13. More recommendations to follow based on patient's clinical course. Time with Patient: Greater than 30
--- NOTE | 2018-12-31 09:13 | P.PN ---
Subjective Progress Note Date: 12/31/18 This is a 53-year-old male patient who presented to the hospital for an complex mitral valve repair including triangular resection of P2 with reconstruction, creation of four artificial chordae using [place]-Jorge 4-0 to the A2 segment of the valve, posterior annuloplasty using a 36 mm AnnuloFlex ring. Exclusion of the left atrial appendage using a 45 mm AtriClip. Intraoperative transesophageal echocardiogram and epi-aortic scanning With Dr. Cueto on 03/2019. Patient has a known past medical history of diabetes mellitus, hyperlipidemia, hypertension, seizure disorder, heart murmur and nicotine dependence. In September 2018 patient presents to the hospital with complaints of shortness breath and chest pain is at that time cardiology found to 2-D echo severe mitral regurg, severe prolapsed partial flail posterior mitral valve leaflet. 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 Patient is currently postop day 1. At this time patient has been extubated. Patient is doing well. Patient denies any significant chest pain or shortness of breath. Patient denies nausea vomiting or diarrhea. Patient denies any urinary burning or frequency. 12/25/2018 patient is alert and oriented 3 currently sitting up in chair. Patient is currently postop day 2. Patient received 1 dose of IV Lasix yesterday critical care. Plans for possible chest tube removal today. This time patient denies chest pain or shortness of breath. Patient denies nausea vomiting or diarrhea. Patient denies any urinary burning or frequency. Blood sugars have improved. On 12/26/2018 patient is alert and oriented 3 currently sitting up in chair. Patient currently postop day 3. Chest tubes, Cortis, arterial line and Hull catheter DC'd yesterday per cardiothoracic team. At this time patient is still complaining of some vaginal pain. Patient denies shortness breath. Patient denies nausea vomiting or diarrhea. Patient denies any urinary burning or frequency. Incentive spirometer encourged On 12/27/2018 patient was seen and examined in the intensive care unit he is alert and oriented 3 in no apparent distress sitting up in a chair there is no fever or chills no headache or dizziness no chest pain no shortness of breath no cough no nausea or vomiting no diarrhea no abdominal pain and no urinary symptoms. Patient is still in complete heart block, he is maintained on IV amiodarone, we are awaiting decision by cardiology and cardiovascular surgery in regard to permanent pacemaker placement. On 12/28/2018 patient was seen and examined in the ICU he is alert and oriented 3 in no apparent distress he remains in complete heart block otherwise no complaints there is no fever or chills no headache or dizziness no chest pain no shortness of breath no cough no nausea or vomiting no abdominal pain and no urinary symptoms On 12/29/2018 patient remains in the intensive care unit. Patient is alert and oriented 3. Awaiting cardiothoracic and cardiac decision on patient's complete heart block. At this time patient denies chest pain or shortness breath. Patient denies nausea vomiting or diarrhea. Denies any urinary burning or frequency On 12/30/2018 patient remains in the intensive care unit alert and oriented 3. Patient remains on epicardial pacemaker due to complete heart block. Patient is scheduled to undergo permanent pacemaker implantation tomorrow. At this time patient denies chest pain or shortness of breath. Denies nausea vomiting or diarrhea. Patient denies any urinary burning or frequency. On 12/31/2017 patient is currently alert and oriented 3. Patient scheduled for permanent pacemaker placement today at 2 PM. At this time patient denies chest pain or shortness breath. Patient denies nausea vomiting or diarrhea. Patient denies any urinary burning or frequency. Objective - Vital Signs Vital signs: Vital Signs Temp 98.6 F 12/31/18 04:00 Pulse 59 L 12/31/18 08:13 Resp 15 12/31/18 07:00 BP 100/61 12/31/18 07:00 Pulse Ox 94 L 12/31/18 08:03 Intake & Output 12/30/18 12/31/18 12/31/18 18:59 06:59 18:59 Intake Total 700 300 50 Output Total 2935 1152 0 Balance -5335 -302 50 Weight 119.2 kg 120.1 kg Intake: IV 300 50 Sodium Chloride 0.9% 1, 300 50 000 ml @ 50 mls/hr IV . Q20H [facility] Rx#:[id number] Oral 700 Output: Urine 2935 1152 0 Other: Voiding Method Urinal Urinal # Voids 0 0 # Bowel Movements 1 ABP, PAP, CO, CI - Last Documented Arterial Blood Pressure 97/44 Pulmonary Artery Pressure 27/13 Cardiac Output 6.4 Cardiac Index 2.8 - Exam Head normocephalic Neck supple Lungs Diminished bilaterally Heart regular rate and rhythm S1-S2, no rub or gallop Abdomen is soft nontender nondistended positive bowel sounds no hepatosplenomegaly Extremities no edema Neuro alert and orientated to 3 - Labs CBC & Chem 7: 12/31/18 04:10 12/31/18 04:10 Labs: Abnormal Lab Results - Last 24 Hours (Table) 12/30/18 12/30/18 12/30/18 Range/Units 04:08 11:49 17:17 WBC (3.8-10.6) k/uL Hgb (13.0-17.5) gm/dL Neutrophils # (1.3-7.7) k/uL Sodium (137-145) mmol/L Creatinine (0.66-1.25) mg/dL Glucose (74-99) mg/dL POC Glucose (mg/dL) 117 H 169 H (75-99) mg/dL Hemoglobin A1c 8.9 H (4.0-6.0) % AST (17-59) U/L Albumin (3.5-5.0) g/dL 12/30/18 12/31/18 12/31/18 Range/Units 20:35 04:10 04:10 WBC 13.3 H (3.8-10.6) k/uL Hgb 12.6 L (13.0-17.5) gm/dL Neutrophils # 9.4 H (1.3-7.7) k/uL Sodium 136 L (137-145) mmol/L Creatinine 0.53 L (0.66-1.25) mg/dL Glucose 135 H (74-99) mg/dL POC Glucose (mg/dL) 175 H (75-99) mg/dL Hemoglobin A1c (4.0-6.0) % AST 16 L (17-59) U/L Albumin 3.1 L (3.5-5.0) g/dL 12/31/18 Range/Units 06:56 WBC (3.8-10.6) k/uL Hgb (13.0-17.5) gm/dL Neutrophils # (1.3-7.7) k/uL Sodium (137-145) mmol/L Creatinine (0.66-1.25) mg/dL Glucose (74-99) mg/dL POC Glucose (mg/dL) 122 H (75-99) mg/dL Hemoglobin A1c (4.0-6.0) % AST (17-59) U/L Albumin (3.5-5.0) g/dL Assessment and Plan Assessment: 1. Status post complex mitral valve repair including triangular resection of P2 with reconstruction, creation of four artificial chordae using [place]-Jorge 4-0 to the A2 segment of the valve, posterior annuloplasty using a 36 mm AnnuloFlex ring. Exclusion of the left atrial appendage using a 45 mm AtriClip. Intraoperative transesophageal echocardiogram and epi-aortic scanning With Dr. Cueto on 12/23/2018. Patient is currently postop day 6. Patient has been extubated. Mann, chest tubes, A-line and Hull discontinued. Patient remains on epicardial pacemaker generator. Beta Natalia currently DC'd per cardiothoracic surgery 2. History of essential Hypertension 3. Nicotine dependence. Patient reports that he has quit 4. History of diabetes mellitus type 2. Patient currently on insulin drip. Hemoglobin A1c 9.8 on 11/25/2018. Home long-acting insulin has been added. Home long-acting insulin has been increased to 35 units 5. Leukocytosis. Per cardiothoracic team likely reactive. We'll continue to monitor closely 6. History of rheumatic fever 7. Complete heart block. Patient scheduled to undergo permanent pacemaker implantation today at 2 PM Thank you for this consultation we'll continue to follow patient closely throughout stay I performed an examination of the patient and discussed their management with the Nurse Practitioner. I have reviewed the Nurse Practitioner's notes and agree with the documented findings and plan of care
--- NOTE | 2018-12-31 10:25 | PN ---
PROGRESS NOTE Mr. Barbosa is a 53-year-old male who underwent mitral valve repair. He had episode of complete heart block as well as episode of paroxysmal atrial fibrillation, which is expected following mitral valve surgery. He had complete heart block. Since yesterday afternoon, he is in atrial fibrillation with controlled ventricular response. He is scheduled to undergo permanent pacemaker implantation today. He is feeling well. His gas feeling is gone. He denies any dizziness, palpitation. He denies any nausea. He continued on aspirin once a day, insulin. PHYSICAL EXAMINATION: Blood pressure 100/60 with a heart rate in the 50s. Lungs with a few crackles at the bases. HEART: Irregular, regular, S1, S2. No S3 with a systolic murmur. ABDOMEN: Soft, obese, nontender. EXTREMITIES: No significant edema. LAB DATA: Chest x-ray revealed mild congestion. BUN and creatinine 14 and 0.53. Potassium 4.6, hemoglobin of 12.6. IMPRESSION: 1. Status post mitral valve repair. 2. Atrial fibrillation, paroxysmal. 3. Complete heart block. 4. Obesity. 5. Hypertension. RECOMMENDATION: Patient will undergo permanent pacemaker implantation today and following that, will initiate treatment with anticoagulation and if he persists to be in atrial fibrillation, then attempt to cardiovert him back to sinus mechanism will be taken. MMODL / IJN: [id number] /
[2018-12-31 10:56] VITALS: BMI 39.1
--- NOTE | 2018-12-31 11:37 | P.PN ---
Subjective Progress Note Date: 12/31/18 Principal diagnosis: Status post mitral valve repair This is a 53-year-old white male patient of Dr. Delaney, with past medical history of diabetes mellitus type 2, history of deep vein thrombosis, nicotine dependence, currently in remission, hypertension, obesity, rheumatic fever. Patient was hospitalized in September, he presented to the emergency department with shortness of breath and chest pain. Patient was evaluated by cardiology, and his 2-D echocardiogram revealed severe mitral regurgitation, severe prolapse /partial flail of the posterior mitral valve leaflet. There was severe concentric left ventricular hypertrophy, overall left ventricular systolic function was within normal limits with an EF between 55-60%. Transesophageal echocardiogram on 10/07/2018 showed one of the P2 component of the posterior mitral leaflet with evidence of severe mitral regurgitation with anteriorly directed jet, and EF of 50-55%. Cardiac catheterization showed intermediate nonobstructive disease involving the first diagonal branch of the left anterior descending artery. Patient was recommended for surgical intervention, and today on 12/23/2018 patient underwent complex mitral valve repair including Anatoliy resection of P2 with reconstruction and creation of for artificial chordae, posterior annuloplasty, exclusion of the left atrial appendage, and Intra-operative BELKIS. Patient seen in the intensive care unit, sedated, and intubated on mechanical ventilator. Current vent settings are assist-control mode with a rate of 20,TV 550, FiO2 of 50% and PEEP of 10. Current IV fluids include lactated Ringer's a rate of 50, and insulin drip at 2 units per hour. Cleviprex is on hold, and diprivan at 20 mics per kilo per minute. Midsternal incision is clean dry and intact, covered with a surgical dressing, 2 mediastinal chest tubes are Y-connected to Pleur-evac with small to moderate amount of sanguinous output. Hull catheter is in place, patient is nonoliguric. Cardiac output is 5.7, and index of 2.5. Postoperative chest x- ray was reviewed by Dr. Hardy, and shows ET tube, OG tube, right IJ Cordis, and PA catheter in appropriate positions, no pneumothorax, or pleural effusion, Interstitium was mildly increased. Overall satisfactory postoperative chest x- ray. On today's evaluation of 12/28/2018 the patient is doing well. The patient has no specific complaints. The patient is emanating. The patient is postop day # 5 and the patient underwent mitral valve repair and excision of a left atrial appendage. Note that the patient continues to have cardiac arrhythmias. The patient is having A. fib/flutter in addition to an underlying third-degree AV block. The rhythm is alternating. Nevertheless, despite ongoing arrhythmias, the patient is not having any significant hemodynamic instability. No hypotension. No syncope. No altered mentation. No dizziness. Sternum stable clean and intact. Chest tubes have been all removed. No other significant events for now. The patient has a temporary pacer in place. The patient is being considered for a permanent pacemaker insertion at a later stage. Amiodarone has been discontinued. Reevaluated today on 12/29/2018, patient remains in the ICU, he is postoperative day #6. Underwent mitral valve repair and excision of left atrial appendage, patient continues to have issues related to third-degree AV block, and he is scheduled to have permanent pacemaker implantation tomorrow. Otherwise the patient is doing well, relatively asymptomatic, he has a temporary pacemaker in place. And again he is scheduled for a permanent one tomorrow. Chest x-ray and labs were all reviewed today Reevaluated today on 12/30/2018, remains in the ICU, plans for having a permanent pacemaker implantation were canceled for today, and I believe it scheduled to be done tomorrow. Patient is asymptomatic, no cough no wheezing no shortness of breath. He had mitral valve repair, postoperatively he had persistent complete heart block, and he is undergoing permanent pacemaker implantation tomorrow. No active pulmonary issues, no chest pain, no shortness of breath, no cough no wheezing. Chest x-ray showed slight prominence of the pulmonary vasculature consistent with mild interstitial edema, however the patient is clinically asymptomatic. CBC is relatively normal basic metabolic profile is normal. Reevaluated today on 12/31/2018, remains in the ICU, patient is scheduled to have permanent pacemaker implantation today. Patient developed atrial fibrillation with controlled ventricular response, and that is being addressed by cardiology. Patient is asymptomatic, denies any shortness of breath no cough no wheezing no chest pain. Chest x-ray showed mostly postoperative changes and mild congestive heart failure, received Lasix earlier. Objective - Vital Signs Vital signs: Vital Signs Temp 97.8 F 12/31/18 08:00 Pulse 61 12/31/18 09:00 Resp 16 12/31/18 09:00 BP 112/65 12/31/18 09:00 Pulse Ox 92 L 12/31/18 09:00 Intake & Output 12/30/18 12/31/18 12/31/18 18:59 06:59 18:59 Intake Total 700 300 150 Output Total 2935 1152 0 Balance -2235 -852 150 Weight 119.2 kg 120.1 kg 120.1 kg Intake: IV 300 150 Sodium Chloride 0.9% 1, 300 150 000 ml @ 50 mls/hr IV . Q20H [facility] Rx#:[id number] Oral 700 Output: Urine 2935 1152 0 Other: Voiding Method Urinal Urinal Urinal # Voids 0 0 # Bowel Movements 1 1 ABP, PAP, CO, CI - Last Documented Arterial Blood Pressure 97/44 Pulmonary Artery Pressure 27/13 Cardiac Output 6.4 Cardiac Index 2.8 - Exam Physical Exam: Revealed a 53-year-old white male in no distress Head: Atraumatic, normocephalic. HEENT:[Neck is supple.] [No neck masses.] [No thyromegaly.] [No JVD.] Chest: [Minimal crackles at the bases., no rhonchi, no wheezes.] Sternum is noted to be stable. Cardiac Exam: [Irregular irregular rhythm. Normal S1 and S2, no S3 gallop, no murmur.] Abdomen: [Soft, nontender, no megaly, no rebound, no guarding, normal bowel sounds.] Extremities: [No clubbing, no edema, no cyanosis.] Neurological Exam: [No focal neurologic deficit.] Psychiatric: Normal mood affect and mental status examination. Lymphatics: No palpable lymphadenopathy. - Labs CBC & Chem 7: 12/31/18 04:10 12/31/18 04:10 Labs: Abnormal Lab Results - Last 24 Hours (Table) 12/30/18 12/30/18 12/30/18 Range/Units 04:08 11:49 17:17 WBC (3.8-10.6) k/uL Hgb (13.0-17.5) gm/dL Neutrophils # (1.3-7.7) k/uL Sodium (137-145) mmol/L Creatinine (0.66-1.25) mg/dL Glucose (74-99) mg/dL POC Glucose (mg/dL) 117 H 169 H (75-99) mg/dL Hemoglobin A1c 8.9 H (4.0-6.0) % AST (17-59) U/L Albumin (3.5-5.0) g/dL 12/30/18 12/31/18 12/31/18 Range/Units 20:35 04:10 04:10 WBC 13.3 H (3.8-10.6) k/uL Hgb 12.6 L (13.0-17.5) gm/dL Neutrophils # 9.4 H (1.3-7.7) k/uL Sodium 136 L (137-145) mmol/L Creatinine 0.53 L (0.66-1.25) mg/dL Glucose 135 H (74-99) mg/dL POC Glucose (mg/dL) 175 H (75-99) mg/dL Hemoglobin A1c (4.0-6.0) % AST 16 L (17-59) U/L Albumin 3.1 L (3.5-5.0) g/dL 12/31/18 Range/Units 06:56 WBC (3.8-10.6) k/uL Hgb (13.0-17.5) gm/dL Neutrophils # (1.3-7.7) k/uL Sodium (137-145) mmol/L Creatinine (0.66-1.25) mg/dL Glucose (74-99) mg/dL POC Glucose (mg/dL) 122 H (75-99) mg/dL Hemoglobin A1c (4.0-6.0) % AST (17-59) U/L Albumin (3.5-5.0) g/dL Assessment and Plan Assessment: Impression: 1 severe mitral valve regurgitation, status post mitral valve repair, postoperative day #8 2 postoperative arrhythmias, paroxysmal atrial fibrillation expected and third- degree AV block, presently has a temporary pacemaker, also expected and he is scheduled to have permanent pacemaker placement later this afternoon 3 multiple comorbidities including diabetes, history of hyperlipidemia, hypertension, Recommendation: Continue to monitor closely in the ICU, continue incentive spirometry, ambulation, continue temporary pacemaker, patient is scheduled to have permanent pacemaker placement today. Chest x-ray was reviewed and discussed with the patient. Time with Patient: Less than 30
[2018-12-31 11:50] LABS: Glucose,Whole Blood 105 mg/dL (75-99)
[2018-12-31] MEDS: LISINOPRIL 2.5 MG TAB PO SCH (12:47)
[2018-12-31] MEDS ORDERED: fentaNYL (PF) 50 MCG/ML 2 ML AMP ONE (14:45)
[2018-12-31] MEDS ORDERED: LIDOCAINE 1% INJ 10MG/ML (20 ML MDV) ONE ×2 (14:45→15:02)
[2018-12-31] MEDS ORDERED: IOPAMIDOL-250 50ML BTL IV ONE (14:50)
[2018-12-31] MEDS ORDERED: SODIUM CHLORIDE 0.9% 500 ML 500 ML IV ONE (14:56)
[2018-12-31] MEDS ORDERED: IV FLUID CONTINUATION 1,000 ML IV ONE (14:56)
[2018-12-31] MEDS: fentaNYL (PF) 50 MCG/ML 2 ML AMP IV ONE ×2 (14:59→15:13)
[2018-12-31] MEDS: MIDAZOLAM 2 MG/2 ML VIAL IV ONE ×2 (15:00→15:13)
[2018-12-31] MEDS ORDERED: LIDOCAINE 1% INJ 10MG/ML (20 ML MDV) SQ ONE (15:08)
--- NOTE | 2018-12-31 16:18 | P.PCN ---
Date of Procedure: 12/31/18 Preoperative Diagnosis: Complete heart block, junctional rhythm and atrial fibrillation Postoperative Diagnosis: The same Procedure(s) Performed: Axillary venography, dual-chamber pacemaker implantation Description of Procedure: HISTORY: This is a 53-year-old gentleman who recently underwent open heart surgery with valve replacement. Patient postoperative developed complete heart block, junctional rhythms and also atrial fibrillation. A permanent pacemaker implantation is requested. Patient is advised to have dual-chamber pacemaker with the hope that we can maintain sinus rhythm. Patient was referred by Dr. Lane . CONSENT:I have discussed the risks, benefits and alternative therapies for the above-mentioned procedure and for both sedation/analgesia as well as necessary blood product administration, if indicated, as they pertain to this patient. The patient has indicated understanding and acceptance of the risks and procedures discussed. PROCEDURE: Patient was brought to the lab in a fasting state. Patient was prepped and draped in the usual fashion. Patient was given IV sedation with fentanyl and Versed. The skin below the left clavicle was infiltrated with lidocaine. An incision was made parallel to deltopectoral groove was deepened until the pectoral fascia was exposed. A pocket was created by blunt dissection and cautery. Axillary venography was performed to delineate the course of the axillary vein. 2 sticks were performed into extrathoracic portion of the axillary vein and 2 sheaths were advanced over the guidewires and left in subclavian vein. Conscious Sedation: Versed 2mg Fentanyl 75 g Duration 62minutes LEADS: ATRIAL: This is manufactured by [employer] Model number is [id number]. The serial number is [id number]. VENTRICULAR: This is manufactured by [employer]. The model number is [id number]. The serial number is [id number] The ventricular lead is maneuvered l with help of a straight and curved stylets into the left ventricle apical region. Satisfactory position was obtained and threshold measurements were made. The atrial lead was then maneuvered into the right atrial appendage. And thresholds were obtained. THRESHOLDS: ATRIUM: The flutter waves are about 1.5. Patient threshold could not be measured. The impedance is 694 ohms. VENTRICLE: The minimal patient threshold is 0.9 at pulse width of 0.5. The impedance is 990 ohms R-wave: 9.1 mV The leads and pulse generator remained in the pocket after it was washed with antibiotics. Pocket was closed in the usual fashion. The fascia was closed with 2-0 Prolene ,the subcutaneous tissue was closed with 3-0 Prolene and the skin was closed with 4-0 Prolene. PROGRAMMING: MODE: AAI with mode switch to DDD,RATE: 50 to 130 OUTPUT: Atrium : 3.5 Ventricle: 3.5 FINAL IMPRESSION: #1. Axillary venography #2. Dual-chamber permanent pacemaker implantation COMPLICATIONS:. None PLAN:. Patient will be monitored on the telemetry unit. Prophylactic antibacterial be continued. Chest x-ray in the morning
[2018-12-31] MEDS: CALCIUM CARBONATE 500 MG CHEWABLE PO PRN (18:30)
[2018-12-31 20:48] LABS: Glucose,Whole Blood 212 mg/dL (75-99)
[2018-12-31] MEDS ORDERED: METOPROLOL TARTRATE 12.5 MG TAB PO SCH (21:00)
[2018-12-31] MEDS: INSULIN DETEMIR (LEVEMIR) 100 UNIT/ML SYR SQ SCH (21:23)
[2018-12-31] MEDS: SENNOSIDES-DOCUSATE SODIUM 1 EACH TAB PO SCH (21:23)
[2018-12-31] MEDS: MELATONIN 3 MG TABLET PO SCH (21:23)
[2018-12-31] MEDS: ceFAZolin IN SWFI 2 GM/20 ML SYRINGE IVP SCH (21:24)
[2018-12-31] MEDS: HYDROcodone/APAP 5-325MG 1 EACH TAB PO PRN (23:47)
[2019-01-01] MEDS: ceFAZolin IN SWFI 2 GM/20 ML SYRINGE IVP SCH ×2 (03:41→09:10)
[2019-01-01] MEDS: SODIUM CHLORIDE 0.9% 1,000 ML IV SCH (03:41)
[2019-01-01 04:59] LABS: Basophils # (A) 0.1 k/uL (0-0.2); Basophils % (A) 1 %; Eosinophils # (A) 0.2 k/uL (0-0.7); Eosinophils % (A) 2 %; HCT 37.7 % (39.0-53.0); HGB 12.3 gm/dL (13.0-17.5); Lymphocytes # (A) 2.3 k/uL (1.0-4.8); Lymphocytes % (A) 20 %; MCH 28.4 pg (25.0-35.0); MCHC 32.5 g/dL (31.0-37.0); MCV 87.2 fL (80.0-100.0); Mean Platelet Volume 6.2; Monocytes # (A) 0.7 k/uL (0-1.0); Monocytes % (A) 6 %; Neutrophils # (A) 7.8 k/uL (1.3-7.7); Neutrophils % (A) 69 %; Platelet Count 378 k/uL (150-450); RBC 4.32 m/uL (4.30-5.90); RDW 13.7 % (11.5-15.5); WBC 11.3 k/uL (3.8-10.6)
[2019-01-01 05:09] LABS: ALT 30 U/L (21-72); AST 16 U/L (17-59); Albumin 2.9 g/dL (3.5-5.0); Alkaline Phosphatase 55 U/L (38-126); Anion Gap 8 mmol/L; Blood Urea Nitrogen 17 mg/dL (9-20); Calcium 8.8 mg/dL (8.4-10.2); Carbon Dioxide 25 mmol/L (22-30); Chloride 104 mmol/L (98-107); Glucose 120 mg/dL (74-99); Magnesium 2.1 mg/dL (1.6-2.3); Potassium 4.5 mmol/L (3.5-5.1); Sodium 137 mmol/L (137-145); Total Bilirubin 0.6 mg/dL (0.2-1.3); Total Protein 6.1 g/dL (6.3-8.2)
[2019-01-01] MEDS: CLOTRIMAZOLE TROCHE 10 MG TROCHE MUCOUS MEM SCH ×2 (06:54→14:45)
[2019-01-01] MEDS: HYDROcodone/APAP 5-325MG 1 EACH TAB PO PRN (06:55)
[2019-01-01 07:11] LABS: Glucose,Whole Blood 119 mg/dL (75-99)
[2019-01-01] MEDS: INSULIN ASPART (NovoLOG) 100 UNIT/ML VIAL SQ SCH ×2 (07:12→13:06)
[2019-01-01] MEDS: IPRATROPIUM-ALBUTEROL 3 ML NEB INHALATION SCH ×2 (07:29→10:53)
--- NOTE | 2019-01-01 07:51 | P.PN ---
Subjective Progress Note Date: 01/01/19 Principal diagnosis: Ding disease with flail of the P2 segment of the mitral valve and prolapse of A2, severe mitral valve regurgitation. Mild left ventricular dysfunction. Nonobstructive coronary artery disease with 50% stenosis in the first diagonal branch of the left anterior descending artery. History of rheumatic fever. Hypertension. Hyperlipidemia. Obesity. Current tobacco abuse. Mild COPD with preoperative hemoglobin A1c 72% of predicted. Diabetes mellitus with preoperative hemoglobin A1c 9.8%. Known bilateral iliac artery aneurysms. History of sternal and rib fracture. Previous alcoholism. Occasional marijuana use. Preoperative leukocytosis, investigated by Dr. Todd, negative blood and urine cultures, no treatment necessary. POD #9 complex mitral valve repair including triangular resection of P2 with reconstruction, creation of four artificial chordae using [place]-Jorge 4-0 to the A 2 segment of the valve, posterior annuloplasty using a 36 mm AnnuloFlex ring. Exclusion of the left atrial appendage using a 45 mm AtriClip. Intraoperative transesophageal echocardiogram and epi-aortic scanning. Postoperative leukocytosis, expected outcome as patient had leukocytosis preoperatively which has been followed by Dr. Todd. Postoperative complete heart block, unexpected but potential outcome of surgery Postoperative paroxysmal atrial fibrillation, unexpected for potential outcome of surgery POD #1 axillary venography, dual-chamber [employer] pacemaker implantation The patient is currently sitting up in a recliner in the intensive care unit in no acute distress eating breakfast. Patient's heart rhythm ventricular paced with rate in the 70-80s. States current surgical incisional pain is controlled on current medication regimen, denies shortness of breath. Patient has ambulated multiple laps in the hallway. Hemodynamically stable on no inotropes or pressors. Using incentive spirometry independently. No new complaints. Patient is wearing sling on his left arm. Objective - Vital Signs Vital signs: Vital Signs Temp 98 F 01/01/19 04:00 Pulse 88 01/01/19 07:38 Resp 17 01/01/19 07:00 BP 121/72 01/01/19 07:00 Pulse Ox 96 01/01/19 07:00 Intake & Output 12/31/18 01/01/19 01/01/19 18:59 06:59 18:59 Intake Total 650 700 50 Output Total 350 600 0 Balance 300 100 50 Weight 120.1 kg Intake: IV 650 600 50 Sodium Chloride 0.9% 1, 450 600 50 000 ml @ 50 mls/hr IV . Q[facility]H [facility] Rx#:[id number] Oral 100 Output: Urine 350 600 0 Other: Voiding Method Urinal # Voids 0 # Bowel Movements 1 ABP, PAP, CO, CI - Last Documented Arterial Blood Pressure 97/44 Pulmonary Artery Pressure 27/13 Cardiac Output 6.4 Cardiac Index 2.8 - Constitutional General appearance: Present: cooperative, no acute distress, obese - Respiratory Details: Lungs sounds diminished bilaterally. Respirations even, nonlabored. Currently on room air with oxygen saturation 96%. Able to achieve 1250 mL on his incentive spirometry. Strong productive cough. - Cardiovascular Details: S1, S2 present. Regular rate and rhythm, ventricular paced on telemetry. Sternum stable. A/V epicardial pacemaker wires present, grounded. Palpable peripheral pulses bilaterall. No lower extremity edema present. No calf pain or tenderness noted. Heart hugger in place with patient demonstrating appropriate use. Left arm sling in place. Antiembolism stockings, SCDs present. - Gastrointestinal Gastrointestinal Comment(s): Abdomen soft, nontender, nondistended, obese. Active bowel sounds present 4 quadrants. Tolerating diet. Positive bowel movement 12/31. - Genitourinary Genitourinary Comment(s): Patient continues to void clear, yellow urine, output last night 250 mL. - Integumentary Integumentary Comment(s): Skin is warm and dry with evidence of good perfusion. Anterior chest incision well approximated and covered with dry intact dressing. Left upper chest wall pacemaker insertion site incision well approximated and covered with clean, dry dressing. - Neurologic Neurologic: Present: CNII-XII intact - Musculoskeletal Musculoskeletal: Present: gait normal, strength equal bilaterally - Psychiatric Psychiatric: Present: A&O x's 3, appropriate affect, intact judgment & insight - Allied health notes Allied health notes reviewed: nursing - Labs CBC & Chem 7: 01/01/19 04:43 01/01/19 04:43 Labs: Abnormal Lab Results - Last 24 Hours (Table) 12/31/18 12/31/18 01/01/19 Range/Units 11:48 20:37 04:43 WBC 11.3 H (3.8-10.6) k/uL Hgb 12.3 L (13.0-17.5) gm/dL Hct 37.7 L (39.0-53.0) % Neutrophils # 7.8 H (1.3-7.7) k/uL Creatinine (0.66-1.25) mg/dL Glucose (74-99) mg/dL POC Glucose (mg/dL) 105 H 212 H (75-99) mg/dL AST (17-59) U/L Total Protein (6.3-8.2) g/dL Albumin (3.5-5.0) g/dL 01/01/19 01/01/19 Range/Units 04:43 06:59 WBC (3.8-10.6) k/uL Hgb (13.0-17.5) gm/dL Hct (39.0-53.0) % Neutrophils # (1.3-7.7) k/uL Creatinine 0.52 L (0.66-1.25) mg/dL Glucose 120 H (74-99) mg/dL POC Glucose (mg/dL) 119 H (75-99) mg/dL AST 16 L (17-59) U/L Total Protein 6.1 L (6.3-8.2) g/dL Albumin 2.9 L (3.5-5.0) g/dL - Imaging and Cardiology Chest x-ray: image reviewed Assessment and Plan (1) Mitral valve regurgitation Current Visit: Yes Status: Chronic Code(s): I34.0 - NONRHEUMATIC MITRAL ( VALVE) INSUFFICIENCY SNOMED Code(s): 74793958 (2) Coronary artery disease Current Visit: Yes Status: Chronic Code(s): I25.10 - ATHSCL HEART DISEASE OF [place] CORONARY ARTERY W/O ANG PCTRS SNOMED Code(s): 39012056 (3) Hypertension Current Visit: Yes Status: Chronic Code(s): I10 - ESSENTIAL (PRIMARY) HYPERTENSION SNOMED Code(s): 67657774 (4) Hyperlipidemia Current Visit: Yes Status: Chronic Code(s): E78.5 - HYPERLIPIDEMIA, UNSPECIFIED SNOMED Code(s): 85360268 (5) Leukocytosis Current Visit: Yes Status: Chronic Code(s): D72.829 - ELEVATED WHITE BLOOD CELL COUNT, UNSPECIFIED SNOMED Code(s): 436046761 (6) Tobacco dependence Current Visit: Yes Status: Chronic Code(s): F17.200 - NICOTINE DEPENDENCE, UNSPECIFIED, UNCOMPLICATED SNOMED Code(s): 48381494 (7) COPD (chronic obstructive pulmonary disease) Current Visit: Yes Status: Chronic Code(s): J44.9 - CHRONIC OBSTRUCTIVE PULMONARY DISEASE, UNSPECIFIED SNOMED Code(s): 59298158 (8) Obesity Current Visit: Yes Status: Chronic Code(s): E66.9 - OBESITY, UNSPECIFIED SNOMED Code(s): 182755489 (9) History of rib fracture Current Visit: No Status: Resolved Code(s): Z87.81 - PERSONAL HISTORY OF ( HEALED) TRAUMATIC FRACTURE SNOMED Code(s): 682749060 (10) Uncontrolled diabetes mellitus Current Visit: Yes Status: Chronic Code(s): E11.65 - TYPE 2 DIABETES MELLITUS WITH HYPERGLYCEMIA SNOMED Code(s): 90222525 (11) History of rheumatic fever Current Visit: No Status: Resolved Code(s): Z86.79 - PERSONAL HISTORY OF OTHER DISEASES OF THE CIRCULATORY SYSTEM SNOMED Code(s): 926462747 (12) Postoperative atrial fibrillation Current Visit: Yes Status: Acute Code(s): I97.89 - OTH POSTPROC COMP AND DISORDERS OF THE CIRC SYS, NEC; I48.91 - UNSPECIFIED ATRIAL FIBRILLATION SNOMED Code(s): 40818269 (13) Postoperative complete heart block Current Visit: Yes Status: Acute Code(s): I97.89 - OTH POSTPROC COMP AND DISORDERS OF THE CIRC SYS, NEC; I44.2 - ATRIOVENTRICULAR BLOCK, COMPLETE SNOMED Code(s): 731209791 (14) S/P mitral valve repair Current Visit: Yes Status: Acute Code(s): Z98.890 - OTHER SPECIFIED POSTPROCEDURAL STATES SNOMED Code(s): 779929240 Plan: 1. Continue DOROTHY inhibitor, statin. Beta tico therapy initiated last night after pacemaker, we will increase as tolerated. 2. Eliquis to be initiated this morning. Aspirin discontinued per Dr. Lane. 3. Encourage incentive spirometry use 10 times every hour while awake. 4. Encourage smoking cessation. 5. Bronchodilators per pulmonology. 6. Increase activity, continue to ambulate in hallway. PT/OT/cardiac rehab following. 7. Will monitor daily labs and x-rays. Electrolyte replacement per protocol. 8. Pain controlled with current medication regimen. 9. Insulin management per primary care service. 10. GI prophylaxis with Protonix, DVT prophylaxis with SCDs. 11. Likely will discharge to home with home care this afternoon. 12. More recommendations to follow based on patient's progress. Time with Patient: Greater than 30
--- NOTE | 2019-01-01 08:44 | XR ---
EXAMINATION TYPE: XR chest 2V DATE OF EXAM: 01/01/2019 COMPARISON: Prior chest x-ray 12/31/2018 HISTORY: Lead placement check TECHNIQUE: Frontal and lateral views of the chest are obtained. FINDINGS: There is been interval placement of a generator in the left pectoral region, there are everett ds in the right atrium and ventricle. Patient is post median sternotomy and the heart remains enlarge d. There is no evident pneumothorax. Central vascularity and interstitium remain prominent, there is perihilar vascular indistinctness. There are cardiac leads. Some minimal blunting of the costophrenic angles is noted. Patient is post atrial appendage clipping. Patchy basilar density noted. Prominent lung volumes compatible with underlying COPD. IMPRESSION: No evident complication status post pacemaker placement. Correlate for congestive heart failure with basilar atelectasis, effusions versus edema, correlate to exclude pneumonia. Follow-up r ecommended.
--- NOTE | 2019-01-01 08:53 | PN ---
PROGRESS NOTE Mr. Barbosa is a 53-year-old male who underwent mitral valve repair. Subsequently had complete heart block with episode of paroxysmal atrial fibrillation. He underwent permanent pacemaker implantation yesterday. He is in sinus mechanism at this time with normal function of his pacemaker. He denies any chest pain except some soreness in the chest from the incision. His breathing is better. He still has some gas. He denies any dizziness or palpitation. He denies any nausea. He will be started today on Eliquis 5 mg twice a day. In addition to that he is on Lipitor 40 mg daily, aspirin once a day, metoprolol tartrate 12.5 mg twice a day lisinopril 2.5 mg daily. PHYSICAL EXAMINATION: Blood pressure 121/70 with the heart rate in the 80s. LUNGS: No wheezes. HEART: Regular rate and rhythm. S1, S2. No S3 with a systolic murmur. ABDOMEN: Soft, nontender. EXTREMITIES: No significant edema. Pacemaker site clean. LAB DATA: Lab data revealed a hemoglobin 12.3. BUN and creatinine of 17 and 0.5. Potassium 4.5. IMPRESSION: 1. Status post mitral valve repair, stable. 2. Complete heart block with permanent pacemaker implantation with normal function. 3. Paroxysmal atrial fibrillation. 4. Hyperlipidemia. 5. Hypertension. RECOMMENDATION: From the cardiac standpoint, we will continue present therapy. We will stop the aspirin. Increase the dose of his beta tico. If he is stable, I would expect he should be able to be discharged home today and followed as an outpatient. MMODALISL / LAYN: [id number] /
[2019-01-01] MEDS ORDERED: APIXABAN 5 MG TAB PO SCH (09:00)
[2019-01-01] MEDS ORDERED: METOPROLOL TARTRATE 25 MG TAB PO SCH (09:00)
[2019-01-01] MEDS: PANTOPRAZOLE 40 MG TABLET PO SCH (09:02)
[2019-01-01] MEDS: ATORVASTATIN 40 MG TAB PO SCH (09:02)
[2019-01-01] MEDS ORDERED: AMIODARONE 200 MG TAB PO SCH (09:30)
--- NOTE | 2019-01-01 09:39 | P.PN ---
Subjective Progress Note Date: 01/01/19 This is a 53-year-old male patient who presented to the hospital for an complex mitral valve repair including triangular resection of P2 with reconstruction, creation of four artificial chordae using Monrovia-Jorge 4-0 to the A2 segment of the valve, posterior annuloplasty using a 36 mm AnnuloFlex ring. Exclusion of the left atrial appendage using a 45 mm AtriClip. Intraoperative transesophageal echocardiogram and epi-aortic scanning With Dr. Cueto on 03/2019. Patient has a known past medical history of diabetes mellitus, hyperlipidemia, hypertension, seizure disorder, heart murmur and nicotine dependence. In September 2018 patient presents to the hospital with complaints of shortness breath and chest pain is at that time cardiology found to 2-D echo severe mitral regurg, severe prolapsed partial flail posterior mitral valve leaflet. 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 Patient is currently postop day 1. At this time patient has been extubated. Patient is doing well. Patient denies any significant chest pain or shortness of breath. Patient denies nausea vomiting or diarrhea. Patient denies any urinary burning or frequency. 12/25/2018 patient is alert and oriented 3 currently sitting up in chair. Patient is currently postop day 2. Patient received 1 dose of IV Lasix yesterday critical care. Plans for possible chest tube removal today. This time patient denies chest pain or shortness of breath. Patient denies nausea vomiting or diarrhea. Patient denies any urinary burning or frequency. Blood sugars have improved. On 12/26/2018 patient is alert and oriented 3 currently sitting up in chair. Patient currently postop day 3. Chest tubes, Cortis, arterial line and Hull catheter DC'd yesterday per cardiothoracic team. At this time patient is still complaining of some vaginal pain. Patient denies shortness breath. Patient denies nausea vomiting or diarrhea. Patient denies any urinary burning or frequency. Incentive spirometer encourged On 12/27/2018 patient was seen and examined in the intensive care unit he is alert and oriented 3 in no apparent distress sitting up in a chair there is no fever or chills no headache or dizziness no chest pain no shortness of breath no cough no nausea or vomiting no diarrhea no abdominal pain and no urinary symptoms. Patient is still in complete heart block, he is maintained on IV amiodarone, we are awaiting decision by cardiology and cardiovascular surgery in regard to permanent pacemaker placement. On 12/28/2018 patient was seen and examined in the ICU he is alert and oriented 3 in no apparent distress he remains in complete heart block otherwise no complaints there is no fever or chills no headache or dizziness no chest pain no shortness of breath no cough no nausea or vomiting no abdominal pain and no urinary symptoms On 12/29/2018 patient remains in the intensive care unit. Patient is alert and oriented 3. Awaiting cardiothoracic and cardiac decision on patient's complete heart block. At this time patient denies chest pain or shortness breath. Patient denies nausea vomiting or diarrhea. Denies any urinary burning or frequency On 12/30/2018 patient remains in the intensive care unit alert and oriented 3. Patient remains on epicardial pacemaker due to complete heart block. Patient is scheduled to undergo permanent pacemaker implantation tomorrow. At this time patient denies chest pain or shortness of breath. Denies nausea vomiting or diarrhea. Patient denies any urinary burning or frequency. On 12/31/2017 patient is currently alert and oriented 3. Patient scheduled for permanent pacemaker placement today at 2 PM. At this time patient denies chest pain or shortness breath. Patient denies nausea vomiting or diarrhea. Patient denies any urinary burning or frequency. On 01/01/2018 patient is alert and oriented 3. Patient underwent permanent pacemaker placement yesterday. Planning to be DC'd per cardiothoracic team home today. Patient denies chest pain or shortness breath. Patient denies nausea vomiting or diarrhea. Patient denies any urinary burning or frequency. Objective - Vital Signs Vital signs: Vital Signs Temp 98.3 F 01/01/19 08:00 Pulse 88 01/01/19 09:00 Resp 10 L 01/01/19 09:00 BP 105/70 01/01/19 09:00 Pulse Ox 90 L 01/01/19 09:00 Intake & Output 12/31/18 01/01/19 01/01/19 18:59 06:59 18:59 Intake Total 650 700 150 Output Total 350 600 0 Balance 300 100 150 Weight 120.1 kg Intake: IV 650 600 150 Sodium Chloride 0.9% 1, 450 600 150 000 ml @ 50 mls/hr IV . Q20H [facility] [place] Rx#:[id number] Oral 100 Output: Urine 350 600 0 Other: Voiding Method Urinal # Voids 0 # Bowel Movements 1 ABP, PAP, CO, CI - Last Documented Arterial Blood Pressure 97/44 Pulmonary Artery Pressure 27/13 Cardiac Output 6.4 Cardiac Index 2.8 - Exam Head normocephalic Neck supple Lungs Diminished bilaterally Heart regular rate and rhythm S1-S2, no rub or gallop Abdomen is soft nontender nondistended positive bowel sounds no hepatosplenomegaly Extremities no edema Neuro alert and orientated to 3 - Labs CBC & Chem 7: 01/01/19 04:43 01/01/19 04:43 Labs: Abnormal Lab Results - Last 24 Hours (Table) 12/31/18 12/31/18 01/01/19 Range/Units 11:48 20:37 04:43 WBC 11.3 H (3.8-10.6) k/uL Hgb 12.3 L (13.0-17.5) gm/dL Hct 37.7 L (39.0-53.0) % Neutrophils # 7.8 H (1.3-7.7) k/uL Creatinine (0.66-1.25) mg/dL Glucose (74-99) mg/dL POC Glucose (mg/dL) 105 H 212 H (75-99) mg/dL AST (17-59) U/L Total Protein (6.3-8.2) g/dL Albumin (3.5-5.0) g/dL 01/01/19 01/01/19 Range/Units 04:43 06:59 WBC (3.8-10.6) k/uL Hgb (13.0-17.5) gm/dL Hct (39.0-53.0) % Neutrophils # (1.3-7.7) k/uL Creatinine 0.52 L (0.66-1.25) mg/dL Glucose 120 H (74-99) mg/dL POC Glucose (mg/dL) 119 H (75-99) mg/dL AST 16 L (17-59) U/L Total Protein 6.1 L (6.3-8.2) g/dL Albumin 2.9 L (3.5-5.0) g/dL Assessment and Plan Assessment: 1. Status post complex mitral valve repair including triangular resection of P2 with reconstruction, creation of four artificial chordae using Monrovia-Jorge 4-0 to the A2 segment of the valve, posterior annuloplasty using a 36 mm AnnuloFlex ring. Exclusion of the left atrial appendage using a 45 mm AtriClip. Intraoperative transesophageal echocardiogram and epi-aortic scanning With Dr. Cueto on 12/23/2018. Patient is currently postop day 6. Patient has been extubated. Mann, chest tubes, A-line and Hull discontinued. Patient remains on epicardial pacemaker generator. Beta Natalia currently DC'd per cardiothoracic surgery 2. History of essential Hypertension 3. Nicotine dependence. Patient reports that he has quit 4. History of diabetes mellitus type 2. Patient currently on insulin drip. Hemoglobin A1c 9.8 on 11/25/2018. Home long-acting insulin has been added. Home long-acting insulin has been increased to 35 units 5. Leukocytosis. Per cardiothoracic team likely reactive. We'll continue to monitor closely 6. History of rheumatic fever 7. Complete heart block. Permanent pacemaker placement 12/31/2018. Planning DC'd 24-48 hours per cardiothoracic team Thank you for this consultation we'll continue to follow patient closely throughout stay I performed an examination of the patient and discussed their management with the Nurse Practitioner. I have reviewed the Nurse Practitioner's notes and agree with the documented findings and plan of care
[2019-01-01 11:52] LABS: Glucose,Whole Blood 114 mg/dL (75-99)
--- NOTE | 2019-01-01 12:19 | P.PN ---
Subjective Progress Note Date: 01/01/19 Principal diagnosis: Status post mitral valve repair This is a 53-year-old white male patient of Dr. Delaney, with past medical history of diabetes mellitus type 2, history of deep vein thrombosis, nicotine dependence, currently in remission, hypertension, obesity, rheumatic fever. Patient was hospitalized in September, he presented to the emergency department with shortness of breath and chest pain. Patient was evaluated by cardiology, and his 2-D echocardiogram revealed severe mitral regurgitation, severe prolapse /partial flail of the posterior mitral valve leaflet. There was severe concentric left ventricular hypertrophy, overall left ventricular systolic function was within normal limits with an EF between 55-60%. Transesophageal echocardiogram on 10/07/2018 showed one of the P2 component of the posterior mitral leaflet with evidence of severe mitral regurgitation with anteriorly directed jet, and EF of 50-55%. Cardiac catheterization showed intermediate nonobstructive disease involving the first diagonal branch of the left anterior descending artery. Patient was recommended for surgical intervention, and today on 12/23/2018 patient underwent complex mitral valve repair including Anatoliy resection of P2 with reconstruction and creation of for artificial chordae, posterior annuloplasty, exclusion of the left atrial appendage, and Intra-operative BELKIS. Patient seen in the intensive care unit, sedated, and intubated on mechanical ventilator. Current vent settings are assist-control mode with a rate of 20,TV 550, FiO2 of 50% and PEEP of 10. Current IV fluids include lactated Ringer's a rate of 50, and insulin drip at 2 units per hour. Cleviprex is on hold, and diprivan at 20 mics per kilo per minute. Midsternal incision is clean dry and intact, covered with a surgical dressing, 2 mediastinal chest tubes are Y-connected to Pleur-evac with small to moderate amount of sanguinous output. Hull catheter is in place, patient is nonoliguric. Cardiac output is 5.7, and index of 2.5. Postoperative chest x- ray was reviewed by Dr. Hardy, and shows ET tube, OG tube, right IJ Cordis, and PA catheter in appropriate positions, no pneumothorax, or pleural effusion, Interstitium was mildly increased. Overall satisfactory postoperative chest x- ray. On today's evaluation of 12/28/2018 the patient is doing well. The patient has no specific complaints. The patient is emanating. The patient is postop day # 5 and the patient underwent mitral valve repair and excision of a left atrial appendage. Note that the patient continues to have cardiac arrhythmias. The patient is having A. fib/flutter in addition to an underlying third-degree AV block. The rhythm is alternating. Nevertheless, despite ongoing arrhythmias, the patient is not having any significant hemodynamic instability. No hypotension. No syncope. No altered mentation. No dizziness. Sternum stable clean and intact. Chest tubes have been all removed. No other significant events for now. The patient has a temporary pacer in place. The patient is being considered for a permanent pacemaker insertion at a later stage. Amiodarone has been discontinued. Reevaluated today on 12/29/2018, patient remains in the ICU, he is postoperative day #6. Underwent mitral valve repair and excision of left atrial appendage, patient continues to have issues related to third-degree AV block, and he is scheduled to have permanent pacemaker implantation tomorrow. Otherwise the patient is doing well, relatively asymptomatic, he has a temporary pacemaker in place. And again he is scheduled for a permanent one tomorrow. Chest x-ray and labs were all reviewed today Reevaluated today on 12/30/2018, remains in the ICU, plans for having a permanent pacemaker implantation were canceled for today, and I believe it scheduled to be done tomorrow. Patient is asymptomatic, no cough no wheezing no shortness of breath. He had mitral valve repair, postoperatively he had persistent complete heart block, and he is undergoing permanent pacemaker implantation tomorrow. No active pulmonary issues, no chest pain, no shortness of breath, no cough no wheezing. Chest x-ray showed slight prominence of the pulmonary vasculature consistent with mild interstitial edema, however the patient is clinically asymptomatic. CBC is relatively normal basic metabolic profile is normal. Reevaluated today on 12/31/2018, remains in the ICU, patient is scheduled to have permanent pacemaker implantation today. Patient developed atrial fibrillation with controlled ventricular response, and that is being addressed by cardiology. Patient is asymptomatic, denies any shortness of breath no cough no wheezing no chest pain. Chest x-ray showed mostly postoperative changes and mild congestive heart failure, received Lasix earlier. Patient was reevaluated today on 01/01/2019, remains in the ICU, doing quite well , he did have his permanent pacemaker implantation done yesterday. Presently the patient is in sinus rhythm, in no distress, denies any cough no wheezing no shortness of breath. Denies any dizziness denies any palpitations. Remains on the same cardiac meds, he is also on anticoagulations therapy/eliqus Objective - Vital Signs Vital signs: Vital Signs Temp 98.3 F 01/01/19 08:00 Pulse 75 01/01/19 10:00 Resp 14 01/01/19 10:00 BP 120/70 01/01/19 10:00 Pulse Ox 88 L 01/01/19 10:00 Intake & Output 12/31/18 01/01/19 01/01/19 18:59 06:59 18:59 Intake Total 650 700 200 Output Total 350 600 0 Balance 300 100 200 Weight 120.1 kg Intake: IV 650 600 200 Sodium Chloride 0.9% 1, 450 600 200 000 ml @ 50 mls/hr IV . Q20H [facility] Rx#:[id number] Oral 100 Output: Urine 350 600 0 Other: Voiding Method Urinal # Voids 0 # Bowel Movements 1 ABP, PAP, CO, CI - Last Documented Arterial Blood Pressure 97/44 Pulmonary Artery Pressure 27/13 Cardiac Output 6.4 Cardiac Index 2.8 - Exam Physical Exam: Revealed a 53-year-old white male on room air, asymptomatic, in no distress Head: Atraumatic, normocephalic. HEENT:[Neck is supple.] [No neck masses.] [No thyromegaly.] [No JVD.] Chest: [clear throughout, no crackles or rhonchi or wheezes. Sternum is noted to be stable. Cardiac Exam: [Regular rate and rhythm. Normal S1 and S2, no S3 gallop, no murmur.] Abdomen: [Soft, nontender, no megaly, no rebound, no guarding, normal bowel sounds.] Extremities: [No clubbing, no edema, no cyanosis.] Neurological Exam: [No focal neurologic deficit.] Psychiatric: Normal mood affect and mental status examination. Lymphatics: No palpable lymphadenopathy. - Labs CBC & Chem 7: 01/01/19 04:43 01/01/19 04:43 Labs: Abnormal Lab Results - Last 24 Hours (Table) 12/31/18 01/01/19 01/01/19 Range/Units 20:37 04:43 04:43 WBC 11.3 H (3.8-10.6) k/uL Hgb 12.3 L (13.0-17.5) gm/dL Hct 37.7 L (39.0-53.0) % Neutrophils # 7.8 H (1.3-7.7) k/uL Creatinine 0.52 L (0.66-1.25) mg/dL Glucose 120 H (74-99) mg/dL POC Glucose (mg/dL) 212 H (75-99) mg/dL AST 16 L (17-59) U/L Total Protein 6.1 L (6.3-8.2) g/dL Albumin 2.9 L (3.5-5.0) g/dL 01/01/19 01/01/19 Range/Units 06:59 11:50 WBC (3.8-10.6) k/uL Hgb (13.0-17.5) gm/dL Hct (39.0-53.0) % Neutrophils # (1.3-7.7) k/uL Creatinine (0.66-1.25) mg/dL Glucose (74-99) mg/dL POC Glucose (mg/dL) 119 H 114 H (75-99) mg/dL AST (17-59) U/L Total Protein (6.3-8.2) g/dL Albumin (3.5-5.0) g/dL Assessment and Plan Assessment: Impression: 1 severe mitral valve regurgitation, status post mitral valve repair, postoperative day # 9 2 postoperative arrhythmias, paroxysmal atrial fibrillation expected and third- degree AV block, presently has a temporary pacemaker, also expected and he is scheduled to have permanent pacemaker placement later this afternoon 3 status post permanent pacemaker implantation postoperative day #1 3 multiple comorbidities including diabetes, history of hyperlipidemia, hypertension, Recommendation: Continue present meds, as listed, continue anticoagulations therapy, Lipitor, beta blockers, DOROTHY inhibitor's, continue incentive spirometry , patient is doing great with his incentive spirometer. And discharge planning is in progress. Time with Patient: Less than 30
[2019-01-01 13:00] VITALS: TEMP 98.1
[2019-01-01 13:01] VITALS: PULSE 77; RESP 17
[2019-01-01 14:44] VITALS: BP 117/82
[2019-01-01] MEDS: LISINOPRIL 2.5 MG TAB PO SCH (14:45)
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
--- NOTE | 2019-01-02 13:50 | CDI ---
Documentation Clarification Form Date: 01/02/19 From: Alida Coker Phone: If you have a question regarding this query, please contact Svitlana Nolen at [phone] 8am - 5pm. Admit Date: 12/23/2018 5:39:00 AM Patient Name: Celestino Barbosa Visit Number: [id number] Discharge Date: 01/01/2019 3:09:00 PM ATTENTION: The Clinical Documentation Specialists (CDI) and [facility] Coding Staff appreciate your assistance in clarifying documentation. Please respond to the clarification below the line at the bottom and electronically sign. The CDI & [facility] Coding staff will review the response and follow-up if needed. Please note: Queries are made part of the Legal Health Record. If you have any questions, please contact the author of this message via ITS. Dr. Prema Cueto CHF is documented in Dr. Méndez's 12/31 and 01/01 progress notes. Documentation states "Chest x-ray showed mostly postoperative changes and mild congestive heart failure, received Lasix earlier." History/Risk Factors: Patient was admitted with severe mitral stenosis with regurgitation. Patient also has CAD, HTN, COPD and developed atrial fib and complete heart block after surgery. Clinical Indicators: No shortness of breath, no significant extremity edema. VS/Pulse OX: On 12/31 - T. 97.9 - 98.6, P. running in the 50s, R. 15 - 26, BP: Systolic 93 - 134, Diastolic 56 - 78, P. Ox. 89 - 96 BNP: Not tested Echocardiogram Results: Not done this admit but per documentation, Echo performed in September 2018 revealed an ejection fraction of 55% Chest X Ray: 12/29, 12/31 and 01/01: Correlate for possible congestive heart failure. Treatment: IV Lasix 1 dose on 12/24, 12/25, 12/27 and 12/29. IV Lasix 2 doses on 12/30 In your professional opinion, can you please clarify the acuity and type of CHF if known? Systolic Heart Failure: Acute Chronic Acute on Chronic Diastolic Heart Failure: Acute Chronic Acute on Chronic Systolic & Diastolic Heart Failure: Acute Chronic Acute on Chronic systolic & diastolic Heart Failure Unable to Determine Other, please specify No evidence of congestive heart failure. Patient had volume overload which is expected outcome after this type of surgery given the amount of volume administered to the patient. MTDD
[2019-01-05] MEDS ORDERED: AMIODARONE 50 MG/ML 3 ML VIAL IV ONE (07:12)
[2019-01-05] MEDS ORDERED: ceFAZolin 1,000 MG VIAL ONE (07:12)
[2019-01-05] MEDS ORDERED: LIDOCAINE 2% SYG (PF) 100 MG/5 ML ONE (07:12)
== END 2019-01-01 15:09 | disposition home health service (06) | DRG 220 ==
LOC: 2ORMAIN 05:39 → 2SICU 14:24
PROVIDERS: ADMIT Surgery; ATTEND Surgery
PROC: 5A1221Z Performance of Cardiac Output, Continuous (ICD-10-PCS; 2018-12-23)
PROC: 02L70CK Occlusion of Left Atrial Appendage with Extraluminal Device, Open Approach (ICD-10-PCS; 2018-12-23)
PROC: B24BZZ4 Ultrasonography of Heart with Aorta, Transesophageal (ICD-10-PCS; 2018-12-23)
PROC: 02UG0JZ Supplement Mitral Valve with Synthetic Substitute, Open Approach (ICD-10-PCS; principal; 2018-12-23 08:00)
PROC: 02BG0ZZ Excision of Mitral Valve, Open Approach (ICD-10-PCS; 2018-12-23 08:00)
PROC: 0JH606Z Insertion of Pacemaker, Dual Chamber into Chest Subcutaneous Tissue and Fascia, Open Approach (ICD-10-PCS; 2018-12-31)
PROC: 02HL3JZ Insertion of Pacemaker Lead into Left Ventricle, Percutaneous Approach (ICD-10-PCS; 2018-12-31)
PROC: 02H63JZ Insertion of Pacemaker Lead into Right Atrium, Percutaneous Approach (ICD-10-PCS; 2018-12-31)
DX: I05.2 Rheumatic mitral stenosis with insufficiency (principal); I44.2 Atrioventricular block, complete; I48.92 Unspecified atrial flutter; J98.11 Atelectasis; I11.0 Hypertensive heart disease with heart failure; I72.3 Aneurysm of iliac artery; E11.65 Type 2 diabetes mellitus with hyperglycemia; I48.0 Paroxysmal atrial fibrillation; J44.9 Chronic obstructive pulmonary disease, unspecified; D72.829 Elevated white blood cell count, unspecified; E66.9 Obesity, unspecified; E78.5 Hyperlipidemia, unspecified; I25.10 Atherosclerotic heart disease of native coronary artery without angina pectoris; I83.90 Asymptomatic varicose veins of unspecified lower extremity; K21.9 Gastro-esophageal reflux disease without esophagitis; F17.210 Nicotine dependence, cigarettes, uncomplicated; Z68.38 Body mass index [BMI] 38.0-38.9, adult; Z79.4 Long term (current) use of insulin; Z79.899 Other long term (current) drug therapy; Z86.718 Personal history of other venous thrombosis and embolism; Z86.72 Personal history of thrombophlebitis; Z87.81 Personal history of (healed) traumatic fracture; Z82.0 Family history of epilepsy and other diseases of the nervous system; Z83.3 Family history of diabetes mellitus
CPT/HCPCS: 33208; 71045; 71046; 80048; 80053; 82330; 82805; 83036; 83735; 84100; 85025; 85027; 85610; 85730; 86850; 86900; 86901; 86920; 88304; 88305; 94002; 94640

== ENCOUNTER → 2019-01-05 | Outpatient (CLI) | payer MEDICARE ==
[2019-01-05 14:34] LABS: Basophils # (A) 0.1 k/uL (0-0.2); Basophils % (A) 1 %; Eosinophils # (A) 0.4 k/uL (0-0.7); Eosinophils % (A) 3 %; HCT 40.5 % (39.0-53.0); Hypochromasia Slight; Lymphocytes # (A) 3.2 k/uL (1.0-4.8); Lymphocytes % (A) 21 %; MCH 27.9 pg (25.0-35.0); MCHC 32.1 g/dL (31.0-37.0); MCV 86.8 fL (80.0-100.0); Mean Platelet Volume 6.3; Monocytes # (A) 0.8 k/uL (0-1.0); Monocytes % (A) 5 %; Neutrophils # (A) 10.6 k/uL (1.3-7.7); Neutrophils % (A) 70 %; Platelet Count 458 k/uL (150-450); RBC 4.66 m/uL (4.30-5.90); RDW 13.8 % (11.5-15.5); WBC 15.3 k/uL (3.8-10.6)
[2019-01-06 00:12] LABS: Albumin 3.8 g/dL (3.80-4.90); Albumin/Globulin Ratio 1.31 (1.60-3.17); Anion Gap 9.7 mmol/L (4.00-12.00); Calcium 9.4 mg/dL (8.7-10.3); Carbon Dioxide 25.3 mmol/L (21.6-31.8); Globulin 2.9 g/dL (1.6-3.3); Potassium 5.1 mmol/L (3.5-5.5); Total Bilirubin 0.3 mg/dL (0.2-1.2); Total Protein 6.7 g/dL (6.2-8.2)
== END | disposition home or self-care (01) ==
LOC: LABWHC1 13:07
PROVIDERS: ATTEND Surgery
DX: D72.829 Elevated white blood cell count, unspecified (principal); Z98.890 Other specified postprocedural states
CPT/HCPCS: 36415; 80053; 85025

== ENCOUNTER 2019-04-29 00:02 | Observation (INO) | payer MEDICARE ==
--- NOTE | 2019-04-29 00:23 | ED ---
Chest Pain HPI - General Chief Complaint: Chest Pain Stated Complaint: Chest Pain Time Seen by Provider: 04/29/19 00:22 Source: patient, family Mode of arrival: wheelchair Limitations: no limitations - History of Present Illness Initial Comments: 's patient is a 54-year-old man who presents to be evaluated for chest pain. The patient states that it came on this afternoon, probably around 5 PM while he was just sitting. The patient states that the pains are intermittent. They come on for a second. They can be many of them in a row and then there will be a pause. He describes it as sharp stabbing type pain. He has not found anything that makes the pain better or worse. Patient has not had any associated symptoms, including no diaphoresis, dyspnea, nausea or vomiting, palpitations, lightheadedness or syncope. The patient states that it does not remind him of the pain he had prior to his bypass operation 4 months ago. MD Complaint: chest pain Onset/Timin -: hour(s) Onset: during rest Pain Location: left chest Pain Radiation: none Severity: moderate Quality: sharp Consistency: intermittent Improves With: nothing Worsens With: nothing Treatments Prior to Arrival: none - Related Data Home Medications Medication Instructions Recorded Confirmed Insulin Degludec [Tresiba 32 unit SQ HS 10/05/18 12/23/18 Flextouch U-200] Albuterol Inhaler [Ventolin Hfa 1 - 2 puff INHALATION RT-BID 11/25/18 12/23/18 Inhaler] Fluticasone Nasal [place] [Flonase 2 spr EA NOSTRIL DAILY 12/18/18 12/23/18 Nasal [place]] Fluticasone/Umeclidin/Vilanter 1 inhalation INHALATION RT-DAILY 12/18/18 12/23/18 [Trelegy Ellipta 100-62.5-25] Semaglutide [Ozempic] 0.25 mg SQ TU 12/18/18 12/23/18 Previous Rx's Medication Instructions Recorded Acetaminophen Tab [Tylenol] 325 mg PO Q4HR PRN tab 01/01/19 Acetaminophen Tab [Tylenol] 650 mg PO Q4HR PRN tab 01/01/19 Amiodarone [Cordarone] 200 mg PO DAILY #30 tab 01/01/19 Apixaban [Eliquis] 5 mg PO BID #60 tab 01/01/19 Atorvastatin [Lipitor] 40 mg PO DAILY #30 tab 01/01/19 Calcium Carbonate [Tums] 500 mg PO QID PRN chew 01/01/19 HYDROcodone/APAP 5-325MG [[place] 1 each PO Q6HR PRN #30 tab 01/01/19 5-325] Lisinopril [Zestril] 2.5 mg PO DAILY@1200 #30 tab 01/01/19 Metoprolol Tartrate [Lopressor] 25 mg PO BID #60 tab 01/01/19 Pantoprazole [Protonix] 40 mg PO AC-BRKFST #30 tablet. 01/01/19 Sennosides-Docusate Sodium 2 each PO HS #14 tab 01/01/19 [Senokot-S] Allergies Allergy/AdvReac Type Severity Reaction Status Date / Time metformin Allergy seizure Verified 04/29/19 00:10 Review of Systems ROS Statement: Those systems with pertinent positive or pertinent negative responses have been documented in the HPI. ROS Other: All systems not noted in ROS Statement are negative. Constitutional: Denies: fever, chills Respiratory: Denies: cough, dyspnea Cardiovascular: Reports: chest pain. Denies: palpitations, orthopnea, edema, syncope Gastrointestinal: Denies: abdominal pain, nausea, vomiting Genitourinary: Denies: dysuria, hematuria Musculoskeletal: Denies: back pain Skin: Denies: rash Neurological: Denies: headache, weakness EKG Findings - EKG Results: EKG: interpreted by COURTNEY CHAVIRAL, sinus rhythm (Rate 84 bpm), normal axis, normal QRS, normal ST/T - [place], Pacemaker, Normal: Normal tracing: normal tracing Past Medical History Past Medical History: Diabetes Mellitus, Deep Vein Thrombosis (DVT), Hypertension Additional Past Medical History / Comment(s): heart murmur History of Any Multi-Drug Resistant Organisms: None Reported Past Surgical History: Coronary Bypass/CABG, Pacemaker Past Anesthesia/Blood Transfusion Reactions: No Reported Reaction Past Psychological History: No Psychological Hx Reported Smoking Status: Current every day smoker Past Alcohol Use History: None Reported Past Drug Use History: Marijuana - Past Family History Mother History Unknown: Yes Father History Unknown: Yes Brother(s) History Unknown: Yes Sister(s) Family Medical History: Diabetes Mellitus Daughter(s) Family Medical History: Seizure Disorder Son(s) Family Medical History: No Reported History General Exam Limitations: no limitations General appearance: alert, in no apparent distress Head exam: Present: atraumatic, normocephalic Eye exam: Present: normal appearance. Absent: scleral icterus, conjunctival injection ENT exam: Present: normal oropharynx Neck exam: Present: normal inspection Respiratory exam: Present: normal lung sounds bilaterally, chest wall tenderness. Absent: respiratory distress, wheezes, rales, rhonchi, stridor Cardiovascular Exam: Present: regular rate, normal rhythm, normal heart sounds. Absent: systolic murmur, diastolic murmur, rubs, gallop GI/Abdominal exam: Present: soft. Absent: distended, tenderness, guarding, rebound, rigid, mass Extremities exam: Present: normal inspection, normal capillary refill. Absent: pedal edema, calf tenderness Back exam: Present: normal inspection. Absent: CVA tenderness (R), CVA tenderness (L) Neurological exam: Present: alert Skin exam: Present: warm, dry, intact, normal color. Absent: rash Course Vital Signs 04/29/19 04/29/19 00:07 03:06 Temperature 97.6 F Pulse Rate 83 92 Respiratory 18 20 Rate Blood Pressure 107/76 116/79 O2 Sat by Pulse 95 95 Oximetry Disposition Clinical Impression: Atypical chest pain, Hyperglycemia, Tobacco dependence Disposition: ADMITTED IP TO THIS [facility] Condition: Good Instructions (If sedation given, give patient instructions): Chest Pain (ED) Is patient prescribed a controlled substance at d/c from ED?: No Referrals: Gema Stone DO [Primary Care Provider] - 1-2 days
[2019-04-29 00:34] LABS: Basophils # (A) 0.1 k/uL (0-0.2); Basophils % (A) 1 %; Eosinophils # (A) 0.4 k/uL (0-0.7); Eosinophils % (A) 2 %; HCT 48.7 % (39.0-53.0); HGB 15.9 gm/dL (13.0-17.5); Lymphocytes % (A) 18 %; MCH 26.7 pg (25.0-35.0); MCHC 32.7 g/dL (31.0-37.0); MCV 81.7 fL (80.0-100.0); Mean Platelet Volume 7.1; Monocytes # (A) 0.8 k/uL (0-1.0); Monocytes % (A) 5 %; Neutrophils # (A) 12.6 k/uL (1.3-7.7); Neutrophils % (A) 74 %; Platelet Count 255 k/uL (150-450); RBC 5.96 m/uL (4.30-5.90); RDW 15.7 % (11.5-15.5); WBC 17.1 k/uL (3.8-10.6)
[2019-04-29 00:45] LABS: ALT 11 U/L (21-72); AST 22 U/L (17-59); African American GFR (CKD) >90 (>60 ml/min/1.73 sqM); Albumin 4.2 g/dL (3.5-5.0); Alkaline Phosphatase 83 U/L (38-126); Amylase 34 U/L (30-110); Anion Gap 9 mmol/L; Blood Urea Nitrogen 15 mg/dL (9-20); Calcium 9.3 mg/dL (8.4-10.2); Carbon Dioxide 23 mmol/L (22-30); Chloride 105 mmol/L (98-107); Glucose 284 mg/dL (74-99); Lipase 120 U/L (23-300); Sodium 137 mmol/L (137-145); Total Protein 7.7 g/dL (6.3-8.2)
--- NOTE | 2019-04-29 00:54 | XR ---
EXAM: XR Chest, 2 Views CLINICAL HISTORY: Chest Pain TECHNIQUE: Frontal and lateral views of the chest. COMPARISON: 01/01/2019 FINDINGS: Lungs: Unremarkable. No consolidation. Pleural space: Unremarkable. No pneumothorax. Heart: Stable cardiomediastinal silhouette. Mediastinum: Stable postoperative mediastinum. Bones/joints: No acute osseous abnormality. Tubes, lines and devices: Stable left chest wall cardiac pacemaker. Telemetry leads overlie the patient. IMPRESSION: No acute cardiopulmonary process.
[2019-04-29 01:00] LABS: D-Dimer 0.47 mg/L FEU (<0.60); INR 0.9 (<1.2); Partial Thromboplastin Time 25.4 sec (22.0-30.0); Potassium 4.9 mmol/L (3.5-5.1); Prothrombin Time 10.2 sec (9.0-12.0)
[2019-04-29] MEDS ORDERED: NITROGLYCERIN SL TABS 0.4 MG TAB SUBLINGUAL PRN (03:23)
[2019-04-29] MEDS ORDERED: ACETAMINOPHEN TAB 325 MG TAB PO PRN (03:25)
[2019-04-29] MEDS ORDERED: HYDROcodone/APAP 5-325MG 1 EACH TAB PO PRN (03:25)
[2019-04-29] MEDS ORDERED: MORPHINE SULFATE 4 MG/ML SYRINGE IV STA (03:27)
[2019-04-29] MEDS ORDERED: MORPHINE SULFATE 4 MG/ML SYRINGE IV PRN (03:27)
[2019-04-29] MEDS ORDERED: INSULIN REGULAR 100 UNIT/ML VIAL SQ STA (03:35)
[2019-04-29] MEDS ORDERED: PANTOPRAZOLE 40 MG TABLET PO SCH (07:30)
[2019-04-29] MEDS ORDERED: UMECLIDIN INHALATION SCH (08:00)
[2019-04-29] MEDS ORDERED: FLUTICASONE INHALATION SCH (08:00)
[2019-04-29] MEDS ORDERED: [UNRECOGNIZED DRUG - OTHER] INHALATION SCH (08:00)
[2019-04-29] MEDS ORDERED: VILANTER INHALATION SCH (08:00)
[2019-04-29] MEDS: ALBUTEROL NEBULIZED 2.5 MG/3 ML INHALATION SCH ×2 (08:25→19:08)
[2019-04-29] MEDS ORDERED: AMIODARONE 200 MG TAB PO SCH (09:00)
[2019-04-29] MEDS ORDERED: METOPROLOL TARTRATE 25 MG TAB PO SCH (09:00)
[2019-04-29] MEDS ORDERED: FLUTICASONE 50MCG/SPRAY NASAL 16GM EA NOSTRIL SCH (09:00)
[2019-04-29] MEDS ORDERED: APIXABAN 5 MG TAB PO SCH (09:00)
[2019-04-29] MEDS ORDERED: CALCIUM CARBONATE 500 MG CHEWABLE PO PRN (09:00)
[2019-04-29] MEDS ORDERED: ATORVASTATIN 40 MG TAB PO SCH (09:00)
[2019-04-29 09:07] LABS: Glucose,Whole Blood 160 mg/dL (75-99)
[2019-04-29 11:00] VITALS: RESP 16; TEMP 98.2
[2019-04-29 11:07] LABS: Appearance,Urine Clear (Clear); Bilirubin,Urine Negative (Negative); Blood,Urine Negative (Negative); Color,Urine Yellow; Glucose,Urine (UA) 4+ (Negative); Ketones,Urine Negative (Negative); Leukocyte Esterase,Urine Negative (Negative); Nitrite,Urine Negative (Negative); Protein,Urine Trace (Negative); Specific Gravity,Urine 1.022 (1.001-1.035)
[2019-04-29 11:41] LABS: Glucose,Whole Blood 283 mg/dL (75-99)
[2019-04-29] MEDS: INSULIN ASPART (NovoLOG) 100 UNIT/ML VIAL SQ SCH ×2 (11:48→17:20)
[2019-04-29] MEDS ORDERED: LISINOPRIL 2.5 MG TAB PO SCH (12:00)
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
--- NOTE | 2019-04-29 16:25 | P.DS ---
Providers Date of admission: 04/29/19 03:23 Expected date of discharge: 04/29/19 Attending physician: Micaela Delaney Consults: 04/29/19 08:35 Consult Physician Routine Consulting Provider: Constance Lane Consult Reason/Comments: chest pain Do you want consulting provider notified?: Yes Primary care physician: Gema Stone [facility] Course: Discharge diagnosis 1. Chest pain. Troponins negative. Chest x-ray showing no acute process. Per cardiology to acute coronary event has been ruled out. Pacemaker has been interrogated 2. Leukocytosis. White blood cell elevated at 17.1 chest x-ray showing no acute process. Urinary analysis negative. Patient afebrile. Patient denies any acute symptoms. It appears the patient has had consistent leukocytosis September 2018 recommending further workup from his PCP and possible hematology consult. 3. Pacemaker placement secondary to complete heart block. Pacemaker has been interrogated awaiting final report per cardiology to determine if anticoagulation can be DC'd. Per cardiology patient may be DC'd home after final report 4. History of nicotine dependence. Patient educated greater than 3 minutes on smoking cessation. Patient declined nicotine patch 5. Noncompliance with medication due to lack money and insurance coverage. Surgical consult placed. discussed with nursing staff that if patient has to be on anticoagulation per cardiology. discharge will be held due to social work consult for addressing anticoagulation 6. Recent coronary artery bypass graft surgery in December 2018 7. Essential hypertension 8. Diabetes mellitus type 2 9. Hyperlipidemia 10. Postoperative paroxysmal atrial fibrillation. Patient is maintained on eliquis but has been noncompliant due to lack money and insurance coverage. Per cardiology amiodarone can be discontinued. Interrogation of pacemaker to assess atrial fibrillation and to assess further need for anticoagulation. Patient declined switching to Coumadin due to belief that he would bleed. Discharge pending cardiac clearance and plan for anticoagulation depending upon pacemaker interrogation findings. This was explained to nursing staff nursing understands that cardiology most address these issues prior to discharge 11. History of rheumatic fever Hospital course This is a 54-year-old male patient of Dr. Stone. Patient presented with complaints of chest pain. Patient has a past medical history of coronary artery bypass graft surgery proximal 4 months ago and pacemaker placement. Patient reports that chest pain started yesterday. Denies any associated shortness of breath or nausea. Patient has past medical history of hypertension, hyperlipidemia, peripheral vascular disease, diabetes mellitus and nicotine dependence. Patient also reports noncompliance with medication due to not being able to afford. Per nursing staff pacemaker has been interrogated and cardiology investigating whether patient needs to remain on anticoagulation and be DC'd. Chest x-ray completed showing no acute cardiopulmonary process. EKG completed showing normal sinus rhythm heart rate 84. White blood cell elevated at 17.1. UA negative. Troponins negative 3. At this time patient is resting comfortably in chair. Patient excessive that he would like to be discharged home. Patient denies any acute symptoms. Patient reports chest pain is now to 1. Patient denies any shortness of breath. Patient denies nausea vomiting or diarrhea. On 04/29/2019 patient is very eager to go home. Discussed with nursing staff patient interrogation was completed again awaiting final report. Awaiting cardiology recommendation and if patient needs to continue anticoagulation. Discussed with nursing staff that cardiology most clear patient for discharge and address requirements for anticoagulation. If patient does require anticoagulation for discharge will be held and social work consult to address financial means for anticoagulation. At this time patient denies chest pain or shortness of breath. Patient denies nausea vomiting or diarrhea. Patient denies any urinary burning or frequency. Patient to follow-up with PCP for chronic leukocytosis. Recommend hematology consult I performed an examination of the patient and discussed their management with the Nurse Practitioner. I have reviewed the Nurse Practitioner's notes and agree with the documented findings and plan of care Patient Condition at Discharge: Stable Plan - Discharge Summary Discharge Rx Participant: No New Discharge Prescriptions: New Lisinopril 20 mg PO DAILY 30 Days #30 tab Continue Insulin Degludec [Tresiba Flextouch U-200] 16 unit SQ HS Apixaban [Eliquis] 5 mg PO BID #60 tab Pantoprazole [Protonix] 40 mg PO AC-BRKFST #30 tablet. Metoprolol Tartrate [Lopressor] 25 mg PO BID #60 tab Atorvastatin [Lipitor] 20 mg PO DAILY Discontinued Amiodarone [Cordarone] 200 mg PO DAILY #30 tab Lisinopril 20 mg PO DAILY Discharge Medication List Insulin Degludec [Tresiba Flextouch U-200] 16 unit SQ HS 10/05/18 [History] Apixaban [Eliquis] 5 mg PO BID #60 tab 01/01/19 [Rx] Metoprolol Tartrate [Lopressor] 25 mg PO BID #60 tab 01/01/19 [Rx] Pantoprazole [Protonix] 40 mg PO JAMEEL-BRKFST #30 tablet. 01/01/19 [Rx] Atorvastatin [Lipitor] 20 mg PO DAILY 04/29/19 [History] Lisinopril 20 mg PO DAILY 30 Days #30 tab 04/29/19 [Rx] Follow up Appointment(s)/Referral(s): Gema Stone DO [Primary Care Provider] - 05/04/19 2:00 pm (Follow up with Dr Gema Stone on SaturdayMay 04 at 2 PM) Mina Bhatt MD [STAFF PHYSICIAN] - 1 Week Patient Instructions/Handouts: Chest Pain (ED) Activity/Diet/Wound Care/Special Instructions: Please discuss with Primary care doctor the need to see a program therapist as an outpatient ie: regarding chronic elevated wbc's Per ARTURO Lopez for Dr Delaney. Discharge Disposition: HOME SELF-CARE
[2019-04-29 17:08] LABS: Glucose,Whole Blood 224 mg/dL (75-99)
[2019-04-29 17:59] LABS: Cholesterol 159 mg/dL (<200); HDL Cholesterol 36 mg/dL (40-60); LDL Cholesterol,Calculated 82 mg/dL (0-99); Triglycerides 207 mg/dL (<150)
[2019-04-29 18:40] VITALS: BP 126/72; PULSE 79
[2019-04-29] MEDS ORDERED: SENNOSIDES-DOCUSATE SODIUM 1 EACH TAB PO SCH (21:00)
[2019-04-29] MEDS ORDERED: INSULIN DETEMIR (LEVEMIR) 100 UNIT/ML SYR SQ SCH (21:00)
[2019-04-30] MEDS ORDERED: ASPIRIN 81 MG PO SCH (09:00)
[2019-04-30] MEDS ORDERED: ASPIRIN 325 MG TAB PO SCH (09:00)
[2019-05-05] MEDS ORDERED: SEMAGLUTIDE 0.25 MG SQ SCH (03:25)
== END 2019-04-29 19:17 | disposition home or self-care (01) ==
LOC: EC 00:02 → 1SOBS 03:23
PROVIDERS: ADMIT Internal Medicine; ATTEND Internal Medicine
DX: R07.89 Other chest pain (principal); I25.10 Atherosclerotic heart disease of native coronary artery without angina pectoris; E78.5 Hyperlipidemia, unspecified; E11.51 Type 2 diabetes mellitus with diabetic peripheral angiopathy without gangrene; F17.200 Nicotine dependence, unspecified, uncomplicated; D72.829 Elevated white blood cell count, unspecified; Z71.6 Tobacco abuse counseling; E11.65 Type 2 diabetes mellitus with hyperglycemia; I44.2 Atrioventricular block, complete; I11.9 Hypertensive heart disease without heart failure; I48.0 Paroxysmal atrial fibrillation; J44.9 Chronic obstructive pulmonary disease, unspecified; T45.516A Underdosing of anticoagulants, initial encounter; Z91.120 Patient's intentional underdosing of medication regimen due to financial hardship; Z95.1 Presence of aortocoronary bypass graft; Z95.0 Presence of cardiac pacemaker; Z86.72 Personal history of thrombophlebitis; Z86.718 Personal history of other venous thrombosis and embolism; Z79.01 Long term (current) use of anticoagulants; Z79.4 Long term (current) use of insulin; Z79.899 Other long term (current) drug therapy; Z86.19 Personal history of other infectious and parasitic diseases; Z82.0 Family history of epilepsy and other diseases of the nervous system; Z83.3 Family history of diabetes mellitus
CPT/HCPCS: 93288; 96374; 99285; 36415; 93005; 85379; 80061; 80053; 82150; 83690; 83735; 84484; 85025; 85610; 85730; 81003; 87086; 71046; G0378; J2270

== ENCOUNTER 2019-05-08 21:38 | Emergency (ER) | payer MEDICARE ==
[2019-05-08] MEDS ORDERED: ASPIRIN 81 MG PO STA (21:57)
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
[2019-05-08 22:04] LABS: Glucose,Whole Blood 265 mg/dL (75-99)
[2019-05-08 22:11] LABS: Basophils # (A) 0.1 k/uL (0-0.2); Basophils % (A) 1 %; Eosinophils # (A) 0.2 k/uL (0-0.7); Eosinophils % (A) 2 %; HCT 49.1 % (39.0-53.0); HGB 15.8 gm/dL (13.0-17.5); Hypochromasia Slight; Lymphocytes # (A) 3.7 k/uL (1.0-4.8); Lymphocytes % (A) 24 %; MCH 26.2 pg (25.0-35.0); MCHC 32.2 g/dL (31.0-37.0); MCV 81.3 fL (80.0-100.0); Mean Platelet Volume 7.3; Monocytes # (A) 0.8 k/uL (0-1.0); Monocytes % (A) 5 %; Neutrophils # (A) 10.3 k/uL (1.3-7.7); Neutrophils % (A) 67 %; Platelet Count 320 k/uL (150-450); RBC 6.04 m/uL (4.30-5.90); WBC 15.3 k/uL (3.8-10.6)
[2019-05-08 22:16] LABS: ALT 13 U/L (21-72); AST 17 U/L (17-59); African American GFR (CKD) >90 (>60 ml/min/1.73 sqM); Albumin 4.1 g/dL (3.5-5.0); Alkaline Phosphatase 86 U/L (38-126); Anion Gap 9 mmol/L; Blood Urea Nitrogen 18 mg/dL (9-20); Calcium 9.2 mg/dL (8.4-10.2); Carbon Dioxide 25 mmol/L (22-30); Chloride 105 mmol/L (98-107); Glucose 265 mg/dL (74-99); Potassium 4.5 mmol/L (3.5-5.1); Sodium 139 mmol/L (137-145); Total Bilirubin 0.4 mg/dL (0.2-1.3); Total Protein 7.6 g/dL (6.3-8.2)
[2019-05-08 22:17] LABS: Partial Thromboplastin Time 27.2 sec (22.0-30.0); Prothrombin Time 10.7 sec (9.0-12.0)
--- NOTE | 2019-05-08 22:30 | XR ---
EXAM: XR Chest, 2 Views CLINICAL HISTORY: ITS.REASON XR Reason: altered mental status TECHNIQUE: Frontal and lateral views of the chest. COMPARISON: Chest radiographs 04/29/2019. FINDINGS: Lungs: Unremarkable. No consolidation. Pleural space: Unremarkable. No pneumothorax. Heart: Cardiomegaly. Mediastinum: Unremarkable. Bones/joints: Sternal cerclage arch. Tubes, lines and devices: Cardiac pacing device. IMPRESSION: 1. No acute cardiopulmonary abnormality. 2. Cardiomegaly.
--- NOTE | 2019-05-08 22:37 | CT ---
EXAM: CT Head Without Intravenous Contrast CLINICAL HISTORY: ITS.REASON CT Reason: Neuro Deficits TECHNIQUE: Axial computed tomography images of the head/brain without intravenous contrast. CTDI is 49.27 mGy and DLP is 1099.4 mGy-cm. This CT exam was performed using one or more of the following dose reduction techniques: automated exposure control, adjustment of the mA and/or kV according to patient size, and/or use of iterative reconstruction technique. COMPARISON: None. FINDINGS: Brain: Hypodensity in the anterior limb of the right internal capsule may represent a chronic lacunar infarction. Cavum septum pellucidum at vergae. No hemorrhage. No significant white matter disease. Ventricles: Unremarkable. No ventriculomegaly. Bones/joints: Unremarkable. No acute fracture. Soft tissues: Unremarkable. Sinuses: Mild mucosal thickening is seen ethmoid and maxillary. Mastoid air cells: Unremarkable as visualized. No mastoid effusion. IMPRESSION: 1. No intracranial hemorrhage or other acute intracranial abnormality. 2. Hypodensity in the anterior limb of the right internal capsule may represent a chronic lacunar infarction.
[2019-05-08 23:49] VITALS: BP 123/62; PULSE 82; RESP 18; TEMP 98.1
== END 2019-05-08 23:48 | disposition other institution (70) ==
LOC: EC 21:38
DX: G45.9 Transient cerebral ischemic attack, unspecified (principal); I48.91 Unspecified atrial fibrillation; I25.119 Atherosclerotic heart disease of native coronary artery with unspecified angina pectoris; E11.9 Type 2 diabetes mellitus without complications; I10 Essential (primary) hypertension; E78.5 Hyperlipidemia, unspecified; J44.9 Chronic obstructive pulmonary disease, unspecified; F17.200 Nicotine dependence, unspecified, uncomplicated; Z79.4 Long term (current) use of insulin; Z79.899 Other long term (current) drug therapy; Z88.8 Allergy status to other drugs, medicaments and biological substances; Z95.0 Presence of cardiac pacemaker; Z95.1 Presence of aortocoronary bypass graft; Z86.718 Personal history of other venous thrombosis and embolism
CPT/HCPCS: 36415; 70450; 71046; 80053; 84484; 85025; 85610; 85730; 93005; 99285